=== PATIENT | female | born 1935 | race Caucasian/White ===

== ENCOUNTER 2017-08-09 09:37 | Outpatient (POV) | payer MEDICARE, OTHER, SELFPAY | END 2017-08-09 11:23 | disposition home or self-care (01) | PROVIDERS: Visit Provider Podiatrist | DX: M25.572 Pain in left ankle and joints of left foot (principal); M25.571 Pain in right ankle and joints of right foot; E11.8 Type 2 diabetes mellitus with unspecified complications | CPT/HCPCS: 99212; G0127 ==

== ENCOUNTER → 2017-09-27 07:24 | Outpatient (CLI) | payer MEDICARE, OTHER, SELFPAY ==
[2017-09-27 07:54] LABS: Basophils % 0.6 % (0.1-2.0); Eosinophils # 0.3 K/mm3 (0.0-0.4); Eosinophils % 4.4 % (0.1-12.0); Hematocrit 38.6 % (37.0-47.0); Hemoglobin 12.3 g/dL (12.2-16.2); Lymphocytes # 1.5 K/mm3 (0.7-4.5); Lymphocytes % 22.5 K/mm3 (10-50); Mean Corpuscular HGB Conc 31.9 g/dL (31.8-35.4); Mean Corpuscular Hemoglobin 31.6 pg (27.0-31.2); Mean Corpuscular Volume 99.3 fl (81-99); Monocytes # 0.5 K/mm3 (0.1-1.0); Monocytes % 7.3 % (1.7-9.3); Neutrophils # 4.3 K/mm3 (1.8-7.8); Neutrophils % 65.1 % (37.0-80.0); Platelet Count 177 K/mm3 (142-424); Red Blood Count 3.89 M/mm3 (4.20-5.40); Red Cell Distribution Width 13.8 % (11.5-17.5); White Blood Count 6.5 K/mm3 (4.8-10.8)
[2017-09-27 09:14] LABS: Alanine Aminotransferase 82 U/L (12-78); Albumin Level 3.3 gm/dL (3.4-5.0); Albumin/Globulin Ratio 1.3 (1.1-1.8); Alkaline Phosphatase 67 U/L (46-116); Anion Gap 12.6 mEq/L (5-15); Aspartate Amino Transferase 66 U/L (15-37); Bilirubin,Total 0.4 mg/dL (0.2-1.0); Blood Urea Nitrogen 21 mg/dL (7-18); Calcium 9.2 mg/dL (8.5-10.1); Carbon Dioxide 28 mmol/L (21.0-32.0); Chloride 109 mmol/L (98-107); Creatinine,Serum 0.77 mg/dL (0.55-1.02); Estimated Glomerular Filt Rate 72 ml/min (>60); GFR (African American) 87 ML/MIN (>60); Globulin 2.5 gm/dl (1.3-3.2); Glucose 101 mg/dL (74-106); Potassium 4.6 mmoL/L (3.5-5.1); Sodium 145 mmol/L (136-145); Total Protein,Serum 5.8 gm/dL (6.4-8.2)
== END ==
PROVIDERS: PCP Nurse Practitioner Family; Visit Provider Nurse Practitioner Acute Care
DX: R94.5 Abnormal results of liver function studies (principal)
CPT/HCPCS: 36415; 80053; 85025

== ENCOUNTER 2017-10-19 10:57 | Observation (INO) | payer MEDICARE, OTHER, SELFPAY ==
[2017-10-19 11:01] VITALS: BP 152/72; PULSE 84; RESP 18; TEMP 36.9; O2SAT 90; BMI 24.4
--- NOTE | 2017-10-19 11:20 | CT_ITS ---
CT head/brain wo con Ordering Physician: Walt Giordano MD Patient Age: 82 years: Female HISTORY. Mental status changes.: ITS.REASON: CONFUSION TECHNIQUE routine axial CT head without contrast. Bone & brain windows performed & submitted to PACS. COMPARISON :Previous CT orbits 2010 partially includes right. FINDINGS . No hemorrhage... No subdural collection. No definitive acute findings. Minimal chronic small vessel deep white matter ischemic changes. Low-density about the anterior horn of the lateral ventricles is similar to 2010 CT orbits There are also also subtle low density changes involving more peripheral white matter frontal lobe and which extends into a gyrus at the left frontal lobe.- Nonspecific feature. More likely chronic subcortical small vessel ischemic feature, but difficult to exclude a a recent or acute area of ischemic change if acute event.(. Axial image 33, 34.) Of gradually progressive symptoms continue to consider postcontrast CT to exclude any underlying pathology otherwise. Also question subtle decreased density subcortical deep white matter on right right frontal lobe on axial image 32. Again likely reflecting small vessel ischemic feature. Posterior fossa appears normal. Abnormal findings at orbits as previously noted in 2010 Enlargement of the inferior rectus muscle on right more so than left likely similar to 2010.. Generous thickness of the optic nerve bilaterally, right more appears slightly more evident more evident than 2010.. These Requires correlation. is there a history of thyroid ophthalmoplegia? Minimal Subtle stranding at retrobulbar fat again noted similar, previous studies Focal calcification most likely tiny metallic elements at the sclera anterior left orbit previous surgery here possibly at left globe? Versus foreign body. This feature was not present in 2009?. Has been interval surgery to the left globe such as cataract surgery? The paranasal sinuses are clear. Mastoid air cells, middle ear unremarkable. ------IMPRESSION No hemorrhage. No definitive acute findings. Vague low density subcortical deep white matter bilateral, which extends into overlying gyrus at the left frontal lobe and to lesser degree right frontal region. Most likely chronic small vessel ischemic change. However if there are headaches or progressive neurologic symptoms follow-up postcontrast MR or CT warranted (to further exclude underlying lesions.) Note small focal calcification versus possible tiny metallic feature, at sclera of the anterior left globe just to the left of the lens. This was not present 2009. Has a been interval surgery/cataract surgery since 2009?. Requires correlation. (Particularly if MR pursued) At orbits again note enlarge thickened inferior rectus muscles, right greater than left. Mild diffuse thickening of the optic nerve right greater than left also suggested on today's CT head study. Requires correlation. Is there history of thyroid ophthalmoplegia?
--- NOTE | 2017-10-19 11:28 | HMH.EDGENADL ---
ED Disposition Clinical Impression: Altered mental status Qualifiers: Altered mental status type: disorientation Qualified Code(s): R41.0 - Disorientation, unspecified Disposition: Still a Patient Condition on Discharge: Good Referrals: Magi Flanagan APRN [Primary Care Provider] - - Critical Care Critical Care Time: No Attestation: On , the high probability of a clinically significant, sudden or life threatening deterioration of the following system(s) required my full and direct attention, intervention and personal management. The time I documented below is in addition to time spent performing reported procedures but includes the following listed in this critical care notation. Medical Decision Making Vital Signs: 10/19/17 11:01 Temperature 98.5 F Temperature Source Oral Pulse Rate [Right Brachial] 84 Respiratory Rate 18 Blood Pressure [Right Arm] 152/72 Blood Pressure Mean [Right Arm] 98 Blood Pressure Source [Right Arm] Automatic Cuff Blood Pressure Position [Right Arm] Supine 02 Sat by Pulse Oximetry 90 L Oxygen Delivery Method Room Air - Lab Data Lab Results 10/19/17 11:20: WBC 11.0 H, RBC 4.08 L, Hgb 13.2, Hct 39.5, MCV 96.9, MCH 32.4 H, MCHC 33.4, RDW 13.1, Plt Count 201, MPV 8.2, Neut % (Auto) 72.7, Lymph % (Auto) 16.5, [place] % (Auto) 8.7, Eos % (Auto) 1.7, Baso % (Auto) 0.4, Neut # (Auto) 8.0 H, Lymph # (Auto) 1.8, [place] # (Auto) 1.0, Eos # (Auto) 0.2, Baso # (Auto) 0.0 10/19/17 11:20: Sodium 137, Potassium 4.0, Chloride 102, Carbon Dioxide 27, Anion Gap 12.0, BUN 20 H, Creatinine 0.83, Estimated Creat Clear 44, Estimated GFR 66, Est GFR ( Amer) 80, Glucose 102, Calcium 9.5, Total Bilirubin 0.7, AST 41 H, ALT 41, Alkaline Phosphatase 60, Total Creatine Kinase 151, CK-MB (CK-2) 0.8, CK-MB (CK-2) Rel Index 0.5, Troponin I < 0.02, Total Protein 7.1, Albumin 3.5, Globulin 3.6 H, Albumin/Globulin Ratio 1.0 L 10/19/17 11:20: TSH 0.52, Free T4 1.46 10/19/17 11:23: Influenza Type A Ag Negative, Influenza Type B Ag Negative 10/19/17 12:09: Urine Color Yellow, Urine Appearance Clear, Urine pH 8.0, Ur Specific [place] 1.015, Urine Protein Negative, Urine Glucose (UA) Negative, Urine Ketones 1+, Urine Blood Negative, Urine Nitrate Negative, Urine Bilirubin Negative, Urine Urobilinogen 0.2, Ur Leukocyte Esterase Negative, Urine RBC Occasional, Urine WBC Occasional, Ur Squamous Epith Cells Occasional, Urine Bacteria 1+ Result diagrams: 10/19/17 11:20 10/19/17 11:20 Orders (Tests/Meds): ED MEDICATIONS Discontinued Medications Generic Name Dose Route Start Last Admin Trade Name Freq PRN Reason Stop Dose Admin Hydrocodone Bitart/Acetaminophen 1 tab 10/19/17 14:42 10/19/17 14:43 Vance 5/325mg Tablet PO 10/19/17 14:43 1 tab ONCE ONE Administration ORDERS Category Date Time Status EKG Request [ECG Request by /Fausto] Stat Y 10/19/17 11:29 Ordered - Radiology Data #1 Image(s): Chest, L-Spine Image Reviewed: Yes I reviewed the patient's radiology results Chest x-ray interpreted by Walt Giordano M.D. No infiltrate, pneumothorax, pleural effusion, or wide mediastinum. Lumbar x-ray interpreted by Walt Giordano MD. Negative for fracture, dislocation, or subluxation. Severe scoliosis and degenerative changes with large osteophytes. - CT Data CT Scan: Head Time Received: 12:[address] Reviewed: Yes: I have viewed the radiologist's interpretation Findings Narrative: No hemorrhage, no definite acute findings. Small focal calcification versus metallic feature left anterior ocular globe. Low density in subcortical white matter bilaterally. Enlarged inferior rectus muscles. - ECG Data Tracing #1 EKG interpreted by Walt Giordano MD: Rhythm: sinus Rate: 80 [place]: normal Ectopy: none Conduction: Incomplete right bundle branch block Prior electrocardiagrams reviewed. ST Segment Changes: none T Wave Changes: none Q Waves: none No evidence of acute
[2017-10-19 11:30] LABS: Basophils % 0.4 % (0.1-2.0); Eosinophils # 0.2 K/mm3 (0.0-0.4); Eosinophils % 1.7 % (0.1-12.0); Hematocrit 39.5 % (37.0-47.0); Hemoglobin 13.2 g/dL (12.2-16.2); Lymphocytes # 1.8 K/mm3 (0.7-4.5); Lymphocytes % 16.5 K/mm3 (10-50); Mean Corpuscular HGB Conc 33.4 g/dL (31.8-35.4); Mean Corpuscular Hemoglobin 32.4 pg (27.0-31.2); Mean Corpuscular Volume 96.9 fl (81-99); Mean Platelet Volume 8.2 fl (7.4-10.4); Monocytes % 8.7 % (1.7-9.3); Neutrophils % 72.7 % (37.0-80.0); Platelet Count 201 K/mm3 (142-424); Red Blood Count 4.08 M/mm3 (4.20-5.40); Red Cell Distribution Width 13.1 % (11.5-17.5)
--- NOTE | 2017-10-19 11:39 | PC.NURSE ---
TO RADIOLOGY PER W/C FOR CT OF HEAD
[2017-10-19 11:56] LABS: Alanine Aminotransferase 41 U/L (12-78); Albumin Level 3.5 gm/dL (3.4-5.0); Alkaline Phosphatase 60 U/L (46-116); Aspartate Amino Transferase 41 U/L (15-37); Bilirubin,Total 0.7 mg/dL (0.2-1.0); Blood Urea Nitrogen 20 mg/dL (7-18); CKMB Relative Index 0.5 U/L (0-4.0); Calcium 9.5 mg/dL (8.5-10.1); Carbon Dioxide 27 mmol/L (21.0-32.0); Chloride 102 mmol/L (98-107); Creatine Kinase 151 U/L (26-192); Creatine Kinase MB 0.8 mg/ml (0.0-3.6); Creatinine Clearance Estimated 44 mL/min (0-300); Creatinine,Serum 0.83 mg/dL (0.55-1.02); Estimated Glomerular Filt Rate 66 ml/min (>60); GFR (African American) 80 ML/MIN (>60); Globulin 3.6 gm/dl (1.3-3.2); Glucose 102 mg/dL (74-106); Sodium 137 mmol/L (136-145); Total Protein,Serum 7.1 gm/dL (6.4-8.2); Troponin I < 0.02 ng/ml (0.00-0.06)
[2017-10-19 11:58] LABS: Free T4 (Free Thyroxine) 1.46 ng/dl (0.76-1.46); Thyroid Stimulating Hormone 0.52 uIU/ml (0.358-3.740)
[2017-10-19 12:10] LABS: Microscopic, Urine URINE MICROSCOPIC (MICROSCOPIC)
[2017-10-19 12:12] LABS: Appearance,Urine CLEAR (Clear); Bilirubin,Urine Negative (Negative); Blood, Urine Negative (Negative); Color,Urine YELLOW (Yellow); Glucose,Urine (UA) Negative (Negative); Ketones,Urine 1+ (Negative); Leukocyte Esterase,Urine Negative (Negative); Nitrate,Urine Negative (Negative); Protein,Urine Negative (Negative); Specific Gravity, Urine 1.015 (1.005-1.030); Urobilinogen,Urine 0.2 EU/dl (0.2)
[2017-10-19 12:34] LABS: Bacteria,Urine 1+ /lpf; RBC,Urine Occasional #/hpf (0-3); Squamous Epithelial Cell,Urine Occasional #/hpf (0-5); WBC,Urine Occasional #/hpf (0-3)
--- NOTE | 2017-10-19 12:50 | XR_ITS ---
XR chest 2V HISTORY: ITS.REASON: cough, congestion ORDERING PHYSICIAN: Walt Giordano MD PATIENT AGE: 82 years COMPARISON: None available FINDINGS: Unremarkable cardiovascular structures. There are chronic changes in the lung bases. No lobar consolidation or collapse. There is mild lower thoracic curvature convex left and lumbar curvature convex right. There is an old right humeral neck fracture. IMPRESSION: Chronic changes, no acute finding
--- NOTE | 2017-10-19 12:51 | XR_ITS ---
EXAM: XR lumbar spine min 4V HISTORY: ITS.REASON: back pain ORDERING PHYSICIAN: Walt Giordano MD PATIENT AGE: 82 years COMPARISON: None FINDINGS: There is moderate lumbar scoliosis convex right measuring 33 degrees Hand technique. Multilevel degenerative disc disease is present. Juxtaposing osteophytes are present along the left lateral aspect of the scoliosis at L1-L2 and L2-L3. Multilevel degenerative disc disease is present at L1-L2, L2-L3, L3-L4. No fracture or dislocation. No lytic or blastic change. The lateral view is rotated therefore, it is difficult to evaluate for alignment. IMPRESSION: Dextroscoliosis with degenerative disc disease, osteophytosis, and facet arthritic change as described above
--- NOTE | 2017-10-19 15:30 | CI_ITS ---
Cerebrovascular Exam Indications: 435.9 Unspecified transient cerebral ischemia. IMPRESSIONS 1. The bilateral vertebral arteries are patent with normal antegrade flow. 2. Study suggests less than 20% stenosis involving the right internal carotid artery and the left internal carotid artery. Carotid duplex study. Complete study and Doppler flow study including spectral analysis, color and coats scale imaging. Location: Bedside. Patient status: Inpatient. Tables: Arterial flow: + +--------+--------+ Location V sys V ed + +--------+--------+ Right CCA - proximal 53.4cm/s 14.1cm/s + +--------+--------+ Right CCA - distal 45.6cm/s 13.4cm/s + +--------+--------+ Right ECA 47.1cm/s -------- + +--------+--------+ Right ICA - proximal 39.3cm/s 13.3cm/s + +--------+--------+ Right ICA - mid 45.7cm/s 18.7cm/s + +--------+--------+ Right ICA - distal 60.9cm/s 16.7cm/s + +--------+--------+ Right vertebral 35.8cm/s -------- + +--------+--------+ Left CCA - proximal 47.6cm/s 12.8cm/s + +--------+--------+ Left CCA - distal 51.1cm/s 11.8cm/s + +--------+--------+ Left ECA 48.6cm/s -------- + +--------+--------+ Left ICA - proximal 39.3cm/s 15.2cm/s + +--------+--------+ Left ICA - mid 53.5cm/s 21.1cm/s + +--------+--------+ Left ICA - distal 52.5cm/s 17.7cm/s + +--------+--------+ Left vertebral 47.6cm/s -------- + +--------+--------+ Velocity ratios: + + + + + + Right, V sys Right, V ed Left, V sys Left, V ed + + + + + + Max ICA/dist CCA 1.34 1.4 1.05 1.79 + + + + + + (Report amended ) Electronically signed by: Mario Shelton [id number]
--- NOTE | 2017-10-19 15:34 | CA_ITS ---
PROCEDURE: 2-D M-mode and color Doppler study INDICATIONS FOR THE TEST: Chest pain COPD Heart Murmur Tobacco Smoking Palpitations Fatigue Syncope Edema Hypertension Diabetes Mellitus Rheumatic Fever SOB BRIZUELA Obesity Hyperlipidemia Family History HD Additional History TIA PATIENT INFORMATION HEIGHT: 63 WEIGHT:138 GENDER: Female B/P:110/70 2-D/M-MODE INTERPRETATION: 2-D MEASUREMENTS OBSERVED VALUES IN CMS Right Ventricular Dimension (RVDd) 3.2 Interventricular Septum (Thickness)(IVsd) 1.0 Left Ventricular Internal Dimensions(LVIDd) 3.9 Left Ventricular Posterior Wall (Thickness)(LVPWd) .9 Aortic Root 3.6 Aortic Cusp Separation 2.0 Left Atrial Dimensions (LAD) 3.8 2D 1. Left atrium is qualitatively moderately enlarged, left ventricle is normal size, there is mild qualitative concentric left ventricular hypertrophy, visually estimated ejection fraction of 55% with no obvious regional wall motion abnormality. 2. The right atrium and right ventricle are mildly enlarged with normal contractility. 3. The aortic valve is minimally thickened and fibrosed. 4. The mitral valve has mitral annular calcification, leaflets are minimally thickened and calcified, calcification extends and both anterior and posterior mitral leaflet. 5. The tricuspid valve is grossly normal. 6. The pulmonic valve is minimally thickened and fibrosed. 7. No significant pericardial effusion noted. DOPPLER INTERROGATION: Doppler interrogation of the aortic, mitral and tricuspid valve reveals presence of mild mitral and tricuspid regurgitation, calculated right ventricular systolic pressure is 46 mmHg consistent with moderate pulmonary hypertension, grade 1 diastolic dysfunction seen with tissue Doppler evidence of raised left atrial pressure. CONCLUSION: 1. Moderately enlarged left atrium, normal left ventricular size, mild concentric left ventricular hypertrophy, visually estimated ejection fraction 55% with no obvious regional wall motion abnormality, grade 1 diastolic dysfunction seen with tissue Doppler evidence of raised left atrial pressure. 2. Mild mitral and tricuspid regurgitation, calculated right ventricular systolic pressure is 46 mmHg consistent with moderate pulmonary hypertension. 3. No significant pericardial effusion noted.
[2017-10-19 15:55] VITALS: BP 148/68; PULSE 72; RESP 16; TEMP 37.1; O2SAT 92
[2017-10-19 16:44] VITALS: BP 120/64; PULSE 78; RESP 20; TEMP 36.9; O2SAT 96; BMI 25.3
[2017-10-19 20:00] VITALS: BP 113/73; PULSE 68; PULSE 72; RESP 18; TEMP 36.9; O2SAT 96
--- NOTE | 2017-10-19 20:24 | HMH.HP ---
*Admission Date: 10/19/17 *Chief complaint: confusion *History of present illness: 82 year old female presented to the ED for evaluation after she had an episode of confusion and altered gait at [facility] earlier today. Patient was in [facility] to activate a cell phone when she became confused and called her daughter in law stating she did not know how to get out of the store. [facility] staff report patient seemed off-balance and appeared to have difficulty ambulating. Family picked her up from [facility] and brought her to the ED. Family reports she wasn't herself. She continued to be disoriented and did not remember events that occurred on the way to the hospital. She recognized me and was able to tell me about why she went to [facility]. She remembers feeling shaky, cold and having a headache. Currently, she is unable to recall some of the events on the way to the hospital. She reports sinus pressure, clear rhinorrhea, and frontal headache x 3 days. No fevers. States she stopped taking several of her medications including her allergy pill due to elevated liver enzymes. She has some chronic low back/hip pain that has been worse over the last few days since she carried a case of water from the store a few days ago. In the ED, CT head showed multiple chronic issues with no acute pathology. Her labs were unremarkable and liver enzymes were negative. Patient was admitted for observation and further evaluation. [facility] History I have reviewed the patient's past medical history: Yes Medical History: Denies:: Cancer, Diabetes Mellitus Type 1, Diabetes Mellitus Type 2, MRSA Other Medical History: Reports: Arthritis, Hypothyroidism, Sinus Problems Other Surgeries: Yes: Hernia Repair, Tubal Ligation Amputation: No Fractures: No - *Social History Educational Level: Attended High School Smoking Status: Former smoker Tobacco Type: cigarettes #Yrs smoked (if former smoker): 20 Smoking End Date: 22 YEARS Alcohol Intake: never Occupational Status: retired Housing: house - Psychiatric History Expresses thoughts of harming self/others: None Suicide Plan Description: No Plan *Family Hx:: Heart Attack, Hyperlipidemia, Hypertension Review of Systems - Review of Systems Review of systems:: pertinent systems reviewed and negative unless documented below - ENT Reports nasal congestion, Reports nasal discharge, Reports sinus pressure - *Neurologic Reports confusion, Reports headache(s) Meds Home Medications Medication Instructions Recorded Confirmed Type Levothyroxine Sodium 100 mcg PO DAILY 10/19/17 10/19/17 History [Levothyroxine 100mcg (0.1MG) Tab] Levothyroxine Sodium 100 mcg PO DAILY 10/19/17 10/19/17 History [Levothyroxine 100mcg (0.1MG) Tab] Meloxicam [Meloxicam] 7.5 mg PO DAILY 10/19/17 10/19/17 History Methylcellulose (with Sugar) 850 gm PO DAILY 10/19/17 10/19/17 History [Citrucel Powder] Montelukast Sodium [Singulair 10mg 10 mg PO PM 10/19/17 10/19/17 History tablet] Omeprazole [Omeprazole 20mg 20 mg PO DAILY 10/19/17 10/19/17 History Capsule] Polyethylene Glycol 3350 [Miralax 17 gm PO DAILY 10/19/17 10/19/17 History 17gm Packet] Allergies Allergy/AdvReac Type Severity Reaction Status Date / Time fish oil [FISH OIL] Allergy Unknown SWELLING Verified 10/19/17 11:16 quinine [QUININE] Allergy Unknown NA-DIARRHEA Verified 10/19/17 11:16 Exam Vital signs and Labs for Last 24 Hours: Temp Pulse Resp BP Pulse Ox 98.4 F 78 20 120/64 96 10/19/17 16:44 10/19/17 16:44 10/19/17 16:44 10/19/17 16:44 10/19/17 16:44 I & O for Last 24 hours: Intake & Output 10/17/17 10/18/17 10/19/17 10/20/17 11:59 11:59 11:59 11:59 Intake Total 240 / 240 Balance 240 / 240 Weight 138 lb 7.205 oz Narrative: Alert and oriented x3. Able to recall 2/3 words at 5 minute recall. Bilateral grasps equal, no arm drift, tongue midline, no facial droop. Rate and rhythm regular. Lung
--- NOTE | 2017-10-19 20:33 | P.HP_ITS ---
*Admission Date: 10/19/17 *Chief complaint: confusion *History of present illness: 82 year old female presented to the ED for evaluation after she had an episode of confusion and altered gait at [facility] earlier today. Patient was in [facility] to activate a cell phone when she became confused and called her daughter in law stating she did not know how to get out of the store. [facility] staff report patient seemed off-balance and appeared to have difficulty ambulating. Family picked her up from [facility] and brought her to the ED. Family reports she wasn't herself. She continued to be disoriented and did not remember events that occurred on the way to the hospital. She recognized me and was able to tell me about why she went to [facility]. She remembers feeling shaky, cold and having a headache. Currently, she is unable to recall some of the events on the way to the hospital. She reports sinus pressure, clear rhinorrhea , and frontal headache x 3 days. No fevers. States she stopped taking several of her medications including her allergy pill due to elevated liver enzymes. She has some chronic low back/hip pain that has been worse over the last few days since she carried a case of water from the store a few days ago. In the ED , CT head showed multiple chronic issues with no acute pathology. Her labs were unremarkable and liver enzymes were negative. Patient was admitted for observation and further evaluation. [facility] History I have reviewed the patient's past medical history: Yes Medical History: Denies:: Cancer, Diabetes Mellitus Type 1, Diabetes Mellitus Type 2, MRSA Other Medical History: Reports: Arthritis, Hypothyroidism, Sinus Problems Other Surgeries: Yes: Hernia Repair, Tubal Ligation Amputation: No Fractures: No - *Social History Educational Level: Attended High School Smoking Status: Former smoker Tobacco Type: cigarettes #Yrs smoked (if former smoker): 20 Smoking End Date: 22 YEARS Alcohol Intake: never Occupational Status: retired Housing: house - Psychiatric History Expresses thoughts of harming self/others: None Suicide Plan Description: No Plan *Family Hx:: Heart Attack, Hyperlipidemia, Hypertension Review of Systems - Review of Systems Review of systems:: pertinent systems reviewed and negative unless documented below - ENT Reports nasal congestion, Reports nasal discharge, Reports sinus pressure - *Neurologic Reports confusion, Reports headache(s) Meds Home Medications Medication Instructions Recorded Confirmed Type Levothyroxine Sodium 100 mcg PO DAILY 10/19/17 10/19/17 History [Levothyroxine 100mcg (0.1MG) Tab] Levothyroxine Sodium 100 mcg PO DAILY 10/19/17 10/19/17 History [Levothyroxine 100mcg (0.1MG) Tab] Meloxicam [Meloxicam] 7.5 mg PO DAILY 10/19/17 10/19/17 History Methylcellulose (with Sugar) 850 gm PO DAILY 10/19/17 10/19/17 History [Citrucel Powder] Montelukast Sodium [Singulair 10mg 10 mg PO PM 10/19/17 10/19/17 History tablet] Omeprazole [Omeprazole 20mg 20 mg PO DAILY 10/19/17 10/19/17 History Capsule] Polyethylene Glycol 3350 [Miralax 17 gm PO DAILY 10/19/17 10/19/17 History 17gm Packet] Allergies Allergy/AdvReac Type Severity Reaction Status Date / Time fish oil [FISH OIL] Allergy Unknown SWELLING Verified 10/19/17 11:16 quinine [QUININE] Allergy Unknown NA-DIARRHEA Verified 10/19/17 11:16 Exam Vital signs and Labs for Last 24 Hours: Temp Pulse Resp BP Pulse
[2017-10-20] VITALS: BP 102/60; PULSE 71; PULSE 80; RESP 16; TEMP 36.7; O2SAT 97
[2017-10-20 04:00] VITALS: BP 109/56; PULSE 70; PULSE 75; RESP 16; TEMP 36.4; O2SAT 93
--- NOTE | 2017-10-20 04:34 | PC.NURSE ---
PT HAS SLEPT. SON HAS REMAINED AT [facility]. NSR ON TELEMETRY. PT HAD COMPLAINT OF HEADACHE AROUND 2300 BUT REFUSED PAIN MED.
[2017-10-20 07:45] VITALS: BP 112/61; PULSE 78; RESP 16; TEMP 37.1; O2SAT 96
--- NOTE | 2017-10-20 07:49 | P.CONPHA_ITS ---
[facility] Pharmacy VTE Monitoring - Patient Demographics Admission date: 10/19/17 Report Date: 10/20/17 Time: 07:49 Allergies/Adverse Reactions: Patient Allergies fish oil [FISH OIL] Allergy (Unknown, Verified 10/19/17 11:16) SWELLING quinine [QUININE] Allergy (Unknown, Verified 10/19/17 11:16) NA-DIARRHEA Height: 1.57 m Weight: 62.8 kg Patient Problems: Current Active Problems Altered mental status (Acute) TIA (transient ischemic attack) (Acute) Seasonal allergic rhinitis (Acute) Low back pain (Chronic) - VTE Risk Labs: VTE Related Lab Results Hgb 13.2 g/dL (12.2-16.2) 10/19/17 11:20 Hct 39.5 % (37.0-47.0) 10/19/17 11:20 Plt Count 201 K/mm3 (142-424) 10/19/17 11:20 BUN 20 mg/dL (7-18) H 10/19/17 11:20 Creatinine 0.83 mg/dL (0.55-1.02) 10/19/17 11:20 Estimated Creat Clear 44 mL/min (0-300) 10/19/17 11:20 Was VTE Risk Assessment Performed: Yes VTE Risk Level: Very Low Risk Clinical Trial Participant: No - Prophylaxis VTE Prophylaxis Ordered?: Yes Types of VTE Prophylaxis: TEDS Knee High Location of Applied Device: Bilateral Lower Extremeties
--- NOTE | 2017-10-20 08:02 | HMH.DCSUM ---
General - General Admission date: 10/19/17 Discharge date: 10/20/17 HPI HPI: 82 year old female presented to the ED for evaluation after she had an episode of confusion and altered gait at [facility] earlier today. Patient was in [facility] to activate a cell phone when she became confused and called her daughter in law stating she did not know how to get out of the store. [facility] staff report patient seemed off-balance and appeared to have difficulty ambulating. Family picked her up from [facility] and brought her to the ED. Family reports she wasn't herself. She continued to be disoriented and did not remember events that occurred on the way to the hospital. She recognized me and was able to tell me about why she went to [facility]. She remembers feeling shaky, cold and having a headache. Currently, she is unable to recall some of the events on the way to the hospital. She reports sinus pressure, clear rhinorrhea, and frontal headache x 3 days. No fevers. States she stopped taking several of her medications including her allergy pill due to elevated liver enzymes. She has some chronic low back/hip pain that has been worse over the last few days since she carried a case of water from the store a few days ago. In the ED, CT head showed multiple chronic issues with no acute pathology. Her labs were unremarkable and liver enzymes were negative. Patient was admitted for observation and further evaluation. Objective Vital signs: Temp Pulse Resp BP Pulse Ox 98.7 F 78 16 112/61 96 10/20/17 07:45 10/20/17 07:45 10/20/17 07:45 10/20/17 07:45 10/20/17 07:45 Narrative: Morning patient is awake, alert, oriented ?3. Able to give a very detailed sequence of events leading up to her hospitalization yesterday. Cranial nerves are intact and symmetric bilaterally, heart rate regular. Lungs are clear. Peripheral neurologic exam is normal with normal strength, coordination and normal sensation. Hospital Course Hospital Course: Patient was admitted overnight, echocardiogram revealed age-related changes but no significant wall motion abnormalities. Likewise, her CT scan showed changes consistent with her age but no evidence of causation for this event. Laboratory studies were also unremarkable. Patient was gently hydrated overnight and this morning feels much better. Her only complaint today is that it is difficult to swallow. By this she means that food sticks in the lower part of the esophagus and that she feels like she has a lot of gas and bloating. Plan will be to have speech therapy see her before discharge to ensure this is not a swallowing mechanism issue, PT screen to make sure she does not need ongoing physical therapy. I will follow her up in 48 hours to review medications. Discharge Plan - Patient Discharge Instructions ACTIVITY: Continue current activity - Follow up Plan Follow up with: Adelso Demarco MD [Staff Physician] - 2 days Disposition: Home, Self-Senior Living Medications: Home Medications Medication Instructions Recorded Confirmed Type Levothyroxine Sodium 100 mcg PO DAILY 10/19/17 10/19/17 History [Levothyroxine 100mcg (0.1MG) Tab] Meloxicam [Meloxicam] 7.5 mg PO DAILY 10/19/17 10/19/17 History Methylcellulose (with Sugar) 850 gm PO DAILY 10/19/17 10/19/17 History [Citrucel Powder] Montelukast Sodium [Singulair 10mg 10 mg PO PM 10/19/17 10/19/17 History tablet] Omeprazole [Omeprazole 20mg 20 mg PO DAILY 10/19/17 10/19/17 History Capsule] Polyethylene Glycol 3350 [Miralax 17 gm PO DAILY 10/19/17 10/19/17 History 17gm Packet] Prescriptions/Medication Reconciliation: New Aspirin [Aspir 81] 81 mg PO DAILY 2 Days #30 tablet.dr Durham Montelukast Sodium [Singulair 10mg tablet] 10 mg PO PM Meloxicam [Meloxicam] 7.5 mg PO DAILY Polyethylene Glycol 3350 [Miralax 17gm Packet] 17 gm PO DAILY Methylcellulose (with Sugar) [Citrucel Powder]
--- NOTE | 2017-10-20 08:05 | P.DS_ITS ---
General - General Admission date: 10/19/17 Discharge date: 10/20/17 HPI HPI: 82 year old female presented to the ED for evaluation after she had an episode of confusion and altered gait at [facility] earlier today. Patient was in [facility] to activate a cell phone when she became confused and called her daughter in law stating she did not know how to get out of the store. [facility] staff report patient seemed off-balance and appeared to have difficulty ambulating. Family picked her up from [facility] and brought her to the ED. Family reports she wasn't herself. She continued to be disoriented and did not remember events that occurred on the way to the hospital. She recognized me and was able to tell me about why she went to [facility]. She remembers feeling shaky, cold and having a headache. Currently, she is unable to recall some of the events on the way to the hospital. She reports sinus pressure, clear rhinorrhea , and frontal headache x 3 days. No fevers. States she stopped taking several of her medications including her allergy pill due to elevated liver enzymes. She has some chronic low back/hip pain that has been worse over the last few days since she carried a case of water from the store a few days ago. In the ED , CT head showed multiple chronic issues with no acute pathology. Her labs were unremarkable and liver enzymes were negative. Patient was admitted for observation and further evaluation. Objective Vital signs: Temp Pulse Resp BP Pulse Ox 98.7 F 78 16 112/61 96 10/20/17 07:45 10/20/17 07:45 10/20/17 07:45 10/20/17 07:45 10/20/17 07:45 Narrative: Morning patient is awake, alert, oriented ?3. Able to give a very detailed sequence of events leading up to her hospitalization yesterday. Cranial nerves are intact and symmetric bilaterally, heart rate regular. Lungs are clear. Peripheral neurologic exam is normal with normal strength, coordination and normal sensation. Hospital Course Hospital Course: Patient was admitted overnight, echocardiogram revealed age-related changes but no significant wall motion abnormalities. Likewise, her CT scan showed changes consistent with her age but no evidence of causation for this event. Laboratory studies were also unremarkable. Patient was gently hydrated overnight and this morning feels much better. Her only complaint today is that it is difficult to swallow. By this she means that food sticks in the lower part of the esophagus and that she feels like she has a lot of gas and bloating. Plan will be to have speech therapy see her before discharge to ensure this is not a swallowing mechanism issue, PT screen to make sure she does not need ongoing physical therapy. I will follow her up in 48 hours to review medications. Discharge Plan - Patient Discharge Instructions ACTIVITY: Continue current activity - Follow up Plan Follow up with: Adelso Demarco MD [Staff Physician] - 2 days Disposition: Home, Self-Custodial Medications: Home Medications Medication Instructions Recorded Confirmed Type Levothyroxine Sodium 100 mcg PO DAILY 10/19/17 10/19/17 History [Levothyroxine 100mcg (0.1MG) Tab] Meloxicam [Meloxicam] 7.5 mg PO DAILY 10/19/17 10/19/17 History Methylcellulose (with Sugar) 850 gm PO DAILY 10/19/17 10/19/17 History [Citrucel Powder] Montelukast Sodium [Singulair 10mg 10 mg PO PM 10/19/17 10/19/17 History tablet] Omeprazole [Omeprazole 20mg 20 mg PO DAILY 10/19/17 10/19/17 History C
--- NOTE | 2017-10-20 10:17 | HMH.SLDYSPHA ---
Speech & Language Evaluation Speech/Language Dysphagia Evaluation Start: 10/20/17 10:04 Freq: ONCE Status: Active Protocol: Document 10/20/17 10:05 GREGORIO (Rec: 10/20/17 10:17 GREGORIO [id number]) Dysphagia Assess/Goals/Plan Assessment Date of Evaluation: 10/20/17 Evaluation Type Initial Certification Assessment/Problems Pt complains of heartburn when eating and feeling of food stuck between mouth and stomach. Pt. Does not complain of coughing or choking when eating or drinking. Complains of gas and burping . Does Patient Qualify for Service No Qualify/Failure Comment Pt. did not demonstrate any signs or symptoms of dysphagia at bedside today. Vocal quality remained clear, no coughing or throat clearing was observed. Plan Pt/Guardian verbally ack understanding Yes of dx/prognosis/goals Pt/Guardian verbally ack understanding Yes of/consent to tx prog G -code Required Yes G-CODES ST Current Status [id number] ST Current Status Modifier CI-At least 1% but less than 20% impaired, limited or restricted ST Goal Status [id number] ST Goal Status Modifier CI-At least 1% but less than 20% impaired, limited or restricted Education Instructions provided RN and patient informed of findings of this assessment. Diet is to remain regular with thin liquids. Pt. to follow up with regular doctor if further concerns with swallowing arise. Pt/Caregiver able to recall information Able to recall/restate Reinforcement needed No Speech & Language HPI History Present Illness Description of Patient Problem Pt. referred for clinical evaluation of swallowing at bedside to rule out dysphagia. Pt. reports gas, burping and never feeling empty . She denies any occurances of coughing or choking during eating and drinking. Pt. was alert and oriented and appropriatly describe
--- NOTE | 2017-10-20 10:37 | HMH.PTEV ---
Physical Therapy Evaluation Rehab PT IP Evaluation Start: 10/20/17 08:01 Freq: ONCE Status: Active Protocol: Document 10/20/17 10:35 RURICHMOND (Rec: 10/20/17 10:37 SHAUNNA [id number]) Subjective/History History History This is the initial PT evaluation for Hawa Vickers. Pt was admittd to [facility] for AMS Subjective Subjective Pt reports she is going home Rehab PT IP Eval Objective Appearance Patient Behavior Appropriate Cooperative Patient Orientation Person Place Time Difficulty following instructions none Speech Pattern Clear Ambulation Patient Able to Ambulate Yes Ambulation Observation IP General Gait Pattern Observation No Deviations/Normal Ambulation Distance (feet) 200 Ambulation Assistive Device None Balance Ability to Arise Able, uses arms to help Sitting Balance Steady, safe Standing Balance Narrow stance w/o support Dynamic Sitting Balance Ability Good Dynamic Standing Balance Ability Good Transfers Bed Transfer Ability Independent Chair Transfer Ability Independent Sit to Stand Bed Transfer Ability Independent Sit to Stand Chair Transfer Ability Independent ROM All Extremities PT ROM Status WFL MMT All Extremities PT MMT WFL Rehab PT IP prob,goals,plan Problems Date of Evaluation: 10/20/17 Rehab Potential Rehab Potential Innapropriate for Skilled Therapy Equipment Needs Assistive Devices None / NA Discharge Plan PT Discharge Plan Pt to return home G -code Required Yes Eval Complexity Eval Charge Codes 59570 - Moderate Complexity G Codes PT Current Status Mobility PT Current Status Modifier CI-At least 1% but less than 20% impaired, limited or restricted PT Goal Status Mobility PT Goal Status Modifer CI-At least 1% but less than 20% impaired, limited or restricted PHYSICIAN CERTIFICATION: I certify the specified therapy services for Hawa Vickers are required, authorized, and reviewed every 30 days.
[2017-10-20 13:31] VITALS: PULSE 60
== END 2017-10-20 10:45 | disposition home or self-care (01) ==
LOC: ER 13:35 → 2ND 15:42
PROVIDERS: Admitting Provider Internal Medicine Adolescent Medicine; Emergency Provider Emergency Medicine; PCP Nurse Practitioner Family; Visit Provider Internal Medicine Adolescent Medicine
DX: R41.82 Altered mental status, unspecified (principal); J30.2 Other seasonal allergic rhinitis; M54.5 Low back pain; G45.8 Other transient cerebral ischemic attacks and related syndromes
CPT/HCPCS: 70450; 71046; 72110; 80053; 81001; 82550; 82553; 84439; 84443; 84484; 85025; 87275; 87276; 92610; 93005; 93041; 93306; 93880; 97162; 99284; G0378

== ENCOUNTER → 2017-10-29 07:07 | Outpatient (CLI) | payer MEDICARE, SELFPAY ==
[2017-10-29 07:22] LABS: Basophils % 0.5 % (0.1-2.0); Eosinophils # 0.4 K/mm3 (0.0-0.4); Eosinophils % 5.1 % (0.1-12.0); Hemoglobin 13.3 g/dL (12.2-16.2); Lymphocytes # 1.7 K/mm3 (0.7-4.5); Lymphocytes % 21.4 K/mm3 (10-50); Mean Corpuscular HGB Conc 31.8 g/dL (31.8-35.4); Mean Corpuscular Hemoglobin 32.2 pg (27.0-31.2); Mean Corpuscular Volume 101.4 fl (81-99); Mean Platelet Volume 7.7 fl (7.4-10.4); Monocytes # 0.7 K/mm3 (0.1-1.0); Monocytes % 7.9 % (1.7-9.3); Neutrophils # 5.3 K/mm3 (1.8-7.8); Neutrophils % 65.1 % (37.0-80.0); Platelet Count 263 K/mm3 (142-424); Red Blood Count 4.14 M/mm3 (4.20-5.40); Red Cell Distribution Width 13.4 % (11.5-17.5); White Blood Count 8.1 K/mm3 (4.8-10.8)
[2017-10-29 07:34] LABS: Alanine Aminotransferase 31 U/L (12-78); Albumin Level 3.3 gm/dL (3.4-5.0); Alkaline Phosphatase 58 U/L (46-116); Anion Gap 11.7 mEq/L (5-15); Bilirubin,Total 0.3 mg/dL (0.2-1.0); Blood Urea Nitrogen 18 mg/dL (7-18); Calcium 8.7 mg/dL (8.5-10.1); Carbon Dioxide 27 mmol/L (21.0-32.0); Chloride 106 mmol/L (98-107); Creatinine,Serum 0.88 mg/dL (0.55-1.02); Estimated Glomerular Filt Rate 62 ml/min (>60); GFR (African American) 75 ML/MIN (>60); Globulin 3.4 gm/dl (1.3-3.2); Glucose 94 mg/dL (74-106); Sodium 140 mmol/L (136-145); Total Protein,Serum 6.7 gm/dL (6.4-8.2)
[2017-10-29 07:39] LABS: Potassium 4.7 mmoL/L (3.5-5.1)
[2017-10-29 07:40] LABS: Aspartate Amino Transferase 27 U/L (15-37)
--- NOTE | 2017-10-29 08:16 | XR_ITS ---
XR DEXA axial skeleton HISTORY: ITS.REASON: OSTEOPAROSIS ORDERING PHYSICIAN: Magi Flanagan PATIENT AGE: 82 years COMPARISON: 10-29-14 FINDINGS: The BMD measured at the left femoral neck is 0.695 g/cm squared with a T score of -2.5. This is considered osteoporotic according to the World Health Organization criteria. Fracture risk is high. Treatment is advised. The L1 L4 density has a T score of -0.2. Incidental note is made of lumbar scoliosis convex right. The lumbar spine density has increased by nearly 50% and the hip density has increased by 1.6% compared to the previous study IMPRESSION: Osteoporosis. Recommend follow-up exam October 2018
== END ==
PROVIDERS: PCP Nurse Practitioner Family; Visit Provider Nurse Practitioner Family
DX: D63.8 Anemia in other chronic diseases classified elsewhere (principal); R74.8 Abnormal levels of other serum enzymes; M81.0 Age-related osteoporosis without current pathological fracture
CPT/HCPCS: 36415; 77080; 80053; 85025

== ENCOUNTER → 2017-11-01 09:06 | Outpatient (CLI) | payer MEDICARE, OTHER, SELFPAY ==
--- NOTE | 2017-11-01 09:13 | XR_ITS ---
XR foot wt bearing RT 3V CLINICAL INDICATION: Right foot pain ORDERING PHYSICIAN: Zulema Abad DPM PATIENT AGE: 82 years COMPARISON: None FINDINGS: No bony or joint abnormality. Normal alignment. No fracture or dislocation. IMPRESSION: Negative right foot
== END ==
PROVIDERS: PCP Internal Medicine Adolescent Medicine; Visit Provider Podiatrist
DX: M79.671 Pain in right foot (principal)
CPT/HCPCS: 73630

== ENCOUNTER 2017-11-04 08:59 | Outpatient (CLI) | payer MEDICARE, OTHER, SELFPAY ==
[2017-11-04 09:01] VITALS: BMI 24.7
[2017-11-04 09:39] VITALS: BP 113/60; PULSE 80; RESP 18; TEMP 36.8; O2SAT 97
[2017-11-04 10:15] VITALS: BP 120/58; PULSE 72; RESP 20; TEMP 36.6; O2SAT 97
== END 2017-11-04 10:15 | disposition home or self-care (01) ==
LOC: INF 08:59
PROVIDERS: PCP Internal Medicine Adolescent Medicine; Visit Provider Internal Medicine Adolescent Medicine
DX: M81.0 Age-related osteoporosis without current pathological fracture (principal)
CPT/HCPCS: 96365; J3489

== ENCOUNTER → 2017-12-09 13:24 | Outpatient (CLI) | payer MEDICARE, SELFPAY ==
[2017-12-09 14:26] LABS: Basophils # 0.1 K/mm3 (0-0.2); Basophils % 0.6 % (0.1-2.0); Eosinophils # 0.4 K/mm3 (0.0-0.4); Eosinophils % 5.1 % (0.1-12.0); Hematocrit 41.8 % (37.0-47.0); Hemoglobin 13.2 g/dL (12.2-16.2); Lymphocytes # 2.2 K/mm3 (0.7-4.5); Lymphocytes % 28.1 K/mm3 (10-50); Mean Corpuscular HGB Conc 31.5 g/dL (31.8-35.4); Mean Corpuscular Hemoglobin 32.3 pg (27.0-31.2); Mean Corpuscular Volume 102.4 fl (81-99); Mean Platelet Volume 8.4 fl (7.4-10.4); Monocytes # 0.6 K/mm3 (0.1-1.0); Monocytes % 8.1 % (1.7-9.3); Neutrophils # 4.5 K/mm3 (1.8-7.8); Neutrophils % 58.2 % (37.0-80.0); Platelet Count 218 K/mm3 (142-424); Red Blood Count 4.09 M/mm3 (4.20-5.40); Red Cell Distribution Width 12.9 % (11.5-17.5); White Blood Count 7.7 K/mm3 (4.8-10.8)
[2017-12-09 15:20] LABS: Alanine Aminotransferase 23 U/L (12-78); Albumin Level 3.6 gm/dL (3.4-5.0); Albumin/Globulin Ratio 1.2 (1.1-1.8); Alkaline Phosphatase 65 U/L (46-116); Anion Gap 14.1 mEq/L (5-15); Aspartate Amino Transferase 29 U/L (15-37); Bilirubin,Total 0.4 mg/dL (0.2-1.0); Blood Urea Nitrogen 18 mg/dL (7-18); Calcium 9.5 mg/dL (8.5-10.1); Carbon Dioxide 25 mmol/L (21.0-32.0); Chloride 109 mmol/L (98-107); Estimated Glomerular Filt Rate 69 ml/min (>60); GFR (African American) 84 ML/MIN (>60); Globulin 2.9 gm/dl (1.3-3.2); Glucose 83 mg/dL (74-106); Potassium 4.1 mmoL/L (3.5-5.1); Sodium 144 mmol/L (136-145); Thyroid Stimulating Hormone 0.31 uIU/ml (0.358-3.740); Total Protein,Serum 6.5 gm/dL (6.4-8.2)
[2017-12-09 15:48] LABS: Erythrocyte Sedimentation Rate 24 mm/hr (0-30)
== END ==
PROVIDERS: Visit Provider Nurse Practitioner Family
DX: K76.89 Other specified diseases of liver (principal); E03.9 Hypothyroidism, unspecified; M19.90 Unspecified osteoarthritis, unspecified site
CPT/HCPCS: 36415; 80053; 84443; 85025; 85651

== ENCOUNTER → 2018-04-07 08:45 | Outpatient (CLI) | payer MEDICARE, OTHER, SELFPAY ==
[2018-04-07 10:00] LABS: Basophils # 0.1 K/mm3 (0-0.2); Basophils % 0.7 % (0.1-2.0); Eosinophils # 0.3 K/mm3 (0.0-0.4); Eosinophils % 4.8 % (0.1-12.0); Hematocrit 39.8 % (37.0-47.0); Hemoglobin 12.8 g/dL (12.2-16.2); Lymphocytes # 2.1 K/mm3 (0.7-4.5); Lymphocytes % 30.8 K/mm3 (10-50); Mean Corpuscular HGB Conc 32.3 g/dL (31.8-35.4); Mean Corpuscular Hemoglobin 32.4 pg (27.0-31.2); Mean Corpuscular Volume 100.5 fl (81-99); Mean Platelet Volume 7.7 fl (7.4-10.4); Monocytes # 0.6 K/mm3 (0.1-1.0); Monocytes % 8.1 % (1.7-9.3); Neutrophils # 3.8 K/mm3 (1.8-7.8); Neutrophils % 55.6 % (37.0-80.0); Platelet Count 231 K/mm3 (142-424); Red Blood Count 3.96 M/mm3 (4.20-5.40); Red Cell Distribution Width 13.8 % (11.5-17.5); White Blood Count 6.8 K/mm3 (4.8-10.8)
[2018-04-07 10:22] LABS: Alanine Aminotransferase 19 U/L (12-78); Albumin Level 3.4 gm/dL (3.4-5.0); Albumin/Globulin Ratio 1.2 (1.1-1.8); Alkaline Phosphatase 59 U/L (46-116); Anion Gap 9.3 mEq/L (5-15); Aspartate Amino Transferase 17 U/L (15-37); Bilirubin,Total 0.4 mg/dL (0.2-1.0); Blood Urea Nitrogen 21 mg/dL (7-18); Calcium 9.3 mg/dL (8.5-10.1); Carbon Dioxide 32 mmol/L (21.0-32.0); Chloride 107 mmol/L (98-107); Creatinine,Serum 0.79 mg/dL (0.55-1.02); Estimated Glomerular Filt Rate 70 ml/min (>60); GFR (African American) 85 ML/MIN (>60); Globulin 2.8 gm/dl (1.3-3.2); Glucose 83 mg/dL (74-106); Potassium 4.3 mmoL/L (3.5-5.1); Sodium 144 mmol/L (136-145); Thyroid Stimulating Hormone 0.69 uIU/ml (0.358-3.740); Total Protein,Serum 6.2 gm/dL (6.4-8.2)
[2018-04-08 15:23] LABS: Vitamin B12 856 pg/mL (232-1245); Vitamin D 25 Hydroxy 53.6 ng/mL (30.0-100.0)
== END ==
PROVIDERS: Visit Provider Nurse Practitioner Family
DX: E53.8 Deficiency of other specified B group vitamins (principal); E03.9 Hypothyroidism, unspecified; K76.89 Other specified diseases of liver; D63.8 Anemia in other chronic diseases classified elsewhere; M81.0 Age-related osteoporosis without current pathological fracture
CPT/HCPCS: 36415; 80053; 82607; 82652; 84443; 85025

== ENCOUNTER → 2018-05-13 09:29 | Outpatient (CLI) | payer MEDICARE, OTHER, SELFPAY ==
--- NOTE | 2018-05-13 09:34 | XR_ITS ---
XR foot LT min 3V HISTORY: ITS.REASON: LT FOOT PAIN ORDERING PHYSICIAN: Adelso Demarco MD PATIENT AGE: 82 years COMPARISON: None FINDINGS: No fracture or dislocation. No lytic or blastic change. There is normal mineralization.. The joint spaces are well-preserved. No significant degenerative/arthritic changes. No erosive changes evident. Mild adjacent change first metatarsophalangeal joint There is mild flattening of the head of second metatarsal however, no osteosclerosis is evident possibly due to a normal variant. Normal alignment. No calcaneal spurs. IMPRESSION: Minimal nonspecific flattening of the head of second metatarsal of questioned clinical significance. This may be seen with avascular necrosis however, no sclerosis is evident. There are mild degenerative changes of the first metatarsophalangeal joint
== END ==
PROVIDERS: PCP Internal Medicine Adolescent Medicine; Visit Provider Internal Medicine Adolescent Medicine
DX: M79.672 Pain in left foot (principal)
CPT/HCPCS: 73630

== ENCOUNTER → 2018-06-20 07:14 | Outpatient (CLI) | payer MEDICARE, SELFPAY ==
[2018-06-20 08:16] LABS: Basophils # 0.1 K/mm3 (0-0.2); Basophils % 0.8 % (0.1-2.0); Eosinophils # 0.3 K/mm3 (0.0-0.4); Eosinophils % 4.5 % (0.1-12.0); Hematocrit 37.2 % (37.0-47.0); Hemoglobin 12.5 g/dL (12.2-16.2); Lymphocytes # 2.1 K/mm3 (0.7-4.5); Lymphocytes % 28.3 K/mm3 (10-50); Mean Corpuscular HGB Conc 33.8 g/dL (31.8-35.4); Mean Corpuscular Hemoglobin 33.3 pg (27.0-31.2); Mean Corpuscular Volume 98.5 fl (81-99); Mean Platelet Volume 7.2 fl (7.4-10.4); Monocytes # 0.6 K/mm3 (0.1-1.0); Monocytes % 7.7 % (1.7-9.3); Neutrophils # 4.4 K/mm3 (1.8-7.8); Neutrophils % 58.7 % (37.0-80.0); Platelet Count 274 K/mm3 (142-424); Red Blood Count 3.77 M/mm3 (4.20-5.40); Red Cell Distribution Width 13.1 % (11.5-17.5); White Blood Count 7.4 K/mm3 (4.8-10.8)
[2018-06-20 08:53] LABS: Alanine Aminotransferase 20 U/L (12-78); Albumin Level 3.3 gm/dL (3.4-5.0); Albumin/Globulin Ratio 1.1 (1.1-1.8); Alkaline Phosphatase 54 U/L (46-116); Anion Gap 12.4 mEq/L (5-15); Aspartate Amino Transferase 20 U/L (15-37); Bilirubin,Total 0.5 mg/dL (0.2-1.0); Blood Urea Nitrogen 18 mg/dL (7-18); Calcium 8.9 mg/dL (8.5-10.1); Carbon Dioxide 27 mmol/L (21.0-32.0); Chloride 105 mmol/L (98-107); Creatinine,Serum 0.93 mg/dL (0.55-1.02); Estimated Glomerular Filt Rate 58 ml/min (>60); GFR (African American) 70 ML/MIN (>60); Glucose 80 mg/dL (74-106); Potassium 4.4 mmoL/L (3.5-5.1); Sodium 140 mmol/L (136-145); Thyroid Stimulating Hormone 0.72 uIU/ml (0.358-3.740); Total Protein,Serum 6.3 gm/dL (6.4-8.2)
[2018-06-20 09:16] LABS: Erythrocyte Sedimentation Rate 34 mm/hr (0-30)
== END ==
PROVIDERS: PCP Internal Medicine Adolescent Medicine; Visit Provider Nurse Practitioner Family
DX: D63.8 Anemia in other chronic diseases classified elsewhere (principal); E03.9 Hypothyroidism, unspecified; K76.89 Other specified diseases of liver; M19.90 Unspecified osteoarthritis, unspecified site
CPT/HCPCS: 36415; 80053; 84443; 85025; 85651

== ENCOUNTER 2018-09-29 11:19 | Outpatient (CLI) | payer MEDICARE, OTHER, SELFPAY ==
[2018-09-29] VITALS (13 sets, daily range): BP systolic 94–123; BP diastolic 54–72; PULSE 69–81; RESP 16–20; TEMP 36.6–36.9; O2SAT 96–98
== END 2018-09-29 15:25 | disposition home or self-care (01) ==
LOC: INF 11:19
PROVIDERS: Visit Provider Internal Medicine
DX: M05.79 Rheumatoid arthritis with rheumatoid factor of multiple sites without organ or systems involvement (principal)
CPT/HCPCS: 96413; 96415; J1745

== ENCOUNTER 2018-10-14 08:55 | Outpatient (CLI) | payer MEDICARE, OTHER, SELFPAY ==
[2018-10-14 10:00] VITALS: BP 107/64; PULSE 68; RESP 20; TEMP 37.2; O2SAT 95
[2018-10-14 10:30] VITALS: BP 106/54; PULSE 68; RESP 20; TEMP 36.9; O2SAT 95
[2018-10-14 11:00] VITALS: BP 106/74; PULSE 68; RESP 20; TEMP 36.9; O2SAT 95
[2018-10-14 11:30] VITALS: BP 108/64; PULSE 68; RESP 20; TEMP 36.9; O2SAT 95
[2018-10-14 12:00] VITALS: BP 108/74; PULSE 68; RESP 20; TEMP 36.9; O2SAT 95
[2018-10-14 12:55] VITALS: BP 112/65; PULSE 68; RESP 20; TEMP 36.9; O2SAT 95
== END 2018-10-14 12:55 | disposition home or self-care (01) ==
LOC: INF 08:55
PROVIDERS: Visit Provider Internal Medicine
DX: M05.79 Rheumatoid arthritis with rheumatoid factor of multiple sites without organ or systems involvement (principal)
CPT/HCPCS: 96413; 96415; J1745

== ENCOUNTER → 2018-10-21 07:10 | Outpatient (CLI) | payer MEDICARE, OTHER, SELFPAY ==
[2018-10-21 08:52] LABS: Chol/HDL Ratio 2.5 (1-3.5); Cholesterol 145 mg/dL (140-200); HDL Cholesterol 59 mg/dL (29-89); LDL Cholesterol 72 mg/dL (0-130); Triglycerides 69 mg/dL (30-200); VLDL Cholesterol 14 mg/dL (0-40)
[2018-10-22 11:02] LABS: Vitamin D 25 Hydroxy 52.2 ng/mL (30.0-100.0)
== END ==
PROVIDERS: Visit Provider Nurse Practitioner Family
DX: E03.9 Hypothyroidism, unspecified (principal); I10 Essential (primary) hypertension; M81.0 Age-related osteoporosis without current pathological fracture
CPT/HCPCS: 36415; 80061; 82652; 84443

== ENCOUNTER 2018-11-04 09:09 | Outpatient (CLI) | payer MEDICARE, OTHER, SELFPAY ==
[2018-11-04 09:09] VITALS: BMI 25.2
[2018-11-04 09:56] LABS: Albumin Level 3.4 gm/dL (3.4-5.0); Creatinine Clearance Estimated 45 mL/min (50-200); Creatinine,Serum 1.03 mg/dL (0.55-1.02); Estimated Glomerular Filt Rate 51 ml/min (>60); GFR (African American) 62 ML/MIN (>60)
[2018-11-04 10:25] VITALS: BP 107/62; PULSE 67; RESP 18; TEMP 36.4; O2SAT 93
[2018-11-04 10:40] VITALS: BP 115/63; PULSE 70; RESP 18
== END 2018-11-04 10:50 | disposition home or self-care (01) ==
LOC: INF 09:09
PROVIDERS: Visit Provider Nurse Practitioner Family
DX: M81.0 Age-related osteoporosis without current pathological fracture (principal)
CPT/HCPCS: 82040; 82310; 82565; 96374; J3489

== ENCOUNTER 2018-11-11 09:56 | Outpatient (CLI) | payer MEDICARE, OTHER, SELFPAY ==
[2018-11-11] VITALS (10 sets, daily range): BP systolic 88–136; BP diastolic 32–109; PULSE 58–80; RESP 18
== END 2018-11-11 13:20 | disposition home or self-care (01) ==
LOC: INF 09:56
PROVIDERS: Visit Provider Internal Medicine
DX: M05.79 Rheumatoid arthritis with rheumatoid factor of multiple sites without organ or systems involvement (principal)
CPT/HCPCS: 96413; 96415; J1745

== ENCOUNTER 2019-01-06 10:00 | Outpatient (CLI) | payer MEDICARE, OTHER, SELFPAY ==
[2019-01-06] VITALS (8 sets, daily range): BP systolic 98–110; BP diastolic 61–69; PULSE 71–78; RESP 18; TEMP 36.6; O2SAT 98–100
== END 2019-01-06 12:55 | disposition home or self-care (01) ==
LOC: INF 10:00
PROVIDERS: Visit Provider Internal Medicine
DX: M05.79 Rheumatoid arthritis with rheumatoid factor of multiple sites without organ or systems involvement (principal)
CPT/HCPCS: 96413; 96415; J1745

== ENCOUNTER 2019-02-17 11:17 | Outpatient (CLI) | payer MEDICARE, OTHER, SELFPAY ==
[2019-02-17] VITALS (10 sets, daily range): BP systolic 91–134; BP diastolic 51–77; PULSE 53–73; RESP 18; O2SAT 96–98
== END 2019-02-17 14:10 | disposition home or self-care (01) ==
LOC: INF 11:17
PROVIDERS: Visit Provider Internal Medicine
DX: M05.79 Rheumatoid arthritis with rheumatoid factor of multiple sites without organ or systems involvement (principal)
CPT/HCPCS: 96413; 96415; J1745

== ENCOUNTER 2019-03-31 09:50 | Outpatient (CLI) | payer MEDICARE, OTHER, SELFPAY ==
[2019-03-31] VITALS (8 sets, daily range): BP systolic 92–124; BP diastolic 33–64; PULSE 62–76; RESP 16–18; TEMP 36.1–36.4; O2SAT 96–99; BMI 25.4
[2019-03-31 10:21] LABS: Basophils % 0.7 % (0.1-2.0); Eosinophils # 0.3 K/mm3 (0.0-0.4); Eosinophils % 5.6 % (0.1-12.0); Hematocrit 36.4 % (37.0-47.0); Hemoglobin 11.4 g/dL (12.2-16.2); Lymphocytes # 1.7 K/mm3 (0.7-4.5); Lymphocytes % 28.1 % (10-50); Mean Corpuscular HGB Conc 31.3 g/dL (31.8-35.4); Mean Corpuscular Hemoglobin 31.4 pg (27.0-31.2); Mean Corpuscular Volume 100.2 fl (81-99); Mean Platelet Volume 7.5 fl (7.4-10.4); Monocytes # 0.6 K/mm3 (0.1-1.0); Monocytes % 9.1 % (1.7-9.3); Neutrophils # 3.4 K/mm3 (1.8-7.8); Neutrophils % 56.5 % (37.0-80.0); Platelet Count 275 K/mm3 (142-424); Red Blood Count 3.63 M/mm3 (4.20-5.40); Red Cell Distribution Width 13.6 % (11.5-17.5); White Blood Count 6.1 K/mm3 (4.8-10.8)
[2019-03-31 10:55] LABS: Alanine Aminotransferase 21 U/L (12-78); Albumin Level 3.2 gm/dL (3.4-5.0); Albumin/Globulin Ratio 0.9 (1.1-1.8); Alkaline Phosphatase 59 U/L (46-116); Anion Gap 13.2 mEq/L (5-15); Aspartate Amino Transferase 23 U/L (15-37); Bilirubin,Total 0.4 mg/dL (0.2-1.0); Blood Urea Nitrogen 19 mg/dL (7-18); Calcium 9.6 mg/dL (8.5-10.1); Carbon Dioxide 28 mmol/L (21.0-32.0); Chloride 101 mmol/L (98-107); Creatinine Clearance Estimated 44 mL/min (50-200); Creatinine,Serum 0.93 mg/dL (0.55-1.02); Estimated Glomerular Filt Rate 58 ml/min (>60); GFR (African American) 70 ML/MIN (>60); Globulin 3.4 gm/dl (1.3-3.2); Glucose 84 mg/dL (74-106); Potassium 4.2 mmoL/L (3.5-5.1); Sodium 138 mmol/L (136-145); Thyroid Stimulating Hormone 0.61 uIU/ml (0.358-3.740); Total Protein,Serum 6.6 gm/dL (6.4-8.2)
--- NOTE | 2019-03-31 10:57 | PC.NURSE ---
1050 infusion increased from 10 ml hr to 20 ml/hr
--- NOTE | 2019-03-31 11:29 | PC.NURSE ---
late entry: 1105 infusion increased from 20 ml/hr to 40 ml/hr 1125 infusion increased from 40 ml/hr to 80 ml/hr pt tolerating well at this time
--- NOTE | 2019-03-31 11:37 | PC.NURSE ---
infusion increased from 80 ml/hr to 150 ml/hr at 1135. pt resting quietly at this time
[2019-04-01 18:48] LABS: Vitamin B12 675 pg/mL (232-1245)
== END 2019-03-31 13:00 | disposition home or self-care (01) ==
LOC: INF 09:57
PROVIDERS: Nurse Practitioner Family; Visit Provider Internal Medicine
DX: E53.8 Deficiency of other specified B group vitamins (principal); E03.9 Hypothyroidism, unspecified; M05.79 Rheumatoid arthritis with rheumatoid factor of multiple sites without organ or systems involvement
CPT/HCPCS: 80053; 82607; 84443; 85025; 96365; 96413; 96415; J1745

== ENCOUNTER → 2019-05-02 09:14 | Outpatient (CLI) | payer MEDICARE, OTHER, SELFPAY ==
--- NOTE | 2019-05-02 09:22 | MM_ITS ---
PROCEDURE: MM DIG SCREENING MAMM BI W/CAD Patient Age:83Y CLINICAL INDICATION: SCREENING 83-year-old with no hormones. No new complaints. Noncontributory family history. COMPARISON: DMSB DIG MAMM-SCREEN OLAMIDE from 07/30/2014 DMSB DIG MAMM-SCREEN OLAMIDE from 08/01/2015 DMSB DIG MAMM-SCREEN OLAMIED from 08/03/2016 DMSB DIG MAMM-SCREEN OLAMIDE W/CAD from 08/06/2017 TECHNIQUE: Standard CC and MLO images were obtained. R2 CAD reviewed. FINDINGS: Generalized fatty replacement. Low-density breast with very minimal residual fibroglandular elements No new areas of concern. No dominant mass no suspicious calcifications. Nodes no significant change. Vascular calcifications bilaterally IMPRESSION: A stable bilateral mammogram no new areas of concern. Bilateral follow-up 1 year recommended BI-RAD Category: 1 Negative FOLLOW-UP: 1YR 1 Year Follow-up (A letter has been sent to the patient regarding results of the study.) Dictated by: Bravo Anton MD 05/03/2019 09:48 Signed by: <Electronically signed by Bravo Anton MD in [place]> 05/03/2019 09:48
== END ==
PROVIDERS: PCP Internal Medicine Adolescent Medicine; Visit Provider Internal Medicine Adolescent Medicine
DX: Z12.31 Encounter for screening mammogram for malignant neoplasm of breast (principal)
CPT/HCPCS: 77067

== ENCOUNTER 2019-06-09 10:02 | Outpatient (CLI) | payer MEDICARE, OTHER, SELFPAY ==
[2019-06-09] VITALS (9 sets, daily range): BP systolic 92–102; BP diastolic 47–56; PULSE 61–78; RESP 20; TEMP 36.4; O2SAT 97–98
== END 2019-06-09 13:28 | disposition home or self-care (01) ==
LOC: INF 10:02
PROVIDERS: Visit Provider Internal Medicine
DX: M05.79 Rheumatoid arthritis with rheumatoid factor of multiple sites without organ or systems involvement (principal)
CPT/HCPCS: 96413; 96415; J1745

== ENCOUNTER → 2019-07-18 08:04 | Outpatient (POV) | payer MEDICARE, OTHER, SELFPAY | PROVIDERS: Visit Provider Dermatology | DX: Z00.00 Encounter for general adult medical examination without abnormal findings (principal) ==

== ENCOUNTER 2019-07-21 09:57 | Outpatient (CLI) | payer MEDICARE, OTHER, SELFPAY ==
[2019-07-21] VITALS (9 sets, daily range): BP systolic 111–129; BP diastolic 63–76; PULSE 62–88; RESP 18
== END 2019-07-21 13:15 | disposition home or self-care (01) ==
LOC: INF 09:58
PROVIDERS: Visit Provider Internal Medicine
DX: M05.79 Rheumatoid arthritis with rheumatoid factor of multiple sites without organ or systems involvement (principal)
CPT/HCPCS: 96413; 96415; J1745

== ENCOUNTER 2019-09-01 10:02 | Outpatient (CLI) | payer MEDICARE, OTHER, SELFPAY ==
[2019-09-01] VITALS (10 sets, daily range): BP systolic 100–126; BP diastolic 43–74; PULSE 60–81; RESP 18–20; TEMP 36.2; O2SAT 95
== END 2019-09-01 13:05 | disposition home or self-care (01) ==
LOC: INF 10:02
PROVIDERS: Visit Provider Internal Medicine
DX: M05.79 Rheumatoid arthritis with rheumatoid factor of multiple sites without organ or systems involvement (principal)
CPT/HCPCS: 96413; 96415; J1745

== ENCOUNTER → 2019-10-10 06:33 | Outpatient (CLI) | payer MEDICARE, OTHER, SELFPAY ==
--- NOTE | 2019-10-10 06:33 | CA_ITS ---
APPROVED REPORT EXAM: Comprehensive 2D, Doppler, and color-flow Echocardiogram Organ Tuner: Kiki Cortez RDCS Ht: 5 ft 2 in Wt: 138lbs BSA: 1.63 BP: 122/78 mmHg Indications: Abnormal ECG, Chest Pain, Shortness of Breath, Palpitations M-Mode Dimensions RVDd 2.58 cm (0.9-2.6) LVDd 4.20 cm (3.5-5.7) LVDs 2.91 cm (3.5-5.7) IVSd 0.79 cm (0.6-1.1) PWd 0.97 cm (0.6-1.1) EF (Teich) 58.70% FS 30.70% EDV (Teich) 78.60 mL ESV (Teich) 32.50 mL LV Diastology E/A Ratio 0.70 Mitral Valve MV A Velocity 87.00 (40-130 cm/s) Left Ventricle Left atrium is mildly enlarged, left ventricle is normal size, mild concentric left ventricular hypertrophy, visually estimated ejection fraction 55% with no regional wall motion abnormality, septum is sigmoid configuration. Grade 1 diastolic dysfunction seen without tissue Doppler evidence of raise left atrial pressure. Right Ventricle Right atrium is mildly enlarged, right ventricle is normal size and contractility. Aortic Valve Aortic valve is thickened and calcified, there is no aortic stenosis or aortic insufficiency. Mitral Valve Mitral valve has mitral annular calcification, leaflets are minimally thickened and calcified, there is no mitral stenosis, there is mild mitral regurgitation. Tricuspid Valve Tricuspid valve is grossly normal, there is mild tricuspid regurgitation, calculated right ventricular systolic pressure is 48 mmHg. Pulmonic Valve Pulmonic valve is poorly visualized. Great Vessels Aortic root is normal size. Pericardium No significant pericardial effusion noted. Conclusion 1. Biatrial enlargement, normal left ventricular size, mild concentric left ventricular hypertrophy, visually estimated ejection fraction 55% with no regional wall motion abnormality, grade 1 diastolic dysfunction seen without tissue Doppler evidence of raise left atrial pressure. 2. Mild mitral and tricuspid regurgitation, calculated right ventricular systolic pressure is 48mmHg. 3. No significant pericardial effusion noted. Electronically signed by : Moises Macdonald, 10/11/2019 06:10:59
--- NOTE | 2019-10-10 06:33 | CA_ITS ---
APPROVED REPORT Exam: Pharmacologic Technologist: Maylin Jules Ht: 5 ft 2 in Wt: 140 lbs BSA: 1.64 m2 HR: 66 bpm BP: 136/64 mmHg Indications: Chest pain, Palpitations, Shortness of Air Medical History Medications: Omeprazole,,,,, Aspirin,,,,, Vitamin E,,,,, Calcium,,,,, FluTICASONE,,,,, Hydroxychloroquine,,,,, PolyethYLENE,,,,, BenzEPRIL,,,,, Levythyroxine,,,,, Stress Test Details Test: LEXISCAN HR Resting HR: 69 bpm Max Heart Rate (APMHR): 138 bpm Max HR Achieved: 125 bpm Target HR (85% APMHR): 117 bpm % of APMHR: 90 Recovery HR: 77 bpm BP Resting BP: 136.0/64.0 mmHg Max BP: 141.0/62.0 mmHg Recovery BP: 126.0/63.0 mmHg ECG Clinical Exercise duration: 04:02 min Highest Stage Achieved: Exercise capacity: 1.0 METs Stress ECG Conclusion Resting ECG: Normal sinus rhythm, PVCs Symptoms: Mild malaise, stomach discomfort and headache. No chest pain. Arrhythmias/Ectopy: Occasional isolated PVC ST-T Changes: No significant changes Conclusion: Unremarkable Lexiscan stress. Myoview images reported separately. Electronically signed by : Moises Macdonald, 10/10/2019 21:13:26
--- NOTE | 2019-10-10 06:33 | NM_ITS ---
APPROVED REPORT Exam: Nuclear Stress Test Indication: soa c.p., palpitations, htn, fatique, fm.hx. Patient Location: Outpatient Stress Tech: Maylin Jules OR Tech:Roz McgillTRAE RT (R)(N)(M) Ht: 5 ft 2 in Wt: 140 lbs Bra Size: b HR: 66 bpm BP: 136/64 mmHg BSA: 1.64 m2 BMI: 25.6 History: soa c.p., palpitations, htn, fatique, fm.hx. Procedure: Patient received a 0.4 mg of intravenous Lexiscan, resting heart rate 66 bpm, resting blood pressure 136/64 mmHg, with Lexiscan maximum heart rate achived was 93 bpm which is Less than 85 % of the maximum predicted heart rate and blood pressure was 131/75 mmHg. Electrocardiogram Resting electrocardiogram shows sinus rhythm, with Lexiscan there is less than 1.[address] segment depression noted in the baseline EKG. The EKG portion of the Lexiscan Myoview is nondiagnostic. Cardiac Stress and Resting SPECT Images: Cardiac Stress and Resting SPECT images were obtained using technetium 99m Myoview 31.4 mCi stress and 10.57 mCi at rest. Gated SPECT with analysis of segmental wall motion and calculation of the ejection fraction diastolic. Cardiac stress and resting SPECT images show a fixed defect involving the apex with normal contracted gated SPECT is likely secondary to soft tissue attenuation, no reversible ischemia seen, computer derived ejection fraction is 61% with no regional wall motion abnormality, right ventricle is mildly enlarged with normal contractility. Conclusion: 1. The EKG portion of the Lexiscan sestamibi is nondiagnostic. 2. No scintigraphic evidence of reversible ischemia seen, computer derived ejection fraction is 61% with no regional wall motion abnormality, right ventricle is mildly enlarged with normal contractility. 3. Likely normal Lexiscan Myoview study. Electronically signed by : Moises Macdonald, 10/12/2019 15:31:19
--- NOTE | 2019-10-10 08:42 | HMH.ITSHM ---
Current Home Medications as stated by this patient Hawa Vickers or personal service representative. []ASPIRIN CICLOPIROX BENAZEPRIL CALCIUM KONSYL LEVOTHYROXINE MIRALAX OMEPRAzole plaquenil vit E
== END ==
PROVIDERS: PCP Internal Medicine Adolescent Medicine; Visit Provider Urology
DX: I10 Essential (primary) hypertension (principal); R06.00 Dyspnea, unspecified; R07.9 Chest pain, unspecified; R94.31 Abnormal electrocardiogram [ECG] [EKG]
CPT/HCPCS: 78452; 93017; 93306; A9502; J2785

== ENCOUNTER 2019-10-13 10:20 | Outpatient (CLI) | payer MEDICARE, OTHER, SELFPAY ==
[2019-10-13] VITALS (10 sets, daily range): BP systolic 98–134; BP diastolic 58–71; PULSE 64–74; RESP 18–20; TEMP 36.7
== END 2019-10-13 13:35 | disposition home or self-care (01) ==
LOC: INF 10:28
PROVIDERS: Visit Provider Internal Medicine
DX: M05.79 Rheumatoid arthritis with rheumatoid factor of multiple sites without organ or systems involvement (principal)
CPT/HCPCS: 96413; 96415; J1745

== ENCOUNTER → 2019-10-24 11:49 | Outpatient (CLI) | payer MEDICARE, OTHER, SELFPAY ==
[2019-10-24 13:56] LABS: Anion Gap 10.6 mEq/L (5-15); Blood Urea Nitrogen 18 mg/dl (7-17); Calcium 9.5 mg/dl (8.4-10.2); Carbon Dioxide 28 mmol/L (22.0-30.0); Chloride 101 mmol/L (98-107); Estimated Glomerular Filt Rate 69 ml/min (>60); GFR (African American) 83 ML/MIN (>60); Glucose 71 mg/dl (74-100); Potassium 3.6 mmoL/L (3.5-5.1); Sodium 136 mmol/L (136-145)
== END ==
PROVIDERS: Visit Provider Physician Assistant
DX: I50.30 Unspecified diastolic (congestive) heart failure (principal)
CPT/HCPCS: 36415; 80048

== ENCOUNTER 2019-11-08 10:57 | Outpatient (CLI) | payer MEDICARE, OTHER, SELFPAY ==
[2019-11-08 10:59] VITALS: BMI 23.8
[2019-11-08 11:06] VITALS: BP 136/63; PULSE 67; RESP 18; TEMP 36.2; O2SAT 100
== END 2019-11-08 11:29 | disposition home or self-care (01) ==
LOC: INF 10:57
PROVIDERS: Visit Provider Nurse Practitioner Family
DX: M05.79 Rheumatoid arthritis with rheumatoid factor of multiple sites without organ or systems involvement (principal); M81.0 Age-related osteoporosis without current pathological fracture
CPT/HCPCS: 96374; J3489

== ENCOUNTER 2019-11-13 15:00 | Outpatient (RCR) | payer MEDICARE, OTHER, SELFPAY | END 2019-11-13 16:10 | disposition home or self-care (01) | LOC: PT 15:00 | PROVIDERS: PCP Internal Medicine Adolescent Medicine; Visit Provider Nurse Practitioner Women's Health | DX: M54.5 Low back pain (principal) | CPT/HCPCS: 97010; 97014; 97110; 97163; G0283 ==

== ENCOUNTER 2019-11-24 10:35 | Outpatient (CLI) | payer MEDICARE, OTHER, SELFPAY ==
[2019-11-24 11:15] VITALS: BP 124/75; PULSE 63; RESP 18; TEMP 36.3
[2019-11-24 11:30] VITALS: BP 128/71; PULSE 64; RESP 20
[2019-11-24 12:00] VITALS: BP 112/75; PULSE 70; RESP 18
[2019-11-24 12:15] VITALS: BP 115/61; PULSE 73; RESP 18
[2019-11-24 13:35] VITALS: BP 108/68; PULSE 78; RESP 20
== END 2019-11-24 13:35 | disposition home or self-care (01) ==
LOC: INF 10:35
PROVIDERS: Visit Provider Internal Medicine
DX: M05.79 Rheumatoid arthritis with rheumatoid factor of multiple sites without organ or systems involvement (principal)
CPT/HCPCS: 96413; 96415; J1745

== ENCOUNTER → 2019-11-29 08:11 | Outpatient (CLI) | payer MEDICARE, OTHER, SELFPAY ==
[2019-11-29 10:30] LABS: Chloride 99 mmol/L (98-107); Potassium 4.2 mmoL/L (3.5-5.1); Sodium 133 mmol/L (136-145)
[2019-11-29 10:33] LABS: Blood Urea Nitrogen 12 mg/dl (7-17); Estimated Glomerular Filt Rate 69 ml/min (>60); GFR (African American) 83 ML/MIN (>60)
[2019-11-29 10:34] LABS: Anion Gap 10.2 mEq/L (5-15); Calcium 9.5 mg/dl (8.4-10.2); Carbon Dioxide 28 mmol/L (22.0-30.0); Glucose 90 mg/dl (74-100)
== END ==
PROVIDERS: Visit Provider Nurse Practitioner Family
DX: I10 Essential (primary) hypertension (principal)
CPT/HCPCS: 36415; 80048

== ENCOUNTER 2020-01-05 10:25 | Outpatient (CLI) | payer MEDICARE, OTHER, SELFPAY ==
[2020-01-05] VITALS (8 sets, daily range): BP systolic 120–148; BP diastolic 71–91; PULSE 66–73; RESP 18–19
== END 2020-01-05 13:20 | disposition home or self-care (01) ==
LOC: INF 10:31
PROVIDERS: Visit Provider Internal Medicine
DX: M05.79 Rheumatoid arthritis with rheumatoid factor of multiple sites without organ or systems involvement (principal)
CPT/HCPCS: 96413; 96415; J1745

== ENCOUNTER 2020-02-16 10:00 | Outpatient (CLI) | payer MEDICARE, OTHER, SELFPAY ==
[2020-02-16] VITALS (10 sets, daily range): BP systolic 119–146; BP diastolic 64–91; PULSE 58–72; RESP 18; TEMP 36.4
== END 2020-02-16 13:10 | disposition home or self-care (01) ==
LOC: INF 10:04
PROVIDERS: Visit Provider Internal Medicine
DX: M05.79 Rheumatoid arthritis with rheumatoid factor of multiple sites without organ or systems involvement (principal)
CPT/HCPCS: 96413; 96415; J1745

== ENCOUNTER → 2020-03-15 09:06 | Outpatient (CLI) | payer MEDICARE, OTHER, SELFPAY ==
[2020-03-15 09:26] LABS: Basophils % 0.8 % (0.1-2.0); Eosinophils # 0.3 K/mm3 (0.0-0.4); Eosinophils % 6.1 % (0.1-12.0); Hematocrit 38.4 % (37.0-47.0); Hemoglobin 12.8 g/dL (12.2-16.2); Lymphocytes % 38.5 % (10-50); Mean Corpuscular HGB Conc 33.4 g/dL (31.8-35.4); Mean Corpuscular Hemoglobin 31.8 pg (27.0-31.2); Mean Corpuscular Volume 95.4 fl (81-99); Mean Platelet Volume 7.7 fl (7.4-10.4); Monocytes # 0.5 K/mm3 (0.1-1.0); Monocytes % 8.9 % (1.7-9.3); Neutrophils # 2.4 K/mm3 (1.8-7.8); Neutrophils % 45.6 % (37.0-80.0); Platelet Count 191 K/mm3 (142-424); Red Blood Count 4.03 M/mm3 (4.20-5.40); Red Cell Distribution Width 13.7 % (11.5-17.5); White Blood Count 5.2 K/mm3 (4.8-10.8)
[2020-03-15 10:17] LABS: Alanine Aminotransferase 12 U/L (12-78); Albumin Level 3.9 g/dl (3.5-5.0); Albumin/Globulin Ratio 1.4 (1.1-1.8); Alkaline Phosphatase 70 U/L (38-126); Aspartate Amino Transferase 34 U/L (14-36); Bilirubin,Total 0.5 mg/dl (0.2-1.3); Blood Urea Nitrogen 17 mg/dl (7-17); Calcium 9.2 mg/dl (8.4-10.2); Carbon Dioxide 33 mmol/L (22.0-30.0); Chloride 100 mmol/L (98-107); Chol/HDL Ratio 2.2 (1-3.5); Cholesterol 157 mg/dl (140-200); Estimated Glomerular Filt Rate 69 ml/min (>60); GFR (African American) 83 ML/MIN (>60); Globulin 2.7 g/dL (1.3-3.2); Glucose 88 mg/dl (74-100); HDL Cholesterol 73 mg/dl (40-60); Sodium 138 mmol/L (136-145); Total Protein,Serum 6.6 g/dl (6.3-8.2); Triglycerides 86 mg/dl (30-150); VLDL Cholesterol 17 mg/dL (0-40)
[2020-03-15 10:28] LABS: Direct LDL Cholesterol 66.66 mg/dL (100-129)
[2020-03-16 13:42] LABS: Vitamin B12 372 pg/mL (232-1245)
== END ==
PROVIDERS: Visit Provider Nurse Practitioner Family
DX: Z00.00 Encounter for general adult medical examination without abnormal findings (principal); I10 Essential (primary) hypertension; E03.9 Hypothyroidism, unspecified; E53.8 Deficiency of other specified B group vitamins
CPT/HCPCS: 36415; 80053; 80061; 82607; 84443; 85025

== ENCOUNTER 2020-03-28 10:32 | Outpatient (CLI) | payer MEDICARE, OTHER, SELFPAY ==
[2020-03-28] VITALS (11 sets, daily range): BP systolic 101–128; BP diastolic 56–84; PULSE 71–86; RESP 18–20; TEMP 36.2; O2SAT 97
== END 2020-03-28 14:05 | disposition home or self-care (01) ==
LOC: INF 10:32
PROVIDERS: Visit Provider Internal Medicine
DX: M05.79 Rheumatoid arthritis with rheumatoid factor of multiple sites without organ or systems involvement (principal)
CPT/HCPCS: 96413; 96415; J1745

== ENCOUNTER → 2020-05-07 07:15 | Outpatient (CLI) | payer MEDICARE, OTHER, SELFPAY ==
--- NOTE | 2020-05-07 08:14 | MM_ITS ---
PROCEDURE: MM DIG SCREENING MAMM BI W/CAD Referring Doctor: Magi Flanagan Patient Age:84Y CLINICAL INDICATION: SCREENING no hormones, no new complaints. Noncontributory family history. COMPARISON: MG DMDB DIGITAL MAMM-DX BILATERAL from 07/25/2010 MG DMSB DIGITAL MAMM-SCREEN BILATERAL from 07/17/2011 MG DMSB DIGITAL MAMM-SCREEN BILATERAL from 07/14/2012 MG DMSB DIG MAMM-SCREEN OLAMIDE from 07/17/2013 MG DMSB DIG MAMM-SCREEN OLAMIDE from 07/30/2014 MG DMSB DIG MAMM-SCREEN OLAMIDE from 08/01/2015 MG DMSB DIG MAMM-SCREEN OLAMIDE from 08/03/2016 MG DMSB DIG MAMM-SCREEN OLAMIDE W/CAD from 08/06/2017 MG MM DIG SCREENING MAMM BI W/CAD from 05/02/2019 TECHNIQUE: Standard CC and MLO images were obtained. R2 CAD reviewed. Bilateral digital breast tomosynthesis included. FINDINGS: [id number] residual fibroglandular elements but no suspicious calcifications. CAD highlights no areas of concern Right breast: Small focal area of asymmetric density, medial left breast seen on CC view is likely due to overlapping shadows. Particularly given that today's MLO view appearing more stable and unchanged in character, and with MLO tomosynthesis unremarkable. However this focal area on CC images does warrant further evaluation-. Suggest spot cc and MLO views and 90 degree view along with ultrasound right breast Left breast: No new areas of concern. The the the follow-up left mammogram 1 year recommended IMPRESSION: Right breast : Small focal area of density medial breast on CC view of is by far most likely summation shadow-but is focal appearance on CC views is enough to warrant additional diagnostic spot views of right breast, along with right breast ultrasound to better exclude early density. Again would favor favor this most likely overlapping fibroglandular elements/summation shadows. Or Left breast: Stable. Follow-up 1 year on left BI-RAD Category: 0 Need Additional Imaging Evaluation FOLLOW-UP: IMM Immediate Follow-up Recommended (A letter has been sent to the patient regarding results of the study.) Dictated by: Bravo Anton MD 05/12/2020 16:56 Bravo Anton MD in [place] 05/12/2020 16:56
== END ==
PROVIDERS: PCP Nurse Practitioner Family; Visit Provider Nurse Practitioner Family
DX: Z12.31 Encounter for screening mammogram for malignant neoplasm of breast (principal)
CPT/HCPCS: 77063; 77067

== ENCOUNTER 2020-05-10 10:22 | Outpatient (CLI) | payer MEDICARE, OTHER, SELFPAY ==
[2020-05-10] VITALS (10 sets, daily range): BP systolic 103–117; BP diastolic 52–71; PULSE 62–78; RESP 18; TEMP 36.6; O2SAT 98
== END 2020-05-10 13:30 | disposition home or self-care (01) ==
LOC: INF 10:35
PROVIDERS: Visit Provider Internal Medicine
DX: M05.79 Rheumatoid arthritis with rheumatoid factor of multiple sites without organ or systems involvement (principal)
CPT/HCPCS: 96413; 96415; J1745

== ENCOUNTER → 2020-05-17 14:44 | Outpatient (CLI) | payer MEDICARE, OTHER, SELFPAY ==
--- NOTE | 2020-05-17 14:48 | MM_ITS ---
PROCEDURE: MM DIG MAMM DX UNILAT RT CAD Referring Doctor: Magi Flanagan Patient Age:84Y CLINICAL INDICATION: ABN MAMM OF RT BREAST abnormal screening mammogram 05/07/2020 COMPARISON: MG MM DIG SCREENING MAMM BI W/CAD from 05/07/2020 US US BREAST RT COMPLETE from 05/17/2020 TECHNIQUE: Standard CC and MLO images were obtained. R2 CAD reviewed. Bilateral digital breast tomosynthesis included. FINDINGS: The patient has returned for cc MLO spot views along with a full 90 degree view of the right breast. Small area density medial breast, questioned on 05/07/2020 cc view compresses out with no significant residual findings. Ultrasound right breast today was basically unremarkable as well. Patient may resume annual schedule IMPRESSION: Today's diagnostic images right breast images show No Areas Of Concern. The previously question density compresses out with no significant findings here Patient may resume annual bilateral mammogram BI-RAD Category: 1 Negative FOLLOW-UP: 1YR 1 Year Follow-up (A letter has been sent to the patient regarding results of the study.) Dictated by: Bravo Anton MD 05/21/2020 08:54 Bravo Anton MD in [place] 05/21/2020 08:54
--- NOTE | 2020-05-17 14:48 | US_ITS ---
PROCEDURE: US BREAST RT COMPLETE CLINICAL INDICATION: ABN MAMM OF RT BREAST COMPARISON: MG MM DIG MAMM DX UNILAT RT CAD from 05/17/2020 FINDINGS: Scanning of the right breast in the area of clinical interest shows normal appearing somewhat heterogenic diffuse echogenicity. There is no suspicious cystic or solid mass identified. There are couple normal appearing nodes in the axilla. IMPRESSION: Unremarkable ultrasound right breast and suggest patient continue with yearly screening mammography Dictated by: Dr. José Shay MD 06/02/2020 11:17 Dr. José Shay MD in [place] 06/02/2020 11:17
== END ==
PROVIDERS: PCP Nurse Practitioner Family; Visit Provider Nurse Practitioner Family
DX: R92.8 Other abnormal and inconclusive findings on diagnostic imaging of breast (principal)
CPT/HCPCS: 76641; 77061; 77065; G0279

== ENCOUNTER → 2020-05-20 10:00 | Outpatient (POV) | payer MEDICARE, OTHER, SELFPAY ==
[2020-05-20 11:37] LABS: Basophils % 0.6 % (0.1-2.0); Eosinophils # 0.3 K/mm3 (0.0-0.4); Eosinophils % 5.2 % (0.1-12.0); Hematocrit 37.8 % (37.0-47.0); Hemoglobin 12.8 g/dL (12.2-16.2); Lymphocytes # 1.7 K/mm3 (0.7-4.5); Lymphocytes % 26.9 % (10-50); Mean Corpuscular HGB Conc 33.9 g/dL (31.8-35.4); Mean Corpuscular Hemoglobin 32.7 pg (27.0-31.2); Mean Corpuscular Volume 96.4 fl (81-99); Mean Platelet Volume 7.6 fl (7.4-10.4); Monocytes # 0.7 K/mm3 (0.1-1.0); Monocytes % 10.7 % (1.7-9.3); Neutrophils # 3.6 K/mm3 (1.8-7.8); Neutrophils % 56.6 % (37.0-80.0); Platelet Count 182 K/mm3 (142-424); Red Blood Count 3.92 M/mm3 (4.20-5.40); White Blood Count 6.3 K/mm3 (4.8-10.8)
[2020-05-20 12:33] LABS: Chloride 100 mmol/L (98-107); Potassium 4.2 mmoL/L (3.5-5.1); Sodium 137 mmol/L (136-145)
[2020-05-20 12:35] LABS: Blood Urea Nitrogen 21 mg/dl (7-17); Estimated Glomerular Filt Rate 69 ml/min (>60); GFR (African American) 83 ML/MIN (>60)
[2020-05-20 12:36] LABS: Alanine Aminotransferase 14 U/L (12-78); Albumin Level 3.9 g/dl (3.5-5.0); Albumin/Globulin Ratio 1.5 (1.1-1.8); Alkaline Phosphatase 56 U/L (38-126); Anion Gap 11.2 mEq/L (5-15); Aspartate Amino Transferase 36 U/L (14-36); Bilirubin,Total 0.5 mg/dl (0.2-1.3); Carbon Dioxide 30 mmol/L (22.0-30.0); Globulin 2.6 g/dL (1.3-3.2); Glucose 92 mg/dl (74-100); Total Protein,Serum 6.5 g/dl (6.3-8.2)
== END ==
PROVIDERS: Visit Provider Nurse Practitioner Family
DX: K75.4 Autoimmune hepatitis (principal); K30 Functional dyspepsia; R14.0 Abdominal distension (gaseous)
CPT/HCPCS: 36415; 80053; 85025

== ENCOUNTER 2020-06-20 10:55 | Outpatient (CLI) | payer MEDICARE, OTHER, SELFPAY ==
[2020-06-20] VITALS (8 sets, daily range): BP systolic 99–142; BP diastolic 62–98; PULSE 62–71; RESP 18; O2SAT 95–96
== END 2020-06-20 14:02 | disposition home or self-care (01) ==
LOC: INF 11:02
PROVIDERS: Visit Provider Internal Medicine
DX: E86.0 Dehydration (principal); N17.9 Acute kidney failure, unspecified
CPT/HCPCS: 96413; 96415; J1745

== ENCOUNTER → 2020-07-31 10:15 | Outpatient (CLI) | payer MEDICARE, OTHER, SELFPAY ==
--- NOTE | 2020-07-31 | MR_ITS ---
PROCEDURE: MR LUMBAR SPINE WO CON CLINICAL INDICATION: LBP PT C/O LBP WITH HX OF RHEUMATOID ARTHRITIS. COMPARISON: CR [id number] XR lumbar spine min 4V from 10/19/2017 TECHNIQUE: Standard multiplanar multiecho sequences are performed without contrast. 3-D MIP and myelographic images are also rendered and reviewed FINDINGS: There is dextroscoliosis of the lumbar spine measuring 34 degrees. There is multilevel lumbar spondylosis. Spinal cord ends at the T12-L1 level. T12-L1: Degenerative disc disease with bulging disc which is eccentric toward the right with a small left paracentral disc protrusion with facet and ligamentum hypertrophy with resultant bilateral lateral recess and foraminal narrowing. There is moderate left lateral recess and foraminal narrowing from the protruding disc and facet hypertrophy. L1-L2: Degenerative disc disease with concentric bulging disc with facet and ligamentum hypertrophy resulting and severe left lateral recess and foraminal narrowing. Left lateral osteophytes with bulging disc noted. L2-L3: Degenerative disc disease with bulging disc with facet and ligamentum hypertrophy with severe left lateral recess and foraminal narrowing. There is left lateral diffuse bulging disc osteophyte complex along with facet hypertrophy L3-L4: Degenerative disc disease with bulging disc with right and left lateral disc bulges with associated osteophyte. There is 8 mm right lateral translation of L3 on L4. There is severe right lateral recess and severe right foraminal narrowing and moderate to severe left lateral recess and and severe left-sided foraminal foraminal narrowing with canal stenosis at this level. Type 1 endplate changes are present at this level L4-5: Concentric bulging disc with facet and ligamentum hypertrophy with endplate osteophytes laterally on the right with severe right-sided foraminal narrowing and moderate to severe left-sided foraminal narrowing. L5-S1: Degenerative disc disease with bulging disc. No extruded herniated disc is evident. Incidental note is made of cholelithiasis IMPRESSION: Abnormal MRI of the lumbar spine with lumbar scoliosis convex right with multilevel degenerative disc disease with bulging disc along with facet and ligamentum hypertrophy with lateral recess and foraminal narrowing of varying degrees from moderate to severe. There is canal stenosis at L3-L4. Please see above for detailed description at each level. Dictated by: Mario Shelton MD 08/02/2020 06:32 Mario Shelton MD in [place] 08/02/2020 06:32
== END ==
PROVIDERS: PCP Nurse Practitioner Family; Visit Provider Nurse Practitioner Women's Health
DX: M54.5 Low back pain (principal)
CPT/HCPCS: 72148; 76376

== ENCOUNTER 2020-08-02 11:07 | Outpatient (CLI) | payer MEDICARE, OTHER, SELFPAY ==
[2020-08-02] VITALS (8 sets, daily range): BP systolic 127–140; BP diastolic 63–90; PULSE 64–75; RESP 18; TEMP 36.3
== END 2020-08-02 14:19 | disposition home or self-care (01) ==
LOC: INF 11:07
PROVIDERS: Visit Provider Internal Medicine
DX: M05.79 Rheumatoid arthritis with rheumatoid factor of multiple sites without organ or systems involvement (principal)
CPT/HCPCS: 96413; 96415; J1745

== ENCOUNTER → 2020-08-09 09:06 | Outpatient (CLI) | payer MEDICARE, OTHER, SELFPAY ==
--- NOTE | 2020-08-09 09:20 | XR_ITS ---
PROCEDURE: XR DEXA AXIAL SKELETON CLINICAL HISTORY: POST-MENOPAUSAL COMPARISON: REECE ERAZO DEXAAX XR DEXA axial skeleton from 10/29/2017 FINDINGS: The right hip BMD is 0.710 with a T-score of -1.9. The left hip BMD is 0.654 with a T-score of -2.4. The lumbar spine BMD is 0.918 with a T-score of -1.2. Previously the lowest bone density was in the left femoral neck with a T-score -2.5 IMPRESSION: This patient is considered osteopenic according to the World Health Organization criteria. Bone density is between 10 and 25 percent below young normal. Fracture risk is moderate. Treatment is advised. Based on these results a follow-up exam is recommended in 2 year. Dictated by: Mario Shelton MD 08/09/2020 17:06 Mario Shelton MD in [place] 08/09/2020 17:06
== END ==
PROVIDERS: PCP Nurse Practitioner Family; Visit Provider Nurse Practitioner Family
DX: Z13.820 Encounter for screening for osteoporosis (principal); Z78.0 Asymptomatic menopausal state
CPT/HCPCS: 77080

== ENCOUNTER 2020-09-13 10:38 | Outpatient (CLI) | payer MEDICARE, OTHER, SELFPAY ==
[2020-09-13] VITALS (10 sets, daily range): BP systolic 117–159; BP diastolic 64–96; PULSE 76–85; RESP 18; TEMP 36.3; O2SAT 97
== END 2020-09-13 13:50 | disposition home or self-care (01) ==
LOC: INF 10:38
PROVIDERS: Visit Provider Internal Medicine
DX: M05.79 Rheumatoid arthritis with rheumatoid factor of multiple sites without organ or systems involvement (principal)
CPT/HCPCS: 96413; 96415; J1745

== ENCOUNTER 2020-10-24 10:30 | Outpatient (CLI) | payer MEDICARE, OTHER, SELFPAY ==
[2020-10-24] VITALS (10 sets, daily range): BP systolic 90–128; BP diastolic 45–75; PULSE 66–79; RESP 18–20; TEMP 36.2; O2SAT 99
== END 2020-10-24 13:50 | disposition home or self-care (01) ==
LOC: INF 10:30
PROVIDERS: Visit Provider Internal Medicine
DX: M05.79 Rheumatoid arthritis with rheumatoid factor of multiple sites without organ or systems involvement (principal)
CPT/HCPCS: 96413; 96415; J1745

== ENCOUNTER 2020-11-08 11:00 | Outpatient (CLI) | payer MEDICARE, OTHER, SELFPAY ==
[2020-11-08 11:06] VITALS: BMI 26.5
[2020-11-08 11:31] LABS: Albumin Level 4.4 g/dl (3.5-5.0)
[2020-11-08 11:34] LABS: Calcium 9.3 mg/dl (8.4-10.2); Creatinine Clearance Estimated 44 mL/min (50-200); Estimated Glomerular Filt Rate 60 ml/min (>60); GFR (African American) 72 ML/MIN (>60)
[2020-11-08 12:13] VITALS: BP 120/59; PULSE 77; RESP 18; TEMP 36.4; O2SAT 97
[2020-11-08 12:28] VITALS: BP 114/61; PULSE 82; RESP 18
== END 2020-11-08 12:35 | disposition home or self-care (01) ==
LOC: INF 11:00
PROVIDERS: Visit Provider Nurse Practitioner Family
DX: M85.89 Other specified disorders of bone density and structure, multiple sites (principal)
CPT/HCPCS: 82040; 82310; 82565; 96374; J3489

== ENCOUNTER 2020-12-06 10:35 | Outpatient (CLI) | payer MEDICARE, OTHER, SELFPAY ==
[2020-12-06] VITALS (10 sets, daily range): BP systolic 100–120; BP diastolic 47–68; PULSE 65–76; RESP 18–20; TEMP 36.2; O2SAT 97
== END 2020-12-06 14:10 | disposition home or self-care (01) ==
LOC: INF 10:45
PROVIDERS: Visit Provider Internal Medicine
DX: M05.79 Rheumatoid arthritis with rheumatoid factor of multiple sites without organ or systems involvement (principal)
CPT/HCPCS: 96413; 96415; J1745

== ENCOUNTER → 2020-12-12 09:00 | Outpatient (CLI) | payer MEDICARE, OTHER, SELFPAY ==
[2020-12-12 09:41] LABS: Basophils % 0.6 % (0.1-2.0); Eosinophils # 0.4 K/mm3 (0.0-0.4); Eosinophils % 6.3 % (0.1-12.0); Hematocrit 38.8 % (37.0-47.0); Hemoglobin 12.6 g/dL (12.2-16.2); Lymphocytes % 36.1 % (10-50); Mean Corpuscular HGB Conc 32.3 g/dL (31.8-35.4); Mean Corpuscular Hemoglobin 31.1 pg (27.0-31.2); Mean Corpuscular Volume 96.2 fl (81-99); Mean Platelet Volume 7.8 fl (7.4-10.4); Monocytes # 0.5 K/mm3 (0.1-1.0); Neutrophils # 2.7 K/mm3 (1.8-7.8); Platelet Count 209 K/mm3 (142-424); Red Blood Count 4.04 M/mm3 (4.20-5.40); White Blood Count 5.6 K/mm3 (4.8-10.8)
[2020-12-12 10:52] LABS: Alanine Aminotransferase 13 U/L (12-78); Albumin Level 4.1 g/dl (3.5-5.0); Albumin/Globulin Ratio 1.6 (1.1-1.8); Alkaline Phosphatase 75 U/L (38-126); Anion Gap 9.8 mEq/L (5-15); Aspartate Amino Transferase 35 U/L (14-36); Bilirubin,Total 0.4 mg/dl (0.2-1.3); Blood Urea Nitrogen 12 mg/dl (7-17); Calcium 9.3 mg/dl (8.4-10.2); Carbon Dioxide 26 mmol/L (22.0-30.0); Chloride 104 mmol/L (98-107); Estimated Glomerular Filt Rate 60 ml/min (>60); GFR (African American) 72 ML/MIN (>60); Globulin 2.6 g/dL (1.3-3.2); Glucose 82 mg/dl (74-100); Potassium 3.8 mmoL/L (3.5-5.1); Sodium 136 mmol/L (136-145); Total Protein,Serum 6.7 g/dl (6.3-8.2)
[2020-12-12 11:09] LABS: 25-OH Vitamin D, Total 51.6 ng/mL (30-100)
[2020-12-12 11:23] LABS: Thyroid Stimulating Hormone 0.53 uIU/mL (0.465-4.68)
[2020-12-12 11:41] LABS: Vitamin B12 351 pg/mL (239-931)
== END ==
PROVIDERS: Visit Provider Nurse Practitioner Family
DX: I10 Essential (primary) hypertension (principal); E03.9 Hypothyroidism, unspecified; E53.8 Deficiency of other specified B group vitamins; M05.79 Rheumatoid arthritis with rheumatoid factor of multiple sites without organ or systems involvement; M81.0 Age-related osteoporosis without current pathological fracture
CPT/HCPCS: 36415; 80053; 82306; 82607; 84443; 85025

== ENCOUNTER → 2020-12-26 15:08 | Outpatient (POV) | payer MEDICARE, OTHER, SELFPAY ==
[2020-12-26 15:27] VITALS: BP 113/90; PULSE 77; RESP 20; O2SAT 99; BMI 26.5
--- NOTE | 2020-12-26 15:48 | HMH.PMCON ---
Assessment and Plan (1) Sacroiliitis Status: Acute Category: Medical Code(s): M46.1 - Sacroiliitis, not elsewhere classified - Assessment and plan all Dx Assessment and Plan for all problems:: We will plan on bilateral SI joint injections for the patient given her symptomology I do believe that this would benefit her. She has been instructed to call the office if she has any issues prior to her next appointment. Dr. Olmstead has reviewed this note and agrees with this plan of care. This note was dictated using voice recognition software and may contain errors or omissions HPI - Data of Consult Consult date: 12/26/20 Requesting Physician: Wendy Franco APRN Primary Care Provider: Magi Flanagan APRN - Consult Narrative Reason for consult: Back pain History of present illness: Ms. Vickers is a 85 year old female who presents today for consultation regards to her low back pain. Patient has had pain for the last couple weeks. It does worsen when she has exercise. She rates an 8 out of 10 right now. She has pain right over her bilateral SI joints. She has a positive Bairon test SI joint compression test Alvaro's test and distraction test bilaterally. Patient has tried anti-inflammatories with no success. We discussed SI joint injection she is agreeable. CC: Wendy Franco APRN [facility] History I have reviewed the patient's past medical history: Yes Medical History: Reports:: Gastroesophageal Reflux Disease(GERD), Hypertension, Palpitations, Transient Ischemic Attacks (TIA) Denies:: Cancer, Diabetes Mellitus Type 1, Diabetes Mellitus Type 2, Internal Pacemaker, MRSA, Seizures *Have you ever received a pneumonia vaccine?: Yes *Have you received a flu vaccine this season?: Yes Other Medical History: Reports: Anemia, Arthritis (RA), Cataracts, Hypothyroidism, Liver Disease, Radiation Therapy (THYROID), Sinus Problems, Thyroid Disease Other Surgeries: Yes: Colonoscopy, EGD, Hernia Repair, Tubal Ligation. No: Pacemaker Amputation: No Fractures: Yes - *Social History Smoking Status: Never smoker Tobacco Type: cigarettes #Yrs smoked (if former smoker): 20 Alcohol Intake: never Alcohol Intake Frequency:: holidays/special occasions only Substance Use Type: denies use *Occupational Status:: retired Housing: house Household Members: other *Travel in the last 8 weeks: None Family Hx:: Coronary Artery Disease, Diabetes, Heart Attack, Hyperlipidemia, Hypertension Review of Systems - Review of Systems ROS General: no recent weight change, no fever, no sleep disturbances Respiratory: no cough, no shortness of air, no recurring pulmonary infections Cardiovascular/Peripheral Vascular: No chest pain, No palpitations, no edema, no shortness of breath. Gastrointestinal: no new onset incontinence, normal bowel movements reported Genitourinary: no new onset incontinence Musculoskeletal: Bilateral SI joint pain Psychiatric: normal mood/ affect, Neurological: [denies new onset weakness in extremities], [denies new onset balance issues] Meds Home Medications Medication Instructions Recorded Confirmed Type polyethylene glycoL 3350 [Miralax 17 gm PO DAILY 10/19/17 12/26/20 History 17gm Packet] Aspirin [Aspir 81] 81 mg PO DAILY 11/04/17 12/26/20 History Vitamin E Acetate [Vitamin E] 400 unit PO DAILY 11/04/17 12/06/20 History levothyroxine 88 mcg tablet 1 tab PO DAILY 30 Days #30 12/30/17 12/26/20 History Hydroxychloroquine Sulfate 200 mg PO DAILY 11/04/18 12/26/20 History [Plaquenil] omeprazole 40 mg capsule,delayed 40 mg PO DAILY cap 09/20/19 12/26/20 History release hydroCHLOROthiazide [HCTZ 25mg 25 mg PO DAILY 11/08/19 12/26/20 History tab] gabapentin 100 mg capsule 200 mg PO HS cap 08/07/20 12/26/20 History calcium carbonate 500 mg (1,250 1 tab PO BID tab 10/30/20 12/06/20 History mg)-vitamin D3 125 unit tablet Montelukast Sodium 10 mg PO HS 12/26/20 12/26/20 History Psylli
== END ==
PROVIDERS: PCP Nurse Practitioner Family; Visit Provider Clinical Nurse Specialist Family Health
DX: M46.1 Sacroiliitis, not elsewhere classified (principal)
CPT/HCPCS: 99202; G0463

== ENCOUNTER 2021-01-03 13:46 | Day surgery (SDC) | payer MEDICARE, OTHER, SELFPAY ==
[2021-01-03 14:32] VITALS: BP 143/78; PULSE 77; RESP 18; TEMP 36.6; O2SAT 98; BMI 26.5
[2021-01-03 14:56] VITALS: BP 128/89; PULSE 74
[2021-01-03 14:58] VITALS: BP 132/85; PULSE 84; RESP 18; O2SAT 98
--- NOTE | 2021-01-03 14:59 | HMH.PMPROC ---
- Procedure Date: 01/03/21 Time: 14:59 Anesthesiologist:: Oracio Olmstead MD Complications:: None Pre-procedure Diagnosis:: Sacroiliitis Post-procedure Diagnosis:: Same Indications for Procedure:: This patient is a pleasant 85-year-old white female who we are treating for bilateral hip pain. She is tender over both SI joints. She does have a positive Alvaro's test bilaterally. She has positive SI joint compression test bilaterally. She has a positive distraction test bilaterally. We will do bilateral SI joint injections under fluoroscopy today to help with pain symptoms. Procedure Details:: B/L SI joint injection under fluoroscopy Informed consent was obtained and the risks and benefits of the procedure was explained to the patient. The patient was taken to the procedure room and placed prone on the procedure table. The patient was prepped using ChloraPrep. The skin and subcutaneous tissues overlying the SI joints were anesthetized using lidocaine. I placed a 22-gauge needle first in the left SI joint and second in the right SI joint. Needle placement was confirmed with dye. After this we injected 5 mL bupivacaine 0.25% and Depo-Medrol 40 mg into each SI joint. Patient tolerated the procedure well with no complication. Plan and Disposition:: We will follow-up with her in 2 weeks. Will reevaluate symptoms at that time.
[2021-01-03 15:10] VITALS: BP 127/53; PULSE 68; RESP 18; O2SAT 98
== END 2021-01-03 15:10 | disposition home or self-care (01) ==
LOC: SC.PAINP 13:48
PROVIDERS: PCP Nurse Practitioner Family; Visit Provider Anesthesiology
DX: M46.1 Sacroiliitis, not elsewhere classified (principal); E03.9 Hypothyroidism, unspecified; I10 Essential (primary) hypertension; I25.10 Atherosclerotic heart disease of native coronary artery without angina pectoris; E11.9 Type 2 diabetes mellitus without complications; Z88.8 Allergy status to other drugs, medicaments and biological substances
CPT/HCPCS: 27096; G0260; J1030; Q9966

== ENCOUNTER 2021-01-17 11:00 | Outpatient (CLI) | payer MEDICARE, OTHER, SELFPAY ==
[2021-01-17] VITALS (9 sets, daily range): BP systolic 103–140; BP diastolic 63–80; PULSE 63–76; RESP 18; TEMP 36.4; O2SAT 98–99
== END 2021-01-17 14:25 | disposition home or self-care (01) ==
LOC: INF 11:11
PROVIDERS: Visit Provider Internal Medicine
DX: M05.79 Rheumatoid arthritis with rheumatoid factor of multiple sites without organ or systems involvement (principal)
CPT/HCPCS: 96413; 96415; J1745

== ENCOUNTER → 2021-01-30 13:40 | Outpatient (POV) | payer MEDICARE, OTHER, SELFPAY ==
[2021-01-30 13:55] VITALS: BP 108/74; PULSE 79; RESP 18; O2SAT 98; BMI 25.6
--- NOTE | 2021-01-30 16:40 | HMH.PAINSOAP ---
[facility] Pain Management SOAP Note Subjective:: Patient is a 85-year-old white female who presents today for follow-up. The patient is being treated for sacroiliitis. Patient says that she did not get any significant relief after her bilateral SI joint injections. She says that her pain is primarily in her low back area and radiating into her bilateral buttock and ankles. She says it is worse in the right buttock. Patient says raising her leg causes her to have significant pain. Patient says that she was undergoing physical therapy on a treadmill and underwent a massage for which she says that her leg was lifted. Upon lifting her leg, she developed severe pain in her low back area. She also reports to be having li splints at bedtime. She says she is also having bilateral hip pain. Her ankle pain is significantly worse in the evening times. She does have a history of bulging disks per her MRI report. Patient and I did discuss undergoing an epidural steroid injection to see if this gives her any relief. She is in agreement. She is not on anticoagulation therapy. She rates her pain a 4 out of 10 at this time. Patient says anti-inflammatories and physical therapy did not give her relief. She continues with a modified home stretching program. Review of Systems General: No recent weight changes, no fever, no sleep disturbances Respiratory: No cough, no shortness of air, no recurring pulmonary infections Cardiovascular/peripheral vascular: No chest pain, no palpitations, no edema, no shortness of breath Gastrointestinal: No new onset incontinence, normal bowel movements reported Genitourinary: No new onset incontinence Musculoskeletal: Low back pain with radiation into bilateral lower extremities, bilateral buttock, bilateral ankles, and bilateral hips Psychiatric: Normal mood/affect Neurological: [Denies weakness in extremities], [denies balance issues] Objective:: Physical exam General: Alert and oriented x3, no acute distress, pleasant and cooperative, [on room air] Lungs: Respirations even and unlabored, symmetrical chest expansion Eyes: PERRL Musculoskeletal: Flexion and extension of bar spine somewhat guarded secondary to pain, deep tendon reflexes normal, strength in upper and lower extremities [4/5], [abnormal gait noted] Neurological: Speech clear, 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 She did not get any relief from her bilateral SI joint injections. She is not on anticoagulation therapy. We will schedule her for the lumbar epidural steroid injection see her back in the clinic after her injection to reevaluate her symptoms. She will continue with home stretching program. Risks and benefits of the procedure have been explained to the patient. Patient would like to proceed with the procedure. Patient has been instructed to contact the clinic with any concerns before the next appointment. Dr. Olmstead has reviewed this note and agrees with this plan of care. This note was dictated using voice recognition software and make contain errors or omissions. [facility] History I have reviewed the patient's past medical history: Yes Medical History: Reports:: Gastroesophageal Reflux Disease(GERD), Hypertension, Palpitations, Transient Ischemic Attacks (TIA) Denies:: Cancer, Diabetes Mellitus Type 1, Diabetes Mellitus Type 2, Internal Pacemaker, MRSA, Seizures *Have you ever received a pneumonia vaccine?: Yes *Have you received a flu vaccine this season?: Yes Other Medical History: Reports: Anemia, Arthritis (RA), Cataracts, Hypothyroidism, Liver Disease, Radiation Therapy (THYROID), Sinus Problems, Thyroid Disease. Denies: Blood Transfusion Reaction Other Surgeries: Yes: Colonoscopy, EGD, Hernia Repair, Tubal Ligation. No: Pacemaker Amputation: No Fractur
== END ==
PROVIDERS: PCP Nurse Practitioner Family; Visit Provider Clinical Nurse Specialist Family Health
DX: M51.16 Intervertebral disc disorders with radiculopathy, lumbar region (principal)
CPT/HCPCS: 99212; G0463

== ENCOUNTER 2021-02-07 11:11 | Day surgery (SDC) | payer MEDICARE, OTHER, SELFPAY ==
[2021-02-07 11:17] VITALS: BP 118/57; PULSE 74; RESP 18; TEMP 36.7; O2SAT 98; BMI 25.6
[2021-02-07 11:39] VITALS: BP 135/68; PULSE 86; RESP 18; O2SAT 95
[2021-02-07 11:44] VITALS: BP 149/66; PULSE 76; RESP 18; O2SAT 97
--- NOTE | 2021-02-07 12:25 | P.PCN_ITS ---
- Procedure Date: 02/07/21 Time: 12:26 Anesthesiologist:: Carolina Jordan MD Complications:: None Pre-procedure Diagnosis:: degenerative disc disease of the lumbar spine, lumbar radiculopathy Post-procedure Diagnosis:: Same Indications for Procedure:: This is a very pleasant 85-year-old white female presents today with low back pain radiating into her bilateral buttocks and ankles. She has undergone bilateral SI injections in the past with minimal pain relief. She has trialed and failed conservative treatment including oral pain medications and home stretching program. Plan for today is for her to undergo lumbar epidural steroid injection at L5-S1 #1. Procedure Details:: Informed consent was obtained and the risk and benefits of the procedure was ex plained to the patient. The patient was taken to the procedure room. The patient was placed prone on the procedure table. The patient was prepped and draped in sterile fashion. C-arm fluoroscopy was used to view the lumbar spine. Skin and subcutaneous tissues were anesthetized using lidocaine. I placed an 18-gauge epidural needle and advanced into the L5-S1 interspace using fluoroscopic guidance and [id number] to air and saline. After confirmation of needle placement in the epidural space with dye I injected 2 mL of lidocaine 1.5% with Depo-Medrol 80 mg. Patient tolerated the procedure well with no complications. Plan and Disposition:: With the patient in 2 weeks. Will reevaluate symptoms at that time.
--- NOTE | 2021-02-07 12:26 | PC.NURSE ---
pt and daughter left the bay prior to post procedure vital signs.
== END 2021-02-07 12:10 | disposition home or self-care (01) ==
LOC: SC.PAINP 11:16
PROVIDERS: PCP Nurse Practitioner Family; Visit Provider Anesthesiology Pain Medicine
DX: M51.16 Intervertebral disc disorders with radiculopathy, lumbar region (principal)
CPT/HCPCS: 62323; J1040; Q9966

== ENCOUNTER → 2021-02-27 11:34 | Outpatient (POV) | payer MEDICARE, OTHER, SELFPAY ==
[2021-02-27 11:45] VITALS: BP 142/64; PULSE 73; RESP 18; O2SAT 100; BMI 25.6
--- NOTE | 2021-02-27 13:09 | P.CONS_ITS ---
[facility] Pain Management SOAP Note Subjective:: Patient is a pleasant 85-year-old white female who presents today for follow-up. The patient has recently undergone bilateral SI injections as well as a lumbar epidural steroid injection. She has been treated for degenerative disc disease lumbar spine with lumbar radiculopathy symptoms and sacroiliitis. Patient says that she did get some relief with her injection, about 40%. Her pain is a 5 out of 10 today. She is complaining today, however, and right buttock pain only. She says on occasion, the pain will radiate into her right groin and right leg, however, it is specifically to her right buttock area. She says ice and heat therapies do give her relief to this area. She is tender to palpation to her right piriformis area. Review of Systems General: No recent weight changes, no fever, no sleep disturbances Respiratory: No cough, no shortness of air, no recurring pulmonary infections Cardiovascular/peripheral vascular: No chest pain, no palpitations, no edema, no shortness of breath Gastrointestinal: No new onset incontinence, normal bowel movements reported Genitourinary: No new onset incontinence Musculoskeletal: Right buttock pain Psychiatric: Normal mood/affect Neurological: [Denies weakness in extremities], [denies balance issues] Objective:: Physical exam General: Alert and oriented x3, no acute distress, pleasant and cooperative, [on room air] Lungs: Respirations even and unlabored, symmetrical chest expansion Eyes: PERRL Musculoskeletal: Palpation to right buttock guarded secondary to pain, deep tendon reflexes normal, strength in upper and lower extremities [5/5], slightly antalgic gait noted Neurological: Speech clear, handbell choir director equal, no gross sensory deficit Assessment:: Piriformis syndrome, degenerative disc disease lumbar spine, Plan:: We will schedule the patient for a right piriformis injection. She has tenderness to palpation to her right buttock. We will follow up with her after the injection for reevaluation of symptoms. Patient has been instructed to contact the clinic with any concerns before the next appointment. Dr. Olmstead has reviewed this note and agrees with this plan of care. This note was dictated using voice recognition software and make contain errors or omissions. [facility] History I have reviewed the patient's past medical history: Yes Medical History: Reports:: Gastroesophageal Reflux Disease(GERD), Hypertension, Palpitations, Transient Ischemic Attacks (TIA) Denies:: Cancer, Diabetes Mellitus Type 1, Diabetes Mellitus Type 2, Internal Pacemaker, MRSA, Seizures *Have you ever received a pneumonia vaccine?: Yes *Have you received a flu vaccine this season?: Yes Other Medical History: Reports: Anemia, Arthritis (RA), Cataracts, Hypothyroidism, Liver Disease, Radiation Therapy (THYROID), Sinus Problems, Thyroid Disease. Denies: Blood Transfusion Reaction Other Surgeries: Yes: Colonoscopy, EGD, Hernia Repair, Tubal Ligation. No: Pacemaker Amputation: No Fractures: Yes - *Social History Smoking Status: Never smoker Tobacco Type: cigarettes #Yrs smoked (if former smoker): 20 Alcohol Intake: never Alcohol Intake Frequency:: holidays/special occasions only Substance Use Type: denies use *Occupational Status:: unemployed Housing: house Household Members: other *Travel in the last 8 weeks: None Family Hx:: Coronary Artery Disease, Diabetes, Heart Attack, Hyperlipidemia, Hypertension
== END ==
PROVIDERS: PCP Internal Medicine Adolescent Medicine; Visit Provider Clinical Nurse Specialist Family Health
DX: G57.00 Lesion of sciatic nerve, unspecified lower limb (principal); M51.36 Other intervertebral disc degeneration, lumbar region
CPT/HCPCS: 99212; G0463

== ENCOUNTER 2021-02-28 10:50 | Outpatient (CLI) | payer MEDICARE, OTHER, SELFPAY ==
[2021-02-28] VITALS (10 sets, daily range): BP systolic 92–140; BP diastolic 56–81; PULSE 66–73; RESP 16–18; TEMP 36.3; O2SAT 92; BMI 26.5
[2021-02-28 11:35] LABS: Basophils % 0.6 % (0.1-2.0); Eosinophils # 0.3 K/mm3 (0.0-0.4); Eosinophils % 4.5 % (0.1-12.0); Hematocrit 37.9 % (37.0-47.0); Lymphocytes # 1.9 K/mm3 (0.7-4.5); Lymphocytes % 30.7 % (10-50); Mean Corpuscular HGB Conc 31.6 g/dL (31.8-35.4); Mean Corpuscular Hemoglobin 31.2 pg (27.0-31.2); Mean Corpuscular Volume 98.9 fl (81-99); Mean Platelet Volume 7.3 fl (7.4-10.4); Monocytes # 0.6 K/mm3 (0.1-1.0); Monocytes % 9.2 % (1.7-9.3); Neutrophils # 3.3 K/mm3 (1.8-7.8); Neutrophils % 54.9 % (37.0-80.0); Platelet Count 175 K/mm3 (142-424); Red Blood Count 3.84 M/mm3 (4.20-5.40); Red Cell Distribution Width 14.3 % (11.5-17.5)
[2021-02-28 11:49] LABS: Chloride 97 mmol/L (98-107); Sodium 132 mmol/L (136-145)
[2021-02-28 11:50] LABS: Potassium 4.1 mmoL/L (3.5-5.1)
[2021-02-28 11:52] LABS: Alanine Aminotransferase 14 U/L (12-78); Alkaline Phosphatase 65 U/L (38-126); Aspartate Amino Transferase 36 U/L (14-36); Blood Urea Nitrogen 13 mg/dl (7-17); Creatinine Clearance Estimated 44 mL/min (50-200); Estimated Glomerular Filt Rate 80 ml/min (>60); GFR (African American) 97 ML/MIN (>60)
[2021-02-28 11:53] LABS: Albumin/Globulin Ratio 1.5 (1.1-1.8); Anion Gap 12.1 mEq/L (5-15); Carbon Dioxide 27 mmol/L (22.0-30.0); Globulin 2.7 g/dL (1.3-3.2); Glucose 84 mg/dl (74-100); Total Protein,Serum 6.7 g/dl (6.3-8.2)
[2021-02-28 11:57] LABS: Erythrocyte Sedimentation Rate 20 mm/hr (0-30)
[2021-02-28 11:58] LABS: C-Reactive Protein 0.7 mg/L (0-4)
== END 2021-02-28 14:05 | disposition home or self-care (01) ==
LOC: INF 10:55
PROVIDERS: Visit Provider Internal Medicine
DX: D89.9 Disorder involving the immune mechanism, unspecified (principal); M05.79 Rheumatoid arthritis with rheumatoid factor of multiple sites without organ or systems involvement; Z79.899 Other long term (current) drug therapy
CPT/HCPCS: 80053; 85025; 85651; 86140; 96413; 96415; J1745

== ENCOUNTER 2021-03-07 11:44 | Day surgery (SDC) | payer MEDICARE, OTHER, SELFPAY ==
[2021-03-07 11:47] VITALS: BP 130/71; PULSE 74; RESP 18; TEMP 36.6; O2SAT 97; BMI 25.6
[2021-03-07 12:22] VITALS: BP 138/77; PULSE 79; RESP 18; O2SAT 98
[2021-03-07 12:23] VITALS: BP 155/75; PULSE 79; RESP 18; O2SAT 98
[2021-03-07 12:45] VITALS: BP 130/71; PULSE 74; RESP 18; O2SAT 97
--- NOTE | 2021-03-07 12:49 | P.PCN_ITS ---
- Procedure Date: 03/07/21 Time: 12:49 Anesthesiologist:: Carolina Jordan MD Complications:: None Pre-procedure Diagnosis:: Right sided piriformis syndrome, chronic right-sided hip pain Post-procedure Diagnosis:: Same Indications for Procedure:: This patient is a very pleasant 85-year-old white female who presents today with chronic right-sided hip pain related to the above diagnosis. She has tried and failed conservative treatment including oral pain medication and home stretching program. She is also recently trialed SI joint injections and a lumbar epidural steroid injection notes approximately 40% pain relief. The plan for today is for the patient to undergo right-sided piriformis muscle injection under fluoroscopy #1. Procedure Details:: Right SI joint injection under fluoroscopy Informed consent was obtained and the risks and benefits of the procedure was going to the patient. Patient was taken to the procedure room. Patient was placed prone on the procedure table. The right hip was prepped using ChloraPrep. The skin and subcutaneous tissues were anesthetized using lidocaine. I placed a 22-gauge spinal needle into the inferior and lateral aspect of the right SI joint. Next, I redirected the needle 1 cm inferiorly and 1 cm laterally into the right piriformis muscle. Needle placement was confirmed with 1 mL of Isovue contrast dye. After this we injected 5 mL bupivacaine 0.25% and Depo-Medrol 40 mg into the right performance muscle. The patient tolerated the procedure well with no complications. Plan and Disposition:: We will follow-up with this patient in 2 weeks. Will reevaluate her pain symptoms at that time. I discussed with her that she would benefit from left- sided piriformis muscle injections under fluoroscopy as well because she states that her left hip has been really painful. Exam reveals tenderness to palpation over the left piriformis muscle. Very mild tenderness to palpation over the left SI joint. Very mild tenderness to palpation over the left-sided greater trochanteric bursa. Deep tendon reflexes were normal in the lower extremities and motor exam was grossly intact in the lower extremities. Antalgic gait is noted. She has limited lumbar flexion and extension secondary to pain. The plan is we will follow her in 2 weeks and reassess her pain symptoms at that time and we will also schedule her for a left-sided performance muscle injection under fluoroscopy at the next visit.
== END 2021-03-07 12:45 | disposition home or self-care (01) ==
LOC: SC.PAINP 11:46
PROVIDERS: PCP Internal Medicine Adolescent Medicine; Visit Provider Anesthesiology Pain Medicine
DX: G57.01 Lesion of sciatic nerve, right lower limb (principal); E03.9 Hypothyroidism, unspecified; I10 Essential (primary) hypertension; K21.9 Gastro-esophageal reflux disease without esophagitis; M19.90 Unspecified osteoarthritis, unspecified site; D64.9 Anemia, unspecified; K76.9 Liver disease, unspecified; Z86.73 Personal history of transient ischemic attack (TIA), and cerebral infarction without residual deficits; J44.9 Chronic obstructive pulmonary disease, unspecified; E05.00 Thyrotoxicosis with diffuse goiter without thyrotoxic crisis or storm; I73.00 Raynaud's syndrome without gangrene; F41.9 Anxiety disorder, unspecified
CPT/HCPCS: 27096; G0260; J1040; Q9966

== ENCOUNTER → 2021-04-03 10:10 | Outpatient (POV) | payer MEDICARE, OTHER, SELFPAY ==
[2021-04-03 10:22] VITALS: BP 128/78; PULSE 68; RESP 18; TEMP 36.6; O2SAT 96; BMI 25.6
--- NOTE | 2021-04-03 10:34 | P.CONS_ITS ---
[facility] Pain Management SOAP Note Subjective:: Patient is a pleasant 85-year-old white female that presents today for follow- up. She had right-sided piriformis injection on 03/07/2021. The patient states that she is continuing to have increased pain over her right hip area especially over the trochanteric bursa. The patient is rating her pain today a 4 out of 10. She is also complaining of increasing pain and numbness in bilateral lower extremities. She states that she shooting sensations from her back to both feet. She also notices numbness bilaterally. The patient has received multiple injective therapies in the past to help with her discomfort. She is interested in a repeat epidural injection, we also discussed trochanteric bursal injection today. The patient has tried and failed conservative therapies in the past including oral medications and exercise and stretching program. The patient continues to walk on a treadmill daily, we did discuss that this may be increasing her discomfort, we did discuss using stationary bike instead. Patient is prescribed gabapentin by her primary care provider. Her [facility] number is [id number] Objective:: Physical exam General: Alert and oriented x3 no acute distress, pleasant and cooperative, [on room air] Lungs: Respirations even and unlabored, symmetrical chest expansion Eyes: PERRL Musculoskeletal: Flexion and extension of the lumbar spine nonguarded, deep tendon reflexes normal, strength in upper and lower extremities 5 out of 5 normal gait noted, tenderness over the right trochanteric bursa Neurological: Speech clear, paper tube grader equal, no gross sensory deficit Assessment:: Degenerative disc disease lumbar spine, lumbar radiculopathy, right trochanteric bursitis Plan:: We will schedule the patient for repeat lumbar epidural steroid injection at L5- S1 and right trochanteric bursa injection. The procedure, risk and benefits were all discussed with patient. She is referred to contact clinic prior to her next injection Dr. Olmstead has reviewed this note and agrees with this plan of care. This note was dictated using voice recognition software and make contain errors or omissions. [facility] History Medical History: Reports:: Gastroesophageal Reflux Disease(GERD), Hypertension, Palpitations, Transient Ischemic Attacks (TIA) Denies:: Cancer, Diabetes Mellitus Type 1, Diabetes Mellitus Type 2, Internal Pacemaker, MRSA, Seizures *Have you ever received a pneumonia vaccine?: Yes *Have you received a flu vaccine this season?: Yes Other Medical History: Reports: Anemia, Arthritis (RA), Cataracts, Hypothyroidism, Liver Disease, Radiation Therapy (THYROID), Sinus Problems, Thyroid Disease. Denies: Blood Transfusion Reaction Other Surgeries: Yes: Colonoscopy, EGD, Hernia Repair, Tubal Ligation. No: Pacemaker Amputation: No Fractures: Yes - *Social History Smoking Status: Never smoker Tobacco Type: cigarettes #Yrs smoked (if former smoker): 20 Alcohol Intake: never Alcohol Intake Frequency:: holidays/special occasions only Substance Use Type: denies use *Occupational Status:: retired Housing: house Household Members: none *Travel in the last 8 weeks: None Family Hx:: Coronary Artery Disease, Diabetes, Heart Attack, Hyperlipidemia, Hypertension
== END ==
PROVIDERS: PCP Internal Medicine Adolescent Medicine; Visit Provider Family Medicine
DX: M51.16 Intervertebral disc disorders with radiculopathy, lumbar region (principal); M70.61 Trochanteric bursitis, right hip
CPT/HCPCS: 99212; G0463

== ENCOUNTER 2021-04-10 10:56 | Outpatient (CLI) | payer MEDICARE, OTHER, SELFPAY ==
[2021-04-10] VITALS (9 sets, daily range): BP systolic 112–144; BP diastolic 55–76; PULSE 71–78; RESP 17; TEMP 36.4; O2SAT 96
== END 2021-04-10 13:53 | disposition home or self-care (01) ==
LOC: INF 10:58
PROVIDERS: PCP Internal Medicine Adolescent Medicine; Visit Provider Internal Medicine
DX: M05.79 Rheumatoid arthritis with rheumatoid factor of multiple sites without organ or systems involvement (principal)
CPT/HCPCS: 96365; 96366; 96413; 96415; J1745

== ENCOUNTER 2021-04-18 11:34 | Day surgery (SDC) | payer MEDICARE, OTHER, SELFPAY ==
[2021-04-18 11:54] VITALS: BP 117/65; PULSE 72; RESP 18; TEMP 36.7; O2SAT 97
[2021-04-18 12:02] VITALS: BP 142/74; PULSE 71; RESP 18; O2SAT 98
[2021-04-18 12:03] VITALS: BP 145/75; PULSE 71; RESP 18; O2SAT 99
[2021-04-18 12:10] VITALS: BP 125/74; PULSE 63; RESP 18; O2SAT 97
--- NOTE | 2021-04-18 12:10 | HMH.PMPROC ---
- Procedure Date: 04/18/21 Time: 12:10 Anesthesiologist:: Oracio Olmstead MD Complications:: None Pre-procedure Diagnosis:: Trochanteric bursitis right side Post-procedure Diagnosis:: Same Indications for Procedure:: This patient is a pleasant 85-year-old white female who we are treating for right-sided hip pain. She is tender over the right trochanteric bursa. We will do a right trochanteric bursa injection under fluoroscopy today. Procedure Details:: Informed consent was obtained and the risk and benefits of the procedure was explained to the patient. The patient was taken to the procedure room. The right hip was prepped using ChloraPrep. The skin and subcutaneous tissues were anesthetized using lidocaine. I placed a 22-gauge spinal needle and advanced under fluoroscopic guidance until it contacted the right greater trochanter. Needle placement was confirmed with dye. After this I injected bupivacaine 0.25% 5 mL and Depo-Medrol 40 mg into the right trochanteric bursa. Patient tolerated the procedure well with no complications. Plan and Disposition:: We will follow-up with her in 2 weeks. Will reevaluate her symptoms at that time.
== END 2021-04-18 12:15 | disposition home or self-care (01) ==
LOC: SC.PAINP 11:35
PROVIDERS: PCP Internal Medicine Adolescent Medicine; Visit Provider Anesthesiology
DX: M70.61 Trochanteric bursitis, right hip (principal); I10 Essential (primary) hypertension; J44.9 Chronic obstructive pulmonary disease, unspecified; M81.0 Age-related osteoporosis without current pathological fracture; E05.00 Thyrotoxicosis with diffuse goiter without thyrotoxic crisis or storm; G62.9 Polyneuropathy, unspecified; M13.80 Other specified arthritis, unspecified site; I73.00 Raynaud's syndrome without gangrene; K21.9 Gastro-esophageal reflux disease without esophagitis; R56.9 Unspecified convulsions
CPT/HCPCS: 20610; 77002; J1040; Q9966

== ENCOUNTER 2021-05-02 09:22 | Day surgery (SDC) | payer MEDICARE, OTHER, SELFPAY ==
[2021-05-02 09:41] VITALS: BP 145/64; PULSE 69; RESP 18; BMI 24.7
[2021-05-02 10:35] VITALS: BP 150/78; PULSE 72; RESP 18; O2SAT 98
[2021-05-02 10:38] VITALS: BP 153/86; PULSE 74; RESP 18; O2SAT 100
--- NOTE | 2021-05-02 10:42 | P.PCN_ITS ---
- Procedure Date: 05/02/21 Time: 10:42 Anesthesiologist:: Oracio Olmstead MD Complications:: None Pre-procedure Diagnosis:: Degenerative disc disease of lumbar spine with lumbar radiculopathy symptoms Post-procedure Diagnosis:: Same Indications for Procedure:: Patient is a pleasant 85-year-old white female who we are treating for low back pain with lumbar radiculopathy symptoms. She did very well with her right trochanteric bursa injection. Now she has pain in her back and down into both ankles. We will do a lumbar pleural steroid injection today to see if this will help with her pain symptoms. Procedure Details:: Informed consent was obtained and the risk and benefits of the procedure was explained to the patient. The patient was taken to the procedure room. The patient was placed prone on the procedure table. The patient was prepped and draped in sterile fashion. C-arm fluoroscopy was used to view the lumbar spine. Skin and subcutaneous tissues were anesthetized using lidocaine. I placed an 18-gauge epidural needle and advanced into the L5-S1 interspace using fluoroscopic guidance and [id number] to air. After confirmation of ne edle placement in the epidural space with dye I injected 2 mL of lidocaine 1.5% with Depo-Medrol 80 mg. Patient tolerated the procedure well with no complications. Plan and Disposition:: We will follow-up with her in 2 weeks. Will reevaluate her symptoms at that time.
[2021-05-02 10:51] VITALS: BP 152/69; PULSE 70; RESP 20; O2SAT 95
== END 2021-05-02 10:52 | disposition home or self-care (01) ==
LOC: SC.PAINP 09:23
PROVIDERS: PCP Internal Medicine Adolescent Medicine; Visit Provider Anesthesiology
DX: M51.16 Intervertebral disc disorders with radiculopathy, lumbar region (principal); D64.9 Anemia, unspecified; R00.2 Palpitations; I10 Essential (primary) hypertension; K21.9 Gastro-esophageal reflux disease without esophagitis; E03.9 Hypothyroidism, unspecified; Z86.73 Personal history of transient ischemic attack (TIA), and cerebral infarction without residual deficits; Z88.8 Allergy status to other drugs, medicaments and biological substances; Z79.82 Long term (current) use of aspirin; Z79.899 Other long term (current) drug therapy
CPT/HCPCS: 62323; J1040; Q9966

== ENCOUNTER 2021-05-29 10:46 | Outpatient (CLI) | payer MEDICARE, OTHER, SELFPAY ==
[2021-05-29] VITALS (11 sets, daily range): BP systolic 114–142; BP diastolic 63–75; PULSE 70–83; RESP 18; TEMP 36.2; O2SAT 98
== END 2021-05-29 14:12 | disposition home or self-care (01) ==
LOC: INF 10:48
PROVIDERS: PCP Internal Medicine Adolescent Medicine; Visit Provider Internal Medicine
DX: M05.79 Rheumatoid arthritis with rheumatoid factor of multiple sites without organ or systems involvement (principal)
CPT/HCPCS: 96413; 96415; J1745

== ENCOUNTER → 2021-06-04 07:53 | Outpatient (CLI) | payer MEDICARE, OTHER, SELFPAY ==
--- NOTE | 2021-06-04 07:56 | MM_ITS ---
PROCEDURE: MM DIG SCREENING MAMM BI W/CAD Digital Breast Tomosynthesis Included CLINICAL INDICATION: SCREENING There is no personal or family history of breast cancer. COMPARISON: MG MM DIG SCREENING MAMM BI W/CAD from 05/02/2019 MG MM DIG SCREENING MAMM BI W/CAD from 05/07/2020 MG MM DIG MAMM DX UNILAT RT CAD from 05/17/2020 TECHNIQUE: Standard CC and MLO images and 3D Tomosynthesis was obtained. R2 CAD reviewed. FINDINGS: Mild scattered diffuse fibroglandular densities are seen in both breast and the findings of bilateral and symmetrical. There is prominent arterial calcification in each breast. CAD markings were reviewed they appear to be secondary to arterial calcifications. There is no new or suspicious lesion in either breast and no suspicious microcalcifications. IMPRESSION: Fibrofatty parenchyma with no suspicious lesions seen BI-RAD Category: 2 Benign Finding(s) FOLLOW-UP: 1YR 1 Year Follow-up (A letter has been sent to the patient regarding results of the study.) Dictated by: Dr. José Shay MD 06/06/2021 15:35 Dr. José Shay MD in [place] 06/06/2021 15:35
== END ==
PROVIDERS: PCP Internal Medicine Adolescent Medicine; Visit Provider Nurse Practitioner Family
DX: Z12.31 Encounter for screening mammogram for malignant neoplasm of breast (principal)
CPT/HCPCS: 77063; 77067

== ENCOUNTER → 2021-06-05 11:38 | Outpatient (POV) | payer MEDICARE, OTHER, SELFPAY ==
[2021-06-05 12:14] VITALS: BP 148/70; PULSE 71; RESP 18; O2SAT 97; BMI 25.6
--- NOTE | 2021-06-05 12:31 | HMH.PAINSOAP ---
[facility] Pain Management SOAP Note Subjective:: Patient is an 85-year-old white female who presents today for follow-up after #2 lumbar epidural steroid injection at L5-S1. Patient reports that she got 2 weeks of relief with the injection. She was able to walk and stand without pain. She did go on vacation and got significant relief. Patient says her pain has returned. She has chronic pain in the low back and right leg. She says she is now developing pain into the low back and left leg that is progressing to the knee and left foot. She is also having occasional charley horses at bedtime. She does rate her pain a 5 out of 10 today. Patient is also seeing Dr. Jules for rheumatoid arthritis and does get Plaquenil and Remicade. Review of Systems General: No recent weight changes, no fever, no sleep disturbances Respiratory: No cough, no shortness of air, no recurring pulmonary infections Cardiovascular/peripheral vascular: No chest pain, no palpitations, no edema, no shortness of breath Gastrointestinal: No new onset incontinence, normal bowel movements reported Genitourinary: No new onset incontinence Musculoskeletal: Low back pain with radiation into bilateral lower extremities and feet Psychiatric: [Normal mood/affect] Neurological: Weakness bilateral lower extremities Objective:: Physical exam General: Alert and oriented x3, no acute distress, pleasant and cooperative, [on room air] Lungs: Respirations even and unlabored, symmetrical chest expansion Eyes: PERRL Musculoskeletal: Flexion and extension of lumbar [spine] somewhat guarded secondary to pain, [antalgic gait noted] Neurological: Speech clear, no gross sensory deficit Assessment:: Degenerative disc disease lumbar spine with lumbar radiculopathy symptoms Plan:: Patient is a pleasant 85-year-old white female who is following up after #2 lumbar epidural steroid injection at L5-S1. She got great relief with the injection, up to 2 weeks and was much more functional. She would like to proceed with a third lumbar epidural steroid injection at the L5-S1 area. We will plan to see the patient back after the injection for reevaluation of symptoms. She is not on any anticoagulation therapy. Possible side effects of corticosteroids have been discussed with the patient. Risks and benefits of the procedure have been explained to the patient. Patient would like to proceed with the procedure. Patient has been instructed to contact the clinic with any concerns before the next appointment. Dr. Bux has reviewed this note and agrees with this plan of care. This note was dictated using voice recognition software and make contain errors or omissions. [facility] History I have reviewed the patient's past medical history: Yes Medical History: Reports:: Gastroesophageal Reflux Disease(GERD), Hypertension, Palpitations, Transient Ischemic Attacks (TIA) Denies:: Cancer, Diabetes Mellitus Type 1, Diabetes Mellitus Type 2, Internal Pacemaker, MRSA, Seizures *Have you ever received a pneumonia vaccine?: Yes *Have you received a flu vaccine this season?: Yes Other Medical History: Reports: Anemia, Arthritis, Cataracts, Hypothyroidism, Liver Disease, Radiation Therapy, Sinus Problems, Thyroid Disease. Denies: Blood Transfusion Reaction Other Surgeries: Yes: Colonoscopy, EGD, Hernia Repair, Tubal Ligation. No: Pacemaker Amputation: No Fractures: Yes - *Social History Smoking Status: Never smoker Tobacco Type: cigarettes #Yrs smoked (if former smoker): 20 Alcohol Intake: never Alcohol Intake Frequency:: holidays/special occasions only Substance Use Type: denies use *Occupational Status:: unemployed Housing: house Household Members: none *Travel in the last 8 weeks: None Family Hx:: Coronary Artery Disease, Diabetes, Heart Attack, Hyperlipidemia, Hypertension
== END ==
PROVIDERS: PCP Nurse Practitioner Family; Visit Provider Clinical Nurse Specialist Family Health
DX: M51.16 Intervertebral disc disorders with radiculopathy, lumbar region (principal)
CPT/HCPCS: 99212; G0463

== ENCOUNTER 2021-06-20 12:02 | Day surgery (SDC) | payer MEDICARE, OTHER, SELFPAY ==
[2021-06-20 12:06] VITALS: BP 147/80; PULSE 81; RESP 18; TEMP 36.7; O2SAT 96; BMI 25.6
[2021-06-20 12:18] VITALS: BP 139/74; PULSE 83; RESP 20; O2SAT 96
[2021-06-20 12:27] VITALS: BP 144/78; PULSE 83; RESP 20; O2SAT 96
--- NOTE | 2021-06-20 12:30 | P.PCN_ITS ---
- Procedure Date: 06/20/21 Time: 12:30 Anesthesiologist:: Oracio Olmstead MD Complications:: None Pre-procedure Diagnosis:: Degenerative disc disease of lumbar spine with lumbar radiculopathy symptoms Post-procedure Diagnosis:: Same Indications for Procedure:: Patient is a pleasant 85-year-old white female who we are treating for low back pain with lumbar radiculopathy symptoms. She has increasing pain in her back radiating down her left and right leg. We will plan on a repeat lumbar epidural steroid injection under fluoroscopy today. She is done very well with previous injections with 89% relief in her pain symptoms. Pain is just now starting to return. Procedure Details:: Informed consent was obtained and the risk and benefits of the procedure was e xplained to the patient. The patient was taken to the procedure room. The patient was placed prone on the procedure table. The patient was prepped and draped in sterile fashion. C-arm fluoroscopy was used to view the lumbar spine. Skin and subcutaneous tissues were anesthetized using lidocaine. I placed an 18-gauge epidural needle and advanced into the L4-L5 interspace using fluoroscopic guidance and [id number] to air. After confirmation of needle placement in the epidural space with dye I injected 2 mL of lidocaine 1.5% with Depo-Medrol 80 mg. Patient tolerated the procedure well with no complications. Plan and Disposition:: We will follow-up with her in 2 weeks. Will reevaluate symptoms at that time.
[2021-06-20 12:40] VITALS: BP 149/98; PULSE 65; RESP 20; O2SAT 97
== END 2021-06-20 12:40 | disposition home or self-care (01) ==
LOC: SC.PAINP 12:04
PROVIDERS: PCP Nurse Practitioner Family; Visit Provider Anesthesiology
DX: M51.16 Intervertebral disc disorders with radiculopathy, lumbar region (principal); I10 Essential (primary) hypertension; I73.00 Raynaud's syndrome without gangrene; Z88.8 Allergy status to other drugs, medicaments and biological substances
CPT/HCPCS: 62323; J1040; Q9966

== ENCOUNTER → 2021-07-10 09:57 | Outpatient (POV) | payer MEDICARE, OTHER, SELFPAY ==
[2021-07-10 10:13] VITALS: BP 132/78; PULSE 70; RESP 18; O2SAT 98; BMI 25.6
--- NOTE | 2021-07-10 10:22 | HMH.PAINSOAP ---
[facility] Pain Management SOAP Note Subjective:: Patient is an 85-year-old white female who presents today for follow-up. The patient recently underwent a lumbar epidural steroid injection at L4-L5 area. The patient reports that she got 95% relief. She says that she is doing much better and is much more active since the injection. She does undergo routine injective therapy to her lumbar spine. Patient does have low back pain with radiation into bilateral lower extremities. She does report of having a fall approximately 1 month ago outside of her home. She says that she had to crawl and to her home to get to her telephone. Patient has previously worked at [employer] for 34 years. She says that she has had difficulty with balance and falls her entire life. She is very active and reports that she does come to the clinic often for exercising but does not perform any type of physical therapy. Patient does take gabapentin prescribed by Reynaldo Jules. This does help with pain into her lower extremities. She does use ice and heat therapies. Patient does live alone. Review of Systems General: No recent weight changes, no fever, no sleep disturbances Respiratory: No cough, no shortness of air, no recurring pulmonary infections Cardiovascular/peripheral vascular: No chest pain, no palpitations, no edema, no shortness of breath Gastrointestinal: No new onset incontinence, normal bowel movements reported Genitourinary: No new onset incontinence Musculoskeletal: Low back pain with radiation into bilateral lower extremities with frequent falls Psychiatric: [Normal mood/affect] Neurological: [Denies weakness in extremities], frequent falls Objective:: Physical exam General: Alert and oriented x3, no acute distress, pleasant and cooperative Lungs: Respirations even and unlabored, symmetrical chest expansion Eyes: PERRL Musculoskeletal: Flexion and extension of lumbar [spine] somewhat guarded secondary to pain, [antalgic gait noted] Neurological: Speech clear, no gross sensory deficit Assessment:: Degenerative disc disease lumbar spine with lumbar radiculopathy symptoms Plan:: Patient is an 85-year-old white female who is here today to follow-up after a lumbar epidural steroid injection. She got 95% relief with the injection is still doing well. She is having frequent falls, however. We did discuss starting physical therapy to see if this helps with balance and decrease in falls. She does report to have had a fall 1 month ago outside of her home with inability to contact neighbors or family. I have advised the patient to keep a a cell phone or a point of contact nearby at all times. She is in agreement. We will plan to follow-up with patient in 3 months. She will start physical therapy as soon as possible. Patient has been instructed to contact the clinic with any concerns before the next appointment. Dr. Olmstead has reviewed this note and agrees with this plan of care. This note was dictated using voice recognition software and make contain errors or omissions. [facility] History I have reviewed the patient's past medical history: Yes Medical History: Reports:: Coronary Artery Disease, Gastroesophageal Reflux Disease(GERD), Hyperlipidemia, Hypertension, Palpitations, Transient Ischemic Attacks (TIA) Denies:: Cancer, Diabetes Mellitus Type 1, Diabetes Mellitus Type 2, Internal Pacemaker, MRSA, Seizures *Have you ever received a pneumonia vaccine?: Yes *Have you received a flu vaccine this season?: Yes Other Medical History: Reports: Anemia, Arthritis, Cataracts, Hypothyroidism, Liver Disease, Radiation Therapy, Sinus Problems, Thyroid Disease. Denies: Blood Transfusion Reaction Other Surgeries: Yes: Colonoscopy, EGD, Hernia Repair, Tubal Ligation. No: Pacemaker Amputation: No Fractures: Yes - *Social History Smoking Status: Never smoker Tobacco Type: cigarettes #Yrs smoked (if former smoker): 20 Alcohol Intake: n
== END ==
PROVIDERS: Visit Provider Clinical Nurse Specialist Family Health
DX: M51.16 Intervertebral disc disorders with radiculopathy, lumbar region (principal)
CPT/HCPCS: 99212; G0463

== ENCOUNTER 2021-07-17 10:52 | Outpatient (CLI) | payer MEDICARE, OTHER, SELFPAY ==
[2021-07-17] VITALS (7 sets, daily range): BP systolic 106–146; BP diastolic 52–82; PULSE 65–73; RESP 17; TEMP 36.7; O2SAT 96–97; BMI 25.6
[2021-07-17 11:31] LABS: Basophils # 0.1 K/mm3 (0-0.2); Basophils % 0.8 % (0.1-2.0); Eosinophils # 0.4 K/mm3 (0.0-0.4); Hematocrit 36.5 % (37.0-47.0); Hemoglobin 12.3 g/dL (12.2-16.2); Lymphocytes # 1.9 K/mm3 (0.7-4.5); Lymphocytes % 24.5 % (10-50); Mean Corpuscular HGB Conc 33.7 g/dL (31.8-35.4); Mean Corpuscular Volume 97.9 fl (81-99); Monocytes # 0.7 K/mm3 (0.1-1.0); Monocytes % 8.2 % (1.7-9.3); Neutrophils # 4.8 K/mm3 (1.8-7.8); Neutrophils % 61.4 % (37.0-80.0); Platelet Count 200 K/mm3 (142-424); Red Blood Count 3.73 M/mm3 (4.20-5.40); Red Cell Distribution Width 13.9 % (11.5-17.5); White Blood Count 7.8 K/mm3 (4.8-10.8)
[2021-07-17 11:37] LABS: Chloride 98 mmol/L (98-107); Potassium 3.6 mmoL/L (3.5-5.1); Sodium 134 mmol/L (136-145)
[2021-07-17 11:40] LABS: Alanine Aminotransferase 47 U/L (12-78); Albumin/Globulin Ratio 1.5 (1.1-1.8); Alkaline Phosphatase 62 U/L (38-126); Anion Gap 7.6 mEq/L (5-15); Aspartate Amino Transferase 73 U/L (14-36); Bilirubin,Total 0.5 mg/dl (0.2-1.3); Blood Urea Nitrogen 18 mg/dl (7-17); Calcium 9.1 mg/dl (8.4-10.2); Carbon Dioxide 32 mmol/L (22.0-30.0); Creatinine Clearance Estimated 42 mL/min (50-200); Estimated Glomerular Filt Rate 68 ml/min (>60); GFR (African American) 83 ML/MIN (>60); Globulin 2.7 g/dL (1.3-3.2); Glucose 95 mg/dl (74-100); Total Protein,Serum 6.7 g/dl (6.3-8.2)
[2021-07-17 13:04] LABS: Vitamin B12 > 1000 pg/mL (239-931)
== END 2021-07-17 15:11 | disposition home or self-care (01) ==
LOC: INF 10:53
PROVIDERS: PCP Nurse Practitioner Family; Visit Provider Internal Medicine
DX: M05.79 Rheumatoid arthritis with rheumatoid factor of multiple sites without organ or systems involvement (principal); I10 Essential (primary) hypertension; E03.9 Hypothyroidism, unspecified; E55.9 Vitamin D deficiency, unspecified; E53.8 Deficiency of other specified B group vitamins
CPT/HCPCS: 80053; 82306; 82607; 84443; 85025; 96365; 96366; 96413; 96415; J1745

== ENCOUNTER → 2021-08-15 08:23 | Outpatient (CLI) | payer MEDICARE, OTHER, SELFPAY ==
[2021-08-15 09:15] LABS: Basophils # 0.1 K/mm3 (0-0.2); Eosinophils # 0.4 K/mm3 (0.0-0.4); Eosinophils % 6.6 % (0.1-12.0); Hematocrit 36.8 % (37.0-47.0); Hemoglobin 12.1 g/dL (12.2-16.2); Lymphocytes # 2.2 K/mm3 (0.7-4.5); Mean Corpuscular Hemoglobin 31.7 pg (27.0-31.2); Mean Platelet Volume 7.8 fl (7.4-10.4); Monocytes # 0.5 K/mm3 (0.1-1.0); Monocytes % 7.9 % (1.7-9.3); Neutrophils # 2.8 K/mm3 (1.8-7.8); Neutrophils % 47.5 % (37.0-80.0); Platelet Count 197 K/mm3 (142-424); Red Blood Count 3.83 M/mm3 (4.20-5.40); Red Cell Distribution Width 13.9 % (11.5-17.5); White Blood Count 5.9 K/mm3 (4.8-10.8)
[2021-08-15 09:48] LABS: Alanine Aminotransferase 23 U/L (12-78); Albumin Level 3.8 g/dl (3.5-5.0); Albumin/Globulin Ratio 1.5 (1.1-1.8); Alkaline Phosphatase 58 U/L (38-126); Anion Gap 10.2 mEq/L (5-15); Aspartate Amino Transferase 45 U/L (14-36); Bilirubin,Total 0.6 mg/dl (0.2-1.3); Blood Urea Nitrogen 14 mg/dl (7-17); Calcium 9.5 mg/dl (8.4-10.2); Carbon Dioxide 31 mmol/L (22.0-30.0); Chloride 98 mmol/L (98-107); Estimated Glomerular Filt Rate 68 ml/min (>60); GFR (African American) 83 ML/MIN (>60); Globulin 2.6 g/dL (1.3-3.2); Glucose 84 mg/dl (74-100); Potassium 4.2 mmoL/L (3.5-5.1); Sodium 135 mmol/L (136-145); Total Protein,Serum 6.4 g/dl (6.3-8.2)
[2021-08-15 10:19] LABS: Thyroid Stimulating Hormone 0.23 uIU/mL (0.465-4.68)
[2021-08-15 10:33] LABS: 25-OH Vitamin D, Total 46.7 ng/mL (30-100)
[2021-08-15 10:38] LABS: Vitamin B12 > 1000 pg/mL (239-931)
== END ==
PROVIDERS: Visit Provider Nurse Practitioner Family
DX: I10 Essential (primary) hypertension (principal); M05.79 Rheumatoid arthritis with rheumatoid factor of multiple sites without organ or systems involvement; E03.9 Hypothyroidism, unspecified; E53.8 Deficiency of other specified B group vitamins; E66.3 Overweight; Z68.26 Body mass index [BMI] 26.0-26.9, adult; R74.8 Abnormal levels of other serum enzymes; M85.89 Other specified disorders of bone density and structure, multiple sites
CPT/HCPCS: 36415; 80053; 82306; 82607; 84443; 85025

== ENCOUNTER 2021-08-18 08:00 | Outpatient (RCR) | payer MEDICARE, OTHER, SELFPAY ==
--- NOTE | 2021-07-15 10:02 | HMH.PTOPEV ---
PT Outpatient Evaluation Rehab PT Outpatient Evaluation Start: 07/15/21 07:53 Freq: Status: Active Protocol: Document 07/15/21 07:54 R[place]D (Rec: 07/15/21 10:01 SHAUNNA [id number]) Electronically Signed By Eleazar hCristianson PT 07/15/21 07:54 Outpatient Therapy Subjective History Subjective History This is the initial evaluation for Milad Vickers. Pt is an 85 y/o female referred for LBP and leg pain. Pt states she has had back pain for awhile now. Pt states she started getting shots in her pain from the pain clinic to help mitigate the back pain that has been helping. 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 Pt reports a hx of falls due to loss of balance and weakness. Pt states her back pain begins in her low back and extends down both her hips and thighs that worsens when she sits for long. - note done by Archana Hollis, SPT Chief Complaint Pain,Stiff,Weakness Symptom Type Ache,Throb,Dull Symptoms Relieved By Rest/Positioning,Heat Symptoms Aggravated By Supine,Sitting,Physical Activity Prior Functional Limitations None Current Functional Limitations Dressing,Squatting,Recreation Activity,Walking,Balance, Bending/Stooping Symptom Description Intermittent Level of pain today (0-10) 0 Pain scale - at its best (0-10) 0 Pain scale - at its worst (0-10) 7 Lumbopelvic Eval Posture Thoracic Spine Posture Standing Position Fixed Scoliosis on (R) Lumbar Spine Posture Standing Position Rotation Right Assistive device Assistive Devices None / NA Palapation tenderness bilateral thoracic spinal tenderness Yes: lower T-sp SP lumbar spinal tenderness Yes: L-sp SP paraspinal tenderness Yes: lower T-sp and all L-sp buttock tenderness Yes: piriformis Accessory Movement T-spine Vertebrae Accessory Movements [place] that Elicit Symptoms T11 bilateral T12 bilateral L-spine Vertebrae Accessory Movements [place] that Elicit Symptoms L2 bilateral L3 bilateral L4
== END 2021-08-18 08:05 | disposition home or self-care (01) ==
LOC: PT 08:00
PROVIDERS: PCP Nurse Practitioner Family; Visit Provider Clinical Nurse Specialist Family Health
DX: M54.50 Low back pain, unspecified (principal); M79.605 Pain in left leg; M79.604 Pain in right leg
CPT/HCPCS: 97110; 97163; 97164

== ENCOUNTER 2021-08-28 11:00 | Outpatient (CLI) | payer MEDICARE, OTHER, SELFPAY ==
[2021-08-28] VITALS (10 sets, daily range): BP systolic 87–110; BP diastolic 47–61; PULSE 71–85; RESP 16–18; O2SAT 99
== END 2021-08-28 14:20 | disposition home or self-care (01) ==
LOC: INF 11:01
PROVIDERS: PCP Nurse Practitioner Family; Visit Provider Internal Medicine
DX: M05.79 Rheumatoid arthritis with rheumatoid factor of multiple sites without organ or systems involvement (principal)
CPT/HCPCS: 96413; 96415; J1745

== ENCOUNTER 2021-09-06 09:02 | Emergency (ER) | payer MEDICARE, OTHER, SELFPAY ==
[2021-09-06 09:02] VITALS: BP 119/64; PULSE 83; RESP 19; TEMP 36.4; O2SAT 99; BMI 25.6
--- NOTE | 2021-09-06 09:19 | HMH.EDGENADL ---
ED Disposition Clinical Impression: Hand laceration Qualifiers: Encounter type: initial encounter Foreign body presence: without foreign body Laterality: left Qualified Code(s): S61.412A - Laceration without foreign body of left hand, initial encounter Disposition: Home, Self-Care Condition on Discharge: Good Instructions: DI for Laceration Repair -- Simple Additional Instructions: You have been evaluated for a laceration to the dorsal aspect of the left hand. Laceration has been repaired with sutures. Please keep the wound clean, dry for 24 hours. You may wash your hands and shower normally after that. Avoid contamination of the wound. Follow-up with your primary care doctor in 7-10 days for suture removal. Return to the emergency department at once for any new or worsening symptoms, redness, pain, swelling, other concerns. Referrals: Adelso Demarco MD [Primary Care Provider] - Time of Disposition: :24 - Critical Care Critical Care Time: No Attestation: On 09/06/21, the high probability of a clinically significant, sudden or life threatening deterioration of the following system(s) required my full and direct attention, intervention and personal management. The time I documented below is in addition to time spent performing reported procedures but includes the following listed in this critical care notation. Medical Decision Making - Medical Records Medical records reviewed: Yes: I reviewed the patient's medical records. - Josué Inquiry Pt receiving controlled substance: No Orders (Tests/Meds): ED MEDICATIONS Discontinued Medications Generic Name Dose Route Start Last Admin Trade Name Javierq PRN Reason Stop Dose Admin Lidocaine/Epinephrine 2 ml 09/06/21 09:09 Lidocaine 1% W/Epi 1:100,000 20ml Vial SQ 09/06/21 09:10 ONCE ONE Tetanus/Reduced Diphtheria/Acell Pertussis 0.5 ml 09/06/21 09:09 Tet/Diphth/Pert-Adult 0.5ml Syringe IM 09/06/21 09:10 .ONCE ONE Medical Decision Narrative: In summary this is a previously healthy right-handed 86-year-old female presenting to the emergency department the laceration to the dorsal aspect of left hand. Patient clinically stable on arrival. Vital signs within normal limits. She has brisk bleeding from the laceration site. Bleeding controlled with lidocaine with epinephrine and pressure. Motion intact in the thumb and index finger. Sensation intact on the radial and ulnar aspect of the digits. Laceration irrigated copiously. Repaired with 4-0 sutures. Well-tolerated. Patient's tetanus updated. Counseled on wound care. PCP follow-up. Given return precautions. Stable for discharge. General Adult HPI - General Stated complaint: laceration Time Seen by Provider: 09/06/21 09:09 Mode of Arrival: EMS Source of Information: Patient Limitations: No Limitations - History of Present Illness HPI narrative: 86-year-old female presenting to the emergency department after laceration. She was using a box puller to open cat food when she slipped and cut the back of her left hand. She sustained a laceration between the thumb and index finger. Pain was described as sharp and intense. Now throbbing. There was significant amount of bleeding. When EMS arrived, they placed a compressive bandage. Patient takes daily aspirin. No other blood thinners. She denies any numbness, weakness, tingling in her thumb or index finger. She is right-hand dominant. Does not know her most recent tetanus vaccine. - Related Data Home Medications Medication Instructions Recorded Confirmed polyethylene glycoL 3350 [Miralax 17 gm PO DAILY 10/19/17 08/28/21 17gm Packet] Aspirin [Aspir 81] 81 mg PO DAILY 11/04/17 08/28/21 Vitamin E Acetate [Vitamin E] 400 unit PO DAILY 11/04/17 08/28/21 levothyroxine 88 mcg tablet 1 tab PO DAILY 30 Days #30 12/30/17 08/28/21 Hydroxychloroquine Sulfate 200 mg PO DAILY 11/04/18 08/28/21 [Plaquenil] omeprazole 40 mg
[2021-09-06 10:08] VITALS: BP 123/69; PULSE 73; RESP 20; TEMP 36.4; O2SAT 98
== END 2021-09-06 10:11 | disposition home or self-care (01) ==
PROVIDERS: Emergency Provider Emergency Medicine; PCP Internal Medicine Adolescent Medicine
DX: S61.412A Laceration without foreign body of left hand, initial encounter (principal); Z23 Encounter for immunization; W26.0XXA Contact with knife, initial encounter; Y92.010 Kitchen of single-family (private) house as the place of occurrence of the external cause; E78.5 Hyperlipidemia, unspecified; I10 Essential (primary) hypertension; I25.10 Atherosclerotic heart disease of native coronary artery without angina pectoris; K21.9 Gastro-esophageal reflux disease without esophagitis; E03.9 Hypothyroidism, unspecified
CPT/HCPCS: 12002; 90471; 90715; 99282

== ENCOUNTER 2021-09-15 10:05 | Emergency (ER) | payer MEDICARE, OTHER, SELFPAY ==
[2021-09-15 10:05] VITALS: BP 138/76; PULSE 79; RESP 18; TEMP 37; O2SAT 99; BMI 24.0
[2021-09-15 10:10] VITALS: BP 138/76; PULSE 79; RESP 18; TEMP 37; O2SAT 99
== END 2021-09-15 10:13 | disposition home or self-care (01) ==
PROVIDERS: Emergency Provider Nurse Practitioner; PCP Nurse Practitioner Family
DX: S61.412D Laceration without foreign body of left hand, subsequent encounter (principal)

== ENCOUNTER → 2021-10-09 11:15 | Outpatient (POV) | payer MEDICARE, OTHER, SELFPAY ==
[2021-10-09 11:29] VITALS: BP 136/70; PULSE 78; RESP 18; O2SAT 99; BMI 26.6
--- NOTE | 2021-10-09 11:35 | P.CONS_ITS ---
[facility] Pain Management SOAP Note Subjective:: Patient is an 86-year-old white female who presents today for follow-up. She is seen in the clinic on 07/10/2021 following a lumbar epidural steroid injection. Since then she has gotten worse pain in her low back area. The pain is going into bilateral buttock and bilateral hips. She rates her pain a 6 out of 10 today. Pain was present upon awakening this morning. She says pain is worse with standing and walking. She is tender to palpation to the area. Review of Systems General: No recent weight changes, no fever, no sleep disturbances Respiratory: No cough, no shortness of air, no recurring pulmonary infections Cardiovascular/peripheral vascular: No chest pain, no palpitations, no edema, no shortness of breath Gastrointestinal: No new onset incontinence, normal bowel movements reported Genitourinary: No new onset incontinence Musculoskeletal: Low back pain with radiation into bilateral hips and buttock Psychiatric: [Normal mood/affect] Neurological: [Denies weakness in extremities], [denies balance issues] Objective:: Physical exam General: Alert and oriented x3, no acute distress, pleasant and cooperative Lungs: Respirations even and unlabored, symmetrical chest expansion Eyes: PERRL Musculoskeletal: Flexion and extension of lumbar [spine] somewhat guarded secondary to pain, [antalgic gait noted], positive Yan's test, positive Alvaro's test, positive distraction test, positive compression test Neurological: Speech clear, no gross sensory deficit Assessment:: Degenerative disc disease lumbar spine with lumbar radiculopathy symptoms, sacroiliitis bilateral Plan:: We will schedule the patient for bilateral SI joint injections and see her back in the clinic afterwards for reevaluation of symptoms. Possible side effects of corticosteroids have been discussed with the patient. Risks and benefits of the procedure have been explained to the patient. Patient would like to proceed with the procedure. Patient has been instructed to contact the clinic with any concerns before the next appointment. Dr. Olmstead has reviewed this note and agrees with this plan of care. This note was dictated using voice recognition software and make contain errors or omissions. [facility] History I have reviewed the patient's past medical history: Yes Medical History: Reports:: Coronary Artery Disease, Gastroesophageal Reflux Disease(GERD), Hyperlipidemia, Hypertension, Palpitations, Transient Ischemic Attacks (TIA) Denies:: Cancer, Diabetes Mellitus Type 1, Diabetes Mellitus Type 2, Internal Pacemaker, MRSA, Seizures *Have you ever received a pneumonia vaccine?: Yes *Have you received a flu vaccine this season?: Yes Other Medical History: Reports: Anemia, Arthritis (RA), Cataracts, Hypothyroidism, Liver Disease, Radiation Therapy (TO THYROID), Sinus Problems, Thyroid Disease. Denies: Blood Transfusion Reaction Other Surgeries: Yes: Colonoscopy, EGD, Hernia Repair, Tubal Ligation. No: Pacemaker Amputation: No Fractures: Yes - *Social History Smoking Status: Never smoker Tobacco Type: cigarettes #Yrs smoked (if former smoker): 20 Alcohol Intake: never Alcohol Intake Frequency:: holidays/special occasions only Substance Use Type: denies use *Occupational Status:: unemployed, retired Housing: house Household Members: none *Travel in the last 8 weeks: None Family Hx:: Coronary Artery Disease, Diabetes, Heart Attack, Hyperlipidemia, Hypertension
== END ==
PROVIDERS: Visit Provider Clinical Nurse Specialist Family Health
DX: M51.16 Intervertebral disc disorders with radiculopathy, lumbar region (principal); M46.1 Sacroiliitis, not elsewhere classified
CPT/HCPCS: 99212; G0463

== ENCOUNTER 2021-10-10 10:58 | Outpatient (CLI) | payer MEDICARE, OTHER, SELFPAY ==
[2021-10-10] VITALS (8 sets, daily range): BP systolic 130–144; BP diastolic 65–88; PULSE 59–72; RESP 18; TEMP 36.2; O2SAT 99
== END 2021-10-10 14:45 | disposition home or self-care (01) ==
LOC: INF 10:59
PROVIDERS: PCP Internal Medicine Adolescent Medicine; Visit Provider Internal Medicine
DX: M05.79 Rheumatoid arthritis with rheumatoid factor of multiple sites without organ or systems involvement (principal)
CPT/HCPCS: 96413; 96415; J1745

== ENCOUNTER 2021-10-31 09:38 | Day surgery (SDC) | payer MEDICARE, OTHER, SELFPAY ==
[2021-10-31 09:47] VITALS: BP 115/68; BP 139/70; PULSE 62; PULSE 66; RESP 17; RESP 18; TEMP 36.2; O2SAT 96; O2SAT 97; BMI 26.5
[2021-10-31 10:06] VITALS: BP 151/74; PULSE 67; RESP 20; O2SAT 99
--- NOTE | 2021-10-31 10:15 | P.PCN_ITS ---
- Procedure Date: 10/31/21 Time: 10:15 Anesthesiologist:: Oracio Olmstead MD Complications:: None Pre-procedure Diagnosis:: Sacroiliitis Post-procedure Diagnosis:: Same Indications for Procedure:: The patient is a pleasant 86-year-old white female who we have been treating for bilateral hip pain. She is tender over both SI joints. She does have a positive Alvaro's test bilaterally. She is positive Bairon test bilaterally. She has positive SI joint compression test bilaterally. We will plan on bilateral SI joint injections under fluoroscopy today to help with her pain symptoms. Procedure Details:: B/L SI joint injection under fluoroscopy Informed consent was obtained and the risks and benefits of the procedure was explained to the patient. The patient was taken to the procedure room and placed prone on the procedure table. The patient was prepped using ChloraPrep. The skin and subcutaneous tissues overlying the SI joints were anesthetized usin g lidocaine. I placed a 22-gauge needle first in the left SI joint and second in the right SI joint. Needle placement was confirmed with dye. After this we injected 5 mL bupivacaine 0.25% and Depo-Medrol 40 mg into each SI joint. Patient tolerated the procedure well with no complication. Plan and Disposition:: Follow-up with her in 2 weeks. Will reevaluate symptoms at that time.
[2021-10-31 10:19] VITALS: BP 147/82; PULSE 62; RESP 20; O2SAT 99
== END 2021-10-31 10:21 | disposition home or self-care (01) ==
LOC: SC.PAINP 09:39
PROVIDERS: PCP Internal Medicine Adolescent Medicine; Visit Provider Anesthesiology
DX: M46.1 Sacroiliitis, not elsewhere classified (principal); I10 Essential (primary) hypertension; Z86.73 Personal history of transient ischemic attack (TIA), and cerebral infarction without residual deficits
CPT/HCPCS: 27096; G0260; J1040; Q9966

== ENCOUNTER 2021-11-21 11:03 | Outpatient (CLI) | payer MEDICARE, OTHER, SELFPAY ==
[2021-11-21] VITALS (9 sets, daily range): BP systolic 102–132; BP diastolic 50–72; PULSE 63–68; RESP 16–18
== END 2021-11-21 14:35 | disposition home or self-care (01) ==
LOC: INF 11:04
PROVIDERS: PCP Internal Medicine Adolescent Medicine; Visit Provider Internal Medicine
DX: M05.79 Rheumatoid arthritis with rheumatoid factor of multiple sites without organ or systems involvement (principal)
CPT/HCPCS: 96413; 96415; J1745

== ENCOUNTER → 2021-11-27 10:08 | Outpatient (POV) | payer MEDICARE, OTHER, SELFPAY ==
[2021-11-27 10:18] VITALS: BP 118/60; PULSE 82; RESP 18; TEMP 36.7; O2SAT 97; BMI 25.6
--- NOTE | 2021-11-27 12:11 | HMH.PAINSOAP ---
[facility] Pain Management SOAP Note Subjective:: Patient is a pleasant 86-year-old female who is here for a follow up after Bilateral SI Inj on October 31, 2021. Patient is currently being treated for bilateral sacroiliitis. After the procedure, patients reports 90-100% relief and rates pain today at 0 out of 10. Patient denies any issues after the procedure. Patient says that she has been able to increase her activity since the injection. Josué number [id number] with an active morphine equivalent 0. Drug screens have been reviewed and appropriate. Review of Systems: General: No recent weight changes, no fever, no sleep disturbances Respiratory: No cough, no shortness of air, no recurring pulmonary infections Cardiovascular/peripheral vascular: No chest pain, no palpitations, no edema, no shortness of breath Gastrointestinal: No new onset incontinence, normal bowel movements reported Genitourinary: No new onset incontinence Musculoskeletal: Improving hip pain Psychiatric: [Normal mood/affect] Neurological: [Denies weakness in extremities], [denies balance issues] Objective:: Physical Exam: General: Alert and oriented x3, no acute distress, pleasant and cooperative, [on room air] Lungs: Respirations even and unlabored, symmetrical chest expansion Eyes: PERRL Musculoskeletal: Increased range of motion of bilateral hips Neurological: Speech clear, no gross sensory deficit Assessment:: Bilateral sacroiliitis Plan:: Patient continues to have significant relief after her bilateral SI injection. We will follow up with this patient in 3 months to see if she needs repeat injections. Patient has been instructed to contact the clinic with any concerns before the next appointment. Dr. Olmstead has reviewed this note and agrees with this plan of care. This note was dictated using voice recognition software and make contain errors or omissions. [facility] History Medical History: Reports:: Coronary Artery Disease, Gastroesophageal Reflux Disease(GERD), Hyperlipidemia, Hypertension, Palpitations, Transient Ischemic Attacks (TIA) Denies:: Cancer, Diabetes Mellitus Type 1, Diabetes Mellitus Type 2, Internal Pacemaker, MRSA, Seizures *Have you ever received a pneumonia vaccine?: Yes *Have you received a flu vaccine this season?: Yes Other Medical History: Reports: Anemia, Arthritis, Cataracts, Hypothyroidism, Liver Disease, Radiation Therapy (TO THYROID), Sinus Problems, Thyroid Disease. Denies: Blood Transfusion Reaction Other Surgeries: Yes: Colonoscopy, EGD, Hernia Repair, Tubal Ligation. No: Pacemaker Amputation: No Fractures: Yes - *Social History Smoking Status: Never smoker Tobacco Type: cigarettes #Yrs smoked (if former smoker): 20 Alcohol Intake: never Alcohol Intake Frequency:: holidays/special occasions only Substance Use Type: denies use *Occupational Status:: retired Housing: house Household Members: none *Travel in the last 8 weeks: None Family Hx:: No significant family history
== END ==
PROVIDERS: Visit Provider Student in an Organized Health Care Education/Training Program
DX: M46.1 Sacroiliitis, not elsewhere classified (principal)
CPT/HCPCS: 99212; G0463

== ENCOUNTER → 2021-12-17 08:00 | Outpatient (CLI) | payer MEDICARE, OTHER, SELFPAY ==
--- NOTE | 2021-12-17 | CA_ITS ---
FINAL REPORT TECHNIQUE: Color Doppler, duplex Doppler and coats scale sonography of the bilateral neck arterial vasculature was performed. Velocities were measured in the carotid arteries. Stenosis evaluation based on the validated velocity criteria. CLINICAL HISTORY: HTN, Dizziness FINDINGS: The peak systolic velocity of the right common carotid artery is 51 cm/s. The peak systolic velocity of the right internal carotid artery is 88 cm/s and end diastolic velocity 37 cm/s. The ICA/CCA ratio is 1.7. A small amount of plaque is present. The right external carotid artery is patent. The right vertebral artery is patent with antegrade flow. The peak systolic velocity of the left common carotid artery is 52 cm/s. The peak systolic velocity of the left internal carotid artery is 55 cm/s and end diastolic velocity 24 cm/s. The ICA/CCA ratio is 1.1. A small amount of plaque is present. The left external carotid artery is patent.The left vertebral artery is patent with antegrade flow. IMPRESSION: Less than 50% bilateral carotid stenosis. Bilateral patent vertebral arteries with antegrade flow. Reviewed, Interpreted and Dictated by Tyree Newberry III, MD Transcribed by Sirisha Elaine Authenticated by Tyree Newberry III, MD on 12/17/2021 09:38:10 AM [facility]
--- NOTE | 2021-12-17 08:33 | MR_ITS ---
FINAL REPORT CLINICAL HISTORY: DOUBLE VISION FINDINGS: Multiplanar MR imaging of the brain was performed without and with contrast. There is mild age-appropriate atrophy. Scattered foci of increased T2 signal are seen in the cerebral white matter that have a nonspecific appearance but likely represent moderate chronic ischemic/gliotic changes. There is no evidence of intracranial hemorrhage or mass. No abnormal ventricular dilatation is identified. There is no evidence of shift of the midline structures. No abnormal extra-axial fluid collection is seen. No area of abnormal restricted diffusion is identified. The posterior fossa and brainstem have an unremarkable appearance. No abnormal contrast enhancement is seen. Normal major vessel vascular flow voids are seen. IMPRESSION: Atrophy with moderate chronic ischemic/gliotic changes. No acute intracranial abnormality. Reviewed, Interpreted and Dictated by Tyree Newberry III, MD Transcribed by Saleem Tee Authenticated by Tyree Newberry III, MD on 12/17/2021 10:51:26 AM [facility]
== END ==
PROVIDERS: PCP Internal Medicine Adolescent Medicine; Visit Provider Nurse Practitioner Family
DX: R42 Dizziness and giddiness (principal); H53.2 Diplopia
CPT/HCPCS: 70553; 93880; A9576

== ENCOUNTER 2022-01-02 11:12 | Outpatient (CLI) | payer MEDICARE, OTHER, SELFPAY ==
[2022-01-02 11:24] VITALS: BP 124/60; PULSE 67; RESP 20; TEMP 36.7; O2SAT 94
[2022-01-02 12:40] VITALS: BP 126/64; PULSE 68; RESP 20; TEMP 37.2; O2SAT 95
[2022-01-02 13:10] VITALS: BP 125/74; PULSE 68; RESP 20; TEMP 36.8; O2SAT 95
[2022-01-02 13:40] VITALS: BP 125/74; PULSE 70; RESP 20; TEMP 37.2; O2SAT 95
[2022-01-02 14:10] VITALS: BP 128/74; PULSE 68; RESP 20; O2SAT 95
[2022-01-02 14:29] VITALS: BP 125/74; PULSE 68; RESP 20; TEMP 36.9; O2SAT 95
== END 2022-01-02 14:40 | disposition home or self-care (01) ==
PROVIDERS: PCP Nurse Practitioner Family; Visit Provider Internal Medicine
DX: M05.79 Rheumatoid arthritis with rheumatoid factor of multiple sites without organ or systems involvement (principal)
CPT/HCPCS: 96365; 96366; 96413; 96415; J1745

== ENCOUNTER 2022-02-13 11:07 | Outpatient (CLI) | payer MEDICARE, OTHER, SELFPAY ==
[2022-02-13] VITALS (10 sets, daily range): BP systolic 111–128; BP diastolic 58–88; PULSE 59–71; RESP 16–18; O2SAT 98
== END 2022-02-13 14:25 | disposition home or self-care (01) ==
LOC: INF 11:08
PROVIDERS: PCP Nurse Practitioner Family; Visit Provider Internal Medicine
DX: M05.79 Rheumatoid arthritis with rheumatoid factor of multiple sites without organ or systems involvement (principal)
CPT/HCPCS: 96413; 96415; J1642; J1745

== ENCOUNTER → 2022-02-23 08:25 | Outpatient (POV) | payer MEDICARE, OTHER, SELFPAY ==
[2022-02-23 08:47] VITALS: BP 130/71; PULSE 78; RESP 18; TEMP 36.5; O2SAT 97; BMI 25.6
--- NOTE | 2022-02-23 09:07 | HMH.PAINSOAP ---
[facility] Pain Management SOAP Note Subjective:: Patient is a pleasant 86-year-old white female who is here for 3-month follow-up after bilateral SI injection. She is currently being treated for bilateral sacroiliitis. Patient reports that she has had 90 to 100% relief from her SI injection. Patient is interested in future ablation of the SI joint. Patient has had LESI and multiple SI injections in the past with good relief. Today she states her pain is a 6 out of 10. Patient states pain is in her neck and shoulder area bilaterally, she describes the pain as an achy sensation. She states this pain has been going on for the last month. Patient denies any recent fall or trauma. Patient has a history of right shoulder fracture in her 60s. Patient's Josué number is [id number]. It has been reviewed and is appropriate. Review of Systems: General: No recent weight changes, no fever, no sleep disturbances Respiratory: No cough, no shortness of air, no recurring pulmonary infections Cardiovascular/peripheral vascular: No chest pain, no palpitations, no edema, no shortness of breath Gastrointestinal: No new onset incontinence, normal bowel movements reported Genitourinary: No new onset incontinence Musculoskeletal: Neck and shoulder pain Psychiatric: [Normal mood/affect] Neurological: [Denies weakness in extremities], [denies balance issues] Objective:: Physical Exam: General: Alert and oriented x3, no acute distress, pleasant and cooperative Lungs: Respirations even and unlabored, symmetrical chest expansion Eyes: PERRL Musculoskeletal: Flexion and extension of neck and bilateral shoulder somewhat guarded secondary to pain, [antalgic gait noted] Neurological: Speech clear, no gross sensory deficit Assessment:: Bilateral sacroiliitis and myofascial pain Plan:: Patient continues to have significant relief from her bilateral SI injection. She would like to have SI ablation in the future, however at this time her pain is located in her neck and bilateral shoulders. Patient was negative for any radicular symptoms. Risk and benefits of trigger point injections were discussed with the patient and she would like to proceed forward with these injections. She will be scheduled for trigger point injections of her neck and bilateral shoulders today. Patient has been instructed to contact the clinic with any concerns before the next appointment. Dr. Olmstead has reviewed this note and agrees with this plan of care. This note was dictated using voice recognition software and make contain errors or omissions. [facility] History I have reviewed the patient's past medical history: Yes Medical History: Reports:: Coronary Artery Disease, Gastroesophageal Reflux Disease(GERD), Hyperlipidemia, Hypertension, Palpitations, Transient Ischemic Attacks (TIA) Denies:: Cancer, Diabetes Mellitus Type 1, Diabetes Mellitus Type 2, Internal Pacemaker, MRSA, Seizures *Have you ever received a pneumonia vaccine?: Yes *Have you received a flu vaccine this season?: Yes Other Medical History: Reports: Anemia, Arthritis, Cataracts, Hypothyroidism, Liver Disease, Radiation Therapy, Sinus Problems, Thyroid Disease. Denies: Blood Transfusion Reaction Other Surgeries: Yes: Colonoscopy, EGD, Hernia Repair, Tubal Ligation. No: Pacemaker Amputation: No Fractures: Yes - *Social History Smoking Status: Never smoker Tobacco Type: cigarettes #Yrs smoked (if former smoker): 20 Alcohol Intake: never Alcohol Intake Frequency:: holidays/special occasions only Substance Use Type: denies use *Occupational Status:: other Housing: house Household Members: none *Travel in the last 8 weeks: None Family Hx:: No significant family history
== END ==
PROVIDERS: Visit Provider Student in an Organized Health Care Education/Training Program
DX: M46.1 Sacroiliitis, not elsewhere classified (principal); M79.10 Myalgia, unspecified site
CPT/HCPCS: 99212; G0463

== ENCOUNTER 2022-03-06 12:53 | Day surgery (SDC) | payer MEDICARE, OTHER, SELFPAY ==
[2022-03-06 13:01] VITALS: BP 150/69; PULSE 79; RESP 18; TEMP 36.4; O2SAT 100; BMI 25.6
--- NOTE | 2022-03-06 13:08 | HMH.PMPROC ---
- Procedure Date: 03/06/22 Time: 13:09 Anesthesiologist:: Von Cline CRNA Complications:: None Pre-procedure Diagnosis:: Cervical myofascial pain. Bilateral trapezius muscle pain. Post-procedure Diagnosis:: Same Indications for Procedure:: This patient is a pleasant 86-year-old female that has been treated in our clinic before for myofascial pain posterior cervical spine as well as bilateral trapezius muscles. Patient also complaining of some bilateral posterior hip pain as well as lumbar back pain. She describes the low back pain as constant, dull, aching. Pain increases with any outdoor chores such as gardening mowing the lawn etc. She is requesting today for a repeat of the bilateral SI joint injections in the near future. We will set this up for her today. Procedure Details:: Details of the procedure were explained to the patient. The patient was taken to the procedure room placed in the sitting position. The area over the posterior cervical spine was cleansed using chlorhexidine as a cleansing solution. Also the bilateral trapezius muscles. Using a 25-gauge needle and a solution containing 0.25% Marcaine +1% lidocaine and 40 mg of Depo-Medrol. 2 cc was injected at 3 different areas in the posterior spinous muscle as well as trapezius muscle bilaterally. Patient tolerated procedure without difficulty. There are no complications. Plan and Disposition:: Patient was discharged without incident. We will see her back in a couple weeks for bilateral SI joint injections.
[2022-03-06 13:14] VITALS: BP 141/72; BP 152/75; PULSE 72; PULSE 73; RESP 18; RESP 20; O2SAT 99
== END 2022-03-06 13:15 | disposition home or self-care (01) ==
LOC: SC.PAINP 12:54
PROVIDERS: PCP Nurse Practitioner Family; Visit Provider Nurse Anesthetist, Certified Registered
DX: M79.12 Myalgia of auxiliary muscles, head and neck (principal)
CPT/HCPCS: 20552; J1040

== ENCOUNTER 2022-03-20 10:32 | Day surgery (SDC) | payer MEDICARE, OTHER, SELFPAY ==
[2022-03-20 10:40] VITALS: BP 111/84; PULSE 74; RESP 18; TEMP 36.4; O2SAT 98; BMI 25.6
[2022-03-20 10:49] VITALS: BP 147/80; PULSE 71; RESP 20
[2022-03-20 11:04] VITALS: BP 134/78; PULSE 80; RESP 20; O2SAT 97
--- NOTE | 2022-03-20 11:06 | P.PCN_ITS ---
- Procedure Date: 03/20/22 Time: 11:06 Anesthesiologist:: Von Cline CRNA Complications:: None Pre-procedure Diagnosis:: Bilateral sacroiliitis Post-procedure Diagnosis:: Same Indications for Procedure:: Very pleasant 86-year-old female who has had this injection in the past with significant improvement terms of her low back pain as well as bilateral posterior hip pain. She returns today for bilateral SI joint injection. She rates her pain 7/10. Procedure Details:: Procedure: Bilateral sacroiliac joint injections under fluoroscopy Informed consent was obtained and the risks and benefits of the procedure were explained to the patient.~ The patient was taken to the procedure room and noninvasive monitors were placed including a noninvasive blood pressure cuff and pulse oximeter.~ The patient was placed prone on the procedure table. Both hips were cleansed using Betadine as a cleansing solution. C-arm fluoroscopy was used to view the right sacroiliac joint.~ The skin and subcutaneous tissues were anesthetized using lidocaine 1.5% and a 25-gauge needle.~ After this, a 22-gauge spinal needle was inserted under fluoroscopic guidance into the inferior aspect of the right sacroiliac joint.~ Omnipaque dye was injected and good spread was seen throughout the joint.~ After this, approximately 5 mL of bupivacaine, 0.25% and Depo-Medrol, 40 mg was incrementally injected into the right sacroiliac joint. We then moved to the left sacroiliac joint.~ The skin and subcutaneous tissues were anesthetized using lidocaine 1.5% and a 25-gauge needle.~ After this, a 22- gauge spinal needle was inserted under fluoroscopic guidance into the inferior aspect of the left sacroiliac joint.~ Omnipaque dye was injected and good spread was seen throughout the joint. After this, approximately 5 mL of bupivacaine, 0.25% and Depo-Medrol, 40 mg was incrementally injected into the left sacroiliac joint.~ The patient tolerated the procedure well with no complications. The patient was observed in the Pain Clinic and then was discharged home neurologically intact. Plan and Disposition:: Patient was discharged without incident.
== END 2022-03-20 11:05 | disposition home or self-care (01) ==
LOC: SC.PAINP 10:33
PROVIDERS: PCP Nurse Practitioner Family; Visit Provider Nurse Anesthetist, Certified Registered
DX: M46.1 Sacroiliitis, not elsewhere classified (principal); M53.3 Sacrococcygeal disorders, not elsewhere classified; M79.18 Myalgia, other site; M19.90 Unspecified osteoarthritis, unspecified site
CPT/HCPCS: 27096; G0260; J1040

== ENCOUNTER → 2022-04-06 12:02 | Outpatient (POV) | payer MEDICARE, OTHER, SELFPAY ==
[2022-04-06 12:07] VITALS: BP 114/69; PULSE 89; RESP 20; BMI 24.7
--- NOTE | 2022-04-06 12:55 | HMH.PAINSOAP ---
[facility] Pain Management SOAP Note Subjective:: Patient is a pleasant 86-year-old female who presents today for follow-up after a bilateral SI injection on March 20, 2022. Patient is current being treated for chronic low back pain, bilateral sacroiliitis. After the injection, patient has significant relief of 80 to 90% and rates her pain today as 5 out of 10. She has been able to increase her activity since injection. Today, patient states that her shoulders and neck are hurting because she overworked it a few days ago. She was lifting a 24 pack water into the house. Denies any falls or traumas. She says she is doing okay so far. She does take OTC meds for pain. Josué [id number] with an active morbid equivalent of 0. Patient is prescribed gabapentin 100 mg 3 times a day by her PCP. Review of Systems: General: No recent weight changes, no fever, no sleep disturbances Respiratory: No cough, no shortness of air, no recurring pulmonary infections Cardiovascular/peripheral vascular: No chest pain, no palpitations, no edema, no shortness of breath Gastrointestinal: No new onset incontinence, normal bowel movements reported Genitourinary: No new onset incontinence Musculoskeletal: Low back pain, improving hip pain Psychiatric: [Normal mood/affect] Neurological: [Denies weakness in extremities], [denies balance issues] Objective:: Physical Exam: General: Alert and oriented x3, no acute distress, pleasant and cooperative Lungs: Respirations even and unlabored, symmetrical chest expansion Eyes: PERRL Musculoskeletal: Flexion and extension of lumbar [spine] somewhat guarded secondary to pain, [antalgic gait noted] Neurological: Speech clear, no gross sensory deficit Assessment:: Chronic low back pain, bilateral sacroiliitis Plan:: Patient continues to have significant relief after the bilateral SI injection. I will start the patient on tizanidine 4 mg at bedtime to help with her muscle aches. We will follow-up with this patient in 3 months. Patient has been instructed to contact the clinic with any concerns before the next appointment. Dr. Olmstead has reviewed this note and agrees with this plan of care. This note was dictated using voice recognition software and make contain errors or omissions. [facility] History Medical History: Reports:: Coronary Artery Disease, Gastroesophageal Reflux Disease(GERD), Hyperlipidemia, Hypertension, Palpitations, Transient Ischemic Attacks (TIA) Denies:: Cancer, Diabetes Mellitus Type 1, Diabetes Mellitus Type 2, Internal Pacemaker, MRSA, Seizures *Have you ever received a pneumonia vaccine?: Yes *Have you received a flu vaccine this season?: Yes Other Medical History: Reports: Anemia, Arthritis, Cataracts, Hypothyroidism, Liver Disease, Radiation Therapy, Sinus Problems, Thyroid Disease. Denies: Blood Transfusion Reaction Other Surgeries: Yes: Colonoscopy, EGD, Hernia Repair, Tubal Ligation. No: Pacemaker Amputation: No Fractures: Yes - *Social History Smoking Status: Never smoker Tobacco Type: cigarettes #Yrs smoked (if former smoker): 20 Alcohol Intake: never Alcohol Intake Frequency:: holidays/special occasions only Substance Use Type: denies use *Occupational Status:: retired Housing: house Household Members: none *Travel in the last 8 weeks: None Family Hx:: No significant family history
== END ==
PROVIDERS: PCP Internal Medicine Adolescent Medicine; Visit Provider Nurse Practitioner Family
DX: M46.1 Sacroiliitis, not elsewhere classified (principal); M54.50 Low back pain, unspecified; G89.29 Other chronic pain
CPT/HCPCS: 99212; G0463

== ENCOUNTER 2022-04-21 10:26 | Outpatient (CLI) | payer MEDICARE, OTHER, SELFPAY ==
[2022-04-21] VITALS (7 sets, daily range): BP systolic 108–130; BP diastolic 57–72; PULSE 66–74; RESP 17–18; O2SAT 96
== END 2022-04-21 13:38 | disposition home or self-care (01) ==
LOC: INF 10:27
PROVIDERS: PCP Nurse Practitioner Family; Visit Provider Internal Medicine
DX: M05.79 Rheumatoid arthritis with rheumatoid factor of multiple sites without organ or systems involvement (principal)
CPT/HCPCS: 96413; 96415; J1745

== ENCOUNTER 2022-06-05 11:08 | Outpatient (CLI) | payer MEDICARE, OTHER, SELFPAY ==
[2022-06-05] VITALS (10 sets, daily range): BP systolic 106–149; BP diastolic 64–86; PULSE 62–71; RESP 18; O2SAT 95
== END 2022-06-05 14:13 | disposition home or self-care (01) ==
LOC: INF 11:09
PROVIDERS: PCP Nurse Practitioner Family; Visit Provider Internal Medicine
DX: M05.79 Rheumatoid arthritis with rheumatoid factor of multiple sites without organ or systems involvement (principal)
CPT/HCPCS: 96413; 96415; J1745

== ENCOUNTER → 2022-06-22 09:51 | Outpatient (POV) | payer MEDICARE, OTHER, SELFPAY ==
--- NOTE | 2022-06-22 10:20 | EXP.PAIN.SOA ---
[facility] Pain Management SOAP Note Subjective:: Patient is a pleasant 86-year-old female who presents today for follow-up. We are currently treating the patient for chronic low back pain, bilateral sacroiliitis. Today she rates her pain a 4 out of 10. She states the pain is primarily in her low back and radiates into her bilateral hips as well as her feet. Patient is currently managed with [id number] Tylenol arthritis that does provide some improvement of her symptoms. Patient describes her pain as a aching, throbbing that is worse with increased activity and burning/tingling in her bilateral feet. Patient denies any new trauma or injury. She denies any change to location or type of pain she experiences. Patient has had injective therapy in the past that provided significant improvement of her symptoms. Her last bilateral SI injection gave 80 to 90% relief lasting for 3 months. She is interested in repeat injections at today's visit. She is currently managed with gabapentin 100 mg 3 times a day by Dr. Reynaldo Jules however she states she only takes this medication twice a day. Patient had previously been on pregabalin but could not tolerate it due to double vision and other side effects. Patient does state that she stumbles frequently however this has been going on for years and is unrelated to her back and feet pain. Patient has gone to physical therapy in the past and still continues to go to exercise daily. Her Josué is [id number]. It is been reviewed and appropriate. Review of Systems: General: No recent weight changes, no fever, no sleep disturbances Respiratory: No cough, no shortness of air, no recurring pulmonary infections Cardiovascular/peripheral vascular: No chest pain, no palpitations, no edema, no shortness of breath Gastrointestinal: No new onset incontinence, normal bowel movements reported Genitourinary: No new onset incontinence Musculoskeletal: Low back pain, bilateral hip pain Psychiatric: [Normal mood/affect] Neurological: [Denies weakness in extremities], [denies balance issues] Objective:: Physical Exam: General: Alert and oriented x3, no acute distress, pleasant and cooperative Lungs: Respirations even and unlabored, symmetrical chest expansion Eyes: PERRL Musculoskeletal: Flexion and extension of lumbar [spine] somewhat guarded secondary to pain, [antalgic gait noted] extreme point tenderness along bilateral SI's and bilateral greater trochanteric bursa. Positive bilateral Alvaro, Yan's, Gaenslen's, compression and distraction exam Neurological: Speech clear, no gross sensory deficit Assessment:: Chronic low back pain, sacroiliitis Plan:: Patient is experiencing worsening pain in her low back into her bilateral hips. Patient did have limited range of motion of her lumbar spine during today's visit as well as extreme point tenderness along her bilateral SI and bilateral greater trochanteric bursas. Patient also had a positive bilateral Alvaro's, Yan's, Gaenslen's, compression and distraction exam. I have counseled the patient regarding having repeat SI injections. Risk and benefits were discussed with the patient. She would like to proceed forward with this option. I have also discussed with the patient regarding having bursa injections in the future. I will order the patient a compounding cream at today's visit. We will schedule the patient for bilateral SI injections at today's visit. Patient has been instructed to contact the clinic with any concerns before the next appointment. Dr. Olmstead has reviewed this note and agrees with this plan of care. This note was dictated using voice recognition software and make contain errors or omissions. [facility] Medical History (Updated 06/05/22 @ 12:02 by Paige Muñoz RN) Cataract Chest pain COPD (chronic obstructive pulmonary disease) GERD (gastroesophageal reflux disease) Hx of thyroid irradiation Hypertension Hypothyroid Palpitations Raynaud disease Rheu
[2022-06-22 10:49] VITALS: BP 126/72; PULSE 69; RESP 18; TEMP 36.9; O2SAT 98; BMI 25.6
== END ==
PROVIDERS: PCP Nurse Practitioner Family; Visit Provider Nurse Practitioner Family
DX: M46.1 Sacroiliitis, not elsewhere classified (principal); M54.50 Low back pain, unspecified; G89.29 Other chronic pain
CPT/HCPCS: 99212; G0463

== ENCOUNTER 2022-06-30 08:18 | Day surgery (SDC) | payer MEDICARE, OTHER, SELFPAY ==
[2022-06-30 08:33] VITALS: BP 140/68; PULSE 65; RESP 18; TEMP 36.9; O2SAT 99; BMI 25.6
[2022-06-30 08:52] VITALS: BP 140/64; PULSE 75; RESP 18; O2SAT 97
[2022-06-30 08:53] VITALS: BP 140/64; PULSE 75; RESP 18; O2SAT 98
[2022-06-30 08:57] VITALS: BP 146/59; PULSE 68; RESP 18; O2SAT 100
--- NOTE | 2022-06-30 09:33 | P.PCN_ITS ---
Procedure Date: 06/30/22 Time: 09:00 Anesthesiologist:: Von Cline CRNA Complications:: None Pre-procedure Diagnosis:: Bilateral sacroiliitis Post-procedure Diagnosis:: Same Indications for Procedure:: Very pleasant 86-year-old female that comes for repeat bilateral sacroiliac joint injections. She has extreme point tenderness over the bilateral SI joints. She complains of low back pain with some radicular symptoms. She has had success with this injection in the past. Procedure Details:: Procedure: Bilateral sacroiliac joint injections under fluoroscopy Informed consent was obtained and the risks and benefits of the procedure were explained to the patient.~ The patient was taken to the procedure room and noninvasive monitors were placed including a noninvasive blood pressure cuff and pulse oximeter.~ The patient was placed prone on the procedure table. Both hips were cleansed using Betadine as a cleansing solution. C-arm fluoroscopy was used to view the right sacroiliac joint.~ The skin and subcutaneous tissues were ane sthetized using lidocaine 1.5% and a 25-gauge needle.~ After this, a 22-gauge spinal needle was inserted under fluoroscopic guidance into the inferior aspect of the right sacroiliac joint.~ Omnipaque dye was injected and good spread was seen throughout the joint.~ After this, approximately 5 mL of bupivacaine, 0.25% and Depo-Medrol, 40 mg was incrementally injected into the right sacroiliac joint. We then moved to the left sacroiliac joint.~ The skin and subcutaneous tissues were anesthetized using lidocaine 1.5% and a 25-gauge needle.~ After this, a 22- gauge spinal needle was inserted under fluoroscopic guidance into the inferior aspect of the left sacroiliac joint.~ Omnipaque dye was injected and good spread was seen throughout the joint. After this, approximately 5 mL of bupivacaine, 0. 25% and Depo-Medrol, 40 mg was incrementally injected into the left sacroiliac joint.~ The patient tolerated the procedure well with no complications. The patient was observed in the Pain Clinic and then was discharged home neurologically intact. Plan and Disposition:: Patient was discharged without incident
== END 2022-06-30 08:57 | disposition home or self-care (01) ==
LOC: SC.PAINP 08:22
PROVIDERS: PCP Nurse Practitioner Family; Visit Provider Nurse Anesthetist, Certified Registered
DX: M46.1 Sacroiliitis, not elsewhere classified (principal)
CPT/HCPCS: 27096; G0260; J1040

== ENCOUNTER → 2022-07-16 08:25 | Outpatient (POV) | payer MEDICARE, OTHER, SELFPAY ==
[2022-07-16 08:35] VITALS: PULSE 66; RESP 18; O2SAT 97; BMI 25.6
--- NOTE | 2022-07-16 08:44 | EXP.PAIN.SOA ---
[facility] Pain Management SOAP Note Subjective:: Patient is a pleasant 87-year-old female who presents today for follow-up of bilateral SI injections on 06/30/2022. We are currently treating the patient for chronic low back pain, bilateral sacroiliitis. Today the patient states she has had at least 95% improvement following this injection and feels like it is still continuing to help. Today she rates her pain a 1 out of 10. Patient denies any new trauma or injury. Patient denies any change location or type of pain she experiences. Patient does use [id number] Tylenol arthritis as needed to provide some improvement of her symptoms. 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 Patient does states she continues to use a heating pad to provide temporary relief. She is also managed with gabapentin 100 mg 3 times a day however she continues to take this medication twice a day. Patient does states she has been experiencing worsening cramping in her lower legs at night that wakes her up and she frequently has to get up and move around in order to get relief. Patient has started using her compounding cream and states it does improve some of her symptoms. Her Josué is [id number]. It is been reviewed and appropriate. Review of Systems: General: No recent weight changes, no fever, no sleep disturbances Respiratory: No cough, no shortness of air, no recurring pulmonary infections Cardiovascular/peripheral vascular: No chest pain, no palpitations, no edema, no shortness of breath Gastrointestinal: No new onset incontinence, normal bowel movements reported Genitourinary: No new onset incontinence Musculoskeletal: Low back pain, leg pain Psychiatric: [Normal mood/affect] Neurological: [Denies weakness in extremities], [denies balance issues] Objective:: Physical Exam: General: Alert and oriented x3, no acute distress, pleasant and cooperative Lungs: Respirations even and unlabored, symmetrical chest expansion Eyes: PERRL Musculoskeletal: Flexion and extension of lumbar [spine] somewhat guarded secondary to pain, [antalgic gait noted] Neurological: Speech clear, no gross sensory deficit Assessment:: Chronic low back pain, bilateral sacroiliitis Plan:: Patient has had significant improvement of her symptoms following her last bilateral SI injection. At this time she does not require any additional injective therapy. I have discussed with the patient regarding adding ropinirole 0.25 mg at night to help with her restless leg symptoms. Patient agrees with this plan of care. I will order her a 14-day supply of this medication and she will contact the office if she would like an additional refill. Patient does typically gets 2 to 3 months of relief with each injection and at this time the patient will contact our office when she needs a follow-up. Patient has been instructed to contact the clinic with any concerns before the next appointment. Dr. Olmstead has reviewed this note and agrees with this plan of care. This note was dictated using voice recognition software and make contain errors or omissions. [facility] Medical History (Updated 06/05/22 @ 12:02 by Paige Muñoz RN) Cataract Chest pain COPD (chronic obstructive pulmonary disease) GERD (gastroesophageal reflux disease) Hx of thyroid irradiation Hypertension Hypothyroid Palpitations Raynaud disease Rheumatoid arthritis TIA (transient ischemic attack) Surgical History Hx of bilateral cataract extraction Hx of colonoscopy Hx of esophagogastroduodenoscopy Hx of hernia repair Hx of tubal ligation Family History (Updated 06/30/22 @ 08:34 by Lizbeth Azar RN) Other No significant family history Social History Smoking Status: Never smoker second hand exposure: No alcohol intake: never substance use 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
== END | disposition home or self-care (01) ==
PROVIDERS: PCP Nurse Practitioner Family; Visit Provider Nurse Practitioner Family
DX: M46.1 Sacroiliitis, not elsewhere classified (principal); M54.50 Low back pain, unspecified; G89.29 Other chronic pain
CPT/HCPCS: 99212; G0463

== ENCOUNTER 2022-07-21 11:02 | Outpatient (CLI) | payer MEDICARE, OTHER, SELFPAY ==
[2022-07-21] VITALS (9 sets, daily range): BP systolic 102–148; BP diastolic 48–71; PULSE 62–80; RESP 18; TEMP 36.2; O2SAT 98–99
== END 2022-07-21 14:25 | disposition home or self-care (01) ==
LOC: INF 11:03
PROVIDERS: PCP Internal Medicine Adolescent Medicine; Visit Provider Internal Medicine
DX: M05.79 Rheumatoid arthritis with rheumatoid factor of multiple sites without organ or systems involvement (principal)
CPT/HCPCS: 96413; 96415; J1745

== ENCOUNTER → 2022-07-21 15:03 | Outpatient (POV) | payer MEDICARE, OTHER, SELFPAY | PROVIDERS: Visit Provider Dermatology | DX: Z00.00 Encounter for general adult medical examination without abnormal findings (principal) ==

== ENCOUNTER → 2022-07-24 09:03 | Outpatient (CLI) | payer MEDICARE, OTHER, SELFPAY ==
--- NOTE | 2022-07-24 09:08 | XR_ITS ---
FINAL REPORT CLINICAL HISTORY: post menopausal FINDINGS: DEXA BONE DENSITY Using L1-4, the bone mineral density of the spine is 0.956 g/cm2, corresponding to T-score of -0.8. This is likely falsely elevated secondary to hypertrophic changes. Using the right hip, the bone mineral density of the femoral neck is 0.612 g/cm2, corresponding to a T-score of -2.1. Using the left hip, the bone mineral density of the femoral neck is 0.569 g/cm2, corresponding to a T-score of -2.5. NOTE: T-score: Standard deviation compared with peak bone mass of young adult mean. *Following the recommendations of the International Society of Bone densitometry, classification of hip BMD is based on the lower of two T-scores; total hip or femoral neck. IMPRESSION: Diminished bone mineral density of the lumbar spine and hips. consistent with osteoporosis. Reviewed, Interpreted and Dictated by Tyree Newberry III, MD Transcribed by Kiley Kumari Authenticated and [facility]
== END ==
PROVIDERS: PCP Nurse Practitioner Family; Visit Provider Nurse Practitioner Family
DX: Z78.0 Asymptomatic menopausal state (principal)
CPT/HCPCS: 77080

== ENCOUNTER 2022-08-10 09:18 | Outpatient (CLI) | payer MEDICARE, OTHER, SELFPAY ==
[2022-08-10 09:26] VITALS: BMI 25.6
[2022-08-10 09:53] LABS: Albumin Level 3.6 g/dl (3.5-5.0)
[2022-08-10 09:56] LABS: Calcium 9.1 mg/dl (8.4-10.2); Creatinine Clearance Estimated 37 mL/min (50-200); Estimated Glomerular Filt Rate 47 ml/min (>60); GFR (African American) 57 ML/MIN (>60)
[2022-08-10 10:19] VITALS: BP 116/67; PULSE 66; RESP 18; TEMP 36.4; O2SAT 98
[2022-08-10 10:42] VITALS: BP 112/65; PULSE 63; RESP 18; TEMP 36.4; O2SAT 98
== END 2022-08-10 10:42 | disposition home or self-care (01) ==
LOC: INF 09:19
PROVIDERS: PCP Nurse Practitioner Family; Visit Provider Nurse Practitioner Family
DX: M81.0 Age-related osteoporosis without current pathological fracture (principal)
CPT/HCPCS: 82040; 82310; 82565; 96374; J3489

== ENCOUNTER → 2022-08-17 05:57 | Outpatient (CLI) | payer MEDICARE, OTHER, SELFPAY | PROVIDERS: Visit Provider Podiatrist | DX: B35.1 Tinea unguium (principal) | CPT/HCPCS: 87102; 87206 ==

== ENCOUNTER 2022-09-02 10:45 | Outpatient (CLI) | payer MEDICARE, OTHER, SELFPAY ==
[2022-09-02] VITALS (10 sets, daily range): BP systolic 98–117; BP diastolic 51–77; PULSE 63–97; RESP 18; TEMP 36; O2SAT 97–98
== END 2022-09-02 13:59 | disposition home or self-care (01) ==
LOC: INF 10:46
PROVIDERS: PCP Nurse Practitioner Family; Visit Provider Internal Medicine
DX: M05.79 Rheumatoid arthritis with rheumatoid factor of multiple sites without organ or systems involvement (principal)
CPT/HCPCS: 96413; 96415; J1745

== ENCOUNTER → 2022-09-15 09:31 | Outpatient (POV) | payer MEDICARE, OTHER, SELFPAY ==
--- NOTE | 2022-09-15 10:13 | EXP.PAIN.SOA ---
[facility] Pain Management SOAP Note Subjective:: Patient is a pleasant 87-year-old female who presents today for follow-up. We are currently treating the patient for degenerative disc disease of lumbar spine with lumbar radiculopathy symptoms, lumbar facet arthropathy, sacroiliitis, low back pain. Today the patient states that her pain is a 1 out of 10. Patient states that she has not gotten up and started moving around so she really does not have much pain at this point. Patient does state that her prior SI injections have done well and that she is not complaining of any pain at this location. She states she does frequently have low back pain while she is mopping or sweeping or doing activities around her home. Patient does state that she is going to water aerobics on a regular basis and does have some improvement with it. Patient does state that the increased activity has caused some pain in her bilateral shoulders. Patient states that she does occasionally use [id number] Tylenol and a heating pad for some of her pain symptoms. Patient has had multiple injections in the past including lumbar epidurals And SI injections. Patient states she does believe these all did provide overall significant improvement. patient denies any new imaging. Her Josué has been reviewed and is appropriate. Review of Systems: General: No recent weight changes, no fever, no sleep disturbances Respiratory: No cough, no shortness of air, no recurring pulmonary infections Cardiovascular/peripheral vascular: No chest pain, no palpitations, no edema, no shortness of breath Gastrointestinal: No new onset incontinence, normal bowel movements reported Genitourinary: No new onset incontinence Musculoskeletal: Low back pain Psychiatric: [Normal mood/affect] Neurological: [Denies weakness in extremities], [denies balance issues] Objective:: Physical Exam: General: Alert and oriented x3, no acute distress, pleasant and cooperative Lungs: Respirations even and unlabored, symmetrical chest expansion Eyes: PERRL Musculoskeletal: Flexion and extension of lumbar [spine] somewhat guarded secondary to pain, [antalgic gait noted]. Positive shopping cart sign Neurological: Speech clear, no gross sensory deficit [address] [place] [address] Magnetic Resonance Report Signed Patient: Hawa Vickers MR#: [id number] : 1935 Acct:[id number] Age/Sex: 85 / F ADM Date: 07/31/20 Loc: RAD Attending Dr: Crystal Rae Ordering Physician: Crystal Rae Date of Service: 07/31/20 Procedure(s): MR lumbar spine wo con Accession Number(s): [id number] cc: Mario Shelton MD; Magi Flanagan APRN~ PROCEDURE:? MR LUMBAR SPINE WO CON CLINICAL INDICATION:? LBP PT C/O LBP WITH HX OF RHEUMATOID ARTHRITIS. COMPARISON:? CR [id number] XR lumbar spine min 4V from 10/19/2017 TECHNIQUE:? Standard multiplanar multiecho sequences are performed without contrast. 3-D MIP and myelographic images are also rendered and reviewed FINDINGS: There is dextroscoliosis of the lumbar spine measuring 34 degrees. There is multilevel lumbar spondylosis. Spinal cord ends at the T12-L1 level. T12-L1: Degenerative disc disease with bulging disc which is eccentric toward the right with a small left paracentral disc protrusion with facet and ligamentum hypertrophy with resultant bilateral lateral recess and foraminal narrowing. There is moderate left lateral recess and foraminal narrowing from the protruding disc and facet hypertrophy. L1-L2: Degenerative disc disease with concentric bulging disc with facet and ligamentum hypertrophy resulting and severe left lateral recess and foraminal narrowing. Left lateral osteophytes with bulging disc noted. L2-L3: Degenerative disc disease with bulging disc with facet and ligamentum hypertrophy with severe left lateral recess and foraminal narrowing. There is left lateral diffuse bulging disc osteophyte
[2022-09-15 10:20] VITALS: BP 136/75; PULSE 66; RESP 18; TEMP 36.4; O2SAT 98; BMI 25.9
== END ==
PROVIDERS: PCP Internal Medicine Adolescent Medicine; Visit Provider Nurse Anesthetist, Certified Registered
DX: M51.16 Intervertebral disc disorders with radiculopathy, lumbar region (principal); M47.26 Other spondylosis with radiculopathy, lumbar region; M46.1 Sacroiliitis, not elsewhere classified; M48.062 Spinal stenosis, lumbar region with neurogenic claudication
CPT/HCPCS: 99212; G0463

== ENCOUNTER → 2022-09-18 10:05 | Day surgery (SDC) | payer MEDICARE, OTHER, SELFPAY ==
--- NOTE | 2022-09-18 10:01 | MR_ITS ---
FINAL REPORT TECHNIQUE: Multiplanar and multisequence imaging of the lumbar spine was obtained without contrast. CLINICAL HISTORY: LOWER BACK PAIN MANY YEARS WITH PAIN DOWN BOTH LEGS COMPARISON: 07/31/2020 FINDINGS: There is severe dextroscoliosis. Alignment in the sagittal plane is normal. There are degenerative endplate changes at multiple levels. Vertebral body height is preserved. The spinal cord ends at the level of T12-L1. There is normal signal intensity within the substance of the distal spinal cord. Bone marrow signal intensity is normal. No fracture is identified. No acute paraspinal abnormality is identified. Gallstones are seen in the gallbladder. L1-2: There is an annular disc bulge with degenerative endplate changes and facet osteoarthropathy. There is mild central canal stenosis with moderate bilateral neural foraminal narrowing. L2-3: There is an annular disc bulge with degenerative endplate changes and facet osteoarthropathy. There is mild central canal stenosis with moderate right and severe left neural foraminal narrowing. L3-4: There is an annular disc bulge with degenerative endplate changes and facet osteoarthropathy. There is moderate central canal stenosis and severe bilateral neural foraminal narrowing. L4-5: There is an annular disc bulge with degenerative endplate changes and facet osteoarthropathy. There is mild central canal stenosis and severe right and moderate left neural foraminal narrowing. L5-S1: There is an annular disc bulge with degenerative endplate changes and facet osteoarthropathy. There is no significant central canal stenosis. There is mild bilateral neural foraminal narrowing. IMPRESSION: Advanced multilevel degenerative disc disease and severe dextroscoliosis which has progressed since the prior exam. Reviewed, Interpreted and Dictated by Jade Still MD Transcribed by Kiley Kumari Authenticated and [facility]
[2022-09-18 13:56] VITALS: BP 146/67; PULSE 84; RESP 18; O2SAT 97
[2022-09-18 14:00] VITALS: BP 137/68; BP 146/67; PULSE 67; PULSE 84; RESP 18; TEMP 36.1; O2SAT 93; O2SAT 97; BMI 25.9
[2022-09-18 14:24] VITALS: BP 153/83; PULSE 73; RESP 18; TEMP 36.6; O2SAT 97
--- NOTE | 2022-09-18 14:38 | P.PCN_ITS ---
Procedure Date: 09/18/22 Time: 14:38 Anesthesiologist:: Oracio Olmstead MD Complications:: None Pre-procedure Diagnosis:: Degenerative disc disease of lumbar spine with lumbar radiculopathy symptoms with scoliosis and lumbar spinal stenosis with neurogenic claudication symptoms. Lumbar spondylolisthesis Post-procedure Diagnosis:: Same Indications for Procedure:: This patient is a pleasant 87-year-old white female who is very active. She has increasing pain in her back and down her legs especially with activity. She does get temporary relief from epidural steroid injections. She does have significant lumbar spinal stenosis. We will do lumbar epidural steroid injection with epidurogram to assess levels of stenosis and candidacy for minimally invasive lumbar decompression. Procedure Details:: Lumbar epidural steroid injection Informed consent was obtained the risk and benefits of the procedure were explained to the patient. Patient was taken the procedure room. The back was prepped using ChloraPrep. The skin and subtenons tissues were anesthetized using lidocaine. I placed a 17-gauge epidural needle and advanced into the L3- L4 interspace. We were unable to access the space because of significant degenerative changes and scoliosis. We did access the L5-S1 interspace. After confirmation of needle placement in the epidural space we injected dye. There was good spread of dye throughout the epidural space. We then injected lidocaine 1% and Depo-Medrol 80 mg. Patient tolerated the procedure well no complications. Plan and Disposition:: Based on epidurogram patient is not a candidate for minimally invasive lumbar decompression. She also has significant scoliosis and spondylolisthesis. I do believe she would be a good candidate for intrathecal therapy or spinal cord stimulation. I presented both options to the patient. We will follow-up with her to discuss further with her and her family.
== END | disposition home or self-care (01) ==
LOC: RAD 14:40 → SC.PAINP 10-12 10:13
PROVIDERS: PCP Internal Medicine Adolescent Medicine; Visit Provider Anesthesiology
DX: M51.16 Intervertebral disc disorders with radiculopathy, lumbar region (principal); M48.062 Spinal stenosis, lumbar region with neurogenic claudication; M41.9 Scoliosis, unspecified; M43.16 Spondylolisthesis, lumbar region
CPT/HCPCS: 62323; 72148; 76376; J1040; Q9966

== ENCOUNTER → 2022-09-30 11:17 | Outpatient (POV) | payer MEDICARE, OTHER, SELFPAY ==
[2022-09-30 11:47] VITALS: BP 129/91; PULSE 78; RESP 20; BMI 25.6
--- NOTE | 2022-09-30 12:16 | EXP.PAIN.SOA ---
[facility] Pain Management SOAP Note Subjective:: Patient is a pleasant 87-year-old female who presents today for follow-up of lumbar epidural with epidurogram at L5-S1 on 09/18/2022. We are currently treating the patient for degenerative disc disease of lumbar spine with lumbar radiculopathy symptoms, severe scoliosis with lumbar spinal stenosis and neurogenic claudication symptoms, neck pain, feet pain. Today the patient states that she has had significant improvement following this lumbar epidural steroid injection and states it is still providing some additional relief. She states her pain today is 5 out of 10, stating it is more her neck and feet pain. Patient does state her neck is an aching, throbbing sensation that is worse with increased activity. Patient describes her feet are more of a burning, tingling sensation. Patient also experiences additional leg cramping worse at night. Patient denies any new trauma or injury. Patient denies any change location or type of pain she experiences. Patient does continue to do water aerobics for additional activity however she states it is limited by her lack of range of motion in her upper arms and worsening pain symptoms. Patient does state she frequently cannot tolerate activities of daily living such as cooking and cleaning or sweeping due to her symptoms. Patient has had multiple injections in the past. Patient did recently just have updated MRI imaging. Patient is currently prescribed gabapentin 100 mg 3 times a day from Dr. Ambika Campos. Patient denies any side effects from this medication. Patient is also prescribed compounding cream that she states she has tried on her neck and did provide some additional improvement. Patient denies trying this on her feet. At our last visit we did discuss with her that she may be a beneficial candidate for a spinal cord stimulator trial or a pain pump trial. Her son presents today with her to review over these options. Her Josué is [id number]. It has been reviewed and appropriate. Review of Systems: General: No recent weight changes, no fever, no sleep disturbances Respiratory: No cough, no shortness of air, no recurring pulmonary infections Cardiovascular/peripheral vascular: No chest pain, no palpitations, no edema, no shortness of breath Gastrointestinal: No new onset incontinence, normal bowel movements reported Genitourinary: No new onset incontinence Musculoskeletal: [] Psychiatric: [Normal mood/affect] Neurological: [Denies weakness in extremities], [denies balance issues] Objective:: Physical Exam: General: Alert and oriented x3, no acute distress, pleasant and cooperative Lungs: Respirations even and unlabored, symmetrical chest expansion Eyes: PERRL Musculoskeletal: Flexion and extension of cervical, lumbar [spine] somewhat guarded secondary to pain, [antalgic gait noted] Neurological: Speech clear, no gross sensory deficit FINDINGS: There is severe dextroscoliosis.? Alignment in the sagittal plane is? normal.? There are degenerative endplate changes at multiple levels.? Vertebral body height is preserved. The spinal cord ends at the level of T12-L1. There is normal signal intensity within the substance of the distal spinal cord. Bone marrow signal intensity is normal.? No fracture is identified. No acute paraspinal abnormality is identified.? Gallstones are seen in the gallbladder.? L1-2:? There is an annular disc bulge with degenerative endplate changes and facet osteoarthropathy. There is mild central canal stenosis with moderate bilateral neural foraminal narrowing.? L2-3: There is an annular disc bulge with degenerative endplate changes and facet osteoarthropathy.? There is mild central canal stenosis with moderate right and severe left neural foraminal narrowing. L3-4: There is an annular disc bulge with degenerative endplate changes and facet osteoarthropathy.? There is moderate central canal stenosis and severe bilateral neural foraminal narrowi
== END | disposition home or self-care (01) ==
PROVIDERS: PCP Nurse Practitioner Family; Visit Provider Nurse Practitioner Family
DX: M51.16 Intervertebral disc disorders with radiculopathy, lumbar region (principal); M48.062 Spinal stenosis, lumbar region with neurogenic claudication; M47.20 Other spondylosis with radiculopathy, site unspecified; M79.671 Pain in right foot; M79.672 Pain in left foot
CPT/HCPCS: 99212; G0463

== ENCOUNTER 2022-10-14 10:56 | Outpatient (CLI) | payer MEDICARE, OTHER, SELFPAY ==
[2022-10-14] VITALS (8 sets, daily range): BP systolic 95–113; BP diastolic 51–72; PULSE 64–76; RESP 18; TEMP 36.4; O2SAT 96–97
== END 2022-10-14 14:36 | disposition home or self-care (01) ==
LOC: INF 10:57
PROVIDERS: PCP Nurse Practitioner Family; Visit Provider Internal Medicine
DX: M05.79 Rheumatoid arthritis with rheumatoid factor of multiple sites without organ or systems involvement (principal)
CPT/HCPCS: 96413; 96415; J1745

== ENCOUNTER → 2022-10-20 12:40 | Outpatient (CLI) | payer MEDICARE, OTHER, SELFPAY ==
--- NOTE | 2022-10-20 12:44 | MR_ITS ---
FINAL REPORT CLINICAL HISTORY: CERVICALGIA knot of the back of neck at the base of the skull FINDINGS: Multiplanar MR imaging of the cervical spine was performed without contrast. On the sagittal T2-weighted images, disc degeneration is seen throughout. There are endplate changes at multiple levels. There is no evidence of fracture. There is mild retrolisthesis of C5 on C6. Alignment is otherwise unremarkable. The cervical spinal cord has an unremarkable appearance without evidence of mass, edema or syrinx. The cervicomedullary junction is normal. C2-3: There is no significant canal stenosis or neural foraminal narrowing. C3-4: A disc osteophyte complex is present. C4-5: A disc osteophyte complex is present. There is mild bilateral neural foraminal narrowing. C5-6: A disc osteophyte complex is present. There is mild central canal stenosis with an AP diameter of the thecal sac of 7 mm. There is mild left neural foraminal narrowing. C6-7: An annular disc bulge is present with uncovertebral osteophytes. There is a small left foraminal disc protrusion and mild right neural foraminal narrowing. C7-T1: There is no significant canal stenosis or neural foraminal narrowing. T1-2: An annular disc bulge is present. IMPRESSION: Multilevel disc degeneration with mild central canal stenosis at C5-6 and areas of neural foraminal narrowing as described above. Reviewed, Interpreted and Dictated by Tyree Newberry III, MD Transcribed by Sirisha Elaine Authenticated and . [facility]
== END ==
PROVIDERS: PCP Nurse Practitioner Family; Visit Provider Nurse Practitioner Family
DX: M54.2 Cervicalgia (principal)
CPT/HCPCS: 72141; 76376

== ENCOUNTER → 2022-10-28 10:53 | Outpatient (CLI) | payer MEDICARE, OTHER, SELFPAY ==
--- NOTE | 2022-10-28 10:56 | XR_ITS ---
FINAL REPORT CLINICAL HISTORY: dyspnea COMPARISON: 10/19/2017 FINDINGS: PA and lateral views of the chest were obtained. The cardiac and mediastinal silhouettes are within normal limits. There are changes of emphysema. The lungs are otherwise clear. There is no pleural effusion or pneumothorax. No acute osseous abnormality is identified. IMPRESSION: No radiographic evidence of acute cardiac or pulmonary disease. Reviewed, Interpreted and Dictated by Jade Still MD Transcribed by Jewell Johnson Authenticated and [facility]
== END ==
PROVIDERS: PCP Nurse Practitioner Family; Visit Provider Physician Assistant
DX: R06.00 Dyspnea, unspecified (principal)
CPT/HCPCS: 71046

== ENCOUNTER → 2022-10-29 09:02 | Outpatient (POV) | payer MEDICARE, OTHER, SELFPAY ==
--- NOTE | 2022-10-29 09:20 | EXP.PAIN.SOA ---
[facility] Pain Management SOAP Note Subjective:: Patient is a pleasant 87-year-old female who presents today for follow-up. We are currently treating the patient for degenerative disc disease of lumbar spine with lumbar radiculopathy symptoms, severe scoliosis with neurogenic claudication symptoms, neck pain, feet pain.Today she rates her pain a 0 out of 10. Patient denies any new trauma or injury. Patient denies any change location or type of pain she experiences. Patient did have a lumbar epidural steroid injection at L5-S1 on 09/18/2022. This did provide significant improvement and is still providing additional relief. She does state that she still feels a little unsteady on her feet however she continues to do regular exercise on a daily basis. Patient frequently goes to water aerobics. At our last visit she was prescribed ropinirole 0.25 mg at bedtime and compounding cream. Patient does state that she feels the compounding cream helped more within the medication. She states she has discontinued use of the ropinirole. We did previously discuss possible spinal cord stimulator trial or pain pump trial. Today she states that she has talked to her primary care doctor along with her children and is wanting to proceed forward with the pain pump trial. Patient does have chronic pain in her back with radiating symptoms into her legs. She does describe this as an aching, throbbing sensation that is worse with increased activity. Patient does have burning and tingling into her feet. Patient does state when her pain is increased she has difficulty performing activities of daily living such as cooking and cleaning such as light sweeping. Patient is currently managed with pregabalin 75 mg twice a day from Dr. Campos office. Patient denies any side effects from this medication. Her Josué is [id number]. Its been reviewed and appropriate. Review of Systems: General: No recent weight changes, no fever, no sleep disturbances Respiratory: No cough, no shortness of air, no recurring pulmonary infections Cardiovascular/peripheral vascular: No chest pain, no palpitations, no edema, no shortness of breath Gastrointestinal: No new onset incontinence, normal bowel movements reported Genitourinary: No new onset incontinence Musculoskeletal: Low back pain, leg pain Psychiatric: [Normal mood/affect] Neurological: [Denies weakness in extremities], [denies balance issues] Objective:: Physical Exam: General: Alert and oriented x3, no acute distress, pleasant and cooperative Lungs: Respirations even and unlabored, symmetrical chest expansion Eyes: PERRL Musculoskeletal: Flexion and extension of lumbar [spine] somewhat guarded secondary to pain, [antalgic gait noted] Neurological: Speech clear, no gross sensory deficit Assessment:: Degenerative disc disease of lumbar spine with lumbar radiculopathy symptoms, severe scoliosis with lumbar spinal stenosis and neurogenic claudication, neck pain, feet pain. Plan:: Patient has had significant relief with the addition of the compounding cream. Patient did have limited range of motion of her lumbar spine during today's visit. I have discussed with the patient regarding proceeding forward with the pain pump trial. Risk and benefits were discussed with the patient and her son and she would like to proceed forward with this plan of care. We will send her for psychiatric evaluation and if she is deemed an appropriate candidate we will plan for the pain pump trial in the future. Patient has tried and failed conservative therapy such as oral medications, heat and ice, topicals, physical therapy, at home exercising and stretching for longer than 6 weeks. Patient will return to clinic following her evaluation for follow-up. Patient has been instructed to contact the clinic with any concerns before the next appointment. Dr. Olmstead has reviewed this note and agrees with this plan of care. This note was dictated using voice recognition software and make
[2022-10-29 09:35] VITALS: BP 137/56; PULSE 67; RESP 18; O2SAT 97; BMI 25.2
== END ==
PROVIDERS: PCP Internal Medicine Adolescent Medicine; Visit Provider Nurse Practitioner Family
DX: M51.16 Intervertebral disc disorders with radiculopathy, lumbar region (principal); M48.062 Spinal stenosis, lumbar region with neurogenic claudication; M79.671 Pain in right foot; M79.672 Pain in left foot
CPT/HCPCS: 99212; G0463

== ENCOUNTER → 2022-11-13 10:51 | Outpatient (CLI) | payer MEDICARE, OTHER, SELFPAY ==
--- NOTE | 2022-11-13 10:55 | CA_ITS ---
APPROVED REPORT EXAM: Comprehensive 2D, Doppler, and color-flow Echocardiogram Healthcare Technician: Mercedes Moody CRT Ht: 5 ft 2 in Wt: 139lbs BSA: 1.64 BP: 123/64 mmHg Indications: Chest Pain, COPD, Shortness of Breath, Palpitations, Hypertension/HDD 2D Dimensions LVOT 1.60 cm (M/F) 1.5-2.5 LA Volume 20.40 mL LA Volume Index 12.10 mL/m2 (M/F) 16-34 M-Mode Dimensions RVDd 2.94 cm (0.9-2.6) LA Diam 3.66 cm (1.9-4.0) LVDd 4.22 cm (3.5-5.7) Ao Diam 3.62 cm (2.0-3.7) LVDs 2.91 cm (3.5-5.7) IVSd 1.47 cm (0.6-1.1) PWd 0.56 cm (0.6-1.1) EF (Teich) 59.10% FS 31.00% EDV (Teich) 79.50 mL ESV (Teich) 32.50 mL LV Diastology E Decel Time 290.00 (160-240 msec) E/A Ratio 0.83 MED E' 7.30 (< 7 cm/sec) MED A' 12.90 cm/s E'/MED E' Ratio 14.86 (>14) LAT E' 7.30 (<10 cm/sec) LAT A' 9.20 cm/s E/LAT E' Ratio 14.86 (>14) Aortic Valve AI PHT 621.00 ms AO Peak GR. 6.40 mmHg Mitral Valve MV E Max Mario. 109.00 (40-130 cm/s) MV A Velocity 131.00 (40-130 cm/s) E/A Ratio 0.83 MV Decel. Time 290.00 (160-240 ms) MV PHT 85.00 ms Pulmonary Valve PV Peak Velocity 178.00 (50-150 cm/s) Tricuspid Valve TR P. Velocity 250.00 cm/s RAP Estimate 10.00 mmHg RVSP 35.00 mmHg Left Ventricle Left atrium is mildly enlarged, left ventricle is normal size mild concentric left ventricular hypertrophy, estimated ejection fraction 55% with no regional wall motion abnormality, grade 1 diastolic dysfunction seen without tissue Doppler evidence of raise left atrial pressure. Right Ventricle Right atrium and right ventricular mildly enlarged with normal contractility. Aortic Valve Aortic valve is minimally thickened and calcified without aortic stenosis or aortic insufficiency. Mitral Valve Mitral valve has mitral calcification, leaflets are minimally thickened, there is no mitral stenosis, there is mild mitral regurgitation. Tricuspid Valve Tricuspid grossly normal, there is mild tricuspid regurgitation, calculated right ventricular systolic pressure 35 mmHg. Pulmonic Valve Pulmonic valve is poorly visualized. Great Vessels Aortic root is normal size. Inferior vena cava normal size with normal inspiratory collapse. Pericardium No significant pericardial effusion noted. Conclusion 1. Mild biatrial enlargement, normal left ventricular size, mild concentric left ventricular hypertrophy, estimated ejection fraction 55% with no regional wall motion abnormality, grade 1 diastolic dysfunction seen without tissue Doppler evidence of raise left atrial pressure. 2. Mildly enlarged right ventricle with normal contractility. 3. Mild mitral and tricuspid regurgitation, calculated right ventricular systolic pressure 35 mmHg. 4. No significant pericardial effusion noted 5. Inferior vena cava is normal size with normal inspiratory collapse. Electronically signed by : Moises Macdonald MD 11/13/2022 14:39:42
--- NOTE | 2022-11-13 11:37 | NM_ITS ---
APPROVED REPORT Exam: Nuclear Stress Test Indication: chest pain..short of breath..fatigue Patient Location: Outpatient Stress Tech: Lindsey Mars [place] Tech:TRAE Anthony RT(R)(N) Ht: 5 ft 2 in Wt: 138 lbs Bra Size: c HR: 62 bpm BP: 136/64 mmHg BSA: 1.63 m2 TID: 1.29 BMI: 25.2 History: chest pain..short of breath..fatigue Procedure: Patient received 0.4 mg of intravenous Lexiscan, resting heart rate 62 bpm, resting blood pressure 136/64 mmHg, with Lexiscan maximum heart rate achieved was 84 bpm which is Less than 85 % of the maximum predicted heart rate and blood pressure was 146/63 mmHg. With Lexiscan, patient denied any complaint of chest pain. Electrocardiogram Resting electrocardiogram shows sinus rhythm, with Lexiscan there is less than 1.[address] segment depression noted from the baseline EKG. The EKG portion of the Lexiscan is nondiagnostic. Cardiac Stress and Resting SPECT Images: Cardiac Stress and Resting SPECT images were obtained using technetium 99m Myoview 32.9 mCi stress and 10.72 mCi at rest. Gated SPECT analysis of segmental wall motion and calculation of the ejection fraction also done. Prone images were also obtained. Cardiac stress and rest SPECT images showed reversible ischemia involving the apex, anteroseptal and anterolateral wall, this is associated with transient ischemic dilatation of the left ventricle. Computer derived ejection fraction is 48% with no regional wall motion abnormality, right ventricle is normal size and contractility. Conclusion: 1. The EKG portion of the Lexiscan is nondiagnostic. 2. Scintigraphic evidence of reversible ischemia involving the apex, anteroseptal and anterolateral wall associated with transient ischemic dilatation of the left ventricle. Computer derived ejection fraction of 48% with no segmental wall motion abnormality, right ventricle is normal size and contractility. 3. Abnormal Lexiscan Myoview study. Electronically signed by : Moises Macdonald MD 11/13/2022 15:10:42
--- NOTE | 2022-11-13 12:55 | CA_ITS ---
APPROVED REPORT Exam: Pharmacologic Technologist: Lindsey Jessica, Ht: 5 ft 2 in Wt: 138 lbs BSA: 1.63 m2 HR: 60 bpm BP: 136/64 mmHg Medical History Medications: Omeprazole,,,,, Levothyroxine,,,,, Aspirin,,,,, Gabapentin,,,,, Vitamin E,,,,, HCTZ,,,,, Ropinirole,,,,, Calcium,,,,, Montelukast,,,,, PolyethYLENE GLYCOL,,,,, Vitamin D3, B-12,,,,, Hydoxychloroquin,,,,, Stress Test Details Test: LEXISCAN Reason for pharmacologic stress test: physical limitation. HR Resting HR: 62 bpm Max Heart Rate (APMHR): 135.897688 bpm Max HR Achieved: 84 bpm Target HR (85% APMHR): 114.500041 bpm % of APMHR: 62.22 Recovery HR: 74 bpm BP Resting BP: 136.0/64.0 mmHg Max BP: 146.0/63.0 mmHg Recovery BP: 123.0/52.0 mmHg ECG Resting ECG: NSR Clinical Reason for Termination: Completed Protocol Exercise duration: 04:01 min Highest Stage Achieved: Exercise capacity: 1.0 METs Stress ECG Conclusion Symptoms: No CP Arrhythmias/Ectopy: None ST-T Changes: <1.5mm ST Segment changes Conclusion: Non-Diagnostic Test Summary REST . . . . . . . Resting REST 01:52 . . 62 . 136/ 64 . . Stage 1 01:00 . . 76 . . . . Stage 2 01:00 . . 82 . . . . Stage 3 01:00 . . 78 . 142/ 69 . . Stage 4 01:00 . . 73 . 134/ 66 . . Stage 4 01:01 . . 72 . 134/ 66 . Stop exercise at 04:01 RECOVERY 01:00 . . 75 . 146/ 63 . . RECOVERY 02:00 . . 70 . 146/ 63 . . RECOVERY 03:00 . . 74 . 123/ 52 . . RECOVERY 04:00 . . 76 . 123/ 52 . . RECOVERY 05:00 . . 0 . 123/ 52 . . RECOVERY 06:00 . . 0 . 123/ 52 . . RECOVERY 06:09 . . 0 . 123/ 52 . . Electronically signed by : Moises Macdonald MD 11/13/2022 15:07:43
== END ==
PROVIDERS: PCP Internal Medicine Adolescent Medicine; Visit Provider Physician Assistant
DX: I10 Essential (primary) hypertension (principal); R06.09 Other forms of dyspnea; R94.31 Abnormal electrocardiogram [ECG] [EKG]
CPT/HCPCS: 78452; 93017; 93306; A9502; J2785

== ENCOUNTER 2022-11-20 08:25 | Day surgery (SDC) | payer MEDICARE, OTHER, SELFPAY ==
[2022-11-20] VITALS (13 sets, daily range): BP systolic 111–152; BP diastolic 63–96; PULSE 67–78; RESP 16–18; TEMP 36.9; O2SAT 95–99; BMI 25.6
--- NOTE | 2022-11-20 08:12 | IR_ITS ---
APPROVED REPORT Patient Location: Outpatient Pharmacist: TRAE Perez RT (R) PROCEDURES Left heart catheterization Left ventriculogram Selective coronary angiogram INDICATION Abnormal Myoview, Angina pectoris, Informed consent was obtained prior to the procedure. COMPLICATIONS None Estimated Blood Loss: Less than 10 mls TECHNIQUE One percent lidocaine used to anesthetize the right anterior aspect of the wrist. The right radial artery was accessed via the Seldinger technique. A 6 [place] sheath was placed in the right radial artery. 150 mg magnesium sulfate, 800 mcg of nitroglycerin, 1mg Lidocaine and 5000 U Heparin were given through the arterial sheath. The papa catheter was also used to perform left heart catheterization, left ventriculogram and selective coronary angiogram. At the end of the procedure the sheath was removed good hemostasis was achieved using Traclet band, patient was transferred to the postop holding area in stable condition. ANGIOGRAPHIC RESULTS The left main artery Normal The left anterior descending artery Normal The circumflex artery Normal The right coronary artery Dominant normal The MARTÍNEZ ventriculogram reveals Normal 55 to 60% The left ventricular end-diastolic pressure 10 to 15 mmHg IMPRESSION Normal coronary arteries Normal ejection fraction Normal left ventricular end-diastolic pressure PLAN 1. Evaluation of noncardiac symptoms Electronically signed by : Rd Alfred MD 11/20/2022 14:03:38
[2022-11-20 09:08] LABS: Basophils # 0.1 K/mm3 (0-0.2); Basophils % 1.8 % (0.1-2.0); Eosinophils # 0.4 K/mm3 (0.0-0.4); Eosinophils % 6.3 % (0.1-12.0); Hematocrit 39.4 % (37.0-47.0); Hemoglobin 12.9 g/dL (12.2-16.2); Lymphocytes % 32.3 % (10-50); Mean Corpuscular HGB Conc 32.7 g/dL (31.8-35.4); Mean Corpuscular Hemoglobin 30.7 pg (27.0-31.2); Mean Corpuscular Volume 93.8 fl (81-99); Mean Platelet Volume 7.8 fl (7.4-10.4); Monocytes # 0.6 K/mm3 (0.1-1.0); Monocytes % 9.3 % (1.7-9.3); Neutrophils # 3.1 K/mm3 (1.8-7.8); Neutrophils % 50.3 % (37.0-80.0); Platelet Count 207 K/mm3 (142-424); Red Cell Distribution Width 14.3 % (11.5-17.5); White Blood Count 6.2 K/mm3 (4.8-10.8)
[2022-11-20 09:15] LABS: Anion Gap 9.7 mEq/L (5-15); Blood Urea Nitrogen 19 mg/dl (7-17); Calcium 9.3 mg/dl (8.4-10.2); Carbon Dioxide 30 mmol/L (22.0-30.0); Chloride 99 mmol/L (98-107); Creatinine Clearance Estimated 41 mL/min (50-200); Estimated Glomerular Filt Rate 60 ml/min (>60); GFR (African American) 72 ML/MIN (>60); Glucose 79 mg/dl (74-100); Potassium 3.7 mmoL/L (3.5-5.1); Sodium 135 mmol/L (136-145)
== END 2022-11-20 13:54 | disposition home or self-care (01) ==
LOC: CATHLAB 08:27
PROVIDERS: PCP Internal Medicine Adolescent Medicine; Visit Provider Internal Medicine
DX: I25.118 Atherosclerotic heart disease of native coronary artery with other forms of angina pectoris (principal); R94.39 Abnormal result of other cardiovascular function study; R06.9 Unspecified abnormalities of breathing; I10 Essential (primary) hypertension; E03.9 Hypothyroidism, unspecified; Z79.899 Other long term (current) drug therapy; J44.9 Chronic obstructive pulmonary disease, unspecified
CPT/HCPCS: 80048; 85025; 93458; 99152; C1725; C1769; J1644; Q9967

== ENCOUNTER 2022-11-25 10:47 | Outpatient (CLI) | payer MEDICARE, OTHER, SELFPAY ==
[2022-11-25] VITALS (10 sets, daily range): BP systolic 88–124; BP diastolic 45–63; PULSE 67–75; RESP 16–18
== END 2022-11-25 14:15 | disposition home or self-care (01) ==
LOC: INF 10:48
PROVIDERS: PCP Nurse Practitioner Family; Visit Provider Internal Medicine
DX: M05.79 Rheumatoid arthritis with rheumatoid factor of multiple sites without organ or systems involvement (principal); Z51.12 Encounter for antineoplastic immunotherapy
CPT/HCPCS: 96413; 96415; J1745

== ENCOUNTER 2023-01-06 10:54 | Outpatient (CLI) | payer MEDICARE, OTHER, SELFPAY ==
[2023-01-06] VITALS (9 sets, daily range): BP systolic 95–119; BP diastolic 48–68; PULSE 63–72; RESP 20; TEMP 36.9; O2SAT 96–97
== END 2023-01-06 14:20 | disposition home or self-care (01) ==
LOC: INF 10:55
PROVIDERS: PCP Nurse Practitioner Family; Visit Provider Internal Medicine
DX: M05.79 Rheumatoid arthritis with rheumatoid factor of multiple sites without organ or systems involvement (principal)
CPT/HCPCS: 96413; 96415; J1745

== ENCOUNTER → 2023-01-28 09:43 | Outpatient (CLI) | payer MEDICARE, OTHER, SELFPAY | PROVIDERS: PCP Nurse Practitioner Family; Visit Provider Internal Medicine Pulmonary Disease | DX: R06.09 Other forms of dyspnea (principal) | CPT/HCPCS: 94060; 94618; 94726; 94729 ==

== ENCOUNTER 2023-02-17 10:57 | Outpatient (CLI) | payer MEDICARE, OTHER, SELFPAY ==
[2023-02-17] VITALS (9 sets, daily range): BP systolic 111–139; BP diastolic 63–75; PULSE 63–69; RESP 18; O2SAT 97
== END 2023-02-17 14:05 | disposition home or self-care (01) ==
LOC: INF 10:58
PROVIDERS: PCP Internal Medicine Adolescent Medicine; Visit Provider Internal Medicine
DX: M05.79 Rheumatoid arthritis with rheumatoid factor of multiple sites without organ or systems involvement (principal)
CPT/HCPCS: 96413; 96415; J1745

== ENCOUNTER → 2023-03-12 11:44 | Outpatient (POV) | payer MEDICARE, OTHER, SELFPAY ==
[2023-03-12 12:05] VITALS: BP 127/74; PULSE 71; RESP 18; O2SAT 98; BMI 25.1
--- NOTE | 2023-03-12 12:10 | A.OFFVIS_ITS ---
[facility] Pain Management SOAP Note Subjective:: Patient is a very pleasant 87-year-old female that comes our clinic today for follow-up visit regarding her low back pain as well as right hip and leg radicular symptoms. Patient describes pain as constant, dull, aching. Patient rates her pain today 8/10. Patient states she has difficulty ambulating due to the pain in the low back and right hip and leg. Also, she has difficulty with flexion, extension, left and right rotation. Patient had a lumbar epidural steroid injection at the L5-S1 level on 09/18/2022. She reports 4 to 5 months of significant improvement greater than 90% following the injection. Patient requesting repeat injection. I feel this is very reasonable due to the fact she had such good relief with her previous one. Patient taking Lyrica 75 mg 1 p.o. twice daily from PCP. Patient's Josué #[id number] has been reviewed and appropriate. Objective:: Patient is awake alert [place] x3. In no acute distress. Flexion-extension lumbar spine somewhat guarded secondary to pain. Deep tendon reflexes upper lower extremities normal. Motor strength upper and lower extremities normal. There is no gross sensory deficit. Gait is normal. Assessment:: Degenerative disc lumbar spine multilevels. Lumbar radiculopathy. Plan:: We will schedule patient for repeat lumbar epidural steroid injection at L5-S1 level. I discussed in detail with the patient regarding the injection. Answered her questions. She wishes to proceed. [facility] Disclaimer: The information contained in this section may have been updated after the patient was seen, as this information can be updated by other users. Medical History Abnormal result of cardiovascular function study Cataract Chest pain COPD (chronic obstructive pulmonary disease) Dyspnea Dyspnea on exertion GERD (gastroesophageal reflux disease) History of smoking 30 or more pack years Hx of thyroid irradiation Hypertension Hypothyroid Normal coronary arteries Palpitations Raynaud disease Rheumatoid arthritis TIA (transient ischemic attack) Surgical History Hx of bilateral cataract extraction Hx of colonoscopy Hx of esophagogastroduodenoscopy Hx of hernia repair Hx of tubal ligation Family History Other No significant family history Social History Smoking Status: Former smoker pack-years: 20 smoking status stop date: 2012 second hand exposure: No alcohol intake: never substance use 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tional status: retired Travel in the last 8 weeks: None household members: none housing: ho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tional exposures/hazards: Yes caffeine: Yes
== END ==
PROVIDERS: PCP Nurse Practitioner Family; Visit Provider Nurse Anesthetist, Certified Registered
DX: M51.16 Intervertebral disc disorders with radiculopathy, lumbar region (principal)
CPT/HCPCS: 99212; G0463

== ENCOUNTER 2023-03-23 11:49 | Day surgery (SDC) | payer MEDICARE, OTHER, SELFPAY ==
[2023-03-23 12:00] VITALS: BP 128/71; PULSE 83; RESP 18; TEMP 36.3; O2SAT 96; BMI 25.6
[2023-03-23 12:10] VITALS: BP 142/61; PULSE 65; RESP 18; O2SAT 98
--- NOTE | 2023-03-23 12:13 | EXP.PAIN.PRO ---
Procedure Date: 03/23/23 Time: 12:00 Anesthesiologist:: Von Cline CRNA Complications:: None Pre-procedure Diagnosis:: Degenerative disc lumbar spine multilevels. Lumbar radiculopathy. Lumbar spondylosis. Post-procedure Diagnosis:: Same. Indications for Procedure:: Patient is a very pleasant 87-year-old female comes our clinic today for lumbar epidural steroid injection at the L4-5 level. Patient complains of low back pain as well as bilateral hip and leg radicular symptoms. She rates her pain 7/10. Procedure Details:: Procedure: Lumbar epidural steroid injection under fluoroscopy Informed consent was obtained and the risks and benefits of the procedure were explained to the patient. The patient was taken to the procedure room and noninvasive monitors placed, including noninvasive blood pressure cuff and pulse oximeter. The back was viewed using C-arm Fluoroscopy and prepped using Chloraprep as a cleansing solution and the L4-L5 interspace was palpated. Skin and subcutaneous tissues were anesthetized using lidocaine 1.5% and a 25-gauge needle. After this, an 18-gauge Touhy epidural needle was placed into the L4-L5 interspace and advanced using fluoroscopic guidance and loss of resistance to air until the epidural space was encountered. After confirmation of needle placement in the epidural space, with dye, a solution containing normal saline, 3 mL and Depo-Medrol 80 mg were incrementally injected into the lumbar epidural space. The patient tolerated the procedure well with no complications. The patient was observed in the Pain Clinic and then discharged home neurologically intact. Plan and Disposition:: Patient was discharged without incident.
== END 2023-03-23 12:10 | disposition home or self-care (01) ==
PROVIDERS: PCP Nurse Practitioner Family; Visit Provider Nurse Anesthetist, Certified Registered
DX: M51.16 Intervertebral disc disorders with radiculopathy, lumbar region (principal); M47.26 Other spondylosis with radiculopathy, lumbar region
CPT/HCPCS: 62323; J1040

== ENCOUNTER → 2023-04-07 13:44 | Outpatient (POV) | payer MEDICARE, OTHER, SELFPAY ==
[2023-04-07 13:53] VITALS: BP 106/53; PULSE 74; RESP 20; BMI 25.6
--- NOTE | 2023-04-07 14:04 | EXP.PAIN.SOA ---
[facility] Pain Management SOAP Note Subjective:: Patient is a pleasant 87-year-old female who presents today for follow-up of lumbar epidural steroid injection L4-L5. We are currently treating the patient for degenerative disc disease of lumbar spine with lumbar radiculopathy symptoms, right hip pain. Today she rates her pain a 4 out of 10. Patient denies any new trauma or injury. She denies any change to the location or type of pain she experiences. Patient does state that she had approximately 50% improvement with her injection and it is still helping some. She does state though that when she does certain activities she will feel more pain the following day however that the injection does typically make it more tolerable. Patient does state that she has been having more pain and tenderness around her neck and shoulders. Patient denies any specific injury at this site but states has been going on the last several months. At the date of her injections she states she did talk to patent about possibly doing something for this pain and he did state that we could do it at a later date that he could not do the epidural along with another injection at the same time. Patient does state that right now the pain is tolerable and that her daughter in [place] did give her a massage and was able to help improve the pain. She states she is planning on doing more massage therapy. Patient is currently on gabapentin 100 mg from an outside provider. Her Josué is [id number]. It has been reviewed and appropriate. Review of Systems: General: No recent weight changes, no fever, no sleep disturbances Respiratory: No cough, no shortness of air, no recurring pulmonary infections Cardiovascular/peripheral vascular: No chest pain, no palpitations, no edema, no shortness of breath Gastrointestinal: No new onset incontinence, normal bowel movements reported Genitourinary: No new onset incontinence Musculoskeletal: Neck and shoulder pain/tenderness Psychiatric: [Normal mood/affect] Neurological: [Denies weakness in extremities], [denies balance issues] Objective:: Physical Exam: General: Alert and oriented x3, no acute distress, pleasant and cooperative Lungs: Respirations even and unlabored, symmetrical chest expansion Eyes: PERRL Musculoskeletal: Flexion and extension of cervical [spine] somewhat guarded secondary to pain, [antalgic gait noted] point tenderness along bilateral cervical paraspinous and bilateral rhomboid muscles Neurological: Speech clear, no gross sensory deficit Assessment:: Degenerative disc disease of lumbar spine with lumbar radiculopathy symptoms, right hip pain, myofascial pain Plan:: Patient has had significant improvement following her lumbar epidural steroid injection. Patient did have point tenderness along her bilateral cervical paraspinous and rhomboid muscles during today's visit. I have discussed with the patient that she may benefit from trigger point injections at these locations. Risk and benefits were explained to the patient and at this time she would like to hold off and see if massage therapy will help. I have also counseled the patient to try her compounding cream at this location. Patient will return to clinic in 1 month however high have reviewed with her that she can call to schedule her trigger point injections if she decides to before her next appointment. Patient has been instructed to contact the clinic with any concerns before the next appointment. Dr. Olmstead has reviewed this note and agrees with this plan of care. This note was dictated using voice recognition software and make contain errors or omissions. [facility] Disclaimer: The information contained in this section may have been updated after the patient was seen, as this information can be updated by other users. Medical History Abnormal result of cardiovascular function study Cataract Chest pain COPD (chronic obstructive pulm
== END ==
PROVIDERS: Visit Provider Nurse Practitioner Family
DX: M51.16 Intervertebral disc disorders with radiculopathy, lumbar region (principal); M25.551 Pain in right hip; M79.10 Myalgia, unspecified site
CPT/HCPCS: 99212; G0463

== ENCOUNTER 2023-04-08 10:41 | Outpatient (CLI) | payer MEDICARE, OTHER, SELFPAY ==
[2023-04-08] VITALS (8 sets, daily range): BP systolic 108–122; BP diastolic 54–91; PULSE 69–85; RESP 18; TEMP 36.6; O2SAT 97–100
== END 2023-04-08 13:50 | disposition home or self-care (01) ==
LOC: INF 10:41
PROVIDERS: PCP Nurse Practitioner Family; Visit Provider Internal Medicine
DX: M05.79 Rheumatoid arthritis with rheumatoid factor of multiple sites without organ or systems involvement (principal)
CPT/HCPCS: 96413; 96415; J1745

== ENCOUNTER → 2023-05-07 13:03 | Outpatient (POV) | payer MEDICARE, OTHER, SELFPAY ==
--- NOTE | 2023-05-07 13:32 | EXP.PAIN.SOA ---
[facility] Pain Management SOAP Note Subjective:: This patient is a very pleasant 87-year-old female comes our clinic today for follow-up visit regarding chronic low back pain, bilateral posterior hip pain, bilateral leg radiculopathy. Patient is status post lumbar epidural steroid injection to L4-5 level on 03/23/2023. Patient reports minimal to moderate improvement terms of her overall low back pain as well as about hip and leg radicular symptoms with injection. Patient continues taking gabapentin 100 mg 1 p.o. 3 times daily from her PCP. Her Josué #[id number] has been reviewed and appropriate. Upon examination patient has extreme point tenderness over the bilateral sacroiliac joints. Patient has positive Vickers's test bilaterally. Positive Gaenslen's test bilaterally. Positive bilateral sacroiliac joint compression test. Patient has difficulty transitioning from sitting to standing. She describes the pain as constant, dull, sharp, stabbing in the bilateral posterior hips as well as low lumbar area off the midline. I discussed in detail with the patient regarding sacroiliac joint injections bilaterally. She wishes to proceed. Objective:: Patient is awake alert [place] x3. In no acute distress. Flexion-extension lumbar spine somewhat guarded secondary to pain. Deep tendon reflexes upper lower extremities normal. Motor strength upper and lower extremities normal. There is no gross sensory deficit. Gait is normal. Assessment:: Degenerative disc lumbar spine multilevels. Lumbar radiculopathy. Lumbar spondylosis. Multilevel lumbar facet arthropathy. Bilateral sacroiliitis Plan:: I discussed in detail with the patient regarding bilateral sacroiliac joint injections. Answered her questions. She wishes to proceed. I also talked with her about potentially needing a intermittent lumbar epidural steroid injection 2-3 times per year. [facility] Disclaimer: The information contained in this section may have been updated after the patient was seen, as this information can be updated by other users. Medical History Abnormal result of cardiovascular function study Cataract Chest pain COPD (chronic obstructive pulmonary disease) Dyspnea Dyspnea on exertion GERD (gastroesophageal reflux disease) History of smoking 30 or more pack years Hx of thyroid irradiation Hypertension Hypothyroid Normal coronary arteries Palpitations Raynaud disease Rheumatoid arthritis TIA (transient ischemic attack) Surgical History Hx of bilateral cataract extraction Hx of colonoscopy Hx of esophagogastroduodenoscopy Hx of hernia repair Hx of tubal ligation Family History Other No significant family history Social History Smoking Status: Former smoker pack-years: 20 smoking status stop date: 2012 second hand exposure: No alcohol intake: never substance use 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tional status: other Travel in the last 8 weeks: None household members: none housing: ho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tional exposures/hazards: Yes caffeine: Yes
[2023-05-07 14:20] VITALS: BP 130/57; PULSE 67; RESP 18; O2SAT 97; BMI 25.5
== END ==
PROVIDERS: Visit Provider Nurse Practitioner Family
DX: M51.16 Intervertebral disc disorders with radiculopathy, lumbar region (principal); M47.26 Other spondylosis with radiculopathy, lumbar region; M46.1 Sacroiliitis, not elsewhere classified
CPT/HCPCS: 99212; G0463

== ENCOUNTER 2023-05-18 08:42 | Day surgery (SDC) | payer MEDICARE, OTHER, SELFPAY ==
[2023-05-18 09:03] VITALS: BP 134/74; PULSE 50; RESP 18; TEMP 36.5; O2SAT 95; BMI 25.6
--- NOTE | 2023-05-18 09:10 | P.PCN_ITS ---
Procedure Date: 05/18/23 Time: 08:55 Anesthesiologist:: Von Cline CRNA Complications:: None Pre-procedure Diagnosis:: Bilateral sacroiliitis. Post-procedure Diagnosis:: Same. Indications for Procedure:: Patient is a pleasant 87-year-old female comes our clinic today for bilateral sacroiliac joint injections. Patient has responded very well to this injection in the past. She complains of low lumbar pain. Bilateral posterior hip pain. She rates her pain 7/10. Procedure Details:: Procedure: Bilateral sacroiliac joint injections under fluoroscopy Informed consent was obtained and the risks and benefits of the procedure were explained to the patient.~ The patient was taken to the procedure room and noninvasive monitors were placed including a noninvasive blood pressure cuff and pulse oximeter.~ The patient was placed prone on the procedure table. Both hips were cleansed using Betadine as a cleansing solution. C-arm fluoroscopy was used to view the right sacroiliac joint.~ The skin and subcutaneous tissues were anesthetized using lidocaine 1.5% and a 25-gauge needle.~ After this, a 22-gauge spinal needle was inserted under fluoroscopic guidance into the inferior aspect of the right sacroiliac joint.~ Omnipaque dye was injected and good spread was seen throughout the joint.~ After this, approximately 5 mL of bupivacaine, 0.25% and Depo-Medrol, 40 mg was incrementally injected into the right sacroiliac joint. We then moved to the left sacroiliac joint.~ The skin and subcutaneous tissues were anesthetized using lidocaine 1.5% and a 25-gauge needle.~ After this, a 22- gauge spinal needle was inserted under fluoroscopic guidance into the inferior aspect of the left sacroiliac joint.~ Omnipaque dye was injected and good spread was seen throughout the joint. After this, approximately 5 mL of bupivacaine, 0.25% and Depo-Medrol, 40 mg was incrementally injected into the left sacroiliac joint.~ The patient tolerated the procedure well with no complications. The patient was observed in the Pain Clinic and then was discharged home neurologically intact. Plan and Disposition:: Patient was discharged without incident.
[2023-05-18 09:12] VITALS: BP 129/77; PULSE 73; RESP 18; O2SAT 95
[2023-05-18 09:22] VITALS: BP 124/98; PULSE 83; RESP 18; O2SAT 97
[2023-05-18 09:23] VITALS: BP 124/98; PULSE 83; RESP 18; O2SAT 97
== END 2023-05-18 09:12 | disposition home or self-care (01) ==
PROVIDERS: PCP Nurse Practitioner Family; Visit Provider Nurse Anesthetist, Certified Registered
DX: M46.1 Sacroiliitis, not elsewhere classified (principal)
CPT/HCPCS: 27096; G0260; J1040

== ENCOUNTER 2023-05-19 10:58 | Outpatient (CLI) | payer MEDICARE, OTHER, SELFPAY ==
[2023-05-19] VITALS (9 sets, daily range): BP systolic 113–147; BP diastolic 59–89; PULSE 62–72; RESP 18; TEMP 36.6; O2SAT 96–97
== END 2023-05-19 14:20 | disposition home or self-care (01) ==
LOC: INF 10:59
PROVIDERS: PCP Nurse Practitioner Family; Visit Provider Internal Medicine
DX: E86.0 Dehydration (principal); N17.9 Acute kidney failure, unspecified
CPT/HCPCS: 96413; 96415; J1745

== ENCOUNTER → 2023-06-07 10:13 | Outpatient (POV) | payer MEDICARE, OTHER, SELFPAY ==
--- OUTSIDE RECORDS SUMMARY | 2023-06-07 10:17 | XMS_ITS | Continuity of Care Document ---
Author Name Unknown Organization [facility] Address [address] [address] Phone Care Team Providers Care Administrative Secretary Name Role Phone Reynaldo Jules MD Unavailable Unavailable Allergies, Adverse Reactions, Alerts Substance Reaction Status Criticality quinine Active No Information fish oil Active No Information Medications Medication Instructions Dosage Effective Dates (start - stop) Status Comments Remicade 100 mg intravenous solution Administer REMICADE 3mg/kg IV every 6 weeks - Active gabapentin 100 mg capsule take 2-3 capsu le by oral route QHS for back pain/sleep - Active Plaquenil 200 mg tablet TAKE ONE TABLET BY MOUTH EVERY DAY FOR RHEUMATOID ARTHRITIS for rheumatoid arthritis - Active duloxetine 20 mg capsule,delayed release take 1 capsule by oral route every day for back pain 20 MG - Active Remicade 100 mg intravenous solution infuse (5MG/KG) by intravenous route every 6 weeks over no less than 5 MG/KG - Active [facility] Tirosint 75 mcg capsule take 1 capsule b y oral route every day 75 MCG - Active Miralax 17 gram/dose oral powder
--- OUTSIDE RECORDS SUMMARY | 2023-06-07 10:17 | XMS_ITS | Patient Health Record ---
Author Name Unknown Organization [facility] Address [address] [facility] [address] [place] [address] Care Team Providers Care Manager [place] Name Role Phone Adelso Demarco Primary Care Provider Sharron Mckeon Unavailable [phone] Magi Flanagan Unavailable [phone] ALLERGIES Allergen (clinical drug ingredient) Drug/Non Drug Allergy documented on EMR Reaction Allergy Type Onset Date Status Quinine Unknown Drug Allergy Active Fish oil Unknown Drug Allergy Active RESULTS Component Value Reference Range Notes MRI : Cervical Spine Reviewed date:10/22/2022 05:50:03 PM Interpretation: Performing Lab: Notes/Report: DEXA Hip and Spine - Screeni ng Reviewed date:07/29/2022 10:00:43 AM Interpretation: Performing Lab: Notes/Report: M-Creatinine,Serum Reviewed date:08/10/2022 11:07:52 AM Interpretation: Performing Lab: Notes/Report: CREATT 1.10 0.52-1.04 mg/dl CRCLE 37 50-200 mL/min GFRAA 57 >60 ML/MIN EGFR 47 >60 ml/min M-Calcium Reviewed date:08/10/2022 11:07:52 AM Interpretation: Performing Lab: Notes/Report: CA 9.1 8.4-10.2 mg/dl M-Albumin Level Reviewed date:08/10/2022 11:07:52 AM Interpretation: Performing Lab: Notes/Report
--- NOTE | 2023-06-07 10:50 | EXP.PAIN.SOA ---
[facility] Pain Management SOAP Note Subjective:: This patient is a very pleasant 87-year-old female that comes our clinic today for follow-up visit after receiving bilateral sacroiliac joint injections of cortisone. Patient reporting moderate to significant improvement in her overall low lumbar as well as bilateral posterior hip pain. Patient continues with treatment from rheumatology. Gabapentin 100 mg 1 p.o. 3 times daily. No NSAIDs secondary to liver/kidney injections. Tylenol as needed. Patient overall reports she is doing much better than prior to the injections. She will continue with medications from rheumatology. She will return to see us as needed. Objective:: Patient is awake alert [place] x3. In no acute distress. Flexion-extension lumbar spine somewhat guarded secondary to pain. Deep tendon reflexes upper and lower extremities normal. Motor strength upper and lower extremities normal. There is no gross sensory deficit. Gait is normal. Assessment:: Bilateral sacroiliitis. Chronic arthritis. Plan:: I discussed in detail with the patient regarding repeating injections if necessary in the near future. She will return to see us as needed. Patient's Josué #[id number] has been reviewed and appropriate. [facility] Disclaimer: The information contained in this section may have been updated after the patient was seen, as this information can be updated by other users. Medical History Abnormal result of cardiovascular function study Cataract Chest pain COPD (chronic obstructive pulmonary disease) Dyspnea Dyspnea on exertion GERD (gastroesophageal reflux disease) History of smoking 30 or more pack years Hx of thyroid irradiation Hypertension Hypothyroid Normal coronary arteries Palpitations Raynaud disease Rheumatoid arthritis TIA (transient ischemic attack) Surgical History Hx of bilateral cataract extraction Hx of colonoscopy Hx of esophagogastroduodenoscopy Hx of hernia repair Hx of tubal ligation Family History Other No significant family history Social History (Updated 05/19/23 @ 12:19 by Miki Calderon RN) Smoking Status: Former smoker tobacco type: cigarettes smoking status stop date: 2012 second hand exposure: No alcohol intake: never substance use 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tional status: retired and other Travel in the last 8 weeks: None household members: none housing: ho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tional exposures/hazards: Yes caffeine: Yes
[2023-06-07 10:59] VITALS: BP 133/69; PULSE 66; RESP 20; BMI 25.0
== END ==
PROVIDERS: Visit Provider Nurse Anesthetist, Certified Registered
DX: M46.1 Sacroiliitis, not elsewhere classified (principal); M19.90 Unspecified osteoarthritis, unspecified site
CPT/HCPCS: 99212; G0463

== ENCOUNTER 2023-06-28 11:04 | Outpatient (CLI) | payer MEDICARE, OTHER, SELFPAY ==
[2023-06-28] VITALS (9 sets, daily range): BP systolic 117–138; BP diastolic 59–72; PULSE 69–85; RESP 18; O2SAT 97
== END 2023-06-28 14:10 | disposition home or self-care (01) ==
LOC: INF 11:05
PROVIDERS: PCP Nurse Practitioner Family; Visit Provider Internal Medicine
DX: Z51.12 Encounter for antineoplastic immunotherapy (principal); M05.79 Rheumatoid arthritis with rheumatoid factor of multiple sites without organ or systems involvement
CPT/HCPCS: 96413; 96415; J1745

== ENCOUNTER 2023-08-09 10:52 | Outpatient (CLI) | payer MEDICARE, OTHER, SELFPAY ==
[2023-08-09] VITALS (8 sets, daily range): BP systolic 106–118; BP diastolic 68–80; PULSE 74–83; RESP 18; TEMP 36.6; O2SAT 96–97; BMI 25.6
== END 2023-08-09 14:05 | disposition home or self-care (01) ==
LOC: INF 10:54
PROVIDERS: PCP Nurse Practitioner Family; Visit Provider Internal Medicine
DX: Z51.12 Encounter for antineoplastic immunotherapy (principal); M05.79 Rheumatoid arthritis with rheumatoid factor of multiple sites without organ or systems involvement
CPT/HCPCS: 96413; 96415; J1745

== ENCOUNTER 2023-08-31 08:52 | Outpatient (POV) | payer MEDICARE, OTHER, SELFPAY | END 2023-08-31 23:59 | disposition home or self-care (01) | LOC: SC 08:53 | PROVIDERS: PCP Nurse Practitioner Family; Visit Provider Dermatology | DX: Z00.00 Encounter for general adult medical examination without abnormal findings (principal) ==

== ENCOUNTER 2023-09-20 10:46 | Outpatient (CLI) | payer MEDICARE, OTHER, SELFPAY ==
[2023-09-20] VITALS (9 sets, daily range): BP systolic 116–139; BP diastolic 32–94; PULSE 67–84; RESP 18; TEMP 36.8; O2SAT 97
[2023-09-20] MEDS: LORATADINE 10MG TABLET 10 MG PO (11:00)
[2023-09-20] MEDS: ACETAMINOPHEN 325MG TAB 650 MG PO (11:00)
[2023-09-20] MEDS: SODIUM CHLORIDE 0.9% 50ML BAG 50 ML IV (11:23)
[2023-09-20] MEDS: SODIUM CHLORIDE 0.9% IV (11:30)
[2023-09-20] MEDS: INFLIXIMAB IV (11:30)
== END 2023-09-20 13:50 | disposition home or self-care (01) ==
PROVIDERS: PCP Nurse Practitioner Family; Visit Provider Internal Medicine
DX: Z51.12 Encounter for antineoplastic immunotherapy (principal); M05.79 Rheumatoid arthritis with rheumatoid factor of multiple sites without organ or systems involvement
CPT/HCPCS: 96413; 96415; J1745

== ENCOUNTER 2023-11-01 10:57 | Outpatient (CLI) | payer MEDICARE, OTHER, SELFPAY ==
[2023-11-01] MEDS: ACETAMINOPHEN 325MG TAB 650 MG (11:04)
[2023-11-01] MEDS: LORATADINE 10MG TABLET 10 MG PO (11:04)
[2023-11-01] MEDS: INFLIXIMAB IV (11:43)
[2023-11-01] MEDS: SODIUM CHLORIDE 0.9% IV (11:43)
[2023-11-01] MEDS: SODIUM CHLORIDE 0.9% 50ML BAG 50 ML IV (11:44)
[2023-11-01 11:50] VITALS: BP 135/63; PULSE 69; RESP 18; TEMP 36.7; O2SAT 98
[2023-11-01 12:05] VITALS: BP 137/72; PULSE 71
[2023-11-01 12:30] VITALS: BP 117/48; PULSE 69
[2023-11-01 13:00] VITALS: BP 122/72; PULSE 76
[2023-11-01 13:30] VITALS: BP 116/66; PULSE 71
[2023-11-01 14:00] VITALS: BP 151/77; PULSE 68
== END 2023-11-01 14:21 | disposition home or self-care (01) ==
LOC: INF 10:58
PROVIDERS: PCP Nurse Practitioner Family; Visit Provider Internal Medicine
DX: M05.79 Rheumatoid arthritis with rheumatoid factor of multiple sites without organ or systems involvement (principal)
CPT/HCPCS: 96413; 96415; J1745

== ENCOUNTER 2023-11-23 13:37 | Outpatient (POV) | payer MEDICARE, OTHER, SELFPAY | END 2023-11-23 23:59 | disposition home or self-care (01) | LOC: SC 13:38 | PROVIDERS: PCP Nurse Practitioner Family; Visit Provider Dermatology | DX: Z00.00 Encounter for general adult medical examination without abnormal findings (principal) ==

== ENCOUNTER 2023-12-13 11:01 | Outpatient (CLI) | payer MEDICARE, OTHER, SELFPAY ==
[2023-12-13] VITALS (8 sets, daily range): BP systolic 107–145; BP diastolic 52–73; PULSE 61–68; RESP 18; TEMP 36.4; O2SAT 95–96
[2023-12-13] MEDS: LORATADINE 10MG TABLET 10 MG PO (11:19)
[2023-12-13] MEDS: SODIUM CHLORIDE 0.9% 50ML BAG 50 ML IV (11:19)
[2023-12-13] MEDS: ACETAMINOPHEN 325MG TAB 650 MG PO (11:20)
[2023-12-13] MEDS: SODIUM CHLORIDE 0.9% 10ML FLUSH SYRINGE 10 ML IV (11:21)
[2023-12-13] MEDS: INFLIXIMAB IV (11:50)
[2023-12-13] MEDS: SODIUM CHLORIDE 0.9% IV (11:50)
== END 2023-12-13 14:23 | disposition home or self-care (01) ==
LOC: INF 11:01
PROVIDERS: PCP Nurse Practitioner Family; Visit Provider Internal Medicine
DX: M05.79 Rheumatoid arthritis with rheumatoid factor of multiple sites without organ or systems involvement (principal)
CPT/HCPCS: 96413; 96415; J1745

== ENCOUNTER 2023-12-24 11:46 | Emergency (ER) | payer MEDICARE, OTHER, SELFPAY ==
[2023-12-24 11:55] VITALS: BP 136/78; PULSE 88; RESP 18; TEMP 36.8; O2SAT 95; BMI 25.6
--- NOTE | 2023-12-24 12:29 | EXP.UTC ---
Discharge Plan Disposition Patient Disposition: Home, Self-Care Condition: Good Prescriptions Prescriptions: No Action omeprazole 20 mg capsule,delayed release(DR/EC) 20 mg PO DAILY doxycycline hyclate 100 mg capsule 100 mg PO DAILY Patient Comments: TAKE 1 CAPSULE BY MOUTH TWICE DAILY clobetasol 0.05 % ointment 1 applic topical HS Qty: 30 0RF Rx Instructions: Apply thin layer to affected area nightly at bedtime levothyroxine 88 mcg tablet 1 tab PO DAILY 30 Days Qty: 30 hydrochlorothiazide 25 mg tablet See Rx Instructions .ROUTE .COMPLEX Qty: 90 3RF Dose Instruction: TAKE 1 TABLET EVERY DAY FOR FLUID Rx Instructions: TAKE 1 TABLET EVERY DAY FOR FLUID hydroxychloroquine 200 MG tablet 200 mg PO DAILY Linzess 72 mcg capsule 72 mcg PO DAILY polyethylene glycol 3350 17 GM powder in packet 17 g PO DAILY aspirin 81 MG tablet,delayed release (DR/EC) 81 mg PO DAILY vitamin E 400 UNIT capsule 400 unit PO DAILY calcium carbonate-vitamin D3 500 mg(1,250mg) -125 unit tablet 1 tab PO BID cyanocobalamin-cobamamide 1 EACH tablet, sublingual 1 each sublingual BID gabapentin 100 MG capsule 100 mg PO DAILY Referrals Follow up/Referrals: Magi Flanagan APRN [Primary Care Provider] - See instructions Activity Restrictions/Add. Instructions Additional Instructions/Restrictions: Suture instructions: ?You have required stitches today. Please read the following instructions so you know how to care for them: ?1. Keep wound area dry for the first 24 hours. 2?? May clean gently with mild soap and water, after 48 hours to prevent crusting over suture knots. 3. You may shower if your provider gives permission but do not take a bath until the skin is healed.. 4. Never leave a wet dressing or Band-Aid on your stitches as this allows bacteria to reach the area and may cause infection. Band-aids can cause the wound to sweat and not recommended to wear for long periods of time Watch for signs of infection: ? Increasing redness, tenderness or warmth around the suture site ? Unusual swelling around the site ? Appearance of pus around each suture or any red streaks ? Fever If you develop any of the above signs or symptoms of infection, Follow up with Family Physician immediately 5. Suture removal in _7-10___days 6. Return to [facility] or follow up with family doctor for removal. This can be done by any medical provider dur?ing regular hours on Wednesday through Wednesday, by appointment. Clinical Impressions Clinical Impression: Laceration Instructions Patient Instructions: DI for Laceration Repair, DI for Laceration Repair -- Simple Discharge ED Provider: Magdalena Torre [facility] [place] General Stated complaint: laceration L pinky finger area Mode of Arrival: Ambulatory Source of Information: Patient Limitations: No Limitations Time Seen by Provider: 12/24/23 12:10 Description of Symptoms (Recalled from Triage Doc. by RN): Pt was opening a can of soup and has a laceration on right pinky finger. HEENT Symptoms (Recalled from RN notes): No Resp Symptoms (Recalled from RN notes): No Skin Symptoms (Recalled from RN notes): Yes MS Symptoms (Recalled from RN notes): No Functional Status (Recalled from RN notes): n/a History of Present Illness Provider Complaint: Patient states that she was opening a can of soup when her hand slipped and she cut her right little pinky finger and the lid of the can states that she looked at it and thought it was deep so she came in Related Data Home Medications Medication Instructions Recorded Confirmed polyethylene glycol 3350 17 gram 17 g PO DAILY CONSTIPATION 10/19/17 12/20/23 oral powder packet aspirin 81 mg tablet,delayed 81 mg PO DAILY Blood thinner 11/04/17 12/24/23 release vitamin E 268 mg (400 unit) capsule 400 unit PO DAILY Supplement 11/04/17 12/20/23 levothyroxine 88 mcg tablet 1 tab PO DAILY thyroid 30 days ##30 12/30/17 12/24/23 hydroxychloroquine 200 mg tablet 200 mg PO DAILY BP 11/04/18 12/24/23 calcium carbonate 500 mg-vitamin 1 tab PO BID Supplement 10/30/20 12/20/23 D3 3.125 mcg (125 unit) tablet cyanocobalamin (B12)-cobamamide 1 each sublingual BID suppliment 01/03/21 12/20/23 5,000 mcg-100 mcg sublingual tablet gabapentin 100 mg capsule 100 mg PO DAILY Pain 02/23/22 12/24/23 omeprazole 20 mg capsule,delayed 20 mg PO DAILY GERD 08/17/22 12/24/23 release doxycycline hyclate 100 mg capsule 100 mg PO DAILY skin rash 12/07/23 12/24/23 linaclotide 72 mcg capsule 72 mcg PO DAILY 12/24/23 12/24/23 (Linzess) Previous Rx's Medication Instructions Recorded hydrochlorothiazide 25 mg tablet See Rx Instructions .Route 09/08/23 .COMPLEX #90 tabs clobetasol 0.05 % topical ointment 1 applic topical HS #30 grams 12/20/23 Allergies Allergy/AdvReac Type Severity Reaction Status Date / Time fish oil [FISH OIL] Allergy Unknown SWELLING Verified 12/24/23 12:03 quinine [QUININE] Allergy Unknown NA-DIARRHEA Verified 12/24/23 12:03 Worker's Comp Is this a Worker's Comp case?: No [facility] Disclaimer: The information contained in this section may have been updated after the patient was seen, as this information can be updated by other users. Medical History (Updated 12/24/23 @ 12:30 by Magdalena Torre APRN) Localized bullous pemphigoid of vulva Bullous pemphigoid History of smoking 30 or more pack years Dyspnea on exertion Dyspnea Hx of thyroid irradiation Cataract COPD (chronic obstructive pulmonary disease) Hypothyroid GERD (gastroesophageal reflux disease) TIA (transient ischemic attack) Rheumatoid arthritis Chest pain Hypertension Palpitations Raynaud disease Surgical History Hx of colonoscopy Hx of esophagogastroduodenoscopy Hx of hernia repair Hx of tubal ligation Hx of bilateral cataract extraction Family History Other No significant family history Social History Smoking Status: Former smoker tobacco type: cigarettes smoking status stop date: 2012 second hand exposure: No alcohol intake: never substance use 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tional status: other Travel in the last 8 weeks: None household members: none housing: ho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tional exposures/hazards: Yes caffeine: Yes ROS Obtained: Yes All systems reviewed & no additional complaints except as documented and Yes Systems reviewed as appropriate & no additional complaints except as documented ENT Ears, Nose, Mouth, and Throat: Reports system reviewed and no additional complaints, except as documented and Reports as per HPI Cardiovascular Cardiovascular: Reports system reviewed and no additional complaints, except as documented and Reports as per HPI Respiratory Respiratory: Reports system reviewed and no additional complaints, except as documented and Reports as per HPI Integumentary/Breasts Skin/Breast: Reports system reviewed and no additional complaints, except as documented, Reports as per HPI and Reports other (laceration to right pinky finger) Physical Exam General General appearance: alert and in no apparent distress Respiratory Respiratory exam: Present normal lung sounds bilaterally; Absent respiratory distress or wheezes Cardiovascular Cardiovascular exam: Present regular rate, normal rhythm and normal heart sounds Expanded Upper Extremity Exam Right: Hand L/R front image: 1. laceration (no active bleeding) Neurological Exam Neurological exam: Present alert, oriented X3 and normal gait Medical Decision Making Josué Inquiry Pt receiving controlled substance: No Josué was queried for this patient: No Vital Signs: 12/24/23 11:55 Temperature 98.2 F Temperature Source Oral Pulse Rate [Right Radial] 88 Respiratory Rate 18 Blood Pressure [Right Arm] 136/78 Blood Pressure Mean [Right Arm] 97 Blood Pressure Source [Right Arm] Automatic Cuff Blood Pressure Position [Right Arm] Sitting 02 Sat by Pulse Oximetry 95 Oxygen Delivery Method Room Air Procedures Laceration Laceration 1: Site: finger Side (If applicable): right Size (cm): 1.5 Description: linear Depth: simple, single layer Local Anesthetic: lidocaine 1% Amount of anesthesia used (mL): 1 Pre-repair: wound explored and irrigated extensively Skin layer closed with: nylon Size (cm): 5-0 Number of sutures: 5 Technique: simple, interrupted and other (wound edges approximated well)
[2023-12-24 12:39] VITALS: BP 136/78; PULSE 88; RESP 18; TEMP 36.8; O2SAT 95
--- NOTE | 2023-12-24 12:41 | PC.NURSE ---
Pt has 5 stitches in right pinky finger
== END 2023-12-24 12:39 | disposition home or self-care (01) ==
PROVIDERS: Emergency Provider Nurse Practitioner; PCP Nurse Practitioner Family
DX: S61.216A Laceration without foreign body of right little finger without damage to nail, initial encounter (principal); W26.8XXA Contact with other sharp object(s), not elsewhere classified, initial encounter
CPT/HCPCS: 12001; 99213; 99214; G0463

== ENCOUNTER 2024-01-18 11:12 | Outpatient (POV) | payer MEDICARE, OTHER, SELFPAY | END 2024-01-18 23:59 | disposition home or self-care (01) | LOC: SC 11:13 | PROVIDERS: PCP Nurse Practitioner Family; Visit Provider Dermatology | DX: Z00.00 Encounter for general adult medical examination without abnormal findings (principal) ==

== ENCOUNTER 2024-01-25 18:40 | Emergency (ER) | payer MEDICARE, OTHER, SELFPAY ==
[2024-01-25 18:41] VITALS: BP 125/77; PULSE 63; RESP 19; TEMP 36.1; O2SAT 99; BMI 25.4
[2024-01-25 19:30] VITALS: BP 124/65; PULSE 67; O2SAT 96
[2024-01-25 19:55] LABS: Basophils % 0.3 % (0.1-2.0); Eosinophils # 0.1 K/mm3 (0.0-0.4); Eosinophils % 1.3 % (0.1-12.0); Hematocrit 38.5 % (37.0-47.0); Hemoglobin 12.5 g/dL (12.2-16.2); Lymphocytes # 1.8 K/mm3 (0.7-4.5); Lymphocytes % 22.8 % (10-50); Mean Corpuscular HGB Conc 32.4 g/dL (31.8-35.4); Mean Corpuscular Hemoglobin 31.2 pg (27.0-31.2); Mean Corpuscular Volume 96.4 fl (81-99); Mean Platelet Volume 7.8 fl (7.4-10.4); Monocytes # 0.7 K/mm3 (0.1-1.0); Monocytes % 9.5 % (1.7-9.3); Neutrophils # 5.1 K/mm3 (1.8-7.8); Neutrophils % 66.1 % (37.0-80.0); Platelet Count 265 K/mm3 (142-424); White Blood Count 7.7 K/mm3 (4.8-10.8)
--- NOTE | 2024-01-25 19:55 | HMH.EDGENADL ---
Discharge Plan Disposition Patient Disposition: Home, Self-Care Prescriptions Prescriptions: New doxycycline hyclate 100 mg capsule 100 mg PO BID 7 Days Qty: 14 0RF No Action omeprazole 20 mg capsule,delayed release(DR/EC) 20 mg PO DAILY doxycycline hyclate 100 mg capsule 100 mg PO DAILY Patient Comments: TAKE 1 CAPSULE BY MOUTH TWICE DAILY clobetasol 0.05 % ointment 1 applic topical HS Qty: 30 0RF Rx Instructions: Apply thin layer to affected area nightly at bedtime levothyroxine 88 mcg tablet 1 tab PO DAILY 30 Days Qty: 30 hydrochlorothiazide 25 mg tablet See Rx Instructions .ROUTE .COMPLEX Qty: 90 3RF Dose Instruction: TAKE 1 TABLET EVERY DAY FOR FLUID Rx Instructions: TAKE 1 TABLET EVERY DAY FOR FLUID hydroxychloroquine 200 MG tablet 200 mg PO DAILY Linzess 72 mcg capsule 72 mcg PO DAILY polyethylene glycol 3350 17 GM powder in packet 17 g PO DAILY aspirin 81 MG tablet,delayed release (DR/EC) 81 mg PO DAILY vitamin E 400 UNIT capsule 400 unit PO DAILY calcium carbonate-vitamin D3 500 mg(1,250mg) -125 unit tablet 1 tab PO BID cyanocobalamin-cobamamide 1 EACH tablet, sublingual 1 each sublingual BID gabapentin 100 MG capsule 100 mg PO DAILY Referrals Follow up/Referrals: Magi Flanagan APRN [Primary Care Provider] - See instructions Activity Restrictions/Add. Instructions Additional Instructions/Restrictions: Follow-up with your family doctor regarding this visit to the emergency department and your satin finisher. Talk to them about having Remicade injection in the interim between now and getting other medication approved. Doxycycline twice daily for 7 days. If you have any worsening of your condition or any other concerning signs or symptoms, return to the emergency department or your primary care doctor for further evaluation. Clinical Impressions Clinical Impression: Bullous pemphigoid Instructions Patient Instructions: DI for Altered Mental Status Discharge ED Provider: Richard Lai General Adult HPI General Chief complaint: Altered Mental Status Stated complaint: sent by phys-rash Time Seen by Provider: 01/25/24 19:02 Mode of Arrival: Wheelchair Source of Information: Patient Limitations: Altered Mental Status Description of Symptoms (Recalled from ER Triage Doc. by RN): Pt c/o severe fluid filled blister and rash t/o her body. Family reports pt has been dealing with Bullous Pemphigoid since 08/[address] Cintron for Dermatology. States that pt has been receiving treatment with a new injection therapy that covers for both her RA and BP. However she has developed these fluid filled blisters all over . The blisters are now even internally and pt is seeing a [employer] doc for treatment as well. Pt is cuurrently on oral steriods and seeing Hannah Flanagan APRN in Dr. Demarco's office, who made a home visit today, and d/t pt now having episode of AMS and not sleeping well for multiple days in a row they felt she needed admission. Pt reports to be eating well when on steriod therapy but not drinking well. History of Present Illness HPI narrative: Please note that above description of symptoms, in this electronic medical record under categorization of recalled from ER triage doctor by RN are reflective of an initial nursing assessment, however, is not reflective of my full history and physical exam that was personally taken and clarified. Consequentially, this preceding description of symptoms, which may include the patient's categorized chief complaint in the EMR, do not reflect my personal clinical impression, and the ultimate description of history of present illness and patient stated complaints should be deferred to this section of the note. Unless stated otherwise or congruent with this section of the note, additional signs, symptoms, or incongruence should be interpreted as inaccurate with my clinical impression. Related Data Home Medications Medication Instructions Recorded Confirmed polyethylene glycol 3350 17 gram 17 g PO DAILY CONSTIPATION 10/19/17 01/17/24 oral powder packet aspirin 81 mg tablet,delayed 81 mg PO DAILY Blood thinner 11/04/17 01/17/24 release vitamin E 268 mg (400 unit) capsule 400 unit PO DAILY Supplement 11/04/17 01/17/24 levothyroxine 88 mcg tablet 1 tab PO DAILY thyroid 30 days ##30 12/30/17 01/17/24 hydroxychloroquine 200 mg tablet 200 mg PO DAILY BP 11/04/18 01/17/24 calcium carbonate 500 mg-vitamin 1 tab PO BID Supplement 10/30/20 01/17/24 D3 3.125 mcg (125 unit) tablet cyanocobalamin (B12)-cobamamide 1 each sublingual BID suppliment 01/03/21 01/17/24 5,000 mcg-100 mcg sublingual tablet gabapentin 100 mg capsule 100 mg PO DAILY Pain 02/23/22 01/17/24 omeprazole 20 mg capsule,delayed 20 mg PO DAILY GERD 08/17/22 01/17/24 release doxycycline hyclate 100 mg capsule 100 mg PO DAILY skin rash 12/07/23 01/17/24 linaclotide 72 mcg capsule 72 mcg PO DAILY 12/24/23 01/17/24 (Linzess) Previous Rx's Medication Instructions Recorded hydrochlorothiazide 25 mg tablet See Rx Instructions .Route 09/08/23 .COMPLEX #90 tabs clobetasol 0.05 % topical ointment 1 applic topical HS #30 grams 12/20/23 doxycycline hyclate 100 mg capsule 100 mg PO BID 7 days #14 caps 01/25/24 Allergies Allergy/AdvReac Type Severity Reaction Status Date / Time fish oil [FISH OIL] Allergy Unknown SWELLING Verified 01/17/24 08:52 quinine [QUININE] Allergy Unknown NA-DIARRHEA Verified 01/17/24 08:52 [facility] Disclaimer: The information contained in this section may have been updated after the patient was seen, as this information can be updated by other users. Medical History Localized bullous pemphigoid of vulva Bullous pemphigoid History of smoking 30 or more pack years Dyspnea on exertion Dyspnea Hx of thyroid irradiation Cataract COPD (chronic obstructive pulmonary disease) Hypothyroid GERD (gastroesophageal reflux disease) TIA (transient ischemic attack) Rheumatoid arthritis Chest pain Hypertension Palpitations Raynaud disease Surgical History Hx of colonoscopy Hx of esophagogastroduodenoscopy Hx of hernia repair Hx of tubal ligation Hx of bilateral cataract extraction Family History Other No significant family history Social History Smoking Status: Former smoker tobacco type: cigarettes smoking status stop date: 2012 second hand exposure: No alcohol intake: never substance use 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tional status: other Travel in the last 8 weeks: None household members: none housing: ho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tional exposures/hazards: Yes caffeine: Yes ROS Obtained: Yes All systems reviewed & no additional complaints except as documented Physical Exam General General appearance: alert and in no apparent distress Head Head exam: atraumatic and normocephalic Eye Eye exam: Present normal appearance, PERRL and EOMI ENT ENT exam: Present mucous membranes moist and other (Small blisters on buccal mucosa) Neck Neck exam: Present normal inspection, full ROM and trachea midline Respiratory Respiratory exam: Absent respiratory distress, wheezes, stridor, accessory muscle use or prolonged expiratory phase Cardiovascular Cardiovascular exam: Present regular rate and normal rhythm Abdominal Exam Abdominal exam: Present soft; Absent distention, tenderness, guarding, rebound or rigidity Extremities Exam Extremities exam: Absent edema Neurological Exam Neurological exam: Present alert, oriented X3, CN II-XII intact and normal gait; Absent motor sensory deficit Skin Skin exam: Present warm, dry and rash (Patient does have ulcerations and loose blisters about bilateral upper and lower extremities primarily. Tender.); Absent intact, diaphoresis or erythema Medical Decision Making Medical Records Medical records reviewed: Yes I reviewed the patient's medical records. Josué Inquiry Pt receiving controlled substance: No Josué was queried for this patient: No Vital Signs: 01/25/24 18:41 01/25/24 19:30 Temperature 96.9 F L Temperature Source Axillary Pulse Rate 67 Pulse Rate [Right] 63 Respiratory Rate 19 Blood Pressure 124/65 Blood Pressure [Right Arm] 125/77 Blood Pressure Mean 91 Blood Pressure Mean [Right Arm] 93 Blood Pressure Source [Right Arm] Automatic Cuff 02 Sat by Pulse Oximetry 99 96 Oxygen Delivery Method Room Air Lab Data Lab Results 01/25/24 19:46: WBC 7.7, RBC 4.00 L, Hgb 12.5, Hct 38.5, MCV 96.4, MCH 31.2, MCHC 32.4, RDW 15.0, Plt Count 265, MPV 7.8, Neut % (Auto) 66.1, Lymph % (Auto) 22.8, [place] % (Auto) 9.5 H, Eos % (Auto) 1.3, Baso % (Auto) 0.3, Neut # (Auto) 5.1, Lymph # (Auto) 1.8, [place] # (Auto) 0.7, Eos # (Auto) 0.1, Baso # (Auto) 0.0, Sodium 133 L, Potassium 4.3, Chloride 98, Carbon Dioxide 29, Anion Gap 10.3, BUN 33 H, Creatinine 1.20 H, Estimated Creat Clear 33, Estimated GFR 43 L, Est GFR ( Amer) 52 L, Glucose 115 H, Calcium 9.3, Total Bilirubin 0.5, AST 31, ALT 24, Alkaline Phosphatase 62, Total Creatine Kinase 58, Total Protein 6.6, Albumin 3.8, Globulin 2.8, Albumin/Globulin Ratio 1.4 01/25/24 19:55: Urine Color Yellow, Urine Appearance Clear, Urine pH 7.0, Ur Specific [place] 1.010, Urine Protein Negative, Urine Glucose (UA) Negative, Urine Ketones Negative, Urine Blood Negative, Urine Nitrate Negative, Urine Bilirubin Negative, Urine Urobilinogen 0.2, Ur Leukocyte Esterase Negative, Urine RBC None, Urine WBC None, Ur Squamous Epith Cells None, Ur Transition Epith Cell Occ, Urine Bacteria None 01/25/24 19:46 01/25/24 19:46 Orders (Tests/Meds): ED MEDICATIONS Discontinued Medications Generic Name Dose Route Start Last Admin Trade Name Freq PRN Reason Stop Dose Admin Doxycycline Hyclate 100 mg 01/25/24 20:49 Doxycycline Hycl 100 Mg Tablet PO 01/25/24 20:50 ONCE ONE Lactated Ringer's 1,000 mls @ 999 mls/hr 01/25/24 19:02 01/25/24 20:10 Lactated Ringer's 1000 Ml Bag IV 01/25/24 20:02 999 mls/hr .Q1H1M ONE Administration ORDERS Category Date Time Status CBC w/Auto Diff [Complete Blood Count Auto Diff] Stat Lab 01/25/24 19:46 Completed CK [Creatine Kinase] Stat Lab 01/25/24 19:46 Completed CMP [Comprehensive Metabolic Panel] Stat Lab 01/25/24 19:46 Completed UA [Urinalysis and Microscopic] Stat Lab 01/25/24 19:55 Completed Blood Culture Stat Micro 01/25/24 20:15 Received Medical Decision Narrative: 88-year-old female recent diagnosis of bullous pemphigoid on prednisone burst presenting with blisters. Patient states that she began having blisters in March 2023, since that time is that with blisters on and off, she is currently having an outbreak that she was seen by dermatology a few days prior to this visit 4. Placed on prednisone, currently on prednisone burst taking 60 mg a day. Also taking hydroxyzine as prescribed for itching and sedation at night. Patient states that pain is intolerable. Denies fevers or chills, nausea or vomiting, she states that she does have. It should be noted that patient has , which is currently not at goal and complicates care. History was obtained via conversation with patient and family. On arrival, patient hemodynamically stable, alert, oriented x4, appropriate, GCS 15, moving all extremities spontaneously, pupils equal and reactive to light. Full physical exam performed and significant for very well-appearing woman in no acute distress. She does have desquamating blisters which are soft throughout bilateral upper and lower extremities, she also has small blisters and oral mucosa, reportedly has vaginal blisters. Differential includes bullous pemphigoid, pemphigus vulgaris, lichen, Crawford-Armando syndrome, among others. Patient was given fluids, doxycycline p.o. for symptomatic management and correction of underlying abnormalities. Workup independently interpreted and significant for nonactionable CBC or chemistry, other than mild JENNIFER with creatinine 1.2. On reevaluation, patient resting comfortably in bed. Baseline, no acute complaints. Given patient presentation, workup, history, this most likely represents bolus pemphigus. Further conversation states that patient was supposed to get Remicade injection today, did not due to trying to start another injection medication. She also has not currently on doxycycline, has taken that in the past with improvement in lesions. I feel this is a combination between Remicade dosing wearing off and possibly running out of doxycycline. At this time, I feel she is appropriate for outpatient management. Discussion was had with her and family about following up with her satin finisher and primary care provider regarding Remicade injection in the interim to cover her until this new injection is covered by prior authorization/insurance. Patient feels this is appropriate and agreeable to this plan. Doxycycline also sent to the pharmacy for follow-up in the meantime given its potential efficacy in this disease process and improvement in the past. Because patient at baseline without signs or symptoms of clinical decompensation, deemed appropriate for discharge. Results were relayed to patient who voiced understanding and were agreeable to outpatient management and follow up. I discussed my clinical impression with patient and answered all questions. At this time, the evidence for any other entities in the differential is insufficient to warrant any further testing or ED observation. This was explained as well. Advisory was given that persistent or worsening symptoms require further evaluation. I confirmed the understanding of this discussion. Nursing Program Chair disclaimer Much of this encounter note is an electronic last chalker spoken language to printed text. Electronic last chalker of the spoken language may permit errors. Although I have reviewed the note, some errors may still exist. Critical Care Critical Care Time Critical Care Time: No
--- NOTE | 2024-01-25 20:00 | PC.NURSE ---
urine sample collected and sent to lab
[2024-01-25 20:02] LABS: Microscopic, Urine URINE MICROSCOPIC (MICROSCOPIC)
[2024-01-25 20:05] LABS: Chloride 98 mmol/L (98-107); Sodium 133 mmol/L (136-145)
[2024-01-25 20:06] LABS: Potassium 4.3 mmoL/L (3.5-5.1)
[2024-01-25 20:08] LABS: Alanine Aminotransferase 24 U/L (12-78); Albumin Level 3.8 g/dl (3.5-5.0); Albumin/Globulin Ratio 1.4 (1.1-1.8); Alkaline Phosphatase 62 U/L (38-126); Anion Gap 10.3 mEq/L (5-15); Aspartate Amino Transferase 31 U/L (14-36); Bilirubin,Total 0.5 mg/dl (0.2-1.3); Blood Urea Nitrogen 33 mg/dl (7-17); Calcium 9.3 mg/dl (8.4-10.2); Carbon Dioxide 29 mmol/L (22.0-30.0); Creatine Kinase 58 U/L (30-135); Creatinine Clearance Estimated 33 mL/min (50-200); Estimated Glomerular Filt Rate 43 ml/min (>60); GFR (African American) 52 ML/MIN (>60); Globulin 2.8 g/dL (1.3-3.2); Glucose 115 mg/dl (74-100); Total Protein,Serum 6.6 g/dl (6.3-8.2)
[2024-01-25] MEDS: LACTATED RINGERS 1000ML 1,000 ML 999 ML IV (20:10)
[2024-01-25 20:13] LABS: Appearance,Urine CLEAR (Clear); Bilirubin,Urine Negative (Negative); Blood, Urine Negative (Negative); Color,Urine YELLOW (Yellow); Glucose,Urine (UA) Negative (Negative); Ketones,Urine Negative (Negative); Leukocyte Esterase,Urine Negative (Negative); Nitrate,Urine Negative (Negative); Protein,Urine Negative (Negative); Urobilinogen,Urine 0.2 EU/dl (0.2)
[2024-01-25 20:28] LABS: Transitional Epi Cells,Urine OCC #/lpf (0-3)
[2024-01-25 20:52] VITALS: BP 120/70; PULSE 66; O2SAT 94
[2024-01-25 21:32] VITALS: BP 120/70; PULSE 66; RESP 18; TEMP 36.9; O2SAT 94
[2024-01-25] MEDS: DOXYCYCLINE HYCL 100 MG TABLET PO (21:32)
--- NOTE | 2024-01-27 01:47 | PC.NURSE ---
blood culture results negative for prelim's. waiting on final read.
== END 2024-01-25 21:47 | disposition home or self-care (01) ==
PROVIDERS: Emergency Provider Emergency Medicine; PCP Nurse Practitioner Family
DX: L12.0 Bullous pemphigoid (principal); E87.1 Hypo-osmolality and hyponatremia; J44.9 Chronic obstructive pulmonary disease, unspecified; K21.9 Gastro-esophageal reflux disease without esophagitis; E03.9 Hypothyroidism, unspecified; M06.9 Rheumatoid arthritis, unspecified; I10 Essential (primary) hypertension; Z87.891 Personal history of nicotine dependence
CPT/HCPCS: 80053; 81001; 82550; 85025; 87040; 96360; 99284; J7120

== ENCOUNTER 2024-02-01 13:31 | Outpatient (POV) | payer MEDICARE, OTHER, SELFPAY | END 2024-02-01 23:59 | disposition home or self-care (01) | LOC: SC 13:32 | PROVIDERS: PCP Nurse Practitioner Family; Visit Provider Dermatology | DX: Z00.00 Encounter for general adult medical examination without abnormal findings (principal) ==

== ENCOUNTER 2024-02-04 07:52 | Outpatient (CLI) | payer MEDICARE, OTHER, SELFPAY ==
[2024-02-04] VITALS (18 sets, daily range): BP systolic 103–142; BP diastolic 52–73; PULSE 54–75; RESP 18; TEMP 36.6; O2SAT 96
[2024-02-04] MEDS: ACETAMINOPHEN 325MG TAB 650 MG PO (08:45)
[2024-02-04] MEDS: LORATADINE 10MG TABLET 10 MG PO (08:45)
[2024-02-04] MEDS: METHYLPREDNISOLONE SOD SUCC 125MG VIAL 125 MG IV (08:45)
[2024-02-04] MEDS: SODIUM CHLORIDE 0.9% 50ML BAG 50 ML IV (09:09)
[2024-02-04] MEDS: RITUXIMAB 1,000 MG in 0.9 % SODIUM CHLORIDE 400 ML 50 MG IV (09:12)
== END 2024-02-04 14:10 | disposition home or self-care (01) ==
LOC: INF 07:52
PROVIDERS: PCP Nurse Practitioner Family; Visit Provider Internal Medicine
DX: M05.79 Rheumatoid arthritis with rheumatoid factor of multiple sites without organ or systems involvement (principal); L12.0 Bullous pemphigoid
CPT/HCPCS: 96413; 96415; J9312

== ENCOUNTER 2024-02-21 10:31 | Outpatient (CLI) | payer MEDICARE, OTHER, SELFPAY ==
[2024-02-21] VITALS (8 sets, daily range): BP systolic 113–141; BP diastolic 58–76; PULSE 71–78; RESP 18; TEMP 36.8; O2SAT 98; BMI 25.4
[2024-02-21] MEDS: LORATADINE 10MG TABLET 10 MG PO (11:31)
[2024-02-21] MEDS: SODIUM CHLORIDE 0.9% 50ML BAG 50 ML IV (11:32)
[2024-02-21] MEDS: METHYLPREDNISOLONE SOD SUCC 125MG VIAL 125 MG IV (11:32)
[2024-02-21] MEDS: ACETAMINOPHEN 325MG TAB 650 MG PO (11:32)
[2024-02-21 11:40] LABS: Basophils % 0.2 % (0.1-2.0); Eosinophils % 0.2 % (0.1-12.0); Hematocrit 39.8 % (37.0-47.0); Hemoglobin 12.7 g/dL (12.2-16.2); Lymphocytes # 0.5 K/mm3 (0.7-4.5); Lymphocytes % 4.3 % (10-50); Mean Corpuscular HGB Conc 31.9 g/dL (31.8-35.4); Mean Corpuscular Hemoglobin 31.2 pg (27.0-31.2); Mean Corpuscular Volume 97.7 fl (81-99); Mean Platelet Volume 7.4 fl (7.4-10.4); Monocytes # 0.2 K/mm3 (0.1-1.0); Neutrophils # 9.9 K/mm3 (1.8-7.8); Neutrophils % 93.3 % (37.0-80.0); Platelet Count 290 K/mm3 (142-424); Red Blood Count 4.07 M/mm3 (4.20-5.40); Red Cell Distribution Width 15.2 % (11.5-17.5); White Blood Count 10.6 K/mm3 (4.8-10.8)
[2024-02-21 12:01] LABS: MANUAL DIFFERENTIAL MANUAL DIFFERENTIAL (MANUAL DIFF)
[2024-02-21 12:05] LABS: Alanine Aminotransferase 26 U/L (12-78); Albumin Level 3.7 g/dl (3.5-5.0); Albumin/Globulin Ratio 1.3 (1.1-1.8); Alkaline Phosphatase 132 U/L (38-126); Anion Gap 11.8 mEq/L (5-15); Aspartate Amino Transferase 37 U/L (14-36); Bilirubin,Total 0.4 mg/dl (0.2-1.3); Blood Urea Nitrogen 23 mg/dl (7-17); Calcium 9.3 mg/dl (8.4-10.2); Carbon Dioxide 28 mmol/L (22.0-30.0); Chloride 93 mmol/L (98-107); Creatinine Clearance Estimated 40 mL/min (50-200); Estimated Glomerular Filt Rate 59 ml/min (>60); GFR (African American) 72 ML/MIN (>60); Globulin 2.9 g/dL (1.3-3.2); Glucose 119 mg/dl (74-100); Potassium 3.8 mmoL/L (3.5-5.1); Sodium 129 mmol/L (136-145); Total Protein,Serum 6.6 g/dl (6.3-8.2)
[2024-02-21 12:10] LABS: C-Reactive Protein 0.9 mg/L (0-4)
[2024-02-21 12:55] LABS: Erythrocyte Sedimentation Rate 15 mm/hr (0-30)
[2024-02-21 13:35] LABS: Lymphocytes % 3 % (10-50); Neutrophils % 97 % (42-76); Platelet Estimate Normal; RBC Morphology Normal; Total Cells Counted 100
== END 2024-02-21 16:00 | disposition home or self-care (01) ==
LOC: INF 10:32
PROVIDERS: PCP Nurse Practitioner Family; Visit Provider Internal Medicine
DX: L12.0 Bullous pemphigoid (principal); M05.79 Rheumatoid arthritis with rheumatoid factor of multiple sites without organ or systems involvement
CPT/HCPCS: 80053; 85007; 85025; 85027; 85651; 86140; 96413; 96415; J2919; J9312

== ENCOUNTER 2024-02-24 10:21 | Outpatient (POV) | payer MEDICARE, OTHER, SELFPAY ==
[2024-02-24 11:02] VITALS: BP 140/68; PULSE 71; RESP 16; O2SAT 98; BMI 25.4
--- NOTE | 2024-02-24 11:20 | A.OFFVIS_ITS ---
[facility] Disclaimer: The information contained in this section may have been updated after the patient was seen, as this information can be updated by other users. Medical History Localized bullous pemphigoid of vulva Bullous pemphigoid History of smoking 30 or more pack years Dyspnea on exertion Dyspnea Hx of thyroid irradiation Cataract COPD (chronic obstructive pulmonary disease) Hypothyroid GERD (gastroesophageal reflux disease) TIA (transient ischemic attack) Rheumatoid arthritis Chest pain Hypertension Palpitations Raynaud disease Surgical History Hx of colonoscopy Hx of esophagogastroduodenoscopy Hx of hernia repair Hx of tubal ligation Hx of bilateral cataract extraction Family History Other No significant family history Social History Smoking Status: Former smoker tobacco type: cigarettes smoking status stop date: 2012 second hand exposure: No alcohol intake: never substance use 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tional status: retired Travel in the last 8 weeks: None household members: none housing: ho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tional exposures/hazards: Yes caffeine: Yes PM Subjective & Objective Subjective Subjective:: Patient is a pleasant 88-year-old female who presents today for follow-up. Today she rates her pain an 8 out of 10. Patient states she is having worsening pain in her low back that radiates to her hips and down into her legs. Patient states this is progressively worsened over the last 2 months. She describes it as an aching, throbbing sensation with numbness and tingling into her extremities. Patient denies any new trauma or injury. She does state that she has been more housebound for the last couple of months and feels like this is what really aggravated her overall symptoms. Patient has had injections in the past including lumbar epidural and SI injections that provided significant relief. Patient states she is interested in repeating these injections because they did get so much improvement and have lasted up until about the last 2 months. Patient is prescribed gabapentin from an outside provider. Patient does also state from her last visit she did get diagnosed with a skin issue that resulted in large boils and irritations. She has started a medication that she gets every 6 months. Her Josué has been reviewed and is appropriate. Review of Systems: General: No recent weight changes, no fever, no sleep disturbances Respiratory: No cough, no shortness of air, no recurring pulmonary infections Cardiovascular/peripheral vascular: No chest pain, no palpitations, no edema, no shortness of breath Gastrointestinal: No new onset incontinence, normal bowel movements reported Genitourinary: No new onset incontinence Musculoskeletal: Low back pain, hip pain, leg pain Psychiatric: [Normal mood/affect] Neurological: [Denies weakness in extremities], [denies balance issues] Pain at rest (0-10 scale): 8 Objective Objective:: Physical Exam: General: Alert and oriented x3, no acute distress, pleasant and cooperative Lungs: Respirations even and unlabored, symmetrical chest expansion Eyes: PERRL Musculoskeletal: Flexion and extension of lumbar [spine] somewhat guarded secondary to pain, [antalgic gait noted] Neurological: Speech clear, no gross sensory deficit Has patient had previous pain injection?: No Conservative treatment options previously tried: Home exercise plan Length of treatment: Longer than 6 weeks and Prescription medications Length of treatment: Longer than 6 weeks Meds Home Medications and Allergies Home Medications Medication Instructions Recorded Confirmed Type polyethylene glycol 3350 17 gram 17 g PO DAILY CONSTIPATION 10/19/17 02/24/24 History oral powder packet aspirin 81 mg tablet,delayed 81 mg PO DAILY Blood thinner 11/04/17 02/24/24 History release vitamin E 268 mg (400 unit) capsule 400 unit PO DAILY Supplement 11/04/17 02/24/24 History levothyroxine 88 mcg tablet 1 tab PO DAILY thyroid 30 days ##30 12/30/17 02/24/24 History hydroxychloroquine 200 mg tablet 200 mg PO DAILY BP 11/04/18 02/24/24 History calcium carbonate 500 mg-vitamin 1 tab PO BID Supplement 10/30/20 02/24/24 History D3 3.125 mcg (125 unit) tablet cyanocobalamin (B12)-cobamamide 1 each sublingual BID suppliment 01/03/21 02/24/24 History 5,000 mcg-100 mcg sublingual tablet gabapentin 100 mg capsule 100 mg PO DAILY Pain 02/23/22 02/24/24 History omeprazole 20 mg capsule,delayed 20 mg PO DAILY GERD 08/17/22 02/24/24 History release hydrochlorothiazide 25 mg tablet See Rx Instructions .Route 09/08/23 02/24/24 Rx .COMPLEX #90 tabs doxycycline hyclate 100 mg capsule 100 mg PO DAILY skin rash 12/07/23 02/24/24 History clobetasol 0.05 % topical ointment 1 applic topical HS #30 grams 12/20/23 02/24/24 Rx linaclotide 72 mcg capsule 72 mcg PO DAILY 12/24/23 02/24/24 History (Linzess) doxycycline hyclate 100 mg capsule 100 mg PO BID 7 days #14 caps 01/25/24 02/24/24 Rx New Prescriptions to Start Prescriptions: Allergies Allergy/AdvReac Type Severity Reaction Status Date / Time fish oil [FISH OIL] Allergy Unknown SWELLING Verified 02/01/24 10:45 quinine [QUININE] Allergy Unknown NA-DIARRHEA Verified 02/01/24 10:45 Assessment and Plan *Assessment and plan (1) Low back pain: Status: Chronic Qualifiers: Chronicity: chronic Back pain laterality: unspecified Sciatica prese nce: unspecified whether sciatica present Qualified Code(s): M54.5 - Low back pain; G89.29 - Other chronic pain Category: Medical Code(s): M54.5 - Low back pain (2) Degenerative disc disease, lumbar: Status: Acute Category: Medical Code(s): M51.36 - Other intervertebral disc degeneration, lumbar region (3) Lumbar radiculopathy: Status: Acute Category: Medical Code(s): M54.16 - Radiculopathy, lumbar region (4) Bilateral hip pain: Status: Acute Category: Medical Code(s): M25.551 - Pain in right hip; M25.552 - Pain in left hip Plan Patient is experiencing worsening pain in her low back, hips and legs with numbness and tingling. Patient did have limited range of motion of her lumbar spine during today's visit. Patient has previously had a lumbar epidural of L4- L5 back in February 2023 that provided more than 50% relief lasting longer than 6 months. Patient did have improved function following these injections and I did discuss with the patient that she may benefit from repeat lumbar epidural injection. Risk and benefits were discussed with patient and she would like to proceed forward with this plan of care. Patient has tried and failed conservative treatment including oral medication, heat and ice, Salonpas and Aspercreme with minimal relief. Patient does still do at home exercising and stretching for the last 6 weeks with minimal relief. We will schedule the patient for a lumbar epidural steroid injection L4-L5 under fluoroscopy. Patient has been instructed to contact the clinic with any concerns before the next appointment. Dr. Olmstead has reviewed this note and agrees with this plan of care. This note was dictated using voice recognition software and make contain errors or omissions.
== END 2024-02-24 23:59 | disposition home or self-care (01) ==
LOC: SC.PAIN 10:22
PROVIDERS: PCP Nurse Practitioner Family; Visit Provider Nurse Practitioner Family
DX: G89.29 Other chronic pain (principal); M51.36 Other intervertebral disc degeneration, lumbar region; M54.16 Radiculopathy, lumbar region; M25.551 Pain in right hip; M25.552 Pain in left hip
CPT/HCPCS: 99212; G0463

== ENCOUNTER → 2024-03-14 11:45 | Day surgery (SDC) | payer MEDICARE, OTHER, SELFPAY ==
[2024-03-14 12:00] VITALS: BP 134/75; PULSE 66; RESP 18; TEMP 36.5; O2SAT 95; BMI 25.4
--- NOTE | 2024-03-14 12:06 | EXP.PAIN.PRO ---
Procedure Date: 03/14/24 Time: 12:00 Anesthesiologist:: Von Cline CRNA Complications:: None Pre-procedure Diagnosis:: Degenerative disc lumbar spine multilevels. Lumbar radiculopathy. Lumbar spondylosis. Multilevel lumbar facet arthropathy. Post-procedure Diagnosis:: Same. Indications for Procedure:: Patient is a pleasant 88-year-old female comes our clinic today for lumbar epidural steroid injection at the L4-5 level. Patient describes low back pain as constant, dull, aching. Patient also reports bilateral hip and leg radicular symptoms. She rates her pain 7/10. Procedure Details:: Procedure: Lumbar epidural steroid injection under fluoroscopy Informed consent was obtained and the risks and benefits of the procedure were explained to the patient. The patient was taken to the procedure room and noninvasive monitors placed, including noninvasive blood pressure cuff and pulse oximeter. The back was viewed using C-arm Fluoroscopy and prepped using Chloraprep as a cleansing solution and the L4-L5 interspace was palpated. Skin and subcutaneous tissues were anesthetized using lidocaine 1.5% and a 25-gauge needle. After this, an 18-gauge Touhy epidural needle was placed into the L4-L5 interspace and advanced using fluoroscopic guidance and loss of resistance to air until the epidural space was encountered. After confirmation of needle placement in the epidural space, with dye, a solution containing normal saline, 3 mL and Depo-Medrol 80 mg were incrementally injected into the lumbar epidural space. The patient tolerated the procedure well with no complications. The patient was observed in the Pain Clinic and then discharged home neurologically intact. Plan and Disposition:: Patient was discharged without incident.
[2024-03-14 12:10] VITALS: BP 140/73; PULSE 80; RESP 18; O2SAT 98
[2024-03-14] MEDS: methylPREDNISolone ACETATE 80MG/ML VIAL 80 MG (12:31)
== END | disposition home or self-care (01) ==
PROVIDERS: PCP Nurse Practitioner Family; Visit Provider Nurse Anesthetist, Certified Registered
DX: M47.26 Other spondylosis with radiculopathy, lumbar region (principal)
CPT/HCPCS: 62323; J1010

== ENCOUNTER 2024-03-30 13:30 | Outpatient (POV) | payer MEDICARE, OTHER, SELFPAY ==
[2024-03-30 13:41] VITALS: BP 114/68; PULSE 78; RESP 16; O2SAT 95; BMI 25.4
--- NOTE | 2024-03-30 14:25 | A.OFFVIS_ITS ---
[facility] Disclaimer: The information contained in this section may have been updated after the patient was seen, as this information can be updated by other users. Medical History Localized bullous pemphigoid of vulva Bullous pemphigoid History of smoking 30 or more pack years Dyspnea on exertion Dyspnea Hx of thyroid irradiation Cataract COPD (chronic obstructive pulmonary disease) Hypothyroid GERD (gastroesophageal reflux disease) TIA (transient ischemic attack) Rheumatoid arthritis Chest pain Hypertension Palpitations Raynaud disease Surgical History Hx of colonoscopy Hx of esophagogastroduodenoscopy Hx of hernia repair Hx of tubal ligation Hx of bilateral cataract extraction Family History Other No significant family history Social History Smoking Status: Former smoker tobacco type: cigarettes smoking status stop date: 2012 second hand exposure: No alcohol intake: never substance use 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tional status: retired Travel in the last 8 weeks: None household members: none housing: ho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tional exposures/hazards: Yes caffeine: Yes PM Subjective & Objective Subjective Subjective:: Patient is a pleasant 88-year-old female who presents today for follow-up of lumbar epidural steroid injection L4-L5 on 03/14/2024. Today she rates her pain a 8 out of 10. Patient states that from our last visit she ended up having a fall at home. Patient states that this did occur before she had the injection back couple of days. She states she was out watering her giles and stumbled landing on her right knee. Patient does state that when she went for her injection she did not really feel like it did as much along the lines of improvement. Patient does state today that her pain is more in her low back and hips with some groin pain however denies having the same symptoms going down into her legs. She does state it is a constant aching sensation that does interfere with her ability perform activities of daily living. Her Josué has been reviewed and is appropriate. Review of Systems: General: No recent weight changes, no fever, no sleep disturbances Respiratory: No cough, no shortness of air, no recurring pulmonary infections Cardiovascular/peripheral vascular: No chest pain, no palpitations, no edema, no shortness of breath Gastrointestinal: No new onset incontinence, normal bowel movements reported Genitourinary: No new onset incontinence Musculoskeletal: Bilateral hip pain, low back pain, buttocks pain Psychiatric: [Normal mood/affect] Neurological: [Denies weakness in extremities], [denies balance issues] Pain at rest (0-10 scale): 8 Objective Objective:: Physical Exam: General: Alert and oriented x3, no acute distress, pleasant and cooperative Lungs: Respirations even and unlabored, symmetrical chest expansion Eyes: PERRL Musculoskeletal: Flexion and extension of lumbar [spine] somewhat guarded secondary to pain, [antalgic gait noted] point tenderness along bilateral SIs with positive bilateral Alvaro's, Yan's, Gaenslen's, compression and distraction exam Neurological: Speech clear, no gross sensory deficit Has patient had previous pain injection?: Yes Percent improvement in pain since last injection: Less than 25% Conservative treatment options previously tried: Home exercise plan Length of treatment: Longer than 6 weeks Meds Home Medications and Allergies Home Medications ?Medication ?Instructions ?Recorded ?Confirmed ?Type polyethylene glycol 3350 17 gram 17 g PO DAILY CONSTIPATION 10/19/17 03/30/24 History oral powder packet aspirin 81 mg tablet,delayed 81 mg PO DAILY Blood thinner 11/04/17 03/30/24 History release vitamin E 268 mg (400 unit) capsule 400 unit PO DAILY Supplement 11/04/17 03/30/24 History levothyroxine 88 mcg tablet 1 tab PO DAILY thyroid 30 days ##30 12/30/17 03/30/24 History hydroxychloroquine 200 mg tablet 200 mg PO DAILY BP 11/04/18 03/30/24 History calcium carbonate 500 mg-vitamin 1 tab PO BID Supplement 10/30/20 03/30/24 History D3 3.125 mcg (125 unit) tablet cyanocobalamin (B12)-cobamamide 1 each sublingual BID suppliment 01/03/21 03/30/24 History 5,000 mcg-100 mcg sublingual tablet gabapentin 100 mg capsule 100 mg PO DAILY Pain 02/23/22 03/30/24 History omeprazole 20 mg capsule,delayed 20 mg PO DAILY GERD 08/17/22 03/30/24 History release hydrochlorothiazide 25 mg tablet See Rx Instructions .Route 01/10/24 08/01/24 Rx .COMPLEX #90 tabs doxycycline hyclate 100 mg capsule 100 mg PO DAILY skin rash 12/07/23 03/30/24 History clobetasol 0.05 % topical ointment 1 applic topical HS #30 grams 12/20/23 03/30/24 Rx linaclotide 72 mcg capsule 72 mcg PO DAILY 12/24/23 03/30/24 History (Linzess) doxycycline hyclate 100 mg capsule 100 mg PO BID 7 days #14 caps 01/25/24 03/30/24 Rx New Prescriptions to Start Prescriptions: Allergies Allergy/AdvReac Type Severity Reaction Status Date / Time fish oil [FISH OIL] Allergy Unknown SWELLING Verified 02/01/24 10:45 quinine [QUININE] Allergy Unknown NA-DIARRHEA Verified 02/01/24 10:45 Assessment and Plan *Assessment and plan (1) Bilateral sacroiliitis: Status: Acute Category: Medical Code(s): M46.1 - Sacroiliitis, not elsewhere classified Plan Patient is experiencing significant pain across her low back and into her bilateral hips and buttocks area. She did have point tenderness along her bilateral SIs and a positive bilateral Alvaro's, Yan's, Gaenslen's, compression and distraction exam. Patient has previously had SI injections with her last ones being in April 2023. These injections did not give at least 80% improvement lasting several months(>3). Patient did have improved function from those injections. I have discussed with the patient that she may benefit from repeat SI injections. Risk and benefits were discussed with the patient and she would like to proceed forward with this plan of care. Patient has tried and failed conservative therapy including continued at home exercising and stretching for longer than 6 weeks. We will submit to insurance for bilateral SI injections under fluoroscopy. Patient has been instructed to contact the clinic with any concerns before the next appointment. Dr. Olmstead has reviewed this note and agrees with this plan of care. This note was dictated using voice recognition software and make contain errors or omissions. All injections are used with Lidocaine or Bupivacaine and Depo Medrol.
== END 2024-03-30 23:59 | disposition home or self-care (01) ==
LOC: SC.PAIN 13:31
PROVIDERS: Visit Provider Nurse Practitioner Family
DX: M46.1 Sacroiliitis, not elsewhere classified (principal); Z79.899 Other long term (current) drug therapy; Z87.891 Personal history of nicotine dependence
CPT/HCPCS: 99212; G0463

== ENCOUNTER 2024-04-07 10:00 | Outpatient (RCR) | payer MEDICARE, OTHER, SELFPAY ==
--- NOTE | 2024-03-09 16:21 | HMH.PTOPEV ---
PT Outpatient Evaluation Rehab PT Outpatient Evaluation Start: 03/09/24 14:24 Freq: Status: Active Protocol: Document 03/09/24 15:45 MARLON (Rec: 03/09/24 16:21 MARLON [id number]) E-signed By Antoine Box, PT Outpatient Therapy Subjective History Subjective History This is the initial PT eval for Hawa Vickers, 88 yowf who presents with c/o chronic low back pain for many years, worse x ~2-3 mos, and much worse x ~ 1 wk after a ground level fall at home. She reports no injuries from her fall, but feels more sore all over both sides of her low back and hips. She also reports she recently got over a case of bullous pemphigoid which resulted in her limiting her mobility artificially for 2-3 mos. She reports fairly constant pain across her low back, but worse on the L side. She is currently being treated by pain management for these very symptoms. SHe has hx of RA, OA, and scoliosis. New diagnosis of cancer in past 12 No months? Chief Complaint Pain Symptom Type Ache Prior Functional Limitations None Current Functional Limitations Housework,Standing,Walking, Bending/Stooping Symptom Description Constant but Variable Level of pain today (0-10) 8 Pain scale - at its worst (0-10) 10 Lumbopelvic Eval Posture Lumbar Spine Posture Standing Position Fixed Scoliosis on (L) Palapation tenderness bilateral lumbar spinal tenderness Yes: 2/4 Lumbar/Sacral Palpation Findings Tenderness Lumbar/Sacral Palpation Overall Comment B SI and lumbosacral paraspinals 2/4 Range of Motion Lumbar Spine Active Flexion Range of 0-50 Motion (degrees) Lumbar Spine Active Extension Range of 0-15 Motion (degrees) Left Lumbar Spine Lateral Flexion Active 0-5 Range of Motion (degrees) Right Lumbar Spine Lateral Flexion 0-10 Active Range of Motion (degrees) Manual Muscle Test Bilateral Knee Extension Strength Grade 4 Good Knee Flexion Strength Grade 5 Normal Hip Flexion Strength Grade 4- Good- Hip Abduction Strength Grade 4 Good Special Tests Sciatic Nerve Tension Test Negative Left,Negative Right Unilateral Straight Leg Raise (Lasegue) Negative Left,Negative Right Test Lumbar Long [place] Distraction Test/Manual Negative Traction Oswestry Index Section 1 Pain Intensity The pain is severe and does not vary much Section 2 Personal Care (Washing,Dresing) increase the pain and I find it necessary to change my way of doing it Section 3 Lifting lifting heavy weights off the floor, but I can manage if they are Section 4 Walking I cannot walk more than 1/4 mile without increasing pain Section 5 Sitting I can sit in my favorite chair for as long as I like Section 6 Standing I cannot stand more than 1/2 hour without increasing pain Section 7 Sleeping Because of my pain, my normal night's sleep is less than 6 hours sleep Section 8 Social Life Pain has restricted my social life to my home Section 9 Traveling I get extra pain while traveling which compels me to seek alternate fo Section 10 Changing Degreee of Pain My pain is neither getting better or worse Score and Risk Level Oswestry Sc 31 Oswestry Risk Level Severe Disability Outpatient Therapy Assessment Impairments Problems/Impairmments Palpation Tenderness,Impaired Range of Motion,Impaired Strength,Impaired Endurance, Impaired Walking,Impaired Standing,Impaired Household Care,Impaired Balance, Subjective C/O Pain,Impaired Self Care/Self Management Prognosis Rehab Potential Good Comment Skilled therapy is necessary to aid pt return to prior level of function via core strengthening and general mobility training. Clinical Impression Consistent with Diagnosis Yes Short Term Goals Number of Weeks 2 Decreased Palpation Tenderness Yes: B lumbosacral paraspinals 1/4 Increase Range of Motion Yes: lumbar AROM by 5 deg Increase Strength Yes: B LE > 4/5 throughout Improve Oswestry Score Yes: <28 Decrease Subjective C/O Pain Yes: 6/10 low back Patient to be Ind w/ HEP Yes Cover Remover Goals Number of Weeks 4 Decreased Palpation Tenderness Yes: B lumbosacral paraspinals 0/4 Increase Range of Motion Yes: Lumbar AROM by 10 deg Increase Strength Yes: B LE 4+- 5/5 throughout Improve Ability For Household Care Yes: with 5/10 pain or less Improve Oswestry Score Yes: <25 Decrease Subjective C/O Pain Yes: 3/10 pain in low back Patient to be Ind w/ Advanced HEP Yes Outpatient Therapy Plan of Care Treatment Plan May Include Therapeutic Exercise Including Home Yes Exercise Program Manual Therapy Techniques Yes Neuromuscular Re-education Yes Therapeutic Activities to Return to Yes Previous Functional/Work Level ADL/Self Care Education Yes Thermal Modalities Yes Electrical Stimulation Yes Ultrasound/Phonophoresis Yes Orthotics/Bracing/Splinting Yes Massage Yes Eval/Re-Eval Yes Frequency Times per week 2 Duration Number of Weeks 4 Addendums This patient is a candidate for social No or vocational rehab? Patient/Guardian verbally acknowledges Yes understanding of treatment program and consents to further treatment? Patient/Guardian verbally acknowledges Yes understanding of diagnosis, prognosis and goals for treatment? Eval Complexity PT Charges 53459 - High Complexity Shoulder/Elbow Eval Shoulder Objective Measurements Elbow Objective Measurements PHYSICIAN CERTIFICATION: I certify the specified therapy services for Hawa Vickers are required, authorized, and reviewed every 30 days.
== END 2024-04-07 10:05 | disposition home or self-care (01) ==
LOC: PT 10:00
PROVIDERS: Visit Provider Nurse Practitioner Family
DX: M54.50 Low back pain, unspecified (principal)
CPT/HCPCS: 97010; 97014; 97110; 97140; 97163; 97535; G0283

== ENCOUNTER 2024-04-18 08:27 | Day surgery (SDC) | payer MEDICARE, OTHER, SELFPAY ==
[2024-04-18 08:38] VITALS: BP 119/65; PULSE 69; RESP 16; TEMP 36.1; O2SAT 97; BMI 25.6
[2024-04-18] MEDS: methylPREDNISolone ACETATE 80MG/ML VIAL 80 MG (09:12)
[2024-04-18] MEDS: LIDOCAINE 1% 5ML PF VIAL 5 ML (09:12)
[2024-04-18] MEDS: BUPIVACAINE 0.25% 10ML INJ 25 MG IJ (09:12)
[2024-04-18 09:13] VITALS: BP 141/74; PULSE 76; RESP 18; O2SAT 97
[2024-04-18 09:17] VITALS: BP 141/74; PULSE 76; RESP 18; O2SAT 99
--- NOTE | 2024-04-18 09:19 | P.PCN_ITS ---
Procedure Date: 04/18/24 Time: 09:00 Anesthesiologist:: Von Cline CRNA Complications:: None Pre-procedure Diagnosis:: Bilateral sacroiliitis Post-procedure Diagnosis:: Same Indications for Procedure:: Patient is a pleasant 88-year-old female who comes to clinic today for bilateral sacroiliac joint injections of cortisone and local anesthetic. Patient describes bilateral posterior hip pain as constant, dull, aching, sharp, stabbing. She describes having difficulty transitioning from sitting to standing. Upon examination she has extreme point tenderness over the bilateral sacroiliac joints. She rates her pain 8/10. Procedure Details:: Procedure: Bilateral sacroiliac joint injections under fluoroscopy Informed consent was obtained and the risks and benefits of the procedure were explained to the patient.~ The patient was taken to the procedure room and noninvasive monitors were placed including a noninvasive blood pressure cuff and pulse oximeter.~ The patient was placed prone on the procedure table. Both hips were cleansed using Betadine as a cleansing solution. C-arm fluoroscopy was used to view the right sacroiliac joint.~ The skin and subcutaneous tissues were anesthetized using lidocaine 1.5% and a 25-gauge needle.~ After this, a 22-gauge spinal needle was inserted under fluoroscopic guidance into the inferior aspect of the right sacroiliac joint.~ Omnipaque dye was injected and good spread was seen throughout the joint.~ After this, approximately 5 mL of bupivacaine, 0.25% and Depo-Medrol, 40 mg was incrementally injected into the right sacroiliac joint. We then moved to the left sacroiliac joint.~ The skin and subcutaneous tissues were anesthetized using lidocaine 1.5% and a 25-gauge needle.~ After this, a 22- gauge spinal needle was inserted under fluoroscopic guidance into the inferior aspect of the left sacroiliac joint.~ Omnipaque dye was injected and good spread was seen throughout the joint. After this, approximately 5 mL of bupivacaine, 0.25% and Depo-Medrol, 40 mg was incrementally injected into the left sacroiliac joint.~ The patient tolerated the procedure well with no complications. The patient was observed in the Pain Clinic and then was discharged home neurologically intact. Plan and Disposition:: Patient was discharged without incident.
[2024-04-18 09:20] VITALS: BP 129/69; PULSE 69; RESP 16; O2SAT 97
== END 2024-04-18 09:20 | disposition home or self-care (01) ==
PROVIDERS: PCP Nurse Practitioner Family; Visit Provider Nurse Anesthetist, Certified Registered
DX: M46.1 Sacroiliitis, not elsewhere classified (principal)
CPT/HCPCS: 27096; G0260; J1010

== ENCOUNTER 2024-05-11 11:11 | Outpatient (CLI) | payer MEDICARE, OTHER, SELFPAY ==
--- NOTE | 2024-05-11 11:19 | XR_ITS ---
FINAL REPORT CLINICAL HISTORY: Left knee pain COMPARISON: Benign FINDINGS: Three views of the left knee reveal no evidence of fracture or dislocation. The bony alignment is normal. There are mild degenerative changes. There is no evidence of joint effusion. Mild meniscal calcifications are present. IMPRESSION: Mild degenerative changes and meniscal calcifications without acute bony abnormality. Reviewed, Interpreted and Dictated by Tyree Newberry III, MD Transcribed by Haley Rodrigues Authenticated and . [facility]
--- NOTE | 2024-05-11 11:19 | XR_ITS ---
FINAL REPORT CLINICAL HISTORY: PAIN IN KNEE/ LUMBAGO W SCIATICA COMPARISON: None FINDINGS: Three views of the right knee reveal no evidence of fracture or dislocation. The bony alignment is normal. There is mild degenerative change. There is a large presumed calcification anteriorly measuring 38 mm. There is no evidence of joint effusion. No localized soft tissue abnormality is identified. IMPRESSION: Degenerative changes without acute abnormality identified. Large presumed calcification. Reviewed, Interpreted and Dictated by Tyree Newberry III, MD Transcribed by Haley Rodrigues Authenticated and [facility]
--- NOTE | 2024-05-11 11:21 | XR_ITS ---
FINAL REPORT CLINICAL HISTORY: LUMBAGO W SCIATICA COMPARISON: None FINDINGS: 5 views of the lumbar spine were obtained. There is no evidence of fracture or dislocation. Dextroscoliosis is noted. There is severe degenerative change. There is 16 mm of right lateral subluxation of L3 on L4. Vascular calcifications are present. There is vacuum phenomenon. No paraspinous soft tissue abnormalities identified. IMPRESSION: Severe degenerative changes. Right lateral subluxation of L3 on L4. Reviewed, Interpreted and Dictated by Tyree Newberry III, MD Transcribed by Haley Rodrigues Authenticated and [facility]
--- NOTE | 2024-05-11 11:56 | XR_ITS ---
FINAL REPORT CLINICAL HISTORY: PAIN right foot COMPARISON: 11/01/2017 FINDINGS: RIGHT FOOT 3 views of the right foot were obtained. There is no acute fracture or dislocation. There are mild degenerative changes. Soft tissues are unremarkable. IMPRESSION: Mild degenerative changes without acute bony abnormality. Reviewed, Interpreted and Dictated by Tyree Newberry III, MD Transcribed by Haley Rodrigues Authenticated and [facility]
== END 2024-05-11 23:59 | disposition home or self-care (01) ==
PROVIDERS: PCP Nurse Practitioner Family; Visit Provider Nurse Practitioner Family
DX: M54.41 Lumbago with sciatica, right side (principal); M54.42 Lumbago with sciatica, left side; M25.561 Pain in right knee; M25.562 Pain in left knee; M79.671 Pain in right foot
CPT/HCPCS: 72110; 73562; 73630

== ENCOUNTER 2024-05-15 10:00 | Outpatient (POV) | payer MEDICARE, OTHER, SELFPAY ==
[2024-05-15 10:53] VITALS: BP 125/69; PULSE 70; RESP 16; O2SAT 100; BMI 25.6
--- NOTE | 2024-05-15 11:19 | A.OFFVIS_ITS ---
[facility] Disclaimer: The information contained in this section may have been updated after the patient was seen, as this information can be updated by other users. Medical History Localized bullous pemphigoid of vulva Bullous pemphigoid History of smoking 30 or more pack years Dyspnea on exertion Dyspnea Hx of thyroid irradiation Cataract COPD (chronic obstructive pulmonary disease) Hypothyroid GERD (gastroesophageal reflux disease) TIA (transient ischemic attack) Rheumatoid arthritis Chest pain Hypertension Palpitations Raynaud disease Surgical History Hx of colonoscopy Hx of esophagogastroduodenoscopy Hx of hernia repair Hx of tubal ligation Hx of bilateral cataract extraction Family History Other No significant family history Social History Smoking Status: Former smoker tobacco type: cigarettes smoking status stop date: 2012 second hand exposure: No alcohol intake: never substance use 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tional status: other Travel in the last 8 weeks: None household members: none housing: ho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tional exposures/hazards: Yes caffeine: Yes PM Subjective & Objective Subjective Subjective:: Patient is a pleasant 88-year-old female who presents today for follow-up of bilateral SI injections. She does state that these did help the day of and that could have helped a little bit more however she is still having significant pain all down her right leg. Patient does state that this is a aching, throbbing sensation with numbness and tingling that is most predominant on the right side. Patient states she has recently had x-ray imaging however she has not heard any of the results. Patient does state that this pain is interfering with her activities of daily living such as cooking and cleaning. Patient states that her right leg will occasionally just give out and that she is having to rely more on her walker due to this. Her Josué has been reviewed and is appropriate. Review of Systems: General: No recent weight changes, no fever, no sleep disturbances Respiratory: No cough, no shortness of air, no recurring pulmonary infections Cardiovascular/peripheral vascular: No chest pain, no palpitations, no edema, no shortness of breath Gastrointestinal: No new onset incontinence, normal bowel movements reported Genitourinary: No new onset incontinence Musculoskeletal: Low back pain, bilateral leg pain Psychiatric: [Normal mood/affect] Neurological: [Denies weakness in extremities], [denies balance issues] Pain at rest (0-10 scale): 8 Objective Objective:: Physical Exam: General: Alert and oriented x3, no acute distress, pleasant and cooperative Lungs: Respirations even and unlabored, symmetrical chest expansion Eyes: PERRL Musculoskeletal: Flexion and extension of lumbar [spine] somewhat guarded secondary to pain, [antalgic gait noted] Neurological: Speech clear, no gross sensory deficit FINDINGS: 5 views of the lumbar spine were obtained. There is no evidence of fracture or dislocation. Dextroscoliosis is noted. There is severe degenerative change. There is 16 mm of right lateral subluxation of L3 on L4. Vascular calcifications are present. There is vacuum phenomenon. No paraspinous soft tissue abnormalities identified. IMPRESSION: Severe degenerative changes. Right lateral subluxation of L3 on L4. Reviewed, Interpreted and Dictated by Tyree Newberry III, MD Transcribed by Haley Rodrigues Authenticated and [facility] Has patient had previous pain injection?: Yes Percent improvement in pain since last injection: Moderate for at least 1 day Conservative treatment options previously tried: Home exercise plan Length of treatment: Longer than 6 weeks Meds Home Medications and Allergies Home Medications ?Medication ?Instructions ?Recorded ?Confirmed ?Type polyethylene glycol 3350 17 gram 17 g PO DAILY CONSTIPATION 10/19/17 05/15/24 History oral powder packet aspirin 81 mg tablet,delayed 81 mg PO DAILY Blood thinner 11/04/17 05/15/24 History release vitamin E 268 mg (400 unit) capsule 400 unit PO DAILY Supplement 11/04/17 05/15/24 History levothyroxine 88 mcg tablet 1 tab PO DAILY thyroid 30 days ##30 12/30/17 05/15/24 History hydroxychloroquine 200 mg tablet 200 mg PO DAILY BP 11/04/18 05/15/24 History calcium carbonate 500 mg-vitamin 1 tab PO BID Supplement 10/30/20 05/15/24 History D3 3.125 mcg (125 unit) tablet cyanocobalamin (B12)-cobamamide 1 each sublingual BID suppliment 01/03/21 05/15/24 History 5,000 mcg-100 mcg sublingual tablet gabapentin 100 mg capsule 100 mg PO DAILY Pain 02/23/22 05/15/24 History omeprazole 20 mg capsule,delayed 20 mg PO DAILY GERD 08/17/22 05/15/24 History release hydrochlorothiazide 25 mg tablet See Rx Instructions .Route 09/08/23 05/15/24 Rx .COMPLEX #90 tabs doxycycline hyclate 100 mg capsule 100 mg PO DAILY skin rash 12/07/23 05/15/24 History clobetasol 0.05 % topical ointment 1 applic topical HS #30 grams 12/20/23 Rx linaclotide 72 mcg capsule 72 mcg PO DAILY 12/24/23 05/15/24 History (Linzess) doxycycline hyclate 100 mg capsule 100 mg PO BID 7 days #14 caps 01/25/24 05/15/24 Rx New Prescriptions to Start Prescriptions: Allergies Allergy/AdvReac Type Severity Reaction Status Date / Time fish oil [FISH OIL] Allergy Unknown SWELLING Verified 04/18/24 08:38 quinine [QUININE] Allergy Unknown NA-DIARRHEA Verified 04/18/24 08:38 Assessment and Plan *Assessment and plan (1) Lumbar radiculopathy: Status: Acute Category: Medical Code(s): M54.16 - Radiculopathy, lumbar region (2) Degenerative disc disease, lumbar: Status: Acute Category: Medical Code(s): M51.36 - Other intervertebral disc degeneration, lumbar region Plan Patient is still experiencing significant pain in her low back with radiating symptoms primarily down her right leg however does states she has the numbness and tingling down the left as well. Patient did have limited range of motion during today's visit and I did review over her x-ray imaging results. Patient was found to have a right lateral subluxation of L3-L4 on her lumbar x-ray. I did discuss with the patient that this may be what is causing her worsening pain in the right leg. I did also discuss with the patient that in future she may find it beneficial to talk to an Ortho spine or neurosurgeon for possible surgical intervention. Patient does state that she is open to the injection. Patient did previously have a lumbar epidural that did provide approximately 50% relief for more back in January however this was at the L4-L5 level. I have gone over the risk and benefits of this injection and she would like to proceed forward with this plan of care. Patient has tried and failed conservative therapy including oral medication, heat and ice, topicals, at home stretching exercise for longer than 6 weeks. We will schedule the patient for a LESI L3-L4 under fluoroscopy. Patient has been instructed to contact the clinic with any concerns before the next appointment. Dr. Olmstead has reviewed this note and agrees with this plan of care. This note was dictated using voice recognition software and make contain errors or omissions. All injections are used with Lidocaine or Bupivacaine and Depo Medrol.
== END 2024-05-15 23:59 | disposition home or self-care (01) ==
LOC: SC.PAIN 10:01
PROVIDERS: PCP Nurse Practitioner Family; Visit Provider Nurse Practitioner Family
DX: M51.16 Intervertebral disc disorders with radiculopathy, lumbar region (principal); Z87.891 Personal history of nicotine dependence; Z73.89 Other problems related to life management difficulty
CPT/HCPCS: 99212; G0463

== ENCOUNTER 2024-05-23 10:39 | Outpatient (POV) | payer MEDICARE, OTHER, SELFPAY | END 2024-05-23 23:59 | disposition home or self-care (01) | LOC: SC 10:40 | PROVIDERS: Visit Provider Dermatology | DX: Z00.00 Encounter for general adult medical examination without abnormal findings (principal) ==

== ENCOUNTER 2024-05-30 13:30 | Day surgery (SDC) | payer MEDICARE, OTHER, SELFPAY ==
[2024-05-30 13:53] VITALS: BP 123/68; PULSE 77; RESP 16; TEMP 36.7; O2SAT 97; BMI 25.6
[2024-05-30 14:04] VITALS: BP 164/75; PULSE 77; RESP 18; O2SAT 97
[2024-05-30] MEDS: methylPREDNISolone ACETATE 80MG/ML VIAL 80 MG (14:04)
[2024-05-30 14:06] VITALS: BP 164/75; PULSE 77; RESP 18; O2SAT 97
--- NOTE | 2024-05-30 14:08 | EXP.PAIN.PRO ---
Procedure Date: 05/30/24 Time: 14:00 Anesthesiologist:: Von Cline CRNA Complications:: None Pre-procedure Diagnosis:: Degenerative disc lumbar spine multilevels. Lumbar radiculopathy. Lumbar spondylosis. Multilevel lumbar facet arthropathy. Post-procedure Diagnosis:: Same. Indications for Procedure:: Patient is a very pleasant 88-year-old female who comes our clinic today for lumbar epidural steroid injection at the L4-5 level. She is responding very well to this injection in the past. The L3-4 level was not accessible. Patient describes low back pain as constant, dull, aching. Patient also reports bilateral hip and leg radicular symptoms. She rates her pain 7/10. Procedure Details:: Procedure: Lumbar epidural steroid injection under fluoroscopy Informed consent was obtained and the risks and benefits of the procedure were explained to the patient. The patient was taken to the procedure room and noninvasive monitors placed, including noninvasive blood pressure cuff and pulse oximeter. The back was viewed using C-arm Fluoroscopy and prepped using Chloraprep as a cleansing solution and the L4-L5 interspace was palpated. Skin and subcutaneous tissues were anesthetized using lidocaine 1.5% and a 25-gauge needle. After this, an 18-gauge Touhy epidural needle was placed into the L4-L5 interspace and advanced using fluoroscopic guidance and loss of resistance to air until the epidural space was encountered. After confirmation of needle placement in the epidural space, with dye, a solution containing normal saline, 3 mL and Depo-Medrol 80 mg were incrementally injected into the lumbar epidural space. The patient tolerated the procedure well with no complications. The patient was observed in the Pain Clinic and then discharged home neurologically intact. Plan and Disposition:: Patient was discharged without incident.
[2024-05-30 15:07] VITALS: BP 135/79; PULSE 64; RESP 18; O2SAT 95
== END 2024-05-30 14:15 | disposition home or self-care (01) ==
PROVIDERS: PCP Nurse Practitioner Family; Visit Provider Nurse Anesthetist, Certified Registered
DX: M51.16 Intervertebral disc disorders with radiculopathy, lumbar region (principal); M47.26 Other spondylosis with radiculopathy, lumbar region
CPT/HCPCS: 62323; J1010

== ENCOUNTER 2024-06-26 13:14 | Outpatient (POV) | payer MEDICARE, OTHER, SELFPAY ==
[2024-06-26 13:48] VITALS: BP 127/61; PULSE 74; RESP 18; O2SAT 100; BMI 25.9
--- NOTE | 2024-06-26 14:19 | A.OFFVIS_ITS ---
[facility] Disclaimer: The information contained in this section may have been updated after the patient was seen, as this information can be updated by other users. Medical History Localized bullous pemphigoid of vulva Bullous pemphigoid History of smoking 30 or more pack years Dyspnea on exertion Dyspnea Hx of thyroid irradiation Cataract COPD (chronic obstructive pulmonary disease) Hypothyroid GERD (gastroesophageal reflux disease) TIA (transient ischemic attack) Rheumatoid arthritis Chest pain Hypertension Palpitations Raynaud disease Surgical History Hx of colonoscopy Hx of esophagogastroduodenoscopy Hx of hernia repair Hx of tubal ligation Hx of bilateral cataract extraction Family History Other No significant family history Social History Smoking Status: Former smoker tobacco type: cigarettes smoking status stop date: 2012 second hand exposure: No alcohol intake: never substance use 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tional status: retired Travel in the last 8 weeks: None household members: none housing: ho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tional exposures/hazards: Yes caffeine: Yes PM Subjective & Objective Subjective Subjective:: Patient is a pleasant 88-year-old female who presents today for worsening pain and follow-up of her lumbar epidural steroid injection on 05/30/2024. She rates her pain today a 3 out of 10 overall in her back. Patient states that this injection did help her overall however the pain in her hips and groins are both ering her more. She stated that it did start initially on the left side and then is now into both hips and does go into her groin with numbness and tingling. Patient states that the pain is really bothering her and interfering with her ability perform activities of daily living such as cooking and cleaning. Patient has had this pain in the past and will occasionally have flareups. Patient states she would like to see about additional injection therapy due to the worsening pain. Her Josué has been reviewed and is appropriate. Review of Systems: General: No recent weight changes, no fever, no sleep disturbances Respiratory: No cough, no shortness of air, no recurring pulmonary infections Cardiovascular/peripheral vascular: No chest pain, no palpitations, no edema, no shortness of breath Gastrointestinal: No new onset incontinence, normal bowel movements reported Genitourinary: No new onset incontinence Musculoskeletal: Bilateral hip pain, groin pain Psychiatric: [Normal mood/affect] Neurological: [Denies weakness in extremities], [denies balance issues] Pain at rest (0-10 scale): 5 Objective Objective:: Physical Exam: General: Alert and oriented x3, no acute distress, pleasant and cooperative Lungs: Respirations even and unlabored, symmetrical chest expansion Eyes: PERRL Musculoskeletal: Flexion and extension of lumbar [spine] somewhat guarded secondary to pain, [antalgic gait noted] point tenderness along bilateral SIs with positive bilateral Alvaro's, Yan's, Gaenslen's, compression and distraction exam Neurological: Speech clear, no gross sensory deficit Has patient had previous pain injection?: Yes Percent improvement in pain since last injection: 50% Conservative treatment options previously tried: Home exercise plan Length of treatment: Longer than 12 weeks Meds Home Medications and Allergies Home Medications ?Medication ?Instructions ?Recorded ?Confirmed ?Type polyethylene glycol 3350 17 gram 17 g PO DAILY CONSTIPATION 10/19/17 06/26/24 History oral powder packet aspirin 81 mg tablet,delayed 81 mg PO DAILY Blood thinner 11/04/17 06/26/24 History release vitamin E 268 mg (400 unit) capsule 400 unit PO DAILY Supplement 11/04/17 06/26/24 History levothyroxine 88 mcg tablet 1 tab PO DAILY thyroid 30 days ##30 12/30/17 06/26/24 History hydroxychloroquine 200 mg tablet 200 mg PO DAILY BP 11/04/18 06/26/24 History calcium 500 mg (as 1 tab PO BID Supplement 10/30/20 06/26/24 History carbonate)-vitamin D3 3.125 mcg (125 unit) tablet cyanocobalamin (B12)-cobamamide 1 each sublingual BID suppliment 01/03/21 06/26/24 History 5,000 mcg-100 mcg sublingual tablet gabapentin 100 mg capsule 100 mg PO DAILY Pain 02/23/22 06/26/24 History omeprazole 20 mg capsule,delayed 20 mg PO DAILY GERD 08/17/22 06/26/24 History release hydrochlorothiazide 25 mg tablet See Rx Instructions .Route 09/08/23 06/26/24 Rx .COMPLEX #90 tabs clobetasol 0.05 % topical ointment 1 applic topical HS #30 grams 12/20/23 06/26/24 Rx linaclotide 72 mcg capsule 72 mcg PO DAILY 12/24/23 06/26/24 History (Linzess) dupilumab 200 mg/1.14 mL 200 mg SQ WEEKLY BLISTERS 05/15/24 06/26/24 History subcutaneous pen injector (Dupixent) New Prescriptions to Start Prescriptions: Allergies Allergy/AdvReac Type Severity Reaction Status Date / Time fish oil [FISH OIL] Allergy Unknown SWELLING Verified 05/30/24 13:55 quinine [QUININE] Allergy Unknown NA-DIARRHEA Verified 05/30/24 13:55 Assessment and Plan *Assessment and plan (1) Sacroiliitis: Status: Acute Category: Medical Code(s): M46.1 - Sacroiliitis, not elsewhere classified Plan Patient is experiencing worsening pain in her bilateral hips and groin with numbness and tingling. Patient did have point tenderness along her bilateral SIs and a positive bilateral Alvaro's, Yan's, Gaenslen's, compression and distraction exam. Patient did have a history of sacroiliitis and did have her last injections in March that did provide improvement of 80% however did not seem to last the full 3 months. Patient was counseled that she may benefit from repeat injections. Risk and benefits were discussed with the patient and she would like to proceed forward with this plan of care. Patient will be scheduled mid June for repeat SI injections under fluoroscopy. Patient has been instructed to contact the clinic with any concerns before the next appointment. Dr. Olmstead has reviewed this note and agrees with this plan of care. This note was dictated using voice recognition software and make contain errors or omissions. All injections are used with Lidocaine or Bupivacaine and Depo Medrol.
== END 2024-06-26 23:59 | disposition home or self-care (01) ==
LOC: SC.PAIN 13:14
PROVIDERS: PCP Nurse Practitioner Family; Visit Provider Nurse Practitioner Family
DX: M46.1 Sacroiliitis, not elsewhere classified (principal); Z86.73 Personal history of transient ischemic attack (TIA), and cerebral infarction without residual deficits; Z87.891 Personal history of nicotine dependence; Z73.89 Other problems related to life management difficulty
CPT/HCPCS: 99212; G0463

== ENCOUNTER 2024-07-25 13:47 | Day surgery (SDC) | payer MEDICARE, SELFPAY ==
[2024-07-25 13:51] VITALS: BP 129/82; PULSE 81; RESP 16; TEMP 36.6; O2SAT 97; BMI 25.6
[2024-07-25] MEDS: methylPREDNISolone ACETATE 80MG/ML VIAL 80 MG (14:13)
[2024-07-25] MEDS: LIDOCAINE 1% 5ML PF VIAL 5 ML (14:13)
[2024-07-25] MEDS: BUPIVACAINE 0.25% 10ML INJ 25 MG IJ (14:14)
[2024-07-25 14:19] VITALS: BP 149/76; PULSE 76; RESP 16; O2SAT 95
--- NOTE | 2024-07-25 14:44 | P.PCN_ITS ---
Procedure Date: 07/25/24 Time: 14:15 Anesthesiologist:: Von Cline CRNA Complications:: None Pre-procedure Diagnosis:: Bilateral sacroiliitis Post-procedure Diagnosis:: Same. Indications for Procedure:: PosteriorAmy is a very pleasant 89-year-old female who comes our clinic today for bilateral sacroiliac joint injection to cortisone and local anesthetic. She describes low lumbar back pain off the midline bilaterally. Hip pain. Difficulty transitioning from sitting to standing. Difficulty with ambulation. Difficulty with sitting. Patient has extreme point tenderness over the bilateral sacroiliac joints. She rates her pain 8/10. Procedure Details:: Procedure: Bilateral sacroiliac joint injections under fluoroscopy Informed consent was obtained and the risks and benefits of the procedure were explained to the patient.~ The patient was taken to the procedure room and noninvasive monitors were placed including a noninvasive blood pressure cuff and pulse oximeter.~ The patient was placed prone on the procedure table. Both hips were cleansed using Betadine as a cleansing solution. C-arm fluoroscopy was used to view the right sacroiliac joint.~ The skin and subcutaneous tissues were anesthetized using lidocaine 1.5% and a 25-gauge needle.~ After this, a 22-gauge spinal needle was inserted under fluoroscopic guidance into the inferior aspect of the right sacroiliac joint.~ Omnipaque dye was injected and good spread was seen throughout the joint.~ After this, approximately 5 mL of bupivacaine, 0.25% and Depo-Medrol, 40 mg was incrementally injected into the right sacroiliac joint. We then moved to the left sacroiliac joint.~ The skin and subcutaneous tissues were anesthetized using lidocaine 1.5% and a 25-gauge needle.~ After this, a 22- gauge spinal needle was inserted under fluoroscopic guidance into the inferior aspect of the left sacroiliac joint.~ Omnipaque dye was injected and good spread was seen throughout the joint. After this, approximately 5 mL of bupivacaine, 0.25% and Depo-Medrol, 40 mg was incrementally injected into the left sacroiliac joint.~ The patient tolerated the procedure well with no complications. The patient was observed in the Pain Clinic and then was discharged home neurol ogically intact. Plan and Disposition:: Patient was discharged without incident.
== END 2024-07-25 14:19 | disposition home or self-care (01) ==
LOC: SC.PAINP 13:47
PROVIDERS: PCP Nurse Practitioner Family; Visit Provider Nurse Anesthetist, Certified Registered
DX: M46.1 Sacroiliitis, not elsewhere classified (principal)
CPT/HCPCS: 27096; G0260; J1010

== ENCOUNTER 2024-08-16 10:56 | Outpatient (POV) | payer MEDICARE, SELFPAY ==
--- NOTE | 2024-08-16 12:44 | A.OFFVIS_ITS ---
[facility] Disclaimer: The information contained in this section may have been updated after the patient was seen, as this information can be updated by other users. Medical History Localized bullous pemphigoid of vulva Bullous pemphigoid History of smoking 30 or more pack years Dyspnea on exertion Dyspnea Hx of thyroid irradiation Cataract COPD (chronic obstructive pulmonary disease) Hypothyroid GERD (gastroesophageal reflux disease) TIA (transient ischemic attack) Rheumatoid arthritis Chest pain Hypertension Palpitations Raynaud disease Surgical History Hx of colonoscopy Hx of esophagogastroduodenoscopy Hx of hernia repair Hx of tubal ligation Hx of bilateral cataract extraction Family History Other No significant family history Social History Smoking Status: Former smoker tobacco type: cigarettes smoking status stop date: 2012 second hand exposure: No alcohol intake: never substance use 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tional status: retired Travel in the last 8 weeks: None household members: none housing: ho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tional exposures/hazards: Yes caffeine: Yes PM Subjective & Objective Subjective Subjective:: Patient is a pleasant 89-year-old female who presents today for follow-up of bilateral SI injections. Today she rates her pain a 2 out of 10 in and around her hips and her low back at least a 5 out of 10. She does state that initially with these injections she had significant relief however that only lasted about 3 to 4 days with 80% and now rates it about a 25% improvement. Patient does have chronic low back pain that never goes away and is made worse with certain movements. Patient does have a longstanding history of burning into her legs and numbness and tingling in her feet related to neuropathy. Patient is prescribed gabapentin 3 times a day from an outside provider and states this does help some. Patient does state that she constantly deals with pain from her waist down and that she is interested in additional injection therapy. Patient has tried and failed conservative therapy including continued at home stretching exercise for longer than 12 weeks. Her Josué has been reviewed and is appropriate. Review of Systems: General: No recent weight changes, no fever, no sleep disturbances Respiratory: No cough, no shortness of air, no recurring pulmonary infections Cardiovascular/peripheral vascular: No chest pain, no palpitations, no edema, no shortness of breath Gastrointestinal: No new onset incontinence, normal bowel movements reported Genitourinary: No new onset incontinence Musculoskeletal: Low back pain Psychiatric: [Normal mood/affect] Neurological: [Denies weakness in extremities], [denies balance issues] Pain at rest (0-10 scale): 5 Objective Objective:: Physical Exam: General: Alert and oriented x3, no acute distress, pleasant and cooperative Lungs: Respirations even and unlabored, symmetrical chest expansion Eyes: PERRL Musculoskeletal: Flexion and extension of lumbar [spine] somewhat guarded secondary to pain, [antalgic gait noted] positive Kemps test Neurological: Speech clear, no gross sensory deficit FINDINGS: There is severe dextroscoliosis. Alignment in the sagittal plane is normal. There are degenerative endplate changes at multiple levels. Vertebral body height is preserved. The spinal cord ends at the level of T12-L1. There is normal signal intensity within the substance of the distal spinal cord. Bone marrow signal intensity is normal. No fracture is identified. No acute paraspinal abnormality is identified. Gallstones are seen in the gallbladder. L1-2: There is an annular disc bulge with degenerative endplate changes and facet osteoarthropathy. There is mild central canal stenosis with moderate bilateral neural foraminal narrowing. L2-3: There is an annular disc bulge with degenerative endplate changes and facet osteoarthropathy. There is mild central canal stenosis with moderate right and severe left neural foraminal narrowing. L3-4: There is an annular disc bulge with degenerative endplate changes and facet osteoarthropathy. There is moderate central canal stenosis and severe bilateral neural foraminal narrowing. L4-5: There is an annular disc bulge with degenerative endplate changes and facet osteoarthropathy. There is mild central canal stenosis and severe right and moderate left neural foraminal narrowing. L5-S1: There is an annular disc bulge with degenerative endplate changes and facet osteoarthropathy. There is no significant central canal stenosis. There is mild bilateral neural foraminal narrowing. IMPRESSION: Advanced multilevel degenerative disc disease and severe dextroscoliosis which has progressed since the prior exam. Reviewed, Interpreted and Dictated by Jade Still MD Transcribed by Kiley Kumari Authenticated and [facility] Has patient had previous pain injection?: Yes Percent improvement in pain since last injection: 80% Conservative treatment options previously tried: Home exercise plan Length of treatment: Longer than 12 weeks Meds Home Medications and Allergies Home Medications ?Medication ?Instructions ?Recorded ?Confirmed ?Type polyethylene glycol 3350 17 gram 17 g PO DAILY CONSTIPATION 10/19/17 07/25/24 History oral powder packet aspirin 81 mg tablet,delayed 81 mg PO DAILY Blood thinner 11/04/17 07/25/24 History release vitamin E 268 mg (400 unit) capsule 400 unit PO DAILY Supplement 11/04/17 07/25/24 History levothyroxine 88 mcg tablet 1 tab PO DAILY thyroid 30 days ##30 12/30/17 07/25/24 History hydroxychloroquine 200 mg tablet 200 mg PO DAILY BP 11/04/18 07/25/24 History calcium 500 mg (as 1 tab PO BID Supplement 10/30/20 07/25/24 History carbonate)-vitamin D3 3.125 mcg (125 unit) tablet cyanocobalamin (B12)-cobamamide 1 each sublingual BID suppliment 01/03/21 07/25/24 History 5,000 mcg-100 mcg sublingual tablet gabapentin 100 mg capsule 100 mg PO DAILY Pain 02/23/22 07/25/24 History omeprazole 20 mg capsule,delayed 20 mg PO DAILY GERD 08/17/22 07/25/24 History release clobetasol 0.05 % topical ointment 1 applic topical HS #30 grams 12/20/23 07/25/24 Rx linaclotide 72 mcg capsule 72 mcg PO DAILY 12/24/23 07/25/24 History (Linzess) dupilumab 200 mg/1.14 mL 200 mg SQ WEEKLY BLISTERS 05/15/24 07/25/24 History subcutaneous pen injector (Dupixent) hydrochlorothiazide 25 mg tablet See Rx Instructions .Route 07/03/24 07/25/24 Rx .COMPLEX #90 tabs New Prescriptions to Start Prescriptions: Allergies Allergy/AdvReac Type Severity Reaction Status Date / Time fish oil (FISH OIL) Allergy Unknown SWELLING Verified 05/30/24 13:55 quinine (QUININE) Allergy Unknown NA-DIARRHEA Verified 05/30/24 13:55 Assessment and Plan *Assessment and plan (1) Lumbar facet arthropathy: Status: Acute Category: Medical Code(s): M47.816 - Spondylosis without myelopathy or radiculopathy, lumbar region Plan Patient continues to experience constant pain throughout her low back that is always present. Patient did have limited range of motion of her lumbar spine and a positive Kemps test. I did discuss with the patient that she may benefit from lumbar medial branch blocks. Risk and benefits were discussed with the patient and she would like to proceed forward with this plan of care. Patient is very active and does exercise daily at the gym here and has for more than 3 months. Patient does also do at home stretching exercise for longer than 12 weeks. Patient did have significant facet osteoarthropathy and her last MRI of her lumbar spine. We will schedule the patient tentatively for her first lumbar medial branch block bilaterally L4-L5 and L5-S1 under fluoroscopy. If she does get significant relief I did review over that we will proceed forward with a second diagnostic block with the plan to do a lumbar RFA at a later date. Patient agrees with this plan of care. Patient does state that her son and [id number] she would like to be present to review over some of the information or her daughter that lives out of state. I have counseled her that she can have any of them call our office and I will discuss with them over what we talked about during today's visit. Patient agrees with this plan of care. Patient has been instructed to contact the clinic with any concerns before the next appointment. Dr. Olmstead has reviewed this note and agrees with this plan of care. This note was dictated using voice recognition software and make contain errors or omissions. All injections are used with Lidocaine, Bupivacaine and Depo Medrol. Occasionally urine drug screen is needed to verify patient's compliance with our office pain contract. This is ordered based off specific treatments related to chronic pain with the potential to abuse certain medications.
[2024-08-16 12:51] VITALS: BP 132/70; PULSE 73; RESP 16; O2SAT 100; BMI 25.6
== END 2024-08-16 23:59 | disposition home or self-care (01) ==
LOC: SC.PAIN 10:58
PROVIDERS: PCP Nurse Practitioner Family; Visit Provider Nurse Practitioner Family
DX: M47.816 Spondylosis without myelopathy or radiculopathy, lumbar region (principal); Z87.891 Personal history of nicotine dependence
CPT/HCPCS: 99212; G0463

== ENCOUNTER 2024-08-31 09:46 | Outpatient (CLI) | payer MEDICARE, OTHER, SELFPAY ==
[2024-08-31] VITALS (12 sets, daily range): BP systolic 117–151; BP diastolic 63–82; PULSE 69–83; RESP 18; TEMP 36.6; O2SAT 98
[2024-08-31] MEDS: METHYLPREDNISOLONE SOD SUCC 125MG VIAL 125 MG IV (10:30)
[2024-08-31] MEDS: ACETAMINOPHEN 325MG TAB 650 MG PO (10:30)
[2024-08-31] MEDS: LORATADINE 10MG TABLET 10 MG PO (10:30)
[2024-08-31] MEDS: SODIUM CHLORIDE 0.9% 50ML BAG 50 ML IV (10:43)
[2024-08-31] MEDS: RITUXIMAB 1,000 MG in 0.9 % SODIUM CHLORIDE 400 ML 50 MG IV (11:00)
== END 2024-08-31 14:45 | disposition home or self-care (01) ==
PROVIDERS: PCP Nurse Practitioner Family; Visit Provider Internal Medicine
DX: L12.0 Bullous pemphigoid (principal)
CPT/HCPCS: 96413; 96415; J2919; J9312

== ENCOUNTER 2024-09-11 09:53 | Outpatient (CLI) | payer MEDICARE, OTHER, SELFPAY ==
[2024-09-11] VITALS (7 sets, daily range): BP systolic 97–141; BP diastolic 61–79; PULSE 69–81; RESP 18; O2SAT 96–97
[2024-09-11] MEDS: ACETAMINOPHEN 325MG TAB 650 MG PO (10:10)
[2024-09-11] MEDS: METHYLPREDNISOLONE SOD SUCC 125MG VIAL 125 MG IV (10:10)
[2024-09-11] MEDS: LORATADINE 10MG TABLET 10 MG PO (10:10)
[2024-09-11] MEDS: SODIUM CHLORIDE 0.9% 50ML BAG 50 ML IV (10:24)
[2024-09-11] MEDS: RITUXIMAB 1,000 MG in 0.9 % SODIUM CHLORIDE 400 ML 50 MG IV (10:42)
== END 2024-09-11 13:45 | disposition home or self-care (01) ==
LOC: INF 09:56
PROVIDERS: PCP Nurse Practitioner Family; Visit Provider Internal Medicine
DX: L12.0 Bullous pemphigoid (principal)
CPT/HCPCS: 96413; 96415; J2919; J9312

== ENCOUNTER 2024-09-26 08:14 | Day surgery (SDC) | payer MEDICARE, OTHER, SELFPAY ==
[2024-09-26 08:38] VITALS: BP 122/59; PULSE 80; RESP 18; TEMP 36.5; O2SAT 98; BMI 25.6
[2024-09-26] MEDS: BUPIVACAINE 0.25% 10ML INJ 25 MG IJ (09:05)
[2024-09-26] MEDS: LIDOCAINE 1% 5ML PF VIAL 5 ML (09:06)
[2024-09-26] MEDS: methylPREDNISolone ACETATE 80MG/ML VIAL 80 MG (09:06)
[2024-09-26 09:10] VITALS: BP 131/74; PULSE 69; RESP 18; O2SAT 98
--- NOTE | 2024-09-26 09:10 | P.PCN_ITS ---
Procedure Date: 09/26/24 Time: 08:40 Anesthesiologist:: Von Cline CRNA Complications:: None Pre-procedure Diagnosis:: Degenerative disc lumbar spine multilevels. Lumbar radiculopathy. Lumbar spondylosis. Multilevel lumbar facet arthropathy. Post-procedure Diagnosis:: Same. Indications for Procedure:: Patient is a very pleasant 89-year-old female that comes our clinic today for ROUND ONE of lumbar medial branch blocks/facet injections at the bilateral L4-5, L5-S1 level. She describes low lumbar back pain as constant, dull, aching. Patient also reports bilateral hip radicular symptoms. She rates her pain 8/10. Procedure Details:: Informed consent was obtained and the risk and benefits of the procedure was explained to the patient. Patient was taken to the procedure room where noninvasive monitors were placed, including noninvasive blood pressure cuff as well as pulse oximeter. The area over the lumbar spine was cleansed using chlorhexidine as a cleansing solution. I anesthetized the skin and subcutaneous tissues with 1% Lidocaine. I placed 22-gauge spinal needles into the facet joint/ medial branches of L4-L5, and L5-S1] bilaterally. Needle placement was confirmed with fluoroscopy. After confirmation of needle placement, each site was injected with 1 mL of 1% lidocaine and 0.25 % Marcaine and 10 mg of Depo- Medrol. A total of 80 mg of depo medrol was used for bilateral medial branch blocks of L4-L5, and L5-S1] bilaterally. Patient tolerated the procedure without difficulty. There were no complications. Plan and Disposition:: Patient was discharged without incident.
[2024-09-26 09:13] VITALS: BP 142/68; PULSE 80; RESP 18; O2SAT 95
[2024-09-26 09:24] VITALS: BP 142/68; PULSE 80; RESP 18; O2SAT 95
== END 2024-09-26 09:10 | disposition home or self-care (01) ==
PROVIDERS: PCP Nurse Practitioner Family; Visit Provider Nurse Anesthetist, Certified Registered
DX: M47.816 Spondylosis without myelopathy or radiculopathy, lumbar region (principal); M51.369 Other intervertebral disc degeneration, lumbar region without mention of lumbar back pain or lower extremity pain
CPT/HCPCS: 64493; 64494; J1010

== ENCOUNTER 2024-10-02 18:55 | Observation (INO) | payer MEDICARE, OTHER, SELFPAY ==
[2024-10-02] VITALS (10 sets, daily range): BP systolic 96–134; BP diastolic 43–71; PULSE 83–89; RESP 17–18; TEMP 36.8–38; O2SAT 90–97; BMI 25.7
--- NOTE | 2024-10-02 19:17 | ED_ITS ---
<Statement entered by Elsa Gee MD - 10/02/24 22:52> I was consulted by the ANNEMARIE, and we discussed the complexity of the problems being addressed. I approved the treatment and management plan for this patient's care in the emergency department, thus performing a substantive portion of the medical decision making. Elsa Gee MD, BERNY, FACEP Discharge Plan Disposition Chief Complaint: Upper Respiratory Infection Prescriptions Prescriptions: No Action omeprazole 20 mg capsule,delayed release(DR/EC) 20 mg PO DAILY clobetasol 0.05 % ointment 1 applic topical HS Qty: 30 0RF Rx Instructions: Apply thin layer to affected area nightly at bedtime levothyroxine 88 mcg tablet 1 tab PO DAILY 30 Days Qty: 30 hydrochlorothiazide 25 mg tablet See Rx Instructions .ROUTE .COMPLEX Qty: 90 3RF Dose Instruction: TAKE 1 TABLET EVERY DAY FOR FLUID Rx Instructions: TAKE 1 TABLET EVERY DAY FOR FLUID hydroxychloroquine 200 MG tablet 200 mg PO DAILY Linzess 72 mcg capsule 72 mcg PO DAILY Dupixent Pen 200 mg/1.14 mL Pen Injector 200 mg SQ WEEKLY Rx Instructions: FOLLOW PRESCRIBER INSTRUCTIONS ON LABEL FOR SPECIFIC DOSING AND FREQUENCY polyethylene glycol 3350 17 GM powder in packet 17 g PO DAILY aspirin 81 MG tablet,delayed release (DR/EC) 81 mg PO DAILY vitamin E 400 UNIT capsule 400 unit PO DAILY calcium carbonate-vitamin D3 500 mg(1,250mg) -125 unit tablet 1 tab PO BID cyanocobalamin-cobamamide 1 EACH tablet, sublingual 1 each sublingual BID gabapentin 100 MG capsule 100 mg PO DAILY Referrals Follow up/Referrals: Adelso Demarco MD [Primary Care Provider] - See instructions Print Language Print Language: Maltese Discharge ED Provider: Elsa Gee General Adult HPI General Chief complaint: Upper Respiratory Infection Stated complaint: body aches,poor appitite,poor gait Time Seen by Provider: 10/02/24 19:17 History of Present Illness HPI narrative: Patient presents for evaluation of fever weakness and pain. Patient reports that she has felt too weak to walk today and actually had to crawl around her house to get her phone to call for help. She also reports that she has had a fever but has no specific focal symptoms including chest pain shortness of breath cough congestion dysuria hematuria diarrhea. Patient states that everything hurts . She is not intolerant of oral intake. She does have a history of bullous pemphigoid and actually took her Dupixent shot yesterday. Related Data Home Medications ?Medication ?Instructions ?Recorded ?Confirmed polyethylene glycol 3350 17 gram 17 g PO DAILY CONSTIPATION 10/19/17 09/26/24 oral powder packet aspirin 81 mg tablet,delayed 81 mg PO DAILY Blood thinner 11/04/17 09/26/24 release vitamin E 268 mg (400 unit) capsule 400 unit PO DAILY Supplement 11/04/17 09/26/24 levothyroxine 88 mcg tablet 1 tab PO DAILY thyroid 30 days ##30 12/30/17 09/26/24 hydroxychloroquine 200 mg tablet 200 mg PO DAILY BP 11/04/18 09/26/24 calcium 500 mg (as 1 tab PO BID Supplement 10/30/20 09/26/24 carbonate)-vitamin D3 3.125 mcg (125 unit) tablet cyanocobalamin (B12)-cobamamide 1 each sublingual BID suppliment 01/03/21 09/26/24 5,000 mcg-100 mcg sublingual tablet gabapentin 100 mg capsule 100 mg PO DAILY Pain 02/23/22 09/26/24 omeprazole 20 mg capsule,delayed 20 mg PO DAILY GERD 08/17/22 09/26/24 release linaclotide 72 mcg capsule 72 mcg PO DAILY 12/24/23 09/26/24 (Linzess) dupilumab 200 mg/1.14 mL 200 mg SQ WEEKLY BLISTERS 05/15/24 09/26/24 subcutaneous pen injector (Dupixent) Previous Rx's ?Medication ?Instructions ?Recorded clobetasol 0.05 % topical ointment 1 applic topical HS #30 grams 12/20/23 hydrochlorothiazide 25 mg tablet See Rx Instructions .Route 07/03/24 .COMPLEX #90 tabs Allergies Allergy/AdvReac Type Severity Reaction Status Date / Time fish oil (FISH OIL) Allergy Unknown SWELLING Verified 09/26/24 08:40 quinine (QUININE) Allergy Unknown NA-DIARRHEA Verified 09/26/24 08:40 [facility] Disclaimer: The information contained in this section may have been updated after the patient was seen, as this information can be updated by other users. Medical History Localized bullous pemphigoid of vulva Bullous pemphigoid History of smoking 30 or more pack years Dyspnea on exertion Dyspnea Hx of thyroid irradiation Cataract COPD (chronic obstructive pulmonary disease) Hypothyroid GERD (gastroesophageal reflux disease) TIA (transient ischemic attack) Rheumatoid arthritis Chest pain Hypertension Palpitations Raynaud disease Surgical History Hx of colonoscopy Hx of esophagogastroduodenoscopy Hx of hernia repair Hx of tubal ligation Hx of bilateral cataract extraction Family History Other No significant family history Social History (Updated 09/26/24 @ 08:38 by Delphine Gallardo RN) Smoking Status: Never smoker smoking status stop date: 2012 second hand exposure: No alcohol intake: never substance use 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tional status: other Travel in the last 8 weeks: None household members: none housing: ho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tional exposures/hazards: Yes caffeine: Yes Have you lived/traveled outside [place] in past 30 days?: No Contact w/someone who lives/traveled outside US past 30 days?: No Exposure to someone with infectious disease in past 14 days?: No Do you have a fever (greater than 100.4 F or 38 C)?: No Have you tested positive for COVID-19: No Exposed to someone with COVID-19 in past 14 days?: No Do you have a sore throat?: No Do you have a cough?: No Do you have any weakness?: Yes Do you have any diarrhea?: No Are you experiencing any unusual bleeding?: No Do you have any muscle aches/pain?: Yes Do you have any abdominal pain?: No Are you experiencing loss of taste or smell?: No Other Medical History Have you received the Flu Vaccine for this season: No Have you received the Pneumonia Vaccine: No ROS Obtained: Yes Systems reviewed as appropriate & no additional complaints except as documented Physical Exam General General appearance: alert and in no apparent distress Respiratory Respiratory exam: Present normal lung sounds bilaterally Cardiovascular Cardiovascular exam: Present regular rate Neurological Exam Neurological exam: Present alert and oriented X3 Medical Decision Making Medical Records Medical records reviewed: Yes I reviewed the patient's medical records. Screening: Per USPSTF and CDC recommendations, given the prevalence of disease in our region, it is our hospital?s policy to screen for HIV and viral Hepatitis for all patients aged 18 and over and those with ongoing risk factors. Josué Inquiry Pt receiving controlled substance: No Vital Signs: 10/02/24 18:57 10/02/24 19:30 10/02/24 20:00 Temperature 100.4 F H Temperature Source Oral Pulse Rate 89 84 Pulse Rate [Left Radial] 86 Respiratory Rate 17 Blood Pressure 127/71 134/70 Blood Pressure [Right Arm] 130/69 Blood Pressure Mean [Right Arm] 89 Blood Pressure Source [Right Arm] Automatic Cuff Blood Pressure Position [Right Arm] Sitting 02 Sat by Pulse Oximetry 97 92 L 93 L Oxygen Delivery Method Room Air Room Air Room Air 10/02/24 20:30 10/02/24 21:00 Temperature Temperature Source Pulse Rate 89 85 Pulse Rate [Left Radial] Respiratory Rate Blood Pressure 117/61 124/63 Blood Pressure [Right Arm] Blood Pressure Mean [Right Arm] Blood Pressure Source [Right Arm] Blood Pressure Position [Right Arm] 02 Sat by Pulse Oximetry 91 L 94 L Oxygen Delivery Method Room Air Room Air Lab Data Lab results reviewed: Yes I reviewed the patient's lab results. Lab Results 10/02/24 19:15: WBC 9.8, RBC 3.74 L, Hgb 11.6 L, Hct 34.5 L, MCV 92.2, MCH 31.0, MCHC 33.6, RDW 13.4, Plt Count 249, MPV 9.5, Neut % (Auto) 79.1, Lymph % (Auto) 9.7 L, [place] % (Auto) 9.4 H, Eos % (Auto) 0.3, Baso % (Auto) 0.2, Neut # (Auto) 7.8, Lymph # (Auto) 1.0, [place] # (Auto) 0.9, Eos # (Auto) 0.0, Baso # (Auto) 0.0, ESR 15, Sodium 129 L, Potassium 3.5, Chloride 98, Carbon Dioxide 24, Anion Gap 10.5, BUN 16, Creatinine 0.70, Estimated Creat Clear 41, Estimated GFR 79, Est GFR ( Amer) 96, Glucose 130 H, Calcium 9.2, Magnesium 1.3 L, Total Bilirubin 0.5, AST 37 H, ALT 20, Alkaline Phosphatase 80, Total Creatine Kinase 44, C-Reactive Protein 6.1 H, Total Protein 6.1 L, Albumin 4.3, Globulin 1.8, A lbumin/Globulin Ratio 2.4 H, Procalcitonin 0.074 10/02/24 20:09: SARS-CoV-2 (PCR) Not detected, Influenza A Untype (PCR) Not detected, Influenza Type B (PCR) Not detected 10/02/24 19:15 10/02/24 19:15 Orders (Tests/Meds): ED MEDICATIONS Discontinued Medications Generic Name Dose Route Start Last Admin Trade Name Freq PRN Reason Stop Dose Admin Acetaminophen 1,000 mg 10/02/24 19:38 10/02/24 20:03 Acetaminophen 500mg Tab PO 10/02/24 19:39 1,000 mg ONCE ONE Administration Sodium Chloride 1,000 mls @ 999 mls/hr 10/02/24 19:38 10/02/24 19:49 Sod Chlor 0.9% 1000ml Bag IV 10/02/24 20:38 999 mls/hr .Q1H1M ONE Administration Magnesium Sulfate 2 gm in 50 mls @ 50 mls/hr 10/02/24 20:04 10/02/24 20:11 Magnesium Sulfate 2gm/50ml Premix IV 10/02/24 21:03 50 mls/hr ONCE ONE Administration Ketorolac Tromethamine 15 mg 10/02/24 19:38 10/02/24 19:49 Ketorolac 30mg/Ml Vial IV 10/02/24 19:39 15 mg ONCE ONE Administration ORDERS Category Date Time Status XR chest portable Stat Exams 10/02/24 19:40 Completed CBC w/Auto Diff [Complete Blood Count Auto Diff] Stat Lab 10/02/24 19:15 Completed CK [Creatine Kinase] Stat Lab 10/02/24 19:15 Completed CMP [Comprehensive Metabolic Panel] Stat Lab 10/02/24 19:15 Completed CRP [C-Reactive Protein] Stat Lab 10/02/24 19:15 Completed ESR [Erythrocyte Sedimentation Rate] Stat Lab 10/02/24 19:15 Completed Magnesium Stat Lab 10/02/24 19:15 Completed Procalcitonin Stat Lab 10/02/24 19:15 Completed Rapid PCR Covid and Flu A/B Stat Lab 10/02/24 20:09 Completed UA [Urinalysis and Microscopic] Stat Lab 10/02/24 19:39 Ordered Medical Decision Narrative: In summary patient is a 89-year-old female who presents to the emergency department for evaluation of weakness and fever as well as pain. Patient is hemodynamically stable with a blood pressure 130/69 pulse 86 with normal sinus rhythm on the bedside monitor breathing 17 times a minute satting at 97% on room air upon arrival, however she has a low-grade temp of 100.4. Physical exam is remarkable for pain out of proportion to exam diffusely including light palpation to test for dependent edema causes exquisite pain light pressure with the baumann of stethoscope causes pain palpation of the abdomen causes pain diffusely anywhere I touch however that abdomen soft she has no dependent edema and breath sounds are clear and equal bilaterally to the bases. Differential diagnosis includes viral versus bacterial infection versus electrolyte abnormality versus possible adverse drug reaction although less likely etc. Initial workup will be conducted with hematologic labs urinalysis plain film chest x-ray respiratory swabs. Initial interventions include crystalloid bolus Toradol Tylenol. Initial workup reviewed by me shows that her white count is 9.8 hemoglobin hematocrit are 11.6 and 34.5 with no left shift sodium of 129 glucose of 135 magnesium of 1.3 CRP of 6.1 procalcitonin 0.074 and COVID and flu are negative. My informal interpretation of her plain film chest x-ray shows no acute processes.. I have initiated repletion of her magnesium as well as crystalloid bolus for her low sodium. Urinalysis is pending at the time of handoff to Dr. Gee at 2200 hrs. Critical Care Critical Care Time Critical Care Time: Yes Attestation: On 10/02/24, the high probability of a clinically significant, sudden or life threatening deterioration of the following system(s) required my full and direct attention, intervention and personal management. The time I documented below is in addition to time spent performing reported procedures but includes the following listed in this critical care notation. Total Time Total Critical Care Time: 35
--- NOTE | 2024-10-02 19:40 | XR_ITS ---
PROCEDURE INFORMATION: Exam: XR Chest Exam date and time: 10/02/2024 7:57 PM Age: 89 years old Clinical indication: Fever and shortness of breath; Additional info: Fever and weakness TECHNIQUE: Imaging protocol: Radiologic exam of the chest. Views: 1 view. COMPARISON: CR XR CHEST 2V 10/28/2022 11:18 AM FINDINGS: Lungs: Unremarkable. No consolidation. Pleural spaces: Unremarkable. No pleural effusion. No pneumothorax. Heart/Mediastinum: Unremarkable. No cardiomegaly. Bones/joints: Unremarkable. Other findings: Patient is rotated to the right IMPRESSION: No acute process
[2024-10-02 19:47] LABS: Albumin Level 4.3 g/dl (3.5-5.0); Chloride 98 mmol/L (98-107); Sodium 129 mmol/L (136-145)
[2024-10-02 19:48] LABS: Potassium 3.5 mmoL/L (3.5-5.1)
[2024-10-02 19:49] LABS: Basophils % 0.2 % (0.1-2.0); Eosinophils % 0.3 % (0.1-12.0); Hematocrit 34.5 % (37.0-47.0); Hemoglobin 11.6 g/dL (12.2-16.2); Lymphocytes % 9.7 % (10-50); Mean Corpuscular HGB Conc 33.6 g/dL (31.8-35.4); Mean Corpuscular Volume 92.2 fl (81-99); Mean Platelet Volume 9.5 fl (7.4-10.4); Monocytes # 0.9 K/mm3 (0.1-1.0); Monocytes % 9.4 % (1.7-9.3); Neutrophils # 7.8 K/mm3 (1.8-7.8); Neutrophils % 79.1 % (37.0-80.0); Platelet Count 249 K/mm3 (142-424); Red Blood Count 3.74 M/mm3 (4.20-5.40); Red Cell Distribution Width 13.4 % (11.5-17.5); White Blood Count 9.8 K/mm3 (4.8-10.8)
[2024-10-02] MEDS: KETOROLAC 30MG/ML VIAL 15 MG IV (19:49)
[2024-10-02] MEDS: 0.9 % SODIUM CHLORIDE 1000ML 1,000 ML 999 ML IV (19:49)
[2024-10-02 19:50] LABS: Alanine Aminotransferase 20 U/L (12-78); Albumin/Globulin Ratio 2.4 (1.1-1.8); Alkaline Phosphatase 80 U/L (38-126); Anion Gap 10.5 mEq/L (5-15); Aspartate Amino Transferase 37 U/L (14-36); Bilirubin,Total 0.5 mg/dl (0.2-1.3); Blood Urea Nitrogen 16 mg/dl (7-17); Calcium 9.2 mg/dl (8.4-10.2); Carbon Dioxide 24 mmol/L (22.0-30.0); Creatine Kinase 44 U/L (30-135); Creatinine Clearance Estimated 41 mL/min (50-200); Estimated Glomerular Filt Rate 79 ml/min (>60); GFR (African American) 96 ML/MIN (>60); Globulin 1.8 g/dL (1.3-3.2); Glucose 130 mg/dl (74-100); Total Protein,Serum 6.1 g/dl (6.3-8.2)
[2024-10-02 19:51] LABS: Magnesium 1.3 mg/dl (1.6-2.3)
[2024-10-02 19:56] LABS: C-Reactive Protein 6.1 mg/L (0-4)
[2024-10-02] MEDS: ACETAMINOPHEN 500MG TAB 1000 MG PO (20:03)
[2024-10-02] MEDS: MAGNESIUM SULFATE IN WATER 2 GM/50 ML PIGGYBACK IV (20:11)
[2024-10-02 20:14] LABS: Coronavirus 19, PCR Not Detected (NotDetected); Influenza A, PCR Not Detected (NotDetected); Influenza B, PCR Not Detected (NotDetected)
[2024-10-02 20:40] LABS: Procalcitonin 0.074 ng/mL (0.0-2.0)
[2024-10-02 21:29] LABS: Erythrocyte Sedimentation Rate 15 mm/hr (0-30)
[2024-10-02 21:46] LABS: Microscopic, Urine URINE MICROSCOPIC (MICROSCOPIC)
[2024-10-02 22:37] LABS: Appearance,Urine CLEAR (Clear); Bilirubin,Urine Negative (Negative); Blood, Urine Negative (Negative); Color,Urine YELLOW (Yellow); Glucose,Urine (UA) Negative (Negative); Ketones,Urine Negative (Negative); Leukocyte Esterase,Urine Negative (Negative); Nitrate,Urine Negative (Negative); PH,Urine 7.5 (5.0-8.5); Protein,Urine Negative (Negative); Urobilinogen,Urine 0.2 EU/dl (0.2)
[2024-10-02 22:40] LABS: Bacteria,Urine Trace /lpf; Squamous Epithelial Cell,Urine Occasional #/hpf (0-5); WBC,Urine Occasional #/hpf (0-3)
[2024-10-02] MEDS: CEFTRIAXONE SODIUM 1 GM in 0.9 % SODIUM CHLORIDE 50 ML IV (23:34)
--- NOTE | 2024-10-02 23:44 | PC.NURSE ---
patient arrived to the floor at [id number]
[2024-10-03] MEDS: 0.9 % SODIUM CHLORIDE 1000ML 1,000 ML 50 ML IV (00:41)
--- NOTE | 2024-10-03 00:46 | PC.NURSE ---
turned on heat for pt
[2024-10-03 01:09] LABS: Adenovirus,PCR Not Detected (NotDetected); Bordetella Pertussis Not Detected (NotDetected); Chlamydophila Pneumoniae, PCR Not Detected (NotDetected); Coronavirus 19, PCR Not Detected (NotDetected); Coronavirus 229E Not Detected (NotDetected); Coronavirus NL63 Not Detected (NotDetected); Coronavirus OC43 Not Detected (NotDetected); Coronovirus HKU1,PCR Not Detected (NotDetected); Influenza A, PCR Not Detected (NotDetected); Influenza AH1, 2009 Not Detected (NotDetected); Influenza AH1, PCR Not Detected (NotDetected); Influenza AH3,PCR Not Detected (NotDetected); Influenza B, PCR Not Detected (NotDetected); Mycoplasma Pneumoniae, PCR Not Detected (NotDetected); Parainfluenza 1, PCR Not Detected (NotDetected); Parainfluenza 2, PCR Not Detected (NotDetected); Parainfluenza 3, PCR Not Detected (NotDetected); Parainfluenza 4, PCR Not Detected (NotDetected); Respiratory Syncytial Virus Not Detected (NotDetected); Rhinovirus/Enterovirus Not Detected (NotDetected)
[2024-10-03] MEDS: ACETAMINOPHEN 325MG TAB 650 MG PO ×2 (01:12→08:21)
--- NOTE | 2024-10-03 01:38 | PC.NURSE ---
SCD's at bedside. patient wore for 10 minutes and wanted them took off.
--- NOTE | 2024-10-03 02:49 | P.HP_ITS ---
History of Present Illness *Admission Date: 10/02/24 *Reason for visit:: Generalized weakness *History of present illness: The patient is an 89-year-old female with a past medical history of bullous pemphigoid who took her most recent Dupixent injection yesterday. She presents to the emergency department with severe generalized weakness, stating that she felt too weak to walk and had to crawl to reach her phone. She reports a low- grade fever at home and describes diffuse pain, stating ?everything hurts,? but denies any focal symptoms such as chest pain, shortness of breath, cough, congestion, dysuria, hematuria, or diarrhea. She also denies intolerance of oral intake. On examination, she is hemodynamically stable with a blood pressure of 130/69 mmHg, heart rate of 86 bpm in normal sinus rhythm, respiratory rate of 17 breaths per minute, and oxygen saturation of 97% on room air; however, she is febrile at 100.4?F. She complains of severe pain on even light palpation to any area of her body. The abdomen is soft with no focal tenderness on deeper palpation, and lung manley are clear bilaterally. Initial laboratory evaluation reveals a white blood cell count of 9.8, mild anemia with hemoglobin 11.6 and hematocrit 34.5, hyponatremia at 129, and hypomagnesemia at 1.3. CRP is mildly elevated at 6.1, while procalcitonin is 0.074, suggesting a lower likelihood of a significant bacterial infection. COVID-19 PCR and influenza A/B PCR are negative. Full respiratory panel is pe nding urinalysis is negative for infection, and her chest X-ray shows no acute process. She has received an initial crystalloid bolus, ketorolac (Toradol), and acetaminophen (Tylenol). Magnesium repletion has also been initiated. [facility] Disclaimer: The information contained in this section may have been updated after the patient was seen, as this information can be updated by other users. Medical History Localized bullous pemphigoid of vulva Bullous pemphigoid History of smoking 30 or more pack years Dyspnea on exertion Dyspnea Hx of thyroid irradiation Cataract COPD (chronic obstructive pulmonary disease) Hypothyroid GERD (gastroesophageal reflux disease) TIA (transient ischemic attack) Rheumatoid arthritis Chest pain Hypertension Palpitations Raynaud disease Surgical History Hx of colonoscopy Hx of esophagogastroduodenoscopy Hx of hernia repair Hx of tubal ligation Hx of bilateral cataract extraction Family History Other No significant family history Social History Smoking Status: Never smoker smoking status stop date: 2012 second hand exposure: No alcohol intake: never substance use 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tional status: other Travel in the last 8 weeks: None household members: none housing: ho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tional exposures/hazards: Yes caffeine: Yes Other Medical History Have you received the Flu Vaccine for this season: No Have you received the Pneumonia Vaccine: No Review of Systems Review of Systems Review of systems (narrative): 13 point review of systems negative outside HPI Meds Home Medications and Allergies Home Medications ?Medication ?Instructions ?Recorded ?Confirmed ?Type polyethylene glycol 3350 17 gram 17 g PO DAILY 10/19/17 10/02/24 History oral powder packet aspirin 81 mg tablet,delayed 81 mg PO DAILY 11/04/17 10/02/24 History release vitamin E 268 mg (400 unit) capsule 400 unit PO DAILY 11/04/17 10/02/24 History levothyroxine 88 mcg tablet 88 mcg PO DAILY 30 days ##30 12/30/17 10/03/24 History hydroxychloroquine 200 mg tablet 200 mg PO DAILY 11/04/18 10/02/24 History calcium 500 mg (as 1 tab PO BID Supplement 10/30/20 10/02/24 History carbonate)-vitamin D3 3.125 mcg (125 unit) tablet cyanocobalamin (B12)-cobamamide 1 each sublingual BID 01/03/21 10/02/24 History 5,000 mcg-100 mcg sublingual tablet gabapentin 100 mg capsule 100 mg PO DAILY 02/23/22 10/02/24 History omeprazole 20 mg capsule,delayed 20 mg PO DAILY 08/17/22 10/02/24 History release clobetasol 0.05 % topical ointment 1 applic topical HS #30 grams 12/20/23 10/02/24 Rx dupilumab 200 mg/1.14 mL 200 mg SQ WEEKLY BLISTERS 05/15/24 10/02/24 History subcutaneous pen injector ([facility] [facility]) cefdinir 300 mg capsule 300 mg PO BID 3 days #6 caps 10/03/24 Rx duloxetine 20 mg capsule,delayed 20 mg PO DAILY 10/03/24 10/03/24 History release hydrochlorothiazide 25 mg tablet 25 mg PO DAILY 10/03/24 10/03/24 History ipratropium 0.5 mg-albuterol 3 mg 3 ml inhalation Q6H PRN wheezing 10/03/24 Rx (2.5 mg base)/3 mL nebulization #180 mL soln prednisone 20 mg tablet 40 mg (2 x 20 mg) PO DAILY 3 days 10/03/24 Rx #6 tabs New Prescriptions to Start Prescriptions: cefdinir Flako,Andry ipratropium-albuterol Flako,Andry prednisone Flako,Andry Allergies Allergy/AdvReac Type Severity Reaction Status Date / Time fish oil (FISH OIL) Allergy Unknown SWELLING Verified 09/26/24 08:40 quinine (QUININE) Allergy Unknown NA-DIARRHEA Verified 09/26/24 08:40 Exam Data for Last 24 hours Vital signs and Labs for Last 24 Hours: Temp Pulse Resp BP Pulse Ox O2 Del Method 98.3 F 83 18 99/49 L 90 L Room Air 10/02/24 23:37 10/02/24 23:37 10/02/24 23:37 10/02/24 23:37 10/02/24 23:00 10/03/24 01:00 Laboratory Results - last 24 hr 10/02/24 19:15: WBC 9.8, RBC 3.74 L, Hgb 11.6 L, Hct 34.5 L, MCV 92.2, MCH 31.0, MCHC 33.6, RDW 13.4, Plt Count 249, MPV 9.5, Neut % (Auto) 79.1, Lymph % (Auto) 9.7 L, [place] % (Auto) 9.4 H, Eos % (Auto) 0.3, Baso % (Auto) 0.2, Neut # (Auto) 7.8, Lymph # (Auto) 1.0, [place] # (Auto) 0.9, Eos # (Auto) 0.0, Baso # (Auto) 0.0, ESR 15, Sodium 129 L, Potassium 3.5, Chloride 98, Carbon Dioxide 24, Anion Gap 10.5, BUN 16, Creatinine 0.70, Estimated Creat Clear 41, Estimated GFR 79, Est GFR ( Amer) 96, Glucose 130 H, Calcium 9.2, Magnesium 1.3 L, Total Bilirubin 0.5, AST 37 H, ALT 20, Alkaline Phosphatase 80, Total Creatine Kinase 44, C-Reactive Protein 6.1 H, Total Protein 6.1 L, Albumin 4.3, Globulin 1.8, Albumin/Globulin Ratio 2.4 H, Procalcitonin 0.074 10/02/24 20:09: SARS-CoV-2 (PCR) Not detected, Influenza A Untype (PCR) Not detected, Influenza Type B (PCR) Not detected 10/02/24 21:40: Urine Color Yellow, Urine Appearance Clear, Urine pH 7.5, Ur Specific [place] 1.020, Urine Protein Negative, Urine Glucose (UA) Negative, Urine Ketones Negative, Urine Blood Negative, Urine Nitrate Negative, Urine Bilirubin Negative, Urine Urobilinogen 0.2, Ur Leukocyte Esterase Negative, Urine WBC Occasional, Ur Squamous Epith Cells Occasional, Urine Bacteria Trace I & O for Last 24 hours: Intake & Output 09/30/24 10/01/24 10/02/24 10/03/24 23:59 23:59 23:59 23:59 Intake Total 1100 / 1100 Balance 1100 / 1100 Weight 65.771 kg Constitutional Constitutional: no acute distress *Routine HEENT Exam Head: Present normocephalic Eye: Present EOMI and PERRL ENT: Present mucous membranes moist *Routine Neck Exam Neck: Present supple; Absent lymphadenopathy *Routine Respiratory Exam Respiratory: Present CTA bilaterally *Routine Cardiovascular Exam Cardiovascular: Present RRR *Routine Abdominal Exam Abdominal: Present soft and normoactive bowel sounds; Absent tenderness *Routine Rectal Exam Rectal:: deferred *Routine Genitalia Exam Genitalia:: deferred *Routine Extremities Exam Extremities: Absent cyanosis, clubbing or edema *Routine Skin Exam Skin: Present warm; Absent rash *Routine Neurological Exam Neurological: Present alert and oriented X3 Assessment and Plan *Assessment and plan (1) Hypomagnesemia: Status: Acute Category: Medical Code(s): E83.42 - Hypomagnesemia (2) Fever: Status: Acute Category: Medical Code(s): R50.9 - Fever, unspecified (3) Bullous pemphigoid: Status: Acute Category: Medical Code(s): L12.0 - Bullous pemphigoid (4) Generalized weakness: Status: Acute Category: Medical Code(s): R53.1 - Weakness (5) Chills: Status: Acute Category: Medical Code(s): R68.83 - Chills (without fever) Plan MEDICAL DECISION MAKING: An 89-year-old female with diffuse pain, weakness, and low-grade fever requires an inpatient evaluation given her advanced age, significant weakness, and electrolyte imbalances. Her labs show hyponatremia and hypomagnesemia, both potentially contributing to her weakness. Although her CRP is elevated, the low procalcitonin and negative urinalysis and respiratory studies make a severe bacterial process less likely. Nevertheless, she remains febrile and debilitated. The negative imaging and viral panels further narrow the causes of her symptoms. Admission is warranted for close monitoring, further diagnostic workup, and ongoing supportive treatment, which will include electrolyte correction, pain control, and continued assessment for occult infection or inflammatory processes. Generalized Weakness and Diffuse Pain * Continue IV ketorolac and acetaminophen for analgesia, reassessing pain levels frequently. * Evaluate need for additional analgesics if pain remains uncontrolled. * Ensure assistance with mobility to prevent falls. Fever of Unknown Origin * Monitor temperature trend and re-check labs if fever persists or worsens. * Obtain blood cultures if higher fever or new signs of infection emerge. * Maintain a low threshold for further imaging or Infectious Disease consultation if clinical status declines. * Full viral panel is pending Hyponatremia (Na 129) * Continue IV normal saline at a controlled rate to gradually correct sodium. * Monitor serum sodium closely to avoid overly rapid correction. Hypomagnesemia (Mg 1.3) * Administer IV magnesium sulfate; repeat serum magnesium level in 4?6 hours or per protocol. * Identify and address potential causes (e.g., dietary insufficiency, GI losses, medications). Mild Anemia (Hgb 11.6, Hct 34.5) * Likely anemia of chronic disease or age-related; no transfusion indicated at this time. * Re-evaluate with serial CBC if clinical situation changes or if hemoglobin drops further. Bullous Pemphigoid on Dupixent * No evidence of an acute pemphigoid flare or injection-related reaction currently. * Coordinate with Dermatology if suspicion of flare or medication side effect arises. Disposition * Admit to inpatient unit for continued IV fluids, electrolyte repletion, and pa in management. * Closely monitor vitals, lab values, and clinical status. * GI prophylaxis with Protonix * VTE prophylaxis with Lovenox subcu Rounded on patient after nurse practitioner. Personally examined and interviewed patient. Agree with exam findings and care plan as documented. Respiratory panel positive for human metapneumovirus. Stable on room air. Repeat CBC, CMP, magnesium ordered for the morning.
[2024-10-03 03:17] VITALS: BP 102/52; PULSE 76; RESP 14; TEMP 37.2; O2SAT 92
[2024-10-03 03:51] LABS: Human Metapneumovirus Detected (NotDetected)
[2024-10-03 05:47] LABS: Basophils % 0.2 % (0.1-2.0); Eosinophils % 0.1 % (0.1-12.0); Hematocrit 30.5 % (37.0-47.0); Lymphocytes # 1.3 K/mm3 (0.7-4.5); Lymphocytes % 12.2 % (10-50); Mean Corpuscular HGB Conc 33.1 g/dL (31.8-35.4); Mean Corpuscular Hemoglobin 30.9 pg (27.0-31.2); Mean Corpuscular Volume 93.3 fl (81-99); Mean Platelet Volume 9.3 fl (7.4-10.4); Monocytes # 1.1 K/mm3 (0.1-1.0); Monocytes % 10.3 % (1.7-9.3); Neutrophils # 8.3 K/mm3 (1.8-7.8); Neutrophils % 75.9 % (37.0-80.0); Platelet Count 204 K/mm3 (142-424); Red Blood Count 3.27 M/mm3 (4.20-5.40); Red Cell Distribution Width 13.5 % (11.5-17.5); White Blood Count 10.9 K/mm3 (4.8-10.8)
[2024-10-03] MEDS: MAGNESIUM SULFATE IN WATER 2 GM/50 ML PIGGYBACK IV ×2 (05:47→07:08)
[2024-10-03 06:02] LABS: Chloride 99 mmol/L (98-107); Sodium 129 mmol/L (136-145)
[2024-10-03 06:03] LABS: Potassium 3.7 mmoL/L (3.5-5.1)
--- NOTE | 2024-10-03 06:04 | PC.NURSE ---
Pt admits to weakness and mild pain pt has been treated for pain per MAR. Pt has tolerated fluids well, and has had 300ml of urine out this shift.
[2024-10-03 06:05] LABS: Blood Urea Nitrogen 17 mg/dl (7-17); Creatinine Clearance Estimated 41 mL/min (50-200); Estimated Glomerular Filt Rate 79 ml/min (>60); GFR (African American) 96 ML/MIN (>60)
[2024-10-03 06:06] LABS: Anion Gap 7.7 mEq/L (5-15); Calcium 8.1 mg/dl (8.4-10.2); Carbon Dioxide 26 mmol/L (22.0-30.0); Glucose 96 mg/dl (74-100); Phosphorous 3.4 mg/dl (2.5-4.5)
--- NOTE | 2024-10-03 07:29 | HMH.PHAINT1 ---
Pharmacy Intervention Comments: Home medication list verified using list from outpatient pharmacy and pt interview
[2024-10-03 08:00] VITALS: BP 93/39; PULSE 67; RESP 18; TEMP 36.6; O2SAT 95
[2024-10-03] MEDS: CALCIUM CARB + VIT D 500MG TAB 500 MG PO (08:15)
[2024-10-03] MEDS: DULOXETINE 30MG CAPSULE.DR 30 MG PO (08:15)
[2024-10-03] MEDS: ASPIRIN EC 81MG TABLET 81 MG PO (08:15)
[2024-10-03] MEDS: GABAPENTIN 100MG CAPSULE 100 MG PO (08:16)
[2024-10-03] MEDS: HYDROXYCHLOROQUINE SULFATE 200MG TABLET 200 MG PO (08:16)
[2024-10-03] MEDS: POLYETHYLENE GLYCOL 3350 17 GM PACKET PO (08:16)
[2024-10-03] MEDS: VITAMIN E 400 UNIT PO (08:16)
[2024-10-03] MEDS: ENOXAPARIN 40MG/0.4ML SYRINGE 40 MG SUBCUT (08:16)
[2024-10-03] MEDS: LEVOTHYROXINE 88MCG (0.088MG) TAB 88 MCG PO (08:16)
--- NOTE | 2024-10-03 09:11 | PC.NURSE ---
TECH NOTE; NOTIFIED NURSE OF BLOOD PRESSURE FOR 0800 VITAL SIGNS Fili CORDERO, SRNA
--- NOTE | 2024-10-03 10:02 | HMH.OTEV ---
OT Inpatient Evaluation Rehab OT IP Evaluation Start: 10/03/24 09:07 Freq: ONCE Status: Active Protocol: Document 10/03/24 09:58 [facility] (Rec: 10/03/24 10:02 [facility] [id number]) Rehab OT IP Assessment Subjective History Pt oriented x 3 on arrival. Pt agreeable to engage in therapy evaluation. Pt's son present and supportive. Pt admitted on 10/02/24 due to weakness. History and physical: The patient is an 89-year-old female with a past medical history of bullous pemphigoid who took her most recent Dupixent injection yesterday. She presents to the emergency department with severe generalized weakness, stating that she felt too weak to walk and had to crawl to reach her phone. She reports a low- grade fever at home and describes diffuse pain, stating ?everything hurts,? but denies any focal symptoms such as chest pain, shortness of breath, cough, congestion, dysuria, hematuria, or diarrhea. She also denies intolerance of oral intake. On examination, she is hemodynamically stable with a blood pressure of 130/69 mmHg, heart rate of 86 bpm in normal sinus rhythm, respiratory rate of 17 breaths per minute, and oxygen saturation of 97% on room air; however, she is febrile at 100.4?F. She complains of severe pain on even light palpation to any area of her body. The abdomen is soft with no focal tenderness on deeper palpation, and lung manley are clear bilaterally. Initial laboratory evaluation reveals a white blood cell count of 9.8, mild anemia with hemoglobin 11.6 and hematocrit 34.5, hyponatremia at 129, and hypomagnesemia at 1.3. CRP is mildly elevated at 6.1, while procalcitonin is 0 .074, suggesting a lower likelihood of a significant bacterial infection. COVID-19 PCR and influenza A/B PCR are negative. Full respiratory panel is pending urinalysis is negative for infection, and her chest X-ray shows no acute process. She has received an initial crystalloid bolus, ketorolac (Toradol), and acetaminophen (Tylenol). Magnesium repletion has also been initiated Subjective Pt reports prior to being in the hospital, pt lived at home alone. Pt claims she is normally independent with all ADLs and IADLs. Pt does not require any type of AE during functional transfers. Pt also still drives. Objective Patient Orientation Person,Place,Birthday Bed Mobility bed mobility-scooting,bed mobility - supine/sit Assist Level Contact Guard/Hand Hold Transfer Training Sit/Stand Transfer Assist Level Contact Guard/Hand Hold Lower Body Dressing Ability Minimal Assistance Performing Toilet Hygiene Ability Contact Guard Overall Commode/Toilet Transfer Ability Contact Guard Commode/Toilet Transfer Technique Sit to/from Ambulatory Rehab OT IP prob,goals,plan Problems Date of Evaluation: 10/03/24 OT IP Problems Bed Mobility,Transfers,Balance ,Self care,Safety Rehab Potential Rehab Potential Good Equipment Needs Assistive Devices Rolling / Wheeled Walker Plan OT intervention Plan Bed Mobility,Transfers,Balance ,Self care,Safety,Therapeutic Exercise OT Plan Frequency Daily Duration LOS Discharge Goals Bed Mobility Ability Standby Assistance Sit to Stand Chair Transfer Ability Supervision/Stand by Chair Transfer Ability Supervision/Stand by Chair Transfer Technique Sit to/from Ambulatory Chair Transfer Assistive Devices Rolling Walker Lower Body Dressing Ability Contact Guard Upper Body Dressing Ability Standby Assistance Bathing Ability Contact Guard Performing Toilet Hygiene Ability Standby Assistance Overall Commode/Toilet Transfer Ability Standby Assistance Commode/Toilet Transfer Technique Sit to/from Ambulatory Discharge Plan OT Discharge Plan Pt will continue to be seen for OT services while at [facility]. Pt can return home once she is medically stable per physician. Therapist does recommend OT evaluation or Outpatient therapy evaluation for continued skilled therapy. Continued skilled therapy is important in order for patient to improve strength, safety, endurance, ADL independence, and functional transfers to reach PLOF. Eval Complexity Eval Charge Codes 10098 - Moderate Complexity PHYSICIAN CERTIFICATION: I certify the specified therapy services for Hawa Vickers are required, authorized, and reviewed every 30 days.
--- NOTE | 2024-10-03 10:17 | HMH.PTEV ---
Physical Therapy Evaluation Rehab PT IP Evaluation Start: 10/03/24 09:07 Freq: ONCE Status: Active Protocol: Document 10/03/24 10:13 [facility] (Rec: 10/03/24 10:17 [facility] [id number]) Subjective/History History History Per H&P: The patient is an 89 -year-old female with a past medical history of bullous pemphigoid who took her most recent Dupixent injection yesterday. She presents to the emergency department with severe generalized weakness, stating that she felt too weak to walk and had to crawl to reach her phone. She reports a low-grade fever at home and describes diffuse pain, stating ?everything hurts,? but denies any focal symptoms such as chest pain, shortness of breath, cough, congestion, dysuria, hematuria, or diarrhea. She also denies intolerance of oral intake. On examination, she is hemodynamically stable with a blood pressure of 130/69 mmHg, heart rate of 86 bpm in normal sinus rhythm, respiratory rate of 17 breaths per minute, and oxygen saturation of 97% on room air; however, she is febrile at 100.4?F. She complains of severe pain on even light palpation to any area of her body. The abdomen is soft with no focal tenderness on deeper palpation, and lung manley are clear bilaterally. Initial laboratory evaluation reveals a white blood cell count of 9.8, mild anemia with hemoglobin 11.6 and hematocrit 34.5, hyponatremia at 129, and hypomagnesemia at 1.3. CRP is mildly elevated at 6.1, while procalcitonin is 0 .074, suggesting a lower likelihood of a significant bacterial infection. COVID-19 PCR and influenza A/B PCR are negative. Full respiratory panel is pending urinalysis is negative for infection, and her chest X-ray shows no acute process. She has received an initial crystalloid bolus, ketorolac (Toradol), and acetaminophen (Tylenol). Magnesium repletion has also been initiated. Subjective Subjective Pt lives alone and is usually IND with all mobility. No AD use. Pt usually active and frequently uses the gym at [facility] . New diagnosis of cancer in past 12 No months? Rehab PT IP Eval Objective Appearance Patient Behavior Appropriate,Cooperative Patient Orientation Person,Place Difficulty following instructions none Speech Pattern Clear Ambulation Patient Able to Ambulate Yes Ambulation Observation IP General Gait Pattern Observation No Deviations/Normal Ambulation Distance (feet) 5 Ambulation Assistive Device None Ambulation Ability Contact Guard/Hand Hold Balance Ability to Arise Able, uses arms to help Sitting Balance Steady, safe Standing Balance Steady, wide stance Dynamic Sitting Balance Ability Good Dynamic Standing Balance Ability Good Transfers Bed Transfer Ability Supervision/Stand by Sit to Stand Bed Transfer Ability Supervision/Stand by Sit to Stand Chair Transfer Ability Supervision/Stand by Rehab PT IP prob,goals,plan Problems Date of Evaluation: 10/03/24 PT IP Problems Gait,Balance,Safety Rehab Potential Rehab Potential Good Plan PT Intervention Plan Gait,Balance,Safety, Therapeutic Exercise Other Intervention Plan 1-2 times PT Plan Frequency Daily Duration LOS Discharge Goals Bed Transfer Ability Independent Sit to Stand Chair Transfer Ability Independent Ambulation Assistive Device None Ambulation Distance (feet) 15 Discharge Plan PT Discharge Plan Initial physical therapy evaluation performed. Patient presents below baseline at this time in functional mobility, transfers, gait, and strength. Pt would benefit from skilled PT while at [facility] to prevent further functional decline and maximize safety with mobility. Pt most appropriate to d/c home when deemed medically necessary d/t current level of mobility, home set-up, and family support. PT recommending home health PT services to address deficits. Eval Complexity Eval Charge Codes 66947 - Moderate Complexity PHYSICIAN CERTIFICATION: I certify the specified therapy services for Hawa Vickers are required, authorized, and reviewed every 30 days.
[2024-10-03] MEDS: CEFTRIAXONE SODIUM 1 GM in 0.9 % SODIUM CHLORIDE 50 ML IV (12:13)
--- NOTE | 2024-10-03 12:16 | EXP.DC.SUM ---
General Admission date:: 10/02/24 Discharge date: 10/03/24 HPI HPI HPI: The patient is an 89-year-old female with a past medical history of bullous pemphigoid who took her most recent Dupixent injection yesterday. She presents to the emergency department with severe generalized weakness, stating that she felt too weak to walk and had to crawl to reach her phone. She reports a low-grade fever at home and describes diffuse pain, stating ?everything hurts,? but denies any focal symptoms such as chest pain, shortness of breath, cough, congestion, dysuria, hematuria, or diarrhea. She also denies intolerance of oral intake. On examination, she is hemodynamically stable with a blood pressure of 130/69 mmHg, heart rate of 86 bpm in normal sinus rhythm, respiratory rate of 17 breaths per minute, and oxygen saturation of 97% on room air; however, she is febrile at 100.4?F. She complains of severe pain on even light palpation to any area of her body. The abdomen is soft with no focal tenderness on deeper palpation, and lung manley are clear bilaterally. Initial laboratory evaluation reveals a white blood cell count of 9.8, mild anemia with hemoglobin 11.6 and hematocrit 34.5, hyponatremia at 129, and hypomagnesemia at 1.3. CRP is mildly elevated at 6.1, while procalcitonin is 0.074, suggesting a lower likelihood of a significant bacterial infection. COVID-19 PCR and influenza A/B PCR are negative. Full respiratory panel is pending urinalysis is negative for infection, and her chest X-ray shows no acute process. She has received an initial crystalloid bolus, ketorolac (Toradol), and acetaminophen (Tylenol). Magnesium repletion has also been initiated. Hospital Course Hospital Course Hospital Course: Ms. Vickers is an 89-year-old female with diffuse pain, weakness, and low-grade fever requires an inpatient evaluation given her advanced age, significant weakness, and electrolyte imbalances. Her labs show hyponatremia and hypomagnesemia, both potentially contributing to her weakness. Although her CRP is elevated, the low procalcitonin and negative urinalysis and respiratory studies make a severe bacterial process less likely. Nevertheless, she remains febrile and debilitated. The negative imaging and viral panels further narrow the causes of her symptoms. Admission is warranted for close monitoring, further diagnostic workup, and ongoing supportive treatment, which will include electrolyte correction, pain control, and continued assessment for occult infection or inflammatory processes. Did well overnight. Stable on room air. Found to be human metapneumovirus positive. Stable to discharge home with family. Recommend close follow-up with PCP. Problems addressed as follows: COPD exacerbation Human metapneumovirus bronchitis -Respiratory panel positive for human metapneumovirus. Patient anjali to room air. Remained afebrile. Will continue treatment for COPD with cefdinir 300 twice daily and prednisone 40 mg daily to complete 3 more days of therapy. Initiate nebulizer. Ordered from [facility]. DuoNeb solution sent. Continue every 6 hours as needed. No oxygen requirement at this time. Room air sats in the mid 90s. Tylenol as needed for fever. Hyponatremia (Na 129), mild Hypomagnesemia -May account for some of her weakness. Stable during admission with sodium 129, chloride 99. continue solute laden p.o. fluids. Magnesium was low at 1.3, responded to replacement. Improved to 2.0. Potassium 3.7 on day of discharge. Mild Anemia (Hgb 11.6, Hct 34.5) -Remained stable during admission. No signs of active bleeding. Did have slight delusional component after IV fluids. Would benefit from repeat labs with CBC, CMP, magnesium in 1 to 2 weeks with follow-up with PCP. Bullous Pemphigoid on Dupixent -Stable during admission. No evidence of active or acute pemphigoid flare. Patient was monitored overnight. Did well during admission. Tolerating p.o. intake. Feeling somewhat better. Remained frankly afebrile. Therapy evaluated, stable to discharge home with home health. Family agreeable to plan. Total time spent on discharge 32 minutes in counseling, documentation, chart review, and direct care with patient. Exam Data for Last 24 hours Vital signs and Labs for Last 24 Hours: Temp Pulse Resp BP Pulse Ox O2 Del Method 97.8 F 67 18 93/39 L 95 Room Air 10/03/24 08:00 10/03/24 08:00 10/03/24 08:00 10/03/24 08:00 10/03/24 08:00 10/03/24 10:59 Laboratory Results - last 24 hr 10/02/24 00:48: Chlamy pneumoniae PCR Not detected, Adenovirus (PCR) Not detected, B. pertussis DNA (PCR) Not detected, Coronavirus OC43 (PCR) Not detected, Coronavirus HKU1 (PCR) Not detected, Coronavirus 229E (PCR) Not detected, SARS-CoV-2 (PCR) Not detected, Coronavirus NL63 (PCR) Not detected, Human Metapneumovir PCR Detected A, Influenza A (H1) PCR Not detected, Influ A (H1N1/09) PCR Not detected, Influenza A (H3) PCR Not detected, Influenza Type A (PCR) Not detected, Influenza Type B (PCR) Not detected, M. pneumoniae (PCR) Not detected, Parainfluenza 1 (PCR) Not detected, Parainfluenza 2 (PCR) Not detected, Parainfluenza 3 (PCR) Not detected, Parainfluenza 4 (PCR) Not detected, RSV (PCR) Not detected, Entero/Rhino (PCR) Not detected 10/02/24 19:15: WBC 9.8, RBC 3.74 L, Hgb 11.6 L, Hct 34.5 L, MCV 92.2, MCH 31.0, MCHC 33.6, RDW 13.4, Plt Count 249, MPV 9.5, Neut % (Auto) 79.1, Lymph % (Auto) 9.7 L, [place] % (Auto) 9.4 H, Eos % (Auto) 0.3, Baso % (Auto) 0.2, Neut # (Auto) 7.8, Lymph # (Auto) 1.0, [place] # (Auto) 0.9, Eos # (Auto) 0.0, Baso # (Auto) 0.0, ESR 15, Sodium 129 L, Potassium 3.5, Chloride 98, Carbon Dioxide 24, Anion Gap 10.5, BUN 16, Creatinine 0.70, Estimated Creat Clear 41, Estimated GFR 79, Est GFR ( Amer) 96, Glucose 130 H, Calcium 9.2, Magnesium 1.3 L, Total Bilirubin 0.5, AST 37 H, ALT 20, Alkaline Phosphatase 80, Total Creatine Kinase 44, C-Reactive Protein 6.1 H, Total Protein 6.1 L, Albumin 4.3, Globulin 1.8, Albumin/Globulin Ratio 2.4 H, Procalcitonin 0.074 10/02/24 20:09: SARS-CoV-2 (PCR) Not detected, Influenza A Untype (PCR) Not detected, Influenza Type B (PCR) Not detected 10/02/24 21:40: Urine Color Yellow, Urine Appearance Clear, Urine pH 7.5, Ur Specific Brick 1.020, Urine Protein Negative, Urine Glucose (UA) Negative, Urine Ketones Negative, Urine Blood Negative, Urine Nitrate Negative, Urine Bilirubin Negative, Urine Urobilinogen 0.2, Ur Leukocyte Esterase Negative, Urine WBC Occasional, Ur Squamous Epith Cells Occasional, Urine Bacteria Trace 10/03/24 05:38: WBC 10.9 H, RBC 3.27 L, Hgb 10.0 L D, Hct 30.5 L, MCV 93.3, MCH 30.9, MCHC 33.1, RDW 13.5, Plt Count 204, MPV 9.3, Neut % (Auto) 75.9, Lymph % (Auto) 12.2, [place] % (Auto) 10.3 H, Eos % (Auto) 0.1, Baso % (Auto) 0.2, Neut # (Auto) 8.3 H, Lymph # (Auto) 1.3, [place] # (Auto) 1.1 H, Eos # (Auto) 0.0, Baso # (Auto) 0.0, Sodium 129 L, Potassium 3.7, Chloride 99, Carbon Dioxide 26, Anion Gap 7.7, BUN 17, Creatinine 0.70, Estimated Creat Clear 41, Estimated GFR 79, Est GFR ( Amer) 96, Glucose 96 D, Calcium 8.1 L, Phosphorus 3.4, Magnesium 2.0 D I & O for Last 24 hours: Intake & Output 09/30/24 10/01/24 10/02/24 10/03/24 23:59 23:59 23:59 23:59 Intake Total 1100 / 1100 240 / 240 Output Total 300 / 300 Balance 1100 / 1100 -60 / -60 Weight 65.771 kg Constitutional Constitutional: no acute distress, average body habitus, chronically ill appearing and cooperative *Routine HEENT Exam Head: Present normocephalic Eye: Present EOMI and PERRL ENT: Present mucous membranes moist *Routine Neck Exam Neck: Present supple; Absent lymphadenopathy *Routine Respiratory Exam Respiratory: Present prolonged expiratory phase, rhonchi and normal respiratory effort; Absent wheezes or crackles *Routine Cardiovascular Exam Cardiovascular: Present RRR *Routine Abdominal Exam Abdominal: Present soft and normoactive bowel sounds; Absent tenderness *Routine Rectal Exam Patient deferred: visual exam *Routine Exam Patient deferred: external exam *Routine Extremities Exam Extremities: Absent cyanosis, clubbing or edema *Routine Skin Exam Skin: Present warm; Absent rash *Routine Neurological Exam Neurological: Present alert, oriented X3 and moving all extremities; Absent altered mental status Results Data Completed and Pending Labs on day of discharge: Labs from last 24 hours 10/03/24 10/02/24 10/02/24 05:38 21:40 20:09 WBC 10.9 H RBC 3.27 L Hgb 10.0 L D Hct 30.5 L MCV 93.3 MCH 30.9 MCHC 33.1 RDW 13.5 Plt Count 204 MPV 9.3 Neut % (Auto) 75.9 Lymph % (Auto) 12.2 [place] % (Auto) 10.3 H Eos % (Auto) 0.1 Baso % (Auto) 0.2 Neut # (Auto) 8.3 H Lymph # (Auto) 1.3 [place] # (Auto) 1.1 H Eos # (Auto) 0.0 Baso # (Auto) 0.0 ESR Sodium 129 L Potassium 3.7 Chloride 99 Carbon Dioxide 26 Anion Gap 7.7 BUN 17 Creatinine 0.70 Estimated Creat Clear 41 Estimated GFR 79 Est GFR ( Amer) 96 Glucose 96 D Calcium 8.1 L Phosphorus 3.4 Magnesium 2.0 D Total Bilirubin AST ALT Alkaline Phosphatase Total Creatine Kinase C-Reactive Protein Total Protein Albumin Globulin Albumin/Globulin Ratio Procalcitonin Urine Color Yellow Urine Appearance Clear Urine pH 7.5 Ur Specific Brick 1.020 Urine Protein Negative Urine Glucose (UA) Negative Urine Ketones Negative Urine Blood Negative Urine Nitrate Negative Urine Bilirubin Negative Urine Urobilinogen 0.2 Ur Leukocyte Esterase Negative Urine WBC Occasional Ur Squamous Epith Cells Occasional Urine Bacteria Trace Chlamy pneumoniae PCR Adenovirus (PCR) B. pertussis DNA (PCR) Coronavirus OC43 (PCR) Coronavirus HKU1 (PCR) Coronavirus 229E (PCR) SARS-CoV-2 (PCR) Not detected Coronavirus NL63 (PCR) Human Metapneumovir PCR Influenza A (H1) PCR Influ A (H1N1/09) PCR Influenza A (H3) PCR Influenza Type A (PCR) Influenza A Untype (PCR) Not detected Influenza Type B (PCR) Not detected M. pneumoniae (PCR) Parainfluenza 1 (PCR) Parainfluenza 2 (PCR) Parainfluenza 3 (PCR) Parainfluenza 4 (PCR) RSV (PCR) Entero/Rhino (PCR) 10/02/24 10/02/24 19:15 00:48 WBC 9.8 RBC 3.74 L Hgb 11.6 L Hct 34.5 L MCV 92.2 MCH 31.0 MCHC 33.6 RDW 13.4 Plt Count 249 MPV 9.5 Neut % (Auto) 79.1 Lymph % (Auto) 9.7 L [place] % (Auto) 9.4 H Eos % (Auto) 0.3 Baso % (Auto) 0.2 Neut # (Auto) 7.8 Lymph # (Auto) 1.0 [place] # (Auto) 0.9 Eos # (Auto) 0.0 Baso # (Auto) 0.0 ESR 15 Sodium 129 L Potassium 3.5 Chloride 98 Carbon Dioxide 24 Anion Gap 10.5 BUN 16 Creatinine 0.70 Estimated Creat Clear 41 Estimated GFR 79 Est GFR ( Amer) 96 Glucose 130 H Calcium 9.2 Phosphorus Magnesium 1.3 L Total Bilirubin 0.5 AST 37 H ALT 20 Alkaline Phosphatase 80 Total Creatine Kinase 44 C-Reactive Protein 6.1 H Total Protein 6.1 L Albumin 4.3 Globulin 1.8 Albumin/Globulin Ratio 2.4 H Procalcitonin 0.074 Urine Color Urine Appearance Urine pH Ur Specific Brick Urine Protein Urine Glucose (UA) Urine Ketones Urine Blood Urine Nitrate Urine Bilirubin Urine Urobilinogen Ur Leukocyte Esterase Urine WBC Ur Squamous Epith Cells Urine Bacteria Chlamy pneumoniae PCR Not detected Adenovirus (PCR) Not detected B. pertussis DNA (PCR) Not detected Coronavirus OC43 (PCR) Not detected Coronavirus HKU1 (PCR) Not detected Coronavirus 229E (PCR) Not detected SARS-CoV-2 (PCR) Not detected Coronavirus NL63 (PCR) Not detected Human Metapneumovir PCR Detected A Influenza A (H1) PCR Not detected Influ A (H1N1/09) PCR Not detected Influenza A (H3) PCR Not detected Influenza Type A (PCR) Not detected Influenza A Untype (PCR) Influenza Type B (PCR) Not detected M. pneumoniae (PCR) Not detected Parainfluenza 1 (PCR) Not detected Parainfluenza 2 (PCR) Not detected Parainfluenza 3 (PCR) Not detected Parainfluenza 4 (PCR) Not detected RSV (PCR) Not detected Entero/Rhino (PCR) Not detected DS: Diagnosis Discharge Diagnosis (1) COPD exacerbation: Status: Acute Code(s): J44.1 - Chronic obstructive pulmonary disease with (acute) exacerbation (2) Human metapneumovirus (hMPV) pneumonia: Status: Acute Code(s): J12.3 - Human metapneumovirus pneumonia (3) Hypomagnesemia: Status: Acute Code(s): E83.42 - Hypomagnesemia (4) Fever: Status: Acute Code(s): R50.9 - Fever, unspecified (5) Bullous pemphigoid: Status: Acute Code(s): L12.0 - Bullous pemphigoid (6) Generalized weakness: Status: Acute Code(s): R53.1 - Weakness (7) Chills: Status: Acute Code(s): R68.83 - Chills (without fever) Meds Home Medications and Allergies Home Medications ?Medication ?Instructions ?Recorded ?Confirmed ?Type polyethylene glycol 3350 17 gram 17 g PO DAILY 10/19/17 10/02/24 History oral powder packet aspirin 81 mg tablet,delayed 81 mg PO DAILY 11/04/17 10/02/24 History release vitamin E 268 mg (400 unit) capsule 400 unit PO DAILY 11/04/17 10/02/24 History levothyroxine 88 mcg tablet 88 mcg PO DAILY 30 days ##30 12/30/17 10/03/24 History hydroxychloroquine 200 mg tablet 200 mg PO DAILY 11/04/18 10/02/24 History calcium 500 mg (as 1 tab PO BID Supplement 10/30/20 10/02/24 History carbonate)-vitamin D3 3.125 mcg (125 unit) tablet cyanocobalamin (B12)-cobamamide 1 each sublingual BID 01/03/21 10/02/24 History 5,000 mcg-100 mcg sublingual tablet gabapentin 100 mg capsule 100 mg PO DAILY 02/23/22 10/02/24 History omeprazole 20 mg capsule,delayed 20 mg PO DAILY 08/17/22 10/02/24 History release clobetasol 0.05 % topical ointment 1 applic topical HS #30 grams 12/20/23 10/02/24 Rx dupilumab 200 mg/1.14 mL 200 mg SQ WEEKLY BLISTERS 05/15/24 10/02/24 History subcutaneous pen injector (Dupixent) cefdinir 300 mg capsule 300 mg PO BID 3 days #6 caps 10/03/24 Rx duloxetine 20 mg capsule,delayed 20 mg PO DAILY 10/03/24 10/03/24 History release hydrochlorothiazide 25 mg tablet 25 mg PO DAILY 10/03/24 10/03/24 History ipratropium 0.5 mg-albuterol 3 mg 3 ml inhalation Q6H PRN wheezing 10/03/24 Rx (2.5 mg base)/3 mL nebulization #180 mL soln prednisone 20 mg tablet 40 mg (2 x 20 mg) PO DAILY 3 days 10/03/24 Rx #6 tabs New Prescriptions to Start Prescriptions: Andry Humphrey ipratropium-albuterol Andry Arriola prednisone Andry Arriola Allergies Allergy/AdvReac Type Severity Reaction Status Date / Time fish oil (FISH OIL) Allergy Unknown SWELLING Verified 09/26/24 08:40 quinine (QUININE) Allergy Unknown NA-DIARRHEA Verified 09/26/24 08:40 Discharge Plan Disposition Patient Disposition: Home Health Service Condition: Good Discharge Order Discharge Orders: Discharge Order (Routine); Ordered 10/03/24 Ordered By: Andry Arriola Follow up Plan Follow up with: Magi Flanagan APRN [Nurse Practitioner] - 10/10/24 9:30 am Tomasz Romero MD [Staff Physician] - 10/17/24 2:45 pm (concern for claudication) Prescriptions/Medication Reconciliation: New ipratropium-albuterol 0.5 mg-3 mg(2.5 mg base)/3 mL solution for nebulization 3 ml inhalation Q6H PRN (Reason: wheezing) Qty: 180 0RF cefdinir 300 mg capsule 300 mg PO BID 3 Days Qty: 6 0RF Rx Instructions: first dose morning of 10/04/24. prednisone 20 mg tablet 40 mg PO DAILY 3 Days Qty: 6 0RF Continued omeprazole 20 mg capsule,delayed release(DR/EC) 20 mg PO DAILY clobetasol 0.05 % ointment 1 applic topical HS Qty: 30 0RF Rx Instructions: Apply thin layer to affected area nightly at bedtime levothyroxine 88 mcg tablet 88 mcg PO DAILY 30 Days Qty: 30 hydroxychloroquine 200 MG tablet 200 mg PO DAILY Dupixent Pen 200 mg/1.14 mL Pen Injector 200 mg SQ WEEKLY Rx Instructions: FOLLOW PRESCRIBER INSTRUCTIONS ON LABEL FOR SPECIFIC DOSING AND FREQUENCY polyethylene glycol 3350 17 GM powder in packet 17 g PO DAILY aspirin 81 MG tablet,delayed release (DR/EC) 81 mg PO DAILY vitamin E 400 UNIT capsule 400 unit PO DAILY calcium carbonate-vitamin D3 500 mg(1,250mg) -125 unit tablet 1 tab PO BID cyanocobalamin-cobamamide 1 EACH tablet, sublingual 1 each sublingual BID gabapentin 100 MG capsule 100 mg PO DAILY duloxetine 20 mg capsule,delayed release(DR/EC) 20 mg PO DAILY hydrochlorothiazide 25 mg tablet 25 mg PO DAILY Rx Instructions: TAKE 1 TABLET EVERY DAY FOR FLUID Other Ambulatory Orders: Home Medical Equipment (Routine) Location: None Selected Ordered By: Andry Arriola Problem Reconciliation Problems Reviewed?: Yes Patient Discharge Instructions ACTIVITY: Continue current activity DIET: continue same diet Patient Instructions: Human Metapneumovirus Infection Print Language: Indonesian Providers Primary Care Provider: Adelso Demarco Admit Provider: Andry Arriola Attending Provider: Andry Arriola
--- NOTE | 2024-10-03 12:37 | SW/DCPLANNER ---
Therapy recommended patient receve home health services and patient was agreeable with no preference of agency. [facility].
--- NOTE | 2024-10-04 11:01 | SW/DCPLANNER ---
Spoke with patients daughter amaya on the phone. Patients daughter in law stated that she is in bed sleeping right now. Patients daughter in law stated that they are aware of her upcoming appointments. Patients daughter in law stated that they were able to get her new medicine from clinic pharmacy. Patients daughter in law stated that they have no questions or concerns at this time. Did give the daughter in law number to [facility]. Kennedy Bergeron
== END 2024-10-03 14:23 | disposition home health service (06) ==
LOC: ER 21:13 → 2ND 23:20
PROVIDERS: Nurse Practitioner Family; Physician Assistant; Admitting Provider Internal Medicine Adolescent Medicine; Emergency Provider Student in an Organized Health Care Education/Training Program; PCP Internal Medicine Adolescent Medicine; Visit Provider Internal Medicine Adolescent Medicine
DX: J44.1 Chronic obstructive pulmonary disease with (acute) exacerbation (principal); J20.8 Acute bronchitis due to other specified organisms; B97.81 Human metapneumovirus as the cause of diseases classified elsewhere; E83.42 Hypomagnesemia; E03.9 Hypothyroidism, unspecified; E87.1 Hypo-osmolality and hyponatremia; I10 Essential (primary) hypertension; L12.0 Bullous pemphigoid; D64.9 Anemia, unspecified; Z87.891 Personal history of nicotine dependence; Z79.890 Hormone replacement therapy; Z79.899 Other long term (current) drug therapy; Z79.82 Long term (current) use of aspirin
CPT/HCPCS: 36415; 71045; 80048; 80053; 81001; 82550; 83735; 84100; 84145; 85025; 85651; 86140; 87633; 87636; 97162; 97166; 99291; G0378; J0696; J1650; J1885; J3475; J7030

== ENCOUNTER 2024-10-12 10:59 | Outpatient (POV) | payer MEDICARE, OTHER, SELFPAY ==
[2024-10-12 11:17] VITALS: BP 127/69; PULSE 65; RESP 14; O2SAT 98; BMI 25.0
--- NOTE | 2024-10-12 12:14 | EXP.PAIN.SOA ---
[facility] Disclaimer: The information contained in this section may have been updated after the patient was seen, as this information can be updated by other users. Medical History Localized bullous pemphigoid of vulva Bullous pemphigoid History of smoking 30 or more pack years Dyspnea on exertion Dyspnea Hx of thyroid irradiation Cataract COPD (chronic obstructive pulmonary disease) Hypothyroid GERD (gastroesophageal reflux disease) TIA (transient ischemic attack) Rheumatoid arthritis Chest pain Hypertension Palpitations Raynaud disease Surgical History Hx of colonoscopy Hx of esophagogastroduodenoscopy Hx of hernia repair Hx of tubal ligation Hx of bilateral cataract extraction Family History Other No significant family history Social History Smoking Status: Never smoker smoking status stop date: 2012 second hand exposure: No alcohol intake: never substance use 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tional status: other Travel in the last 8 weeks: None household members: none housing: ho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tional exposures/hazards: Yes caffeine: Yes PM Subjective & Objective Subjective Subjective:: Patient is a pleasant 89-year-old female who presents today for follow-up of her first lumbar medial branch block bilaterally L4-L5 and L5-S1 on 09/26/2024. Patient does rate her pain today a 5 out of 10. She denies any new falls however does state that she has been having a lot more issues related to stumbling around and feeling unsteady on her feet. Patient does state that the injections were very tender and sore from the time she got them and that she ended up having other issues come up and ended up with an RSV infection and dehydration and was hospitalized for a few days. She states it has been hard to gauge how well the injections helped due to everything else going on. Patient does state that she is still trying to work on drinking more fluids and that she was told to moss picker IV liquids and Gatorade and she is doing her best. She does state that she has been even having trouble with her eyes wanting to stay closed in the morning with the feel. She states that she did have to cancel a recent eye doctor appointment. Patient does state a lot of her pains today is not as much in her back however is more at her hips. She states the left is very tender to touch and is affecting her ability to perform activities of daily living such as cooking and cleaning or even simple ambulation. Patient does state that she is interested in injection therapy if possible. Patient is continuing home health with occupational therapy and physical therapy currently. Patient does state that she will use a walker at home on occasion to help with ambulation. Her Josué has been reviewed and is appropriate. Review of Systems: General: No recent weight changes, no fever, no sleep disturbances Respiratory: No cough, no shortness of air, no recurring pulmonary infections Cardiovascular/peripheral vascular: No chest pain, no palpitations, no edema, no shortness of breath Gastrointestinal: No new onset incontinence, normal bowel movements reported Genitourinary: No new onset incontinence Musculoskeletal: Bilateral hip pain Psychiatric: [Normal mood/affect] Neurological: [Denies weakness in extremities], [denies balance issues] Pain at rest (0-10 scale): 5 Objective Objective:: Physical Exam: General: Alert and oriented x3, no acute distress, pleasant and cooperative Lungs: Respirations even and unlabored, symmetrical chest expansion Eyes: PERRL Musculoskeletal: Flexion and extension of lumbar [spine] somewhat guarded secondary to pain, [antalgic gait noted] extreme point tenderness along bilateral hips Neurological: Speech clear, no gross sensory deficit Has patient had previous pain injection?: Yes Percent improvement in pain since last injection: Unable to specify at this time Conservative treatment options previously tried: Home exercise plan Length of treatment: Longer than 12 weeks Meds Home Medications and Allergies Home Medications ?Medication ?Instructions ?Recorded ?Confirmed ?Type polyethylene glycol 3350 17 gram 17 g PO DAILY 10/19/17 10/12/24 History oral powder packet aspirin 81 mg tablet,delayed 81 mg PO DAILY 11/04/17 10/12/24 History release vitamin E 268 mg (400 unit) capsule 400 unit PO DAILY 11/04/17 10/12/24 History levothyroxine 88 mcg tablet 88 mcg PO DAILY 30 days ##30 12/30/17 10/12/24 History hydroxychloroquine 200 mg tablet 200 mg PO DAILY 11/04/18 10/12/24 History calcium 500 mg (as 1 tab PO BID Supplement 10/30/20 10/12/24 History carbonate)-vitamin D3 3.125 mcg (125 unit) tablet cyanocobalamin (B12)-cobamamide 1 each sublingual BID 01/03/21 10/12/24 History 5,000 mcg-100 mcg sublingual tablet gabapentin 100 mg capsule 100 mg PO DAILY 02/23/22 10/12/24 History omeprazole 20 mg capsule,delayed 20 mg PO DAILY 08/17/22 10/12/24 History release clobetasol 0.05 % topical ointment 1 applic topical HS #30 grams 12/20/23 10/12/24 Rx dupilumab 200 mg/1.14 mL 200 mg SQ WEEKLY BLISTERS 05/15/24 10/12/24 History subcutaneous pen injector (Dupixent) cefdinir 300 mg capsule 300 mg PO BID 3 days #6 caps 10/03/24 10/12/24 Rx duloxetine 20 mg capsule,delayed 20 mg PO DAILY 10/03/24 10/12/24 History release hydrochlorothiazide 25 mg tablet 25 mg PO DAILY 10/03/24 10/12/24 History ipratropium 0.5 mg-albuterol 3 mg 3 ml inhalation Q6H PRN wheezing 10/03/24 10/12/24 Rx (2.5 mg base)/3 mL nebulization #180 mL soln prednisone 20 mg tablet 40 mg (2 x 20 mg) PO DAILY 3 days 10/03/24 10/12/24 Rx #6 tabs New Prescriptions to Start Prescriptions: Allergies Allergy/AdvReac Type Severity Reaction Status Date / Time fish oil (FISH OIL) Allergy Unknown SWELLING Verified 09/26/24 08:40 quinine (QUININE) Allergy Unknown NA-DIARRHEA Verified 09/26/24 08:40 Assessment and Plan *Assessment and plan (1) Greater trochanteric bursitis of both hips: Status: Acute Category: Medical Code(s): M70.61 - Trochanteric bursitis, right hip; M70.62 - Trochanteric bursitis, left hip Plan Patient did have extreme point tenderness along her bilateral greater trochanteric bursa's during today's visit. I did discuss with the patient that she may benefit from bilateral bursa injections. Risk and benefits were discussed with the patient and she would like to proceed forward with this plan of care. I did also discuss at length with the patient regarding making sure to use her walker until she does feel more steady on her feet to prevent falls. Patient acknowledges understanding. Today she does present in office with her son and they are requesting whether or not paperwork could be filled out in order to give him and his access as needed to any information. I have counseled both the patient and her son that we can have them sign a hippa form in order to give permission. Patient and son agree with this plan of care. Patient will be scheduled for bilateral bursa injections under fluoroscopy. Patient has tried and failed conservative therapy including continued at home stretching and exercise for longer than 12 weeks and does have ongoing home health in place and has been doing this for weeks with minimal improvement to this hip pain. Patient does state that the hip pain has been progressively worsening over the last several months, more than 3. Patient has been instructed to contact the clinic with any concerns before the next appointment. Dr. Olmstead has reviewed this note and agrees with this plan of care. This note was dictated using voice recognition software and make contain errors or omissions. All injections are used with Lidocaine, Bupivacaine and Depo Medrol. Occasionally urine drug screen is needed to verify patient's compliance with our office pain contract. This is ordered based off specific treatments related to chronic pain with the potential to abuse certain medications.
== END 2024-10-12 23:59 | disposition home or self-care (01) ==
LOC: SC.PAIN 11:01
PROVIDERS: PCP Nurse Practitioner Family; Visit Provider Nurse Practitioner Family
DX: M70.61 Trochanteric bursitis, right hip (principal); M70.62 Trochanteric bursitis, left hip; Z73.89 Other problems related to life management difficulty; Z79.899 Other long term (current) drug therapy
CPT/HCPCS: 99212; G0463

== ENCOUNTER 2024-11-07 13:22 | Day surgery (SDC) | payer MEDICARE, OTHER, SELFPAY ==
[2024-11-07 13:36] VITALS: BP 145/70; PULSE 101; RESP 16; TEMP 36.8; O2SAT 98; BMI 25.6
--- NOTE | 2024-11-07 13:53 | P.PCN_ITS ---
Procedure Date: 11/07/24 Time: 13:50 Anesthesiologist:: Von Cline CRNA Complications:: None Pre-procedure Diagnosis:: Bilateral trochanteric bursitis Post-procedure Diagnosis:: Same Indications for Procedure:: Patient is a very pleasant 89-year-old female who comes our clinic today for bilateral trochanteric bursa injection. Patient describes lateral hip pain as constant, dull, sharp, stabbing. She reports having extreme difficulty lying on her left or right side due to the pain. Left greater than right. She rates her pain 7/10. Procedure Details:: Procedure: Bilateral trochanteric bursa joint injections under fluoroscopy Informed consent was obtained and the risks and benefits of the procedure were explained to the patient.~ The patient was taken to the procedure room and noninvasive monitors were placed including a noninvasive blood pressure cuff and pulse oximeter.~ The patient was placed prone on the procedure table. Both hips were cleansed using Betadine as a cleansing solution. C-arm fluoroscopy was used to view the right trochanteric bursa joint.~ The skin and subcutaneous tissues were anesthetized using lidocaine 1.5% and a 25-gauge needle.~ After this, a 22- gauge spinal needle was inserted under fluoroscopic guidance into the inferior aspect of the right trochanteric bursa.~ Omnipaque dye was injected and good spread was seen throughout the joint.~ After this, approximately 5 mL of bupivacaine, 0.25% and Depo-Medrol, 40 mg was incrementally injected into the right sacroiliac joint. We then moved to the left trochanteric bursa joint.~ The skin and subcutaneous tissues were anesthetized using lidocaine 1.5% and a 25-gauge needle.~ After this, a 22-gauge spinal needle was inserted under fluoroscopic guidance into the inferior aspect of the left trochanteric bursa joint.~ Omnipaque dye was injecte d and good spread was seen throughout the joint. After this, approximately 5 mL of bupivacaine, 0.25% and Depo-Medrol, 40 mg was incrementally injected into the left sacroiliac joint.~ The patient tolerated the procedure well with no complications. The patient was observed in the Pain Clinic and then was discharged home neurologically intact. Plan and Disposition:: Patient was discharged without incident.
[2024-11-07 14:00] VITALS: BP 130/73; PULSE 70; RESP 16; O2SAT 100
[2024-11-07 15:31] VITALS: BP 144/68; PULSE 93; RESP 18; O2SAT 97
[2024-11-07] MEDS: methylPREDNISolone ACETATE 80MG/ML VIAL 80 MG (15:31)
[2024-11-07] MEDS: LIDOCAINE 1% 5ML PF VIAL 5 ML (15:31)
[2024-11-07] MEDS: BUPIVACAINE 0.25% 10ML INJ 25 MG IJ (15:31)
[2024-11-07 15:33] VITALS: BP 144/68; PULSE 93; RESP 18; O2SAT 97
== END 2024-11-07 14:00 | disposition home or self-care (01) ==
PROVIDERS: PCP Nurse Practitioner Family; Visit Provider Nurse Anesthetist, Certified Registered
DX: M70.61 Trochanteric bursitis, right hip (principal); M70.62 Trochanteric bursitis, left hip
CPT/HCPCS: 20610; J1010

== ENCOUNTER 2024-11-08 14:25 | Outpatient (CLI) | payer MEDICARE, OTHER, SELFPAY ==
--- NOTE | 2024-11-08 14:29 | US_ITS ---
FINAL REPORT CLINICAL HISTORY: weak pulses, claudication BLE s, HTN, COMPARISON: None FINDINGS: ANKLE-BRACHIAL PRESSURE INDICES Pressure indices are as follows: RIGHT LOWER EXTREMITY: Ankle-brachial pressure index: 1.14 Comments: Normal LEFT LOWER EXTREMITY: Ankle-brachial pressure index: 1.05 Comments: Normal CONCLUSION: No evidence of significant obstructive peripheral vascular disease of the lower extremities Reviewed, Interpreted and Dictated by Chapincito Stallworth MD Transcribed by Maty Ayala Authenticated and [facility]
== END 2024-11-08 23:59 | disposition home or self-care (01) ==
LOC: RT 14:26
PROVIDERS: PCP Nurse Practitioner Family; Visit Provider Physician Assistant
DX: I73.9 Peripheral vascular disease, unspecified (principal); R09.89 Other specified symptoms and signs involving the circulatory and respiratory systems
CPT/HCPCS: 93923

== ENCOUNTER 2024-11-22 10:38 | Outpatient (POV) | payer MEDICARE, OTHER, SELFPAY ==
[2024-11-22 11:02] VITALS: BP 148/69; PULSE 63; RESP 18; O2SAT 97; BMI 24.7
--- NOTE | 2024-11-22 12:24 | EXP.PAIN.SOA ---
[facility] Disclaimer: The information contained in this section may have been updated after the patient was seen, as this information can be updated by other users. Medical History Decreased pulses in feet Claudication of both lower extremities TIA (transient ischemic attack) Localized bullous pemphigoid of vulva Bullous pemphigoid History of smoking 30 or more pack years Dyspnea on exertion Dyspnea Hx of thyroid irradiation Cataract COPD (chronic obstructive pulmonary disease) Hypothyroid GERD (gastroesophageal reflux disease) TIA (transient ischemic attack) Rheumatoid arthritis Chest pain Hypertension Palpitations Raynaud disease Surgical History Hx of colonoscopy Hx of esophagogastroduodenoscopy Hx of hernia repair Hx of tubal ligation Hx of bilateral cataract extraction Family History Other No significant family history Social History Smoking Status: Never smoker smoking status stop date: 2012 second hand exposure: No alcohol intake: never substance use 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tional status: retired Travel in the last 8 weeks: None household members: none housing: ho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tional exposures/hazards: Yes caffeine: Yes PM Subjective & Objective Subjective Subjective:: Patient is a pleasant 89-year-old female who presents today for follow-up of bilateral trochanteric bursa injections on 11/07/2024. She rates improvement of at least 60% and feels like it is still working wonderful in her thighs bilaterally. Patient definitely states that she has noticed improvement overall. She rates that pain about a 4 out of 10. Patient does however state that she is having still a lot more pain there at her low back. She states that it is not really going into her legs currently and that it is just staying in her back and does worsen with increased activity such as bending, twisting or lifting. Patient did have her first diagnostic diagnostic lumbar medial branch block back in August and states that it did help but she was also very very tender following this procedure. Patient states that she felt like it really made a big difference for about a week and would rate at least 80% but it was very short-lived. Patient does state that she would like to still continue with the second block as we discussed in prior to get to the lumbar ablation. Patient states the current low back pain is affecting her ability perform activities of daily living such as cooking and cleaning. Patient has continued conservative therapy. Her Josué has been is appropriate. Review of Systems: General: No recent weight changes, no fever, no sleep disturbances Respiratory: No cough, no shortness of air, no recurring pulmonary infections Cardiovascular/peripheral vascular: No chest pain, no palpitations, no edema, no shortness of breath Gastrointestinal: No new onset incontinence, normal bowel movements reported Genitourinary: No new onset incontinence Musculoskeletal: Low back pain Psychiatric: [Normal mood/affect] Neurological: [Denies weakness in extremities], [denies balance issues] Pain at rest (0-10 scale): 5 Objective Objective:: Physical Exam: General: Alert and oriented x3, no acute distress, pleasant and cooperative Lungs: Respirations even and unlabored, symmetrical chest expansion Eyes: PERRL Musculoskeletal: Flexion and extension of lumbar [spine] somewhat guarded secondary to pain, [antalgic gait noted] positive Kemps test Neurological: Speech clear, no gross sensory deficit Has patient had previous pain injection?: Yes Percent improvement in pain since last injection: 60% Conservative treatment options previously tried: Home exercise plan Length of treatment: Longer than 12 weeks Meds Home Medications and Allergies Home Medications ?Medication ?Instructions ?Recorded ?Confirmed ?Type polyethylene glycol 3350 17 gram 17 g PO DAILY 10/19/17 11/22/24 History oral powder packet vitamin E 268 mg (400 unit) capsule 400 unit PO DAILY 11/04/17 11/22/24 History levothyroxine 88 mcg tablet 88 mcg PO DAILY 30 days ##30 12/30/17 11/22/24 History hydroxychloroquine 200 mg tablet 200 mg PO DAILY 11/04/18 11/22/24 History calcium 500 mg (as 1 tab PO BID Supplement 10/30/20 11/22/24 History carbonate)-vitamin D3 3.125 mcg (125 unit) tablet cyanocobalamin (B12)-cobamamide 1 each sublingual BID 01/03/21 11/22/24 History 5,000 mcg-100 mcg sublingual tablet gabapentin 100 mg capsule 100 mg PO DAILY 02/23/22 11/22/24 History omeprazole 20 mg capsule,delayed 20 mg PO DAILY 08/17/22 11/22/24 History release clobetasol 0.05 % topical ointment 1 applic topical HS #30 grams 12/20/23 11/22/24 Rx dupilumab 200 mg/1.14 mL 200 mg SQ WEEKLY BLISTERS 05/15/24 11/22/24 History subcutaneous pen injector (Dupixent) cefdinir 300 mg capsule 300 mg PO BID 3 days #6 caps 10/03/24 11/22/24 Rx duloxetine 20 mg capsule,delayed 20 mg PO DAILY 10/03/24 11/22/24 History release hydrochlorothiazide 25 mg tablet 25 mg PO DAILY 10/03/24 11/22/24 History ipratropium 0.5 mg-albuterol 3 mg 3 ml inhalation Q6H PRN wheezing 10/03/24 11/22/24 Rx (2.5 mg base)/3 mL nebulization #180 mL soln prednisone 20 mg tablet 40 mg (2 x 20 mg) PO DAILY 3 days 10/03/24 11/22/24 Rx #6 tabs New Prescriptions to Start Prescriptions: Allergies Allergy/AdvReac Type Severity Reaction Status Date / Time fish oil (FISH OIL) Allergy Unknown SWELLING Verified 11/08/24 14:00 quinine (QUININE) Allergy Unknown NA-DIARRHEA Verified 11/08/24 14:00 Assessment and Plan *Assessment and plan (1) Lumbar facet arthropathy: Status: Acute Category: Medical Code(s): M47.816 - Spondylosis without myelopathy or radiculopathy, lumbar region (2) Degenerative disc disease, lumbar: Status: Acute Category: Medical Code(s): M51.369 - Other intervertebral disc degeneration, lumbar region without mention of lumbar back pain or lower extremity pain Plan Patient did have limited range of motion of her lumbar spine with a positive Kemps test. Patient has had her first diagnostic lumbar medial branch block on September 26 that did provide 80% relief and really only helped about a week. I did discuss with the patient that she may benefit from repeat lumbar medial branch block. Risk and benefits were discussed with patient and she would like to proceed forward with this option. Patient was counseled if she again gets significant relief with the next block we will plan on doing the lumbar RFA at a later date. Patient has tried and failed conservative therapy including oral medication, heat and ice, topicals, at home stretching exercise for longer than 12 weeks and is currently and has been going to home health for physical therapy with no additional improvements. Patient will be scheduled for her second lumbar medial branch block bilaterally L3-L4, L4-L5 and L5-S1 under fluoroscopy. Patient has been instructed to contact the clinic with any concerns before the next appointment. Dr. Olmstead has reviewed this note and agrees with this plan of care. This note was dictated using voice recognition software and make contain errors or omissions. All injections are used with Lidocaine, Bupivacaine and Depo Medrol. Occasionally urine drug screen is needed to verify patient's compliance with our office pain contract. This is ordered based off specific treatments related to chronic pain with the potential to abuse certain medications.
== END 2024-11-22 23:59 | disposition home or self-care (01) ==
LOC: SC.PAIN 10:41
PROVIDERS: PCP Nurse Practitioner Family; Visit Provider Nurse Practitioner Family
DX: M47.816 Spondylosis without myelopathy or radiculopathy, lumbar region (principal); M51.369 Other intervertebral disc degeneration, lumbar region without mention of lumbar back pain or lower extremity pain; Z73.89 Other problems related to life management difficulty
CPT/HCPCS: 99212; G0463

== ENCOUNTER 2024-12-11 10:13 | Outpatient (POV) | payer MEDICARE, OTHER, SELFPAY ==
--- NOTE | 2024-12-11 10:53 | EXP.PAIN.SOA ---
[facility] Disclaimer: The information contained in this section may have been updated after the patient was seen, as this information can be updated by other users. Medical History Decreased pulses in feet Claudication of both lower extremities TIA (transient ischemic attack) Localized bullous pemphigoid of vulva Bullous pemphigoid History of smoking 30 or more pack years Dyspnea on exertion Dyspnea Hx of thyroid irradiation Cataract COPD (chronic obstructive pulmonary disease) Hypothyroid GERD (gastroesophageal reflux disease) TIA (transient ischemic attack) Rheumatoid arthritis Chest pain Hypertension Palpitations Raynaud disease Surgical History Hx of colonoscopy Hx of esophagogastroduodenoscopy Hx of hernia repair Hx of tubal ligation Hx of bilateral cataract extraction Family History Other No significant family history Social History Smoking Status: Never smoker smoking status stop date: 2012 second hand exposure: No alcohol intake: never substance use 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tional status: retired Travel in the last 8 weeks: None household members: none housing: ho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tional exposures/hazards: Yes caffeine: Yes PM Subjective & Objective Subjective Subjective:: Patient is a pleasant 89-year-old female who presents today for insurance denial of her second diagnostic lumbar medial branch block. Patient states that she still would like to proceed forward with this option in future however she is having a lot more pain just recently that is radiating down into her bilateral lower extremities. Patient describes it as a constant burning sensation that does go all the way down to her feet and interferes with her ability to perform activities of daily living such as cooking and cleaning. Patient states that she has still been going to physical therapy and doing at home exercises that was physician guided at home even when she gets done. Patient does make mention that she is almost completed her physical therapy now and felt like initially she thought that might have been making her symptoms worse however it just continues to be on a daily basis. Patient is interested in any help we may be able to provide. Patient does state that her last hip injections had still been doing extremely well. Patient does state the other night she did have a little bit more trouble in the hip area. Patient denies any other changes. Her Josué has been reviewed and is appropriate. Review of Systems: General: No recent weight changes, no fever, no sleep disturbances Respiratory: No cough, no shortness of air, no recurring pulmonary infections Cardiovascular/peripheral vascular: No chest pain, no palpitations, no edema, no shortness of breath Gastrointestinal: No new onset incontinence, normal bowel movements reported Genitourinary: No new onset incontinence Musculoskeletal:low back pain, bilateral leg Psychiatric: [Normal mood/affect] Neurological: [Denies weakness in extremities], [denies balance issues] Pain at rest (0-10 scale): 6 Objective Objective:: Physical Exam: General: Alert and oriented x3, no acute distress, pleasant and cooperative Lungs: Respirations even and unlabored, symmetrical chest expansion Eyes: PERRL Musculoskeletal: Flexion and extension of lumbar [spine] somewhat guarded secondary to pain, [antalgic gait noted] Neurological: Speech clear, no gross sensory deficit Has patient had previous pain injection?: No Conservative treatment options previously tried: Home exercise plan Length of treatment: Longer than 12 weeks and Physical Therapy Length of treatment: Ongoing Meds Home Medications and Allergies Home Medications ?Medication ?Instructions ?Recorded ?Confirmed ?Type polyethylene glycol 3350 17 gram 17 g PO DAILY 10/19/17 11/22/24 History oral powder packet vitamin E 268 mg (400 unit) capsule 400 unit PO DAILY 11/04/17 11/22/24 History levothyroxine 88 mcg tablet 88 mcg PO DAILY 30 days ##30 12/30/17 11/22/24 History hydroxychloroquine 200 mg tablet 200 mg PO DAILY 11/04/18 11/22/24 History calcium 500 mg (as 1 tab PO BID Supplement 10/30/20 11/22/24 History carbonate)-vitamin D3 3.125 mcg (125 unit) tablet cyanocobalamin (B12)-cobamamide 1 each sublingual BID 01/03/21 11/22/24 History 5,000 mcg-100 mcg sublingual tablet gabapentin 100 mg capsule 100 mg PO DAILY 02/23/22 11/22/24 History omeprazole 20 mg capsule,delayed 20 mg PO DAILY 08/17/22 11/22/24 History release clobetasol 0.05 % topical ointment 1 applic topical HS #30 grams 12/20/23 11/22/24 Rx dupilumab 200 mg/1.14 mL 200 mg SQ WEEKLY BLISTERS 05/15/24 11/22/24 History subcutaneous pen injector (Dupixent) cefdinir 300 mg capsule 300 mg PO BID 3 days #6 caps 10/03/24 11/22/24 Rx duloxetine 20 mg capsule,delayed 20 mg PO DAILY 10/03/24 11/22/24 History release hydrochlorothiazide 25 mg tablet 25 mg PO DAILY 10/03/24 11/22/24 History ipratropium 0.5 mg-albuterol 3 mg 3 ml inhalation Q6H PRN wheezing 10/03/24 11/22/24 Rx (2.5 mg base)/3 mL nebulization #180 mL soln prednisone 20 mg tablet 40 mg (2 x 20 mg) PO DAILY 3 days 10/03/24 11/22/24 Rx #6 tabs New Prescriptions to Start Prescriptions: Allergies Allergy/AdvReac Type Severity Reaction Status Date / Time fish oil (FISH OIL) Allergy Unknown SWELLING Verified 11/08/24 14:00 quinine (QUININE) Allergy Unknown NA-DIARRHEA Verified 11/08/24 14:00 Assessment and Plan *Assessment and plan (1) Lumbar radiculopathy: Status: Acute Category: Medical Code(s): M54.16 - Radiculopathy, lumbar region (2) Degenerative disc disease, lumbar: Status: Acute Category: Medical Code(s): M51.369 - Other intervertebral disc degeneration, lumbar region without mention of lumbar back pain or lower extremity pain Plan Patient is experiencing worsening pain in her low back with burning, numbness and tingling into her lower extremities. Patient did have limited range of motion of her lumbar spine with a positive leg raise. I did discuss with patient that I do believe they would benefit from a lumbar epidural steroid injection. Risk and benefits were discussed with patient and the patient would like to proceed forward with this plan of care. Patient is not on any blood thinners. Patient has tried and failed conservative therapy including continued at home stretching exercise for longer than 12 weeks between injections that was physician guided. Patient is still actively going to physical therapy however has not noticed any improvement with the symptoms.. Patient did previously have a lumbar epidural back in May that provided 50% relief and lasted longer than 3 months. Patient does have the most significant narrowing of her lumbar spine with moderate canal stenosis and severe bilateral foraminal narrowing at the L3-L4 level. Patient's last epidural was not accessible at that level however I did discuss with patient that we will try and see if this is accessible coming up. patient agrees with this plan of care. We will schedule the patient for an LESI L3-L4 under fluoroscopy. Patient has been instructed to contact the clinic with any concerns before the next appointment. Dr. Olmstead has reviewed this note and agrees with this plan of care. This note was dictated using voice recognition sof [employer] and make contain errors or omissions. All injections are used with Lidocaine, Bupivacaine and Depo Medrol. Occasionally urine drug screen is needed to verify patient's compliance with our office pain contract. This is ordered based off specific treatments related to chronic pain with the potential to abuse certain medications.
[2024-12-11 11:13] VITALS: BP 128/71; PULSE 68; RESP 14; O2SAT 95; BMI 24.7
== END 2024-12-11 23:59 | disposition home or self-care (01) ==
LOC: SC.PAIN 10:14
PROVIDERS: PCP Nurse Practitioner Family; Visit Provider Nurse Practitioner Family
DX: M51.16 Intervertebral disc disorders with radiculopathy, lumbar region (principal); Z73.89 Other problems related to life management difficulty
CPT/HCPCS: 99212; G0463

== ENCOUNTER 2024-12-26 09:39 | Day surgery (SDC) | payer MEDICARE, OTHER, SELFPAY ==
[2024-12-26 09:48] VITALS: BP 121/58; PULSE 73; RESP 16; TEMP 36.4; O2SAT 98; BMI 24.7
[2024-12-26] MEDS: DEXAMETHASONE 10MG/ML 1ML VIAL 10 MG (09:58)
[2024-12-26 09:59] VITALS: BP 140/75; PULSE 79; PULSE 84; RESP 18; O2SAT 98; O2SAT 99
[2024-12-26 10:05] VITALS: BP 129/69; PULSE 77; RESP 16; O2SAT 99
--- NOTE | 2024-12-26 10:06 | EXP.PAIN.PRO ---
Procedure Date: 12/26/24 Time: 09:50 Anesthesiologist:: Von Cline CRNA Complications:: None Pre-procedure Diagnosis:: Degenerative disc lumbar spine multilevels. Lumbar radiculopathy. Lumbar spondylosis. Multilevel lumbar facet arthropathy. Lumbar disc bulge multilevel. Post-procedure Diagnosis:: Same. Indications for Procedure:: Patient is a very pleasant 89-year-old female comes our clinic today for a lumbar epidural steroid injection. Patient describes low lumbar back pain as constant, dull, aching. Patient also reports bilateral leg radicular symptoms to the foot. She rates her pain 7/10. Procedure Details:: Procedure: Lumbar epidural steroid injection under fluoroscopy Informed consent was obtained and the risks and benefits of the procedure were explained to the patient. The patient was taken to the procedure room and noninvasive monitors placed, including noninvasive blood pressure cuff and pulse oximeter. The back was viewed using C-arm Fluoroscopy and prepped using Chloraprep as a cleansing solution and the L4-L5 interspace was palpated. Skin and subcutaneous tissues were anesthetized using lidocaine 1.5% and a 25-gauge needle. After this, an 18-gauge Touhy epidural needle was placed into the L4-L5 interspace and advanced using fluoroscopic guidance and loss of resistance to air until the epidural space was encountered. After confirmation of needle placement in the epidural space, with dye, a solution containing normal saline, 3 mL and Depo-Medrol 80 mg were incrementally injected into the lumbar epidural space. The patient tolerated the procedure well with no complications. L3-4 was not accessible. Plan and Disposition:: Patient was discharged without incident.
== END 2024-12-26 10:05 | disposition home or self-care (01) ==
PROVIDERS: PCP Nurse Practitioner Family; Visit Provider Nurse Anesthetist, Certified Registered
DX: M51.16 Intervertebral disc disorders with radiculopathy, lumbar region (principal); M47.26 Other spondylosis with radiculopathy, lumbar region
CPT/HCPCS: 62323; J1100

== ENCOUNTER 2025-01-10 11:50 | Outpatient (POV) | payer MEDICARE, OTHER, SELFPAY ==
--- NOTE | 2025-01-10 12:38 | EXP.PAIN.SOA ---
[facility] Disclaimer: The information contained in this section may have been updated after the patient was seen, as this information can be updated by other users. Medical History (Updated 01/02/25 @ 10:44 by Lorena Cortes APRN) Acute dysfunction of left eustachian tube Tinnitus of left ear Decreased pulses in feet Claudication of both lower extremities TIA (transient ischemic attack) Localized bullous pemphigoid of vulva Bullous pemphigoid History of smoking 30 or more pack years Dyspnea on exertion Dyspnea Hx of thyroid irradiation Cataract COPD (chronic obstructive pulmonary disease) Hypothyroid GERD (gastroesophageal reflux disease) TIA (transient ischemic attack) Rheumatoid arthritis Chest pain Hypertension Palpitations Raynaud disease Surgical History Hx of colonoscopy Hx of esophagogastroduodenoscopy Hx of hernia repair Hx of tubal ligation Hx of bilateral cataract extraction Family History Other No significant family history Social History Smoking Status: Never smoker smoking status stop date: 2012 second hand exposure: No alcohol intake: never substance use 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tional status: retired Travel in the last 8 weeks?: None household members: none housing: ho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tional exposures/hazards: Yes caffeine: Yes PM Subjective & Objective Subjective Subjective:: Patient is a pleasant 89-year-old female who presents today for follow-up of her lumbar epidural steroid injection L4-L5 on 12/26/2024. Today she rates her pain a 7 out of 10. She denies any new falls or injuries. Patient does state that she did get 50% relief however felt like it was very temporary and only lasted a day or 2. Patient states since then she has been having a lot more pain in and around her hip primarily the right side. Patient does state it is fairly constant. Patient has had multiple injections that do provide significant relief however have been more temporary as of lately. She does state that she has used a heating pad on that hip and that it did really help. She denies any other changes. Her Josué has been reviewed and is appropriate. Review of Systems: General: No recent weight changes, no fever, no sleep disturbances Respiratory: No cough, no shortness of air, no recurring pulmonary infections Cardiovascular/peripheral vascular: No chest pain, no palpitations, no edema, no shortness of breath Gastrointestinal: No new onset incontinence, normal bowel movements reported Genitourinary: No new onset incontinence Musculoskeletal: Right hip pain Psychiatric: [Normal mood/affect] Neurological: [Denies weakness in extremities], [denies balance issues] Pain at rest (0-10 scale): 7 Objective Objective:: Physical Exam: General: Alert and oriented x3, no acute distress, pleasant and cooperative Lungs: Respirations even and unlabored, symmetrical chest expansion Eyes: PERRL Musculoskeletal: Flexion and extension of lumbar [spine] somewhat guarded secondary to pain, [antalgic gait noted] Neurological: Speech clear, no gross sensory deficit Has patient had previous pain injection?: Yes Percent improvement in pain since last injection: 50% lasting 2 days Conservative treatment options previously tried: Home exercise plan Length of treatment: Longer than 12 weeks Meds Home Medications and Allergies Home Medications ?Medication ?Instructions ?Recorded ?Confirmed ?Type polyethylene glycol 3350 17 gram 17 g PO DAILY 10/19/17 01/10/25 History oral powder packet vitamin E 268 mg (400 unit) capsule 400 unit PO DAILY 11/04/17 01/10/25 History levothyroxine 88 mcg tablet 88 mcg PO DAILY 30 days ##30 12/30/17 01/10/25 History hydroxychloroquine 200 mg tablet 200 mg PO DAILY 11/04/18 01/10/25 History calcium 500 mg (as 1 tab PO BID Supplement 10/30/20 01/10/25 History carbonate)-vitamin D3 3.125 mcg (125 unit) tablet cyanocobalamin (B12)-cobamamide 1 each sublingual BID 01/03/21 01/10/25 History 5,000 mcg-100 mcg sublingual tablet gabapentin 100 mg capsule 100 mg PO DAILY 02/23/22 01/10/25 History omeprazole 20 mg capsule,delayed 20 mg PO DAILY 08/17/22 01/10/25 History release dupilumab 200 mg/1.14 mL 200 mg SQ WEEKLY BLISTERS 05/15/24 01/10/25 History subcutaneous pen injector (Dupixent) duloxetine 20 mg capsule,delayed 20 mg PO DAILY 10/03/24 01/10/25 History release hydrochlorothiazide 25 mg tablet 25 mg PO DAILY 10/03/24 01/10/25 History ipratropium 0.5 mg-albuterol 3 mg 3 ml inhalation Q6H PRN wheezing 10/03/24 01/10/25 Rx (2.5 mg base)/3 mL nebulization #180 mL soln cetirizine 10 mg tablet 10 mg PO DAILY PRN ALLERGIES 01/02/25 01/10/25 History cyclosporine 0.05 % eye drops in a 1 drp Eye-Both BID 01/02/25 01/10/25 History dropperette fluticasone propionate 50 1 spray intranasal DIRECTED 01/02/25 01/10/25 History mcg/actuation nasal ALLERGIES spray,suspension tramadol 50 mg tablet 50 mg PO DAILY #14 tabs 01/10/25 Rx New Prescriptions to Start Prescriptions: tramadol Megan Madedn Allergies Allergy/AdvReac Type Severity Reaction Status Date / Time fish oil (FISH OIL) Allergy Unknown SWELLING Verified 01/02/25 10:11 quinine (QUININE) Allergy Unknown NA-DIARRHEA Verified 01/02/25 10:11 Assessment and Plan *Assessment and plan (1) Lumbar radiculopathy: Status: Acute Category: Medical Code(s): M54.16 - Radiculopathy, lumbar region (2) Degenerative disc disease, lumbar: Status: Acute Category: Medical Code(s): M51.369 - Other intervertebral disc degeneration, lumbar region without mention of lumbar back pain or lower extremity pain (3) Bilateral hip pain: Status: Acute Category: Medical Code(s): M25.551 - Pain in right hip; M25.552 - Pain in left hip Plan I did discuss with the patient due to her only getting more temporary relief then it may be more beneficial to try a medication as needed. Patient would like to proceed forward with this option. She does state that she typically will use Tylenol as needed. Patient did make mention that she has a history of liver issues. I did review over her most up-to-date labs and it does appear that her kidney function is within normal range. I will send in a 2-week dose of tramadol 50 mg daily. Patient was counseled to not take this medication and operate heavy machinery such as driving. Patient acknowledges understanding. Patient does already have a follow-up appointment with pulmonology coming up on January 30. We will make a follow-up appointment to review over how she does with this medication and whether or not if it is beneficial. Patient agrees with this plan of care. Patient has been instructed to contact the clinic with any concerns before the next appointment. Dr. Olmstead has reviewed this note and agrees with this plan of care. This note was dictated using voice recognition software and make contain errors or omissions. All injections are used with Lidocaine, Bupivacaine and dexamethasone. Occasionally urine drug screen is needed to verify patient's compliance with our office pain contract. This is ordered based off specific treatments related to chronic pain with the potential to abuse certain medications.
[2025-01-10 12:48] VITALS: BP 120/69; PULSE 68; RESP 18; O2SAT 99; BMI 24.7
== END 2025-01-10 23:59 | disposition home or self-care (01) ==
PROVIDERS: PCP Nurse Practitioner Family; Visit Provider Nurse Practitioner Family
DX: M51.16 Intervertebral disc disorders with radiculopathy, lumbar region (principal); M25.551 Pain in right hip; M25.552 Pain in left hip; Z79.899 Other long term (current) drug therapy
CPT/HCPCS: 99212; G0463

== ENCOUNTER 2025-01-23 10:12 | Observation (INO) | payer MEDICARE, OTHER, SELFPAY ==
[2025-01-23] VITALS (24 sets, daily range): BP systolic 55–147; BP diastolic 38–84; PULSE 62–80; RESP 12–22; TEMP 36.4–36.7; O2SAT 2–100; BMI 21.6; BMI 26.3
--- NOTE | 2025-01-23 10:18 | CT_ITS ---
FINAL REPORT TECHNIQUE: Axial images were obtained of the cervical spine by computed tomography. Coronal and sagittal reconstruction process performed. This study was performed with techniques to keep radiation doses as low as reasonably achievable (ALARA). Individualized dose reduction techniques using automated exposure control or adjustment of mA and/or kV according to the patient''s size were employed. CLINICAL HISTORY: Fall FINDINGS: There is moderate disc space narrowing at C3-4, C5-6, and C6-7. There is endplate sclerosis. There is minimal degenerative spondylolisthesis of C3 on 4 and C5 on 6. Neuroforaminal narrowing is most evident on the right at C5-6. No acute fracture is identified. IMPRESSION: Multilevel degenerative change without acute bony abnormality. Reviewed, Interpreted and Dictated by Chapincito Stallworth MD Transcribed by Jewell Johnson Authenticated and [facility]
--- NOTE | 2025-01-23 10:18 | CT_ITS ---
FINAL REPORT TECHNIQUE: Multiple axial CT images were performed from the foramen magnum to the vertex without enhancement. Reformatted images were obtained and reviewed. This study was performed with techniques to keep radiation doses as low as reasonably achievable, (ALARA). Individualized dose reduction techniques using automated exposure control or adjustment of mA and/or kV according to the patient's size were employed. CLINICAL HISTORY: Fall FINDINGS: There is mild atrophy. The ventricles are normal in size. There is is decreased attenuation throughout the deep white matter. There is no evidence of hemorrhage, mass effect, or edema. No extra-axial fluid is seen. The sinuses are normal. IMPRESSION: Atrophy and deep white matter changes. Reviewed, Interpreted and Dictated by Chapincito Stallworth MD Transcribed by Jewell Johnson Authenticated and . [facility]
--- NOTE | 2025-01-23 10:18 | XR_ITS ---
FINAL REPORT CLINICAL HISTORY: Fall COMPARISON: None FINDINGS: RIGHT SHOULDER Three views demonstrate a comminuted mildly displaced fracture of the distal clavicle. The claimant appears intact. There is a defect of the proximal humerus, probably chronic and related to old fracture. The soft tissues are unremarkable. IMPRESSION: Distal clavicle fracture. Probable chronic proximal humerus defect. Reviewed, Interpreted and Dictated by Chapincito Stallowrth MD Transcribed by Haley Rodrigues Authenticated and [facility]
--- NOTE | 2025-01-23 10:18 | XR_ITS ---
FINAL REPORT CLINICAL HISTORY: fall COMPARISON: None FINDINGS: RIGHT HIP Two views of the right hip with an AP view of the pelvis demonstrate no acute fracture or dislocation. There are advanced changes of degenerative disc disease in the lower lumbar spine. The hip joint spaces appear intact. The visualized bony structures are well aligned. No soft tissue abnormality is seen. IMPRESSION: No acute bony abnormality. Reviewed, Interpreted and Dictated by Chapincito Stallworth MD Transcribed by Haley Rodrigues Authenticated and [facility]
--- NOTE | 2025-01-23 10:18 | XR_ITS ---
FINAL REPORT CLINICAL HISTORY: fall COMPARISON: None FINDINGS: Two views of the right femur were obtained. There is no acute fracture or dislocation. There is an unusual calcification identified inferior to the patella seen on the lateral view measuring 2.3 x 3.3 cm in craniocaudal and transverse dimensions. This lies eccentric laterally and may be due to old trauma or calcified hematoma. The joint spaces are well preserved. There is no acute soft tissue abnormality. IMPRESSION: No acute abnormality identified. Reviewed, Interpreted and Dictated by Chapincito Stallworth MD Transcribed by Haley Rodrigues Authenticated and [facility]
--- NOTE | 2025-01-23 10:18 | CT_ITS ---
FINAL REPORT TECHNIQUE: Axial images were obtained through the chest without contrast. Reformatted images were obtained and reviewed. This study was performed with techniques to keep radiation doses as low as reasonably achievable, (ALARA). Individualized dose reduction techniques using automated exposure control or adjustment of mA and/or kV according to the patient's size were employed. CLINICAL HISTORY: fall FINDINGS: There is dense vascular calcification of the aortic arch. 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 The heart size is normal. There is no pericardial or pleural effusion. There is an ill-defined low-attenuation region in the periphery of the right lobe of the liver measuring about 3 cm in diameter well-seen on image 56 of series 6 and images 36 and 37 of series 1001. There is no acute bony abnormality. IMPRESSION: Incidentally noted low-attenuation area in the liver which is nonspecific. Dedicated infused abdomen and pelvic CT may be of value. Reviewed, Interpreted and Dictated by Chapincito Stallworth MD Transcribed by Jewell Johnson Authenticated and [facility]
--- NOTE | 2025-01-23 10:19 | ECG_ITS ---
APPROVED REPORT Exam: Resting ECG HR:76 bpm ECG Measurements Heart Rate 76 AXES RI 182 P 66 QRSd 131 QRS 9 QT 407 T 32 QTc 438 Conclusion Sinus rhythm Electronically signed by : ERENDIRA WAITE, 01/24/2025 08:23:07
--- NOTE | 2025-01-23 10:20 | PC.NURSE ---
Pt continues to be acutely confused. pt sons at bedside at this time and state that this is not her normal. This nurse notified Dr. Winchester and midlevel provider at this time who stated they did not want to Stroke Alert the patient and are putting in trauma scans at this time and didnt want angios. I called radiology and spoke to Shantel to notify her the patient needed to go back for scan as quick as possible due to acute confusion.
--- NOTE | 2025-01-23 10:25 | PC.NURSE ---
97 FSBS at this time.
--- NOTE | 2025-01-23 10:26 | [facility].EDGENADL ---
Discharge Plan Disposition Patient Disposition: Admitted Clinical Impressions Clinical Impression: Concussion, Clavicle fracture Discharge ED Provider: Richard Lai General Adult HPI <Pari Spencer, CERTIFIED DRIVER EXAMINER - Last Filed: 01/23/25 16:19> General Chief complaint: Fall Stated complaint: Fall Time Seen by Provider: 01/23/25 10:16 History of Present Illness HPI narrative: Noted family is an 89-year-old female past medical history significant for COPD, HTN, RA, who presents emergency room today after a mechanical fall. Ms. 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 Son was with her but went to get the truck, bystanders noted that she appeared to trip and fall forward. Bystanders note that she did not hit her head. Patient is altered upon arrival, perseverating asking why did I fall . Patient is complaining of right-sided shoulder pain, right hip pain, right rib pain. Patient is not complaining of any head or neck pain. No back pain noted. Does not take any blood thinners. Son states that she does seem confused currently. Was reported to be normal AAOx4 before arrival to the ED. No complaints noted at home, no chest pain, shortness of breath, dysuria, hematuria, fever. No recent illness noted, no known sick contacts. No focal neurodeficits noted. Patient able to move all extremities symmetrically. Is not on any blood thinners. No other acute complaints at this time. Please note that the above description of symptoms, and this electronic medical record under categorization of recalled from ER triage doctor by RN are reflective of an initial nursing assessment, however, is not reflective of my full history and physical exam that was personally taken and clarified. Consequentially, this proceeding description of symptoms, which may include the patient's cauterized chief complaint in the EMR, do not reflect my personal clinical impression, and the ultimate description of the history of present illness stated complaints should be deferred to this section of this note. Unless stated otherwise were congruent with the section of the note, additional signs, symptoms, or incongruence can be interpreted as in or accurate with my clinical impression. Related Data Home Medications ?Medication ?Instructions ?Recorded ?Confirmed polyethylene glycol 3350 17 gram 17 g PO DAILY 10/19/17 01/10/25 oral powder packet vitamin E 268 mg (400 unit) capsule 400 unit PO DAILY 11/04/17 01/10/25 levothyroxine 88 mcg tablet 88 mcg PO DAILY 30 days ##30 12/30/17 01/10/25 hydroxychloroquine 200 mg tablet 200 mg PO DAILY 11/04/18 01/10/25 calcium 500 mg (as 1 tab PO BID Supplement 10/30/20 01/10/25 carbonate)-vitamin D3 3.125 mcg (125 unit) tablet cyanocobalamin (B12)-cobamamide 1 each sublingual BID 01/03/21 01/10/25 5,000 mcg-100 mcg sublingual tablet gabapentin 100 mg capsule 100 mg PO DAILY 02/23/22 01/10/25 omeprazole 20 mg capsule,delayed 20 mg PO DAILY 08/17/22 01/10/25 release dupilumab 200 mg/1.14 mL 200 mg SQ WEEKLY BLISTERS 05/15/24 01/10/25 subcutaneous pen injector (Dupixent) duloxetine 20 mg capsule,delayed 20 mg PO DAILY 10/03/24 01/10/25 release hydrochlorothiazide 25 mg tablet 25 mg PO DAILY 10/03/24 01/10/25 cetirizine 10 mg tablet 10 mg PO DAILY PRN ALLERGIES 01/02/25 01/10/25 cyclosporine 0.05 % eye drops in a 1 drp Eye-Both BID 01/02/25 01/10/25 dropperette fluticasone propionate 50 1 spray intranasal DIRECTED 01/02/25 01/10/25 mcg/actuation nasal ALLERGIES spray,suspension Previous Rx's ?Medication ?Instructions ?Recorded ipratropium 0.5 mg-albuterol 3 mg 3 ml inhalation Q6H PRN wheezing 10/03/24 (2.5 mg base)/3 mL nebulization #180 mL soln tramadol 50 mg tablet 50 mg PO DAILY #14 tabs 01/10/25 Allergies Allergy/AdvReac Type Severity Reaction Status Date / Time fish oil (FISH OIL) Allergy Unknown SWELLING Verified 01/02/25 10:11 quinine (QUININE) Allergy Unknown NA-DIARRHEA Verified 01/02/25 10:11 [facility] <Pari Spencer, CERTIFIED DRIVER EXAMINER - Last Filed: 01/23/25 16:19> [facility] Disclaimer: The information contained in this section may have been updated after the patient was seen, as this information can be updated by other users. 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 History of smoking 30 or more pack years Dyspnea on exertion Dyspnea Hx of thyroid irradiation Cataract COPD (chronic obstructive pulmonary disease) Hypothyroid GERD (gastroesophageal reflux disease) TIA (transient ischemic attack) Rheumatoid arthritis Chest pain Hypertension Palpitations Raynaud disease Surgical History Hx of colonoscopy Hx of esophagogastroduodenoscopy Hx of hernia repair Hx of tubal ligation Hx of bilateral cataract extraction Family History Other No significant family history Social History Smoking Status: Former smoker tobacco type: cigarettes smoking status stop date: 2012 second hand exposure: No alcohol intake: never substance use 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tional status: retired Travel in the last 8 weeks?: None household members: none housing: ho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tional exposures/hazards: Yes caffeine: Yes Have you lived/traveled outside [place] in past 30 days?: No Contact w/someone who lives/traveled outside US past 30 days?: No Exposure to someone with infectious disease in past 14 days?: No Do you have a fever (greater than 100.4 F or 38 C)?: No Have you tested positive for COVID-19?: No Exposed to someone with COVID-19 in past 14 days?: No Do you have a sore throat?: No Do you have a cough?: No Do you have any weakness?: No Are you experiencing any nausea/vomitting?: No Do you have any diarrhea?: No Are you experiencing any unusual bleeding?: No Do you have any muscle aches/pain?: No Do you have any abdominal pain?: No Are you experiencing loss of taste or smell?: No Other Medical History Have you received the Flu Vaccine for this season: Yes Have you received the Pneumonia Vaccine: Yes <Pari Spencer APRN - Last Filed: 01/23/25 16:19> ROS Obtained: Yes Systems reviewed as appropriate & no additional complaints except as documented Physical Exam <Pari Spencer APRN - Last Filed: 01/23/25 16:19> General General appearance: alert and in no apparent distress Head Head exam: atraumatic and normocephalic Eye Eye exam: Present PERRL and EOMI Chest Chest inspection: Present symmetric chest wall rise Respiratory Respiratory exam: Present normal lung sounds bilaterally Cardiovascular Cardiovascular exam: Present regular rate and normal rhythm Abdominal Exam Abdominal exam: Present soft and normal bowel sounds; Absent tenderness Extremities Exam Extremities exam: Present full ROM and tenderness (R shoulder TTP, R hip TTP, ) Neurological Exam Neurological exam: Present alert; Absent oriented X3 (Alert to self and place, ) or motor sensory deficit Skin Skin exam: Present warm, dry and intact Medical Decision Making <Pari Spencer APRN - Last Filed: 01/23/25 16:19> Medical Records Screening: Per USPSTF and CDC recommendations, given the prevalence of disease in our region, it is our hospital?s policy to screen for HIV and viral Hepatitis for all patients aged 18 and over and those with ongoing risk factors. Josué Inquiry Pt receiving controlled substance: No Vital Signs: 01/23/25 10:25 01/23/25 10:59 01/23/25 11:04 Temperature 98.1 F Temperature Source Axillary Pulse Rate 69 71 Respiratory Rate 20 12 Blood Pressure 138/69 141/74 H Blood Pressure Mean Blood Pressure Source Automatic Cuff Blood Pressure Position Sitting 02 Sat by Pulse Oximetry 97 93 L 100 Oxygen Delivery Method Room Air Room Air Oxygen Flow Rate (LPM) 01/23/25 11:30 01/23/25 12:00 01/23/25 12:30 Temperature Temperature Source Pulse Rate 71 75 74 Respiratory Rate 13 13 15 Blood Pressure 143/82 H 135/79 147/84 H Blood Pressure Mean Blood Pressure Source Blood Pressure Position 02 Sat by Pulse Oximetry 97 96 96 Oxygen Delivery Method Oxygen Flow Rate (LPM) 01/23/25 13:00 01/23/25 13:31 01/23/25 14:30 Temperature Temperature Source Pulse Rate 80 73 Respiratory Rate 13 15 15 Blood Pressure 123/70 114/62 112/63 Blood Pressure Mean Blood Pressure Source Blood Pressure Position 02 Sat by Pulse Oximetry 96 96 Oxygen Delivery Method Oxygen Flow Rate (LPM) 01/23/25 15:00 01/23/25 15:05 01/23/25 15:05 Temperature Temperature Source Pulse Rate Respiratory Rate 13 18 Blood Pressure 126/60 89/57 L 89/57 L Blood Pressure Mean 67 Blood Pressure Source Blood Pressure Position 02 Sat by Pulse Oximetry Oxygen Delivery Method Oxygen Flow Rate (LPM) 01/23/25 15:07 01/23/25 15:11 01/23/25 15:14 Temperature Temperature Source Pulse Rate 76 Respiratory Rate 21 22 Blood Pressure 55/38 L 107/52 L 130/75 Blood Pressure Mean 43 Blood Pressure Source Blood Pressure Position 02 Sat by Pulse Oximetry 100 Oxygen Delivery Method Oxygen Flow Rate (LPM) 01/23/25 15:19 01/23/25 15:30 01/23/25 16:00 Temperature Temperature Source Pulse Rate 77 76 74 Respiratory Rate 16 14 16 Blood Pressure 136/79 132/70 135/74 Blood Pressure Mean Blood Pressure Source Blood Pressure Position 02 Sat by Pulse Oximetry 100 98 94 L Oxygen Delivery Method Oxygen Flow Rate (LPM) 01/23/25 16:26 01/23/25 16:32 01/23/25 17:01 Temperature Temperature Source Pulse Rate 70 69 62 Respiratory Rate 18 17 20 Blood Pressure 117/72 103/71 L 104/63 L Blood Pressure Mean Blood Pressure Source Blood Pressure Position 02 Sat by Pulse Oximetry 92 L 93 L 94 L Oxygen Delivery Method Nasal Cannula Oxygen Flow Rate (LPM) 2 01/23/25 17:11 01/23/25 17:30 01/23/25 17:58 Temperature 98.1 F Temperature Source Oral Pulse Rate 71 Respiratory Rate 20 16 Blood Pressure 114/74 118/74 Blood Pressure Mean Blood Pressure Source Automatic Cuff Blood Pressure Position Supine 02 Sat by Pulse Oximetry 94 L Oxygen Delivery Method Nasal Cannula Nasal Cannula Room Air Oxygen Flow Rate (LPM) 2 2 Lab Data Lab Results 01/23/25 10:25: WBC 10.3, RBC 3.76 L, Hgb 11.4 L, Hct 35.4 L, MCV 94.1, MCH 30.3, MCHC 32.2, RDW 14.2, Plt Count 262, MPV 9.2, Neut % (Auto) 61.9, Lymph % (Auto) 23.7, [place] % (Auto) 9.3, Eos % (Auto) 2.9, Baso % (Auto) 0.7, Neut # (Auto) 6.4, Lymph # (Auto) 2.4, [place] # (Auto) 1.0, Eos # (Auto) 0.3, Baso # (Auto) 0.1, Sodium 134 L, Potassium 4.0, Chloride 102, Carbon Dioxide 29, Anion Gap 7.0, BUN 14, Creatinine 0.70, Estimated Creat Clear 37, Estimated GFR 79, Est GFR ( Amer) 96, Glucose 97, Calcium 9.2, Magnesium 1.8, Total Bilirubin 0.4, AST 41 H, ALT 23, Alkaline Phosphatase 93, Total Protein 6.3, Albumin 3.9, Globulin 2.4, Albumin/Globulin Ratio 1.6, TSH 1.36, HCV Ab KALEB w/Rflx PCR Qn Negative, HIV Ag/Ab Combo Qual Negative 01/23/25 13:30: Urine Color Yellow, Urine Appearance Clear, Urine pH 8.0, Ur Specific [place] 1.020, Urine Protein Negative, Urine Glucose (UA) Negative, Urine Ketones Negative, Urine Blood Negative, Urine Nitrate Negative, Urine Bilirubin Negative, Urine Urobilinogen 1.0, Ur Leukocyte Esterase Negative, Urine RBC None, Urine WBC Occasional, Ur Squamous Epith Cells Occasional, Urine Bacteria Trace 01/24/25 06:25 01/23/25 10:25 Orders (Tests/Meds): ED MEDICATIONS Generic Name Dose Route Start Last Admin Trade Name Freq PRN Reason Stop Dose Admin Hydroxychloroquine Sulfate 200 mg 01/24/25 09:00 Hydroxychloroquine Sulfate 200mg Tablet PO 02/03/25 08:59 DAILY NERI Lactated Ringer's 1,000 mls @ 75 mls/hr 01/23/25 21:15 01/23/25 22:15 Lactated Ringer's 1000 Ml Bag IV 02/22/25 21:14 75 mls/hr .[id number] NERI Administration Ketorolac Tromethamine 15 mg 01/23/25 21:13 01/24/25 03:40 Ketorolac 30mg/Ml Vial IV 01/28/25 21:12 15 mg Q6HP PRN Administration Moderate to Severe Pain (4-10) Levothyroxine Sodium 88 mcg 01/24/25 09:00 Levothyroxine 88mcg (0.088mg) Tab PO 02/23/25 08:59 DAILY NERI Sodium Chloride 10 ml 01/23/25 21:11 Sodium Chloride 0.9% 10ml Flush Syringe IV 02/22/25 21:10 NEEDED PRN Maintain IV Site Discontinued Medications Generic Name Dose Route Start Last Admin Trade Name Opal PRN Reason Stop Dose Admin Acetaminophen 1,000 mg 01/23/25 10:18 01/23/25 10:45 Acetaminophen 500mg Tab PO 01/23/25 10:19 1,000 mg ONCE ONE Administration Lactated Ringer's 1,000 mls @ 999 mls/hr 01/23/25 14:11 01/23/25 14:20 Lactated Ringer's 1000 Ml Bag IV 01/23/25 15:11 999 mls/hr .Q1H1M ONE Administration Ketorolac Tromethamine 15 mg 01/23/25 11:11 01/23/25 11:21 Ketorolac 30mg/Ml Vial IV 01/23/25 11:12 15 mg ONCE ONE Administration Morphine Sulfate 4 mg 01/23/25 10:18 01/23/25 10:45 Morphine 2mg/Ml Syringe IV 01/23/25 10:19 4 mg ONCE ONE Administration Ondansetron HCl 4 mg 01/23/25 10:18 01/23/25 10:45 Ondansetron 4mg/2ml Vial IV 01/23/25 10:19 4 mg ONCE ONE Administration Oxycodone HCl 5 mg 01/23/25 17:02 01/23/25 19:12 Oxycodone 5mg Immediate Release Tablet PO 01/23/25 17:03 Not Given ONCE ONE ORDERS Category Date Time Status CT cervical spine wo con Stat Cat Scan 01/23/25 10:[address] chest wo con Stat Cat Scan 01/23/25 10:[address] head/brain wo con Stat Cat Scan 01/23/25 10:18 Completed XR femur RT 2V Stat Exams 01/23/25 10:18 Completed XR hip RT 2-3V w/pelvis Stat Exams 01/23/25 10:18 Completed XR shoulder RT min 2V Stat Exams 01/23/25 10:18 Completed CBC w/Auto Diff [Complete Blood Count Auto Diff] Stat Lab 01/23/25 10:25 Completed CMP [Comprehensive Metabolic Panel] Stat Lab 01/23/25 10:25 Completed Complete Blood Count Auto Diff AMLAB Lab 01/24/25 06:25 Results Comprehensive Metabolic Panel AMLAB Lab 01/24/25 06:25 Received HIV Combo Stat Lab 01/23/25 10:25 Completed Hepatitis C Ab Qual. W/ RFX Stat Lab 01/23/25 10:25 Completed MAG [Magnesium] Stat Lab 01/23/25 10:25 Completed Magnesium AMLAB Lab 01/24/25 06:25 Received TSH [Thyroid Stimulating Hormone] Stat Lab 01/23/25 10:25 Completed UA [Urinalysis and Microscopic] Stat Lab 01/23/25 13:30 Completed Medical Decision Narrative: In summary patient is an 89-year-old female who presents emergency department for evaluation of mechanical fall. Patient is hemodynamically stable upon arrival, afebrile. Patient tender to palpation with right shoulder, right sided ribs, right hip. Differential diagnosis includes rib fractures, right hip fracture, versus musculoskeletal pain, among others. Patient does have some mild confusion upon arrival, differential diagnosis include intracranial hemorrhage versus acute cystitis versus, among others. Initial workup will be conducted with [hematologic labs, UA, noncontrasted CT of the head, C-spine, chest, plain films of right shoulder, right hip and pelvis, imaging. Initial interventions include C-spine immobilization, pain medications. Initial workup reviewed by id labwork was essentially unremarkable, CT of the head and C-spine showed no acute fractures, no acute intracranial abnormality. X-ray of the right shoulder showed a distal clavicle fracture. X-ray of the right hip and femur were negative for fracture. Patient developed a bit of mild confusion after the morphine administration according to family. No focal deficits were identified, MD and midlevel provider at bedside for reassessment. CTA of the head and neck were considered for questionable strokelike symptoms reported by the family. However, patient without any focal deficits, no facial droop, no unilateral weakness, numbness, tingling. Patient alert and oriented x 3. Upon repeat evaluation patient had an acceptable response to her pain which was improved with morphine, did given additional Toradol dose for ongoing pain management. Given this, patient was deemed appropriate for discharge. She does have family who are very supportive, are willing to help with caring for her at home. Patient was initially planned to be up for discharge. Upon sitting up to side of bed to go home, patient became severely orthostatic and blood pressure dropped into the 70s. She became very lightheaded, pale, dizzy. Patient was given a 1.5 L IV fluid bolus. Attempted to recheck orthostatic vital signs and send the patient home after the fluid bolus, patient continued to be severely orthostatic and still complaining of dizziness, lightheadedness upon sitting up on the side of the bed. The case was discussed with hospital medicine regarding management and they have graciously accepted patient for admission for overnight observation for ongoing evaluation of orthostatic hypotension. <Richard Lai MD - Last Filed: 01/24/25 07:33> Vital Signs: 01/23/25 10:25 01/23/25 10:59 01/23/25 11:04 Temperature 98.1 F Temperature Source Axillary Pulse Rate 69 71 Respiratory Rate 20 12 Blood Pressure 138/69 141/74 H Blood Pressure Mean Blood Pressure Source Automatic Cuff Blood Pressure Position Sitting 02 Sat by Pulse Oximetry 97 93 L 100 Oxygen Delivery Method Room Air Room Air Oxygen Flow Rate (LPM) 01/23/25 11:30 01/23/25 12:00 01/23/25 12:30 Temperature Temperature Source Pulse Rate 71 75 74 Respiratory Rate 13 13 15 Blood Pressure 143/82 H 135/79 147/84 H Blood Pressure Mean Blood Pressure Source Blood Pressure Position 02 Sat by Pulse Oximetry 97 96 96 Oxygen Delivery Method Oxygen Flow Rate (LPM) 01/23/25 13:00 01/23/25 13:31 01/23/25 14:30 Temperature Temperature Source Pulse Rate 80 73 Respiratory Rate 13 15 15 Blood Pressure 123/70 114/62 112/63 Blood Pressure Mean Blood Pressure Source Blood Pressure Position 02 Sat by Pulse Oximetry 96 96 Oxygen Delivery Method Oxygen Flow Rate (LPM) 01/23/25 15:00 01/23/25 15:05 01/23/25 15:05 Temperature Temperature Source Pulse Rate Respiratory Rate 13 18 Blood Pressure 126/60 89/57 L 89/57 L Blood Pressure Mean 67 Blood Pressure Source Blood Pressure Position 02 Sat by Pulse Oximetry Oxygen Delivery Method Oxygen Flow Rate (LPM) 01/23/25 15:07 01/23/25 15:11 01/23/25 15:14 Temperature Temperature Source Pulse Rate 76 Respiratory Rate 21 22 Blood Pressure 55/38 L 107/52 L 130/75 Blood Pressure Mean 43 Blood Pressure Source Blood Pressure Position 02 Sat by Pulse Oximetry 100 Oxygen Delivery Method Oxygen Flow Rate (LPM) 01/23/25 15:19 01/23/25 15:30 01/23/25 16:00 Temperature Temperature Source Pulse Rate 77 76 74 Respiratory Rate 16 14 16 Blood Pressure 136/79 132/70 135/74 Blood Pressure Mean Blood Pressure Source Blood Pressure Position 02 Sat by Pulse Oximetry 100 98 94 L Oxygen Delivery Method Oxygen Flow Rate (LPM) 01/23/25 16:26 01/23/25 16:32 01/23/25 17:01 Temperature Temperature Source Pulse Rate 70 69 62 Respiratory Rate 18 17 20 Blood Pressure 117/72 103/71 L 104/63 L Blood Pressure Mean Blood Pressure Source Blood Pressure Position 02 Sat by Pulse Oximetry 92 L 93 L 94 L Oxygen Delivery Method Nasal Cannula Oxygen Flow Rate (LPM) 2 01/23/25 17:11 01/23/25 17:30 01/23/25 17:58 Temperature 98.1 F Temperature Source Oral Pulse Rate 71 Respiratory Rate 20 16 Blood Pressure 114/74 118/74 Blood Pressure Mean Blood Pressure Source Automatic Cuff Blood Pressure Position Supine 02 Sat by Pulse Oximetry 94 L Oxygen Delivery Method Nasal Cannula Nasal Cannula Room Air Oxygen Flow Rate (LPM) 2 2 Lab Data Lab Results 01/23/25 10:25: WBC 10.3, RBC 3.76 L, Hgb 11.4 L, Hct 35.4 L, MCV 94.1, MCH 30.3, MCHC 32.2, RDW 14.2, Plt Count 262, MPV 9.2, Neut % (Auto) 61.9, Lymph % (Auto) 23.7, [place] % (Auto) 9.3, Eos % (Auto) 2.9, Baso % (Auto) 0.7, Neut # (Auto) 6.4, Lymph # (Auto) 2.4, [place] # (Auto) 1.0, Eos # (Auto) 0.3, Baso # (Auto) 0.1, Sodium 134 L, Potassium 4.0, Chloride 102, Carbon Dioxide 29, Anion Gap 7.0, BUN 14, Creatinine 0.70, Estimated Creat Clear 37, Estimated GFR 79, Est GFR ( Amer) 96, Glucose 97, Calcium 9.2, Magnesium 1.8, Total Bilirubin 0.4, AST 41 H, ALT 23, Alkaline Phosphatase 93, Total Protein 6.3, Albumin 3.9, Globulin 2.4, Albumin/Globulin Ratio 1.6, TSH 1.36, HCV Ab KALEB w/Rflx PCR Qn Negative, HIV Ag/Ab Combo Qual Negative 01/23/25 13:30: Urine Color Yellow, Urine Appearance Clear, Urine pH 8.0, Ur Specific [place] 1.020, Urine Protein Negative, Urine Glucose (UA) Negative, Urine Ketones Negative, Urine Blood Negative, Urine Nitrate Negative, Urine Bilirubin Negative, Urine Urobilinogen 1.0, Ur Leukocyte Esterase Negative, Urine RBC None, Urine WBC Occasional, Ur Squamous Epith Cells Occasional, Urine Bacteria Trace Orders (Tests/Meds): ED MEDICATIONS Generic Name Dose Route Start Last Admin Trade Name Freq PRN Reason Stop Dose Admin Hydroxychloroquine Sulfate 200 mg 01/24/25 09:00 Hydroxychloroquine Sulfate 200mg Tablet PO 02/03/25 08:59 DAILY NERI Lactated Ringer's 1,000 mls @ 75 mls/hr 01/23/25 21:15 01/23/25 22:15 Lactated Ringer's 1000 Ml Bag IV 02/22/25 21:14 75 mls/hr .[id number] NERI Administration Ketorolac Tromethamine 15 mg 01/23/25 21:13 01/24/25 03:40 Ketorolac 30mg/Ml Vial IV 01/28/25 21:12 15 mg Q6HP PRN Administration Moderate to Severe Pain (4-10) Levothyroxine Sodium 88 mcg 01/24/25 09:00 Levothyroxine 88mcg (0.088mg) Tab PO 02/23/25 08:59 DAILY NERI Sodium Chloride 10 ml 01/23/25 21:11 Sodium Chloride 0.9% 10ml Flush Syringe IV 02/22/25 21:10 NEEDED PRN Maintain IV Site Discontinued Medications Generic Name Dose Route Start Last Admin Trade Name Freq PRN Reason Stop Dose Admin Acetaminophen 1,000 mg 01/23/25 10:18 01/23/25 10:45 Acetaminophen 500mg Tab PO 01/23/25 10:19 1,000 mg ONCE ONE Administration Lactated Ringer's 1,000 mls @ 999 mls/hr 01/23/25 14:11 01/23/25 14:20 Lactated Ringer's 1000 Ml Bag IV 01/23/25 15:11 999 mls/hr .Q1H1M ONE Administration Ketorolac Tromethamine 15 mg 01/23/25 11:11 01/23/25 11:21 Ketorolac 30mg/Ml Vial IV 01/23/25 11:12 15 mg ONCE ONE Administration Morphine Sulfate 4 mg 01/23/25 10:18 01/23/25 10:45 Morphine 2mg/Ml Syringe IV 01/23/25 10:19 4 mg ONCE ONE Administration Ondansetron HCl 4 mg 01/23/25 10:18 01/23/25 10:45 Ondansetron 4mg/2ml Vial IV 01/23/25 10:19 4 mg ONCE ONE Administration Oxycodone HCl 5 mg 01/23/25 17:02 01/23/25 19:12 Oxycodone 5mg Immediate Release Tablet PO 01/23/25 17:03 Not Given ONCE ONE ORDERS Category Date Time Status CT cervical spine wo con Stat Cat Scan 01/23/25 10:[address] chest wo con Stat Cat Scan 01/23/25 10:[address] head/brain wo con Stat Cat Scan 01/23/25 10:18 Completed XR femur RT 2V Stat Exams 01/23/25 10:18 Completed XR hip RT 2-3V w/pelvis Stat Exams 01/23/25 10:18 Completed XR shoulder RT min 2V Stat Exams 01/23/25 10:18 Completed CBC w/Auto Diff [Complete Blood Count Auto Diff] Stat Lab 01/23/25 10:25 Completed CMP [Comprehensive Metabolic Panel] Stat Lab 01/23/25 10:25 Completed Complete Blood Count Auto Diff AMLAB Lab 01/24/25 06:25 Results Comprehensive Metabolic Panel AMLAB Lab 01/24/25 06:25 Received HIV Combo Stat Lab 01/23/25 10:25 Completed Hepatitis C Ab Qual. W/ RFX Stat Lab 01/23/25 10:25 Completed MAG [Magnesium] Stat Lab 01/23/25 10:25 Completed Magnesium AMLAB Lab 01/24/25 06:25 Received TSH [Thyroid Stimulating Hormone] Stat Lab 01/23/25 10:25 Completed UA [Urinalysis and Microscopic] Stat Lab 01/23/25 13:30 Completed ECG Data Tracing #1: I reviewed this ECG and interpreted as documented below: (Sinus rhythm 76 bpm with FL 182, QRS 131, QTc 438. No acute ischemic changes. Normal axis) Medical Decision Narrative: In summary patient is an 89-year-old female who presents emergency department for evaluation of mechanical fall. Patient is hemodynamically stable upon arrival, afebrile. Patient tender to palpation with right shoulder, right sided ribs, right hip. Differential diagnosis includes rib fractures, right hip fracture, versus musculoskeletal pain, among others. Patient does have some mild confusion upon arrival, differential diagnosis include intracranial hemorrhage versus acute cystitis versus, among others. Initial workup will be conducted with [hematologic labs, UA, noncontrasted CT of the head, C-spine, chest, plain films of right shoulder, right hip and pelvis, imaging. Initial interventions include C-spine immobilization, pain medications. Initial workup reviewed by me labwork was essentially unremarkable, CT of the head and C-spine showed no acute fractures, no acute intracranial abnormality. X-ray of the right shoulder showed a distal clavicle fracture. X-ray of the right hip and femur were negative for fracture. Patient developed a bit of mild confusion after the morphine administration according to family. No focal deficits were identified, MD and midlevel provider at bedside for reassessment. CTA of the head and neck were considered for questionable strokelike symptoms reported by the family. However, patient without any focal deficits, no facial droop, no unilateral weakness, numbness, tingling. Patient alert and oriented x 3. Upon repeat evaluation patient had an acceptable response to her pain which was improved with morphine, did given additional Toradol dose for ongoing pain management. Given this, patient was deemed appropriate for discharge. She does have family who are very supportive, are willing to help with caring for her at home. Patient was initially planned to be up for discharge. Upon sitting up to side of bed to go home, patient became severely orthostatic and blood pressure dropped into the 70s. She became very lightheaded, pale, dizzy. Patient was given a 1.5 L IV fluid bolus. Attempted to recheck orthostatic vital signs and send the patient home after the fluid bolus, patient continued to be severely orthostatic and still complaining of dizziness, lightheadedness upon sitting up on the side of the bed. The case was discussed with hospital medicine regarding management and they have graciously accepted patient for admission for overnight observation for ongoing evaluation of orthostatic hypotension. I independently interviewed and examined patient. Patient has tenderness about the right clavicle and tenderness with moving the right shoulder. No midline spinal tenderness, but states her neck feels tight after removal of the cervical collar. Neurologically intact with symmetric strength in upper and lower extremities. I feel incredibly unlikely to be a stroke. Patient's visual acuity also reportedly normal. Initially, patient was pretty confused, did not remember what happened, but throughout her stay in the emergency department, began to remember the event. States that she was walking into the pharmacy, believes that she fell backward, hit her head, but does not remember why she fell. Patient feeling sick, lightheaded, so was given fluids and Zofran. I independently interpreted patient's workup with nonactionable hematologic labs. I also independently interpreted her imaging and she has 1 right-sided anterior rib fracture, questional posterior third rib fracture versus vascular channel, right sided clavicular fracture of the distal third, but no pneumothorax, hemothorax, pulmonary contusion, or other abnormality. Patient CT head and CT C-spine without acute abnormalities. Patient tolerating p.o. intake, checking boxes for home-going, however unable to discharge due to severe orthostasis, admitted. I was consulted by the ANNEMARIE, and we discussed the complexity of the problems being addressed. I approved the treatment and management plan for this patient's care in the Emergency Department, thus performing a substantive portion of the medical decision making. Richard Lai MD Critical Care <Pari Spencer, CERTIFIED DRIVER EXAMINER - Last Filed: 01/23/25 16:19> Critical Care Time Critical Care Time: No
[2025-01-23 10:32] LABS: Basophils # 0.1 K/mm3 (0-0.2); Basophils % 0.7 % (0.1-2.0); Eosinophils # 0.3 Kmm3 (0.0-0.4); Eosinophils % 2.9 % (0.1-12.0); Hematocrit 35.4 % (37.0-47.0); Hemoglobin 11.4 g/dL (12.2-16.2); Immature Granulocytes # 0.15 10^3uL; Immature Granulocytes % 1.5 %; Lymphocytes # 2.4 K/mm3 (0.7-4.5); Lymphocytes % 23.7 % (10-50); Mean Corpuscular HGB Conc 32.2 g/dL (31.8-35.4); Mean Corpuscular Hemoglobin 30.3 pg (27.0-31.2); Mean Corpuscular Volume 94.1 fl (81-99); Mean Platelet Volume 9.2 fl (7.4-10.4); Monocytes % 9.3 % (1.7-9.3); Neutrophils # 6.4 K/mm3 (1.8-7.8); Neutrophils % 61.9 % (37.0-80.0); Nucleated Red Blood Cells # 0 10^3/uL; Nucleated Red Blood Cells % 0 %; Platelet Count 262 K/mm3 (142-424); Red Blood Count 3.76 M/mm3 (4.20-5.40); Red Cell Distribution Width 14.2 % (11.5-17.5); Red Cell Distribution Width-SD 48.7 fL; White Blood Count 10.3 K/mm3 (4.8-10.8)
--- NOTE | 2025-01-23 10:39 | PC.NURSE ---
Pt is currently in CT, will enter full set of vitals when she returns
[2025-01-23 10:40] LABS: Albumin Level 3.9 g/dl (3.5-5.0); Chloride 102 mmol/L (98-107); Sodium 134 mmol/L (136-145)
[2025-01-23 10:42] LABS: Blood Urea Nitrogen 14 mg/dl (7-17); Creatinine Clearance Estimated 37 mL/min (50-200); Estimated Glomerular Filt Rate 79 ml/min (>60); GFR (African American) 96 ML/MIN (>60)
[2025-01-23 10:43] LABS: Alanine Aminotransferase 23 U/L (12-78); Albumin/Globulin Ratio 1.6 (1.1-1.8); Alkaline Phosphatase 93 U/L (38-126); Aspartate Amino Transferase 41 U/L (14-36); Bilirubin,Total 0.4 mg/dl (0.2-1.3); Calcium 9.2 mg/dl (8.4-10.2); Carbon Dioxide 29 mmol/L (22.0-30.0); Globulin 2.4 g/dL (1.3-3.2); Glucose 97 mg/dl (74-100); Magnesium 1.8 mg/dl (1.6-2.3); Total Protein,Serum 6.3 g/dl (6.3-8.2)
[2025-01-23] MEDS: ACETAMINOPHEN 500MG TAB 1000 MG PO (10:45)
[2025-01-23] MEDS: MORPHINE 2MG/ML SYRINGE 4 MG IV (10:45)
[2025-01-23] MEDS: ONDANSETRON 4MG/2ML VIAL 4 MG IV (10:45)
[2025-01-23] MEDS: KETOROLAC 30MG/ML VIAL 15 MG IV (11:21)
[2025-01-23 11:38] LABS: HIV Combo NEGATIVE (Negative)
[2025-01-23 11:46] LABS: Hepatitis C Ab Qual. W/ RFX NEGATIVE (Negative)
[2025-01-23 13:40] LABS: Microscopic, Urine URINE MICROSCOPIC (MICROSCOPIC)
[2025-01-23 13:47] LABS: Appearance,Urine CLEAR (Clear); Bilirubin,Urine Negative (Negative); Blood, Urine Negative (Negative); Color,Urine YELLOW (Yellow); Glucose,Urine (UA) Negative (Negative); Ketones,Urine Negative (Negative); Leukocyte Esterase,Urine Negative (Negative); Nitrate,Urine Negative (Negative); Protein,Urine Negative (Negative)
--- NOTE | 2025-01-23 13:48 | PC.NURSE ---
pt requested meal. pt is sitting on edge of bed eating at this time. pt's sons are at bedside.
[2025-01-23 14:08] LABS: Bacteria,Urine Trace /lpf; Squamous Epithelial Cell,Urine Occasional #/hpf (0-5); WBC,Urine Occasional #/hpf (0-3)
[2025-01-23] MEDS: LACTATED RINGERS 1000ML 1,000 ML 999 ML IV (14:20)
--- NOTE | 2025-01-23 15:13 | PC.NURSE ---
Me and RN Haley were going to get the patient dressed and ready to go in the process the patient stated she was dizzy. we then to orthostatics on her that were. sitting- 89/57 standing- 55/38 laying- 107/52 We then laid her back in bed and let the provider know.
--- NOTE | 2025-01-23 16:16 | EXP.HP ---
History of Present Illness *Admission Date: 01/23/25 *Reason for visit:: fall, syncope *History of present illness: Ms. Harris is an 89-year-old female history of COPD, hypertension, RA who presented the ER after falling in the hospital near clinic pharmacy. She is bring paperwork to her primary care doctor and was waiting for family to take her up. She proceeded to walk into the clinic pharmacy and then was making her way down the stairs when she became dizzy and fell. Her son had stepped to the parking lot to get the truck and she appeared to trip per report from bystanders and fall forward down the stairs. Denies hitting her head or loss of consciousness. Denies nausea or vomiting. Has brought to the ER for evaluation and further management. Complaining of right shoulder pain and right hip pain. Imaging performed along with labs showing nonactionable normal kidney function, normal electrolytes. No signs of anemia. Does not appear to have a right hip fracture. Did however sustain right clavicle fracture. Attempts are made to discharge her home, unfortunately she had persistent orthostatic hypotension noted even after IV fluids. Therefore, medicine was consulted for admission and further management as patient was not deemed safe to discharge home. On arrival to the floor, patient is hemodynamically stable. Alert and oriented x 4. Has her [id number] is at bedside. Feel patient is more or less at her baseline mentation. She has been unsteady and weak with home health for several months now. Has been significant concern for falling risk at home. Lives by herself. Complaining of right hip pain. Necessitating 2 L oxygen for sats in the mid 90s. Denies chest pain, headache. [facility] Disclaimer: The information contained in this section may have been updated after the patient was seen, as this information can be updated by other users. 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 History of smoking 30 or more pack years Dyspnea on exertion Dyspnea Hx of thyroid irradiation Cataract COPD (chronic obstructive pulmonary disease) Hypothyroid GERD (gastroesophageal reflux disease) TIA (transient ischemic attack) Rheumatoid arthritis Chest pain Hypertension Palpitations Raynaud disease Surgical History Hx of colonoscopy Hx of esophagogastroduodenoscopy Hx of hernia repair Hx of tubal ligation Hx of bilateral cataract extraction Family History Other No significant family history Social History Smoking Status: Former smoker tobacco type: cigarettes smoking status stop date: 2012 second hand exposure: No alcohol intake: never substance use 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tional status: retired Travel in the last 8 weeks?: None household members: none housing: ho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tional exposures/hazards: Yes caffeine: Yes Have you lived/traveled outside [place] in past 30 days?: No Contact w/someone who lives/traveled outside US past 30 days?: No Exposure to someone with infectious disease in past 14 days?: No Do you have a fever (greater than 100.4 F or 38 C)?: No Have you tested positive for COVID-19?: No Exposed to someone with COVID-19 in past 14 days?: No Do you have a sore throat?: No Do you have a cough?: No Do you have any weakness?: No Are you experiencing any nausea/vomitting?: No Do you have any diarrhea?: No Are you experiencing any unusual bleeding?: No Do you have any muscle aches/pain?: No Do you have any abdominal pain?: No Are you experiencing loss of taste or smell?: No Other Medical History Have you received the Flu Vaccine for this season: Yes Have you received the Pneumonia Vaccine: Yes Review of Systems Review of Systems Review of systems (narrative): 14 point review of systems performed, pertinent positives and negatives as per HPI Meds Home Medications and Allergies Home Medications ?Medication ?Instructions ?Recorded ?Confirmed ?Type polyethylene glycol 3350 17 gram 17 g PO DAILY 10/19/17 01/10/25 History oral powder packet vitamin E 268 mg (400 unit) capsule 400 unit PO DAILY 11/04/17 01/10/25 History levothyroxine 88 mcg tablet 88 mcg PO DAILY 30 days ##30 12/30/17 01/10/25 History hydroxychloroquine 200 mg tablet 200 mg PO DAILY 11/04/18 01/10/25 History calcium 500 mg (as 1 tab PO BID Supplement 10/30/20 01/10/25 History carbonate)-vitamin D3 3.125 mcg (125 unit) tablet cyanocobalamin (B12)-cobamamide 1 each sublingual BID 01/03/21 01/10/25 History 5,000 mcg-100 mcg sublingual tablet gabapentin 100 mg capsule 100 mg PO DAILY 02/23/22 01/10/25 History omeprazole 20 mg capsule,delayed 20 mg PO DAILY 08/17/22 01/10/25 History release dupilumab 200 mg/1.14 mL 200 mg SQ WEEKLY BLISTERS 05/15/24 01/10/25 History subcutaneous pen injector (Dupixent) duloxetine 20 mg capsule,delayed 20 mg PO DAILY 10/03/24 01/10/25 History release hydrochlorothiazide 25 mg tablet 25 mg PO DAILY 10/03/24 01/10/25 History ipratropium 0.5 mg-albuterol 3 mg 3 ml inhalation Q6H PRN wheezing 10/03/24 01/10/25 Rx (2.5 mg base)/3 mL nebulization #180 mL soln cetirizine 10 mg tablet 10 mg PO DAILY PRN ALLERGIES 01/02/25 01/10/25 History cyclosporine 0.05 % eye drops in a 1 drp Eye-Both BID 01/02/25 01/10/25 History dropperette fluticasone propionate 50 1 spray intranasal DIRECTED 01/02/25 01/10/25 History mcg/actuation nasal ALLERGIES spray,suspension tramadol 50 mg tablet 50 mg PO DAILY #14 tabs 01/10/25 Rx New Prescriptions to Start Prescriptions: Allergies Allergy/AdvReac Type Severity Reaction Status Date / Time fish oil (FISH OIL) Allergy Unknown SWELLING Verified 01/02/25 10:11 quinine (QUININE) Allergy Unknown NA-DIARRHEA Verified 01/02/25 10:11 Exam Data for Last 24 hours Vital signs and Labs for Last 24 Hours: Temp Pulse Resp BP Pulse Ox O2 Del Method 98.1 F 74 16 135/74 94 L Room Air 01/23/25 11:04 01/23/25 16:00 01/23/25 16:00 01/23/25 16:00 01/23/25 16:00 01/23/25 11:04 Laboratory Results - last 24 hr 01/23/25 10:25: WBC 10.3, RBC 3.76 L, Hgb 11.4 L, Hct 35.4 L, MCV 94.1, MCH 30.3, MCHC 32.2, RDW 14.2, Plt Count 262, MPV 9.2, Neut % (Auto) 61.9, Lymph % (Auto) 23.7, [place] % (Auto) 9.3, Eos % (Auto) 2.9, Baso % (Auto) 0.7, Neut # (Auto) 6.4, Lymph # (Auto) 2.4, [place] # (Auto) 1.0, Eos # (Auto) 0.3, Baso # (Auto) 0.1, Sodium 134 L, Potassium 4.0, Chloride 102, Carbon Dioxide 29, Anion Gap 7.0, BUN 14, Creatinine 0.70, Estimated Creat Clear 37, Estimated GFR 79, Est GFR ( Amer) 96, Glucose 97, Calcium 9.2, Magnesium 1.8, Total Bilirubin 0.4, AST 41 H, ALT 23, Alkaline Phosphatase 93, Total Protein 6.3, Albumin 3.9, Globulin 2.4, Albumin/Globulin Ratio 1.6, HCV Ab KALEB w/Rflx PCR Qn Negative, HIV Ag/Ab Combo Qual Negative 01/23/25 13:30: Urine Color Yellow, Urine Appearance Clear, Urine pH 8.0, Ur Specific [place] 1.020, Urine Protein Negative, Urine Glucose (UA) Negative, Urine Ketones Negative, Urine Blood Negative, Urine Nitrate Negative, Urine Bilirubin Negative, Urine Urobilinogen 1.0, Ur Leukocyte Esterase Negative, Urine RBC None, Urine WBC Occasional, Ur Squamous Epith Cells Occasional, Urine Bacteria Trace I & O for Last 24 hours: Intake & Output 01/20/25 01/21/25 01/22/25 01/23/25 23:59 23:59 23:59 23:59 Weight 58.967 kg Constitutional Constitutional: no acute distress, average body habitus, chronically ill appearing and cooperative *Routine HEENT Exam Head: Present normocephalic Eye: Present EOMI and PERRL ENT: Present mucous membranes moist *Routine Neck Exam Neck: Present supple; Absent lymphadenopathy Routine Chest/Breast/Axilla Exam Chest wall: Present tenderness (Along right clavicle) *Routine Respiratory Exam Respiratory: Present CTA bilaterally; Absent rhonchi, wheezes or crackles *Routine Cardiovascular Exam Cardiovascular: Present RRR *Routine Abdominal Exam Abdominal: Present soft and normoactive bowel sounds; Absent tenderness *Routine Rectal Exam Rectal:: deferred *Routine Genitalia Exam Genitalia:: deferred *Routine Extremities Exam Extremities: Absent cyanosis, clubbing or edema *Routine Skin Exam Skin: Present warm; Absent rash *Routine Neurological Exam Neurological: Present alert, oriented X3 and moving all extremities; Absent altered mental status Assessment and Plan *Assessment and plan (1) Clavicle fracture: Status: Acute Category: Medical Code(s): S42.009A - Fracture of unspecified part of unspecified clavicle, initial encounter for closed fracture (2) Concussion: Status: Acute Category: Medical Code(s): S06.0XAA - Concussion with loss of consciousness status unknown, initial encounter (3) Generalized weakness: Status: Acute Category: Medical Code(s): R53.1 - Weakness (4) HTN (hypertension): Status: Chronic Qualifiers: Hypertension type: essential hypertension Qualified Code(s): I10 - Essential (primary) hypertension Category: Medical Code(s): I10 - Essential (primary) hypertension (5) COPD (chronic obstructive pulmonary disease): Status: Acute Category: Medical Code(s): J44.9 - Chronic obstructive pulmonary disease, unspecified (6) Hypothyroid: Status: Acute Category: Medical Code(s): E03.9 - Hypothyroidism, unspecified (7) Syncope: Status: Acute Category: Medical Code(s): R55 - Syncope and collapse (8) Orthostatic hypotension: Status: Acute Category: Medical Code(s): I95.1 - Orthostatic hypotension Plan 39-year-old female who fell. Found to have orthostatic hypotension. Sustained right clavicle fracture. Discussed case with ER provider, request admission for monitoring overnight. Agreed to admit for further care. Will have therapy evaluate in the morning. Hemodynamically stable upon arrival to the floor. Reevaluate in the morning with repeat labs. Problems addressed as follows: Orthostatic hypotension Syncope Fall - Images of chest, abdomen, pelvis, hip. No fracture of right hip. - Persistent orthostatic hypotension after IV fluids. Will monitor overnight. Gentle hydration overnight with LR at 75 cc an hour for 1 L. - Holding home HCTZ, tramadol, gabapentin and Cymbalta. - Therapy to evaluate in the morning. Further recommendations pending therapy eval's. - Toradol 15 mg IV every 6 hours as needed for moderate to severe pain. Caution with opiates given concern for exacerbating component of orthostasis - Repeat CBC, CMP, magnesium ordered for the morning - Labs reviewed with white count of 10, hemoglobin 11.4, kidney function normal with BUN 14, creatinine 0.7. Hypothyroid: TSH 1.36, resume home levothyroxine 88 mcg/day. EKG that does not show any ischemic changes per my review Right clavicle fracture: Per my review of imaging, has sustained a fracture. Nonoperative management. Continue sling Full code Regular diet
[2025-01-23 17:03] LABS: Thyroid Stimulating Hormone 1.36 uIU/mL (0.465-4.68)
--- NOTE | 2025-01-23 18:21 | PC.NURSE ---
arrived by stretcher from ED
--- NOTE | 2025-01-23 18:27 | PC.NURSE ---
Oxy IR 5mg was scanned, did not save. Verified with Shanita RN did not save either. Shanita to email pharmacy
--- NOTE | 2025-01-23 21:19 | PC.NURSE ---
Pt's med rec couldn't be completed due top pt not knowing her meds/name or dosing.
[2025-01-23] MEDS: LACTATED RINGERS 1000ML 1,000 ML 75 ML IV (22:15)
[2025-01-24] MEDS: KETOROLAC 30MG/ML VIAL 15 MG IV ×3 (03:40→23:51)
[2025-01-24 04:00] VITALS: BP 124/74; PULSE 101; RESP 14; TEMP 36.6; O2SAT 94; BMI 27.6
--- NOTE | 2025-01-24 06:38 | PC.NURSE ---
v/s, ox4. Pt pending echo this morning. Pt c/o pain, treated per MAR. Plan of care ongoing.
[2025-01-24 06:45] LABS: Basophils # 0.1 K/mm3 (0-0.2); Basophils % 0.4 % (0.1-2.0); Eosinophils # 0.1 Kmm3 (0.0-0.4); Eosinophils % 0.6 % (0.1-12.0); Hematocrit 29.6 % (37.0-47.0); Immature Granulocytes # 0.07 10^3uL; Immature Granulocytes % 0.5 %; Lymphocytes # 0.7 K/mm3 (0.7-4.5); Lymphocytes % 5.5 % (10-50); Mean Corpuscular HGB Conc 32.8 g/dL (31.8-35.4); Mean Corpuscular Hemoglobin 30.7 pg (27.0-31.2); Mean Corpuscular Volume 93.7 fl (81-99); Mean Platelet Volume 9.7 fl (7.4-10.4); Monocytes # 0.9 K/mm3 (0.1-1.0); Monocytes % 7.1 % (1.7-9.3); Neutrophils # 11.3 K/mm3 (1.8-7.8); Neutrophils % 85.9 % (37.0-80.0); Nucleated Red Blood Cells # 0 10^3/uL; Nucleated Red Blood Cells % 0 %; Platelet Count 187 K/mm3 (142-424); Red Blood Count 3.16 M/mm3 (4.20-5.40); Red Cell Distribution Width 14.4 % (11.5-17.5); Red Cell Distribution Width-SD 49.8 fL; White Blood Count 13.2 K/mm3 (4.8-10.8)
[2025-01-24 07:35] LABS: Alanine Aminotransferase 20 U/L (12-78); Albumin Level 3.1 g/dl (3.5-5.0); Albumin/Globulin Ratio 1.4 (1.1-1.8); Alkaline Phosphatase 61 U/L (38-126); Aspartate Amino Transferase 35 U/L (14-36); Bilirubin,Total 0.6 mg/dl (0.2-1.3); Blood Urea Nitrogen 20 mg/dl (7-17); Calcium 8.5 mg/dl (8.4-10.2); Carbon Dioxide 29 mmol/L (22.0-30.0); Chloride 99 mmol/L (98-107); Creatinine Clearance Estimated 43 mL/min (50-200); Estimated Glomerular Filt Rate 59 ml/min (>60); GFR (African American) 72 ML/MIN (>60); Globulin 2.2 g/dL (1.3-3.2); Glucose 124 mg/dl (74-100); Magnesium 1.8 mg/dl (1.6-2.3); Sodium 132 mmol/L (136-145); Total Protein,Serum 5.3 g/dl (6.3-8.2)
[2025-01-24 07:42] LABS: Hemoglobin 9.6 g/dL (12.2-16.2)
[2025-01-24 08:00] VITALS: BP 119/68; PULSE 102; RESP 16; TEMP 36.6; O2SAT 93; O2SAT 95
[2025-01-24] MEDS: LEVOTHYROXINE 88MCG (0.088MG) TAB 88 MCG PO (09:04)
[2025-01-24] MEDS: HYDROXYCHLOROQUINE SULFATE 200MG TABLET 200 MG PO (09:04)
[2025-01-24 09:23] VITALS: O2SAT 87
--- NOTE | 2025-01-24 09:54 | SW/DCPLANNER ---
Addendum entered by Ave Buckley 01/25/25 11:36: Patient will discharge to [facility] today. Addendum entered by Ave Buckley 01/24/25 14:00: [facility] is able to accept patient in semi private room under private pay. Patient/family are agreeable to this plan. Octavio w/ [facility] can accept patient today. MD plans to discharge this afternoon. Per Octavio he would need all discharge paperwork by 4PM. Original Note: I spoke w/ patient and her son regarding plans once medically stable for discharge. PT/OT evaluated patient and recommended SNF level of care. Patient resides at home alone and wants to return home. Son stated that patient is unable to ambulate and will require 24/7 care which she does not have at this time. Son has requested additional time to speak w/ patient and other family members regarding placement. I will follow up w/ family during afternoon PT session. Per MD patient is medically stable for discharge today.
--- NOTE | 2025-01-24 09:58 | HMH.OTEV ---
OT Inpatient Evaluation Rehab OT IP Evaluation Start: 01/23/25 16:15 Freq: ONCE Status: Active Protocol: Document 01/24/25 09:45 PAMELA (Rec: 01/24/25 09:58 PAMELA [id number]) Rehab OT IP Assessment Subjective History Per HPI narrative: Noted family is an 89-year-old female past medical history significant for COPD, HTN, RA, who presents emergency room today after a mechanical fall. Ms. Vickers was here getting medical records as her pheresis specialist is closing as she is having to change doctors. Son was with her but went to get the truck, bystanders noted that she appeared to trip and fall forward. Bystanders note that she did not hit her head. Patient is altered upon arrival, perseverating asking why did I fall . Patient is complaining of right-sided shoulder pain, right hip pain, right rib pain. Patient is not complaining of any head or neck pain. No back pain noted. Does not take any blood thinners. Son states that she does seem confused currently. Was reported to be normal AAOx4 before arrival to the ED. No complaints noted at home, no chest pain, shortness of breath, dysuria, hematuria, fever. No recent illness noted, no known sick contacts. No focal neurodeficits noted . Patient able to move all extremities symmetrically. Is not on any blood thinners. No other acute complaints at this time. Subjective They messed it up. Pt was supine in bed. Pt's son was also present. Pt was orient x3. Pt reported they live alone in a single story home with 4 steps with hand rails. pt reported PLOF is Ind in ADLs and IADLs. Pt reported they use a rolling walker for functional mobility . pt reported they have a shower chair and grab bars in shower and by toilet. pt reported they have their son drive them to doctor appointments. pt reported they have a hx of falling. pt agreed to sit on EOB. Pt was Mod A to move from supine to EOB. Pt demo fair static sitting balance while at EOB with CGA. Pt then moved from EOB to supine in bed with Mod A. Pt left with call light and all other needs within reach. pt's son also present as therapy exited room. Objective Patient Orientation Person,Place,Birthday Shoulder ROM Limitations Muscle Weakness Elbow ROM Limitations Muscle Weakness Bed Mobility bed mobility - supine/sit Assist Level Moderate x 1 (50% assist) Decrease in Endurance Yes Rehab OT IP prob,goals,plan Problems Date of Evaluation: 01/24/25 OT IP Problems Bed Mobility,Transfers,Balance ,Self care,Safety Rehab Potential Rehab Potential Good Equipment Needs Assistive Devices Standard Walker,Rolling / Wheeled Walker Plan OT intervention Plan Bed Mobility,Transfers,Balance ,Self care,Safety,Therapeutic Exercise OT Plan Frequency Daily Duration LOS Discharge Goals Bed Mobility Ability Assistance x1 Sit to Stand Chair Transfer Ability Minimal x 1 (25% assist) Chair Transfer Ability Minimal x 1 (25% assist) Feeding Ability Assist with Tray Set Up Commode/Toilet Transfer Assistive Raised Toilet Seat,Grab Bars Devices Decrease in Endurance No Discharge Plan OT Discharge Plan At this time pt would benefit from skilled OT services and interventions while being admitted at [facility] to address functional limitations in occupational performance. Pt would also benefit from skilled OT services and interventions with Rehab to further address functional limitations in occupational performance in daily living. Eval Complexity Eval Charge Codes 43356 - Moderate Complexity PHYSICIAN CERTIFICATION: I certify the specified therapy services for Hawa Vickers are required, authorized, and reviewed every 30 days.
--- NOTE | 2025-01-24 10:24 | HMH.PHAINT1 ---
Pharmacy Intervention Comments: MEDICATION RECONCILIATION COMPLETED ON PATIENT USING EXTERNAL FILL HISTORY FROM PHARMACY. -KENNEDI HOLLINS, RIAND
--- NOTE | 2025-01-24 10:40 | PC.NURSE ---
patient complains of burning and inability to pee 1041, nurse is aware
--- NOTE | 2025-01-24 11:14 | HMH.PTEV ---
Physical Therapy Evaluation Rehab PT IP Evaluation Start: 01/23/25 19:22 Freq: ONCE Status: Active Protocol: Document 01/24/25 08:20 PHOCHRISTIAN (Rec: 01/24/25 11:14 PHOCHRISTIAN [id number]) Subjective/History History History Ms. Harris is an 89-year-old female history of COPD, hypertension, RA who presented the ER after falling in the hospital near clinic pharmacy. Complaining of right shoulder pain and right hip pain. Does not appear to have a right hip fracture. Did however sustain right clavicle fracture. Pt experienced persistent orthostatic hypotension noted even after IV fluids. She currently lives by herself and is independent with all mobility and ADLs at baseline. She uses a cane and occasionally a walker for ambulation. Her home has 4 LIDIA . Subjective Subjective Patient presents resting in bed. She is alert and oriented to name and and is willing to participate with PT this morning. Upon sitting at EOB ~5 minutes, pt stated that she felt lightheaded and returned to supine with call light in reach. [facility] How much help from another person do you currently need... Turning from your back to your side None while in a flat bed without using bedrails? Moving from lying on back to sitting on A little the side of a flat bed without using bedrails? Moving to and from a bed to a chair ( A little including a wheelchair)? Standing up from a chair using your arms A lot ? (e.g., wheelchair, bedside chair) Walking in hospital room? A lot Climbing 3-5 steps with a railing? A lot Mobility Score 16 Mobility Level [facility] Mobility Calculator Mobility 5 Stand (1 or more minutes) Rehab PT IP Eval Objective Appearance Patient Behavior Appropriate,Cooperative Patient Orientation Person Difficulty following instructions none Speech Pattern Clear,Appropriate Ambulation Patient Able to Ambulate No Balance Ability to Arise Unable Sitting Balance Steady, safe Dynamic Sitting Balance Ability Good Transfers Bed Transfer Ability Contact Guard/Hand Hold Rehab PT IP prob,goals,plan Problems Date of Evaluation: 01/24/25 PT IP Problems Bed Mobility,Transfers,Gait Rehab Potential Rehab Potential Good Equipment Needs Assistive Devices Straight Cane,Standard Walker Plan PT Intervention Plan Bed Mobility,Transfers,Gait, Balance,Therapeutic Exercise PT Plan Frequency Daily Duration LOS Discharge Goals Bed Transfer Ability Independent Sit to Stand Chair Transfer Ability Moderate x 2 (50% assist) Ambulation Distance (feet) 10 Discharge Plan PT Discharge Plan Patient is currently most appropriate for placement in a rehab facility once medically stable for d/c. Pt demonstrated good sitting tolerance but was unable to arise with use of one hand. Skilled acute therapy is currently indicated to improve LE and UE strength and balance to improve transfer ability so pt can return to PLOF with all ADLs and mobility. Eval Complexity Eval Charge Codes 77222 - High Complexity PHYSICIAN CERTIFICATION: I certify the specified therapy services for Hawa Vickers are required, authorized, and reviewed every 30 days.
--- NOTE | 2025-01-24 11:19 | HMH.PTEV ---
Physical Therapy Evaluation Rehab PT IP Evaluation Start: 01/23/25 19:22 Freq: ONCE Status: Active Protocol: Document 01/24/25 08:20 PHOCHRISTIAN (Rec: 01/24/25 11:14 PHOCHRISTIAN [id number]) Subjective/History History History Ms. Harris is an 89-year-old female history of COPD, hypertension, RA who presented the ER after falling in the hospital near clinic pharmacy. Complaining of right shoulder pain and right hip pain. Does not appear to have a right hip fracture. Did however sustain right clavicle fracture. Pt experienced persistent orthostatic hypotension noted even after IV fluids. She currently lives by herself and is independent with all mobility and ADLs at baseline. She uses a cane and occasionally a walker for ambulation. Her home has 4 [place] . Subjective Subjective Patient presents resting in bed. She is alert and oriented to name and and is willing to participate with PT this morning. Upon sitting at EOB ~5 minutes, pt stated that she felt lightheaded and returned to supine with call light in reach. [facility] How much help from another person do you currently need... Turning from your back to your side None while in a flat bed without using bedrails? Moving from lying on back to sitting on A little the side of a flat bed without using bedrails? Moving to and from a bed to a chair ( A little including a wheelchair)? Standing up from a chair using your arms A lot ? (e.g., wheelchair, bedside chair) Walking in hospital room? A lot Climbing 3-5 steps with a railing? A lot Mobility Score 16 Mobility Level [facility] Mobility Calculator Mobility 5 Stand (1 or more minutes) Rehab PT IP Eval Objective Appearance Patient Behavior Appropriate,Cooperative Patient Orientation Person Difficulty following instructions none Speech Pattern Clear,Appropriate Ambulation Patient Able to Ambulate No Balance Ability to Arise Unable Sitting Balance Steady, safe Dynamic Sitting Balance Ability Good Transfers Bed Transfer Ability Contact Guard/Hand Hold Rehab PT IP prob,goals,plan Problems Date of Evaluation: 01/24/25 PT IP Problems Bed Mobility,Transfers,Gait Rehab Potential Rehab Potential Good Equipment Needs Assistive Devices Straight Cane,Standard Walker Plan PT Intervention Plan Bed Mobility,Transfers,Gait, Balance,Therapeutic Exercise PT Plan Frequency Daily Duration LOS Discharge Goals Bed Transfer Ability Independent Sit to Stand Chair Transfer Ability Moderate x 2 (50% assist) Ambulation Distance (feet) 10 Discharge Plan PT Discharge Plan Patient is currently most appropriate for placement in a rehab facility once medically stable for d/c. Pt demonstrated good sitting tolerance but was unable to arise with use of one hand. Skilled acute therapy is currently indicated to improve LE and UE strength and balance to improve transfer ability so pt can return to PLOF with all ADLs and mobility. Eval Complexity Eval Charge Codes 22085 - High Complexity PHYSICIAN CERTIFICATION: I certify the specified therapy services for Hawa Vickers are required, authorized, and reviewed every 30 days.
[2025-01-24] MEDS: HYDROCODONE/APAP 5/325 MG TABLET 1 TAB PO ×2 (14:28→20:29)
[2025-01-24 16:00] VITALS: BP 113/68; PULSE 109; RESP 16; TEMP 36.6; O2SAT 93
--- NOTE | 2025-01-24 18:42 | EXP.ACUTE.PN ---
Subjective *Date: 01/24/25 *Time: 21:05 Interval history: Stable on 2 L oxygen. Room air saturation of 87% at rest. Complaining some right shoulder pain. Toradol helps but still having significant pain even with Toradol. Advanced to Parachute, had some improved symptom management. Medical Exam Vital signs and Labs for Last 24 Hours: Vital Signs Temp Pulse Resp BP Pulse Ox O2 Del Method O2 Flow Rate 01/24/25 17:00 Nasal Cannula 2 01/24/25 16:00 97.8 F 109 H 16 113/68 93 L Nasal Cannula 01/24/25 14:24 Nasal Cannula 2 01/24/25 13:00 Nasal Cannula 2 01/24/25 11:00 Nasal Cannula 2 01/24/25 09:23 87 L Room Air 01/24/25 09:00 Nasal Cannula 1 01/24/25 08:00 93 L Nasal Cannula 2 01/24/25 08:00 98 F 102 H 16 119/68 95 Nasal Cannula 01/24/25 06:38 Nasal Cannula 2 01/24/25 05:00 Nasal Cannula 2 01/24/25 04:00 97.8 F 101 H 14 124/74 94 L Nasal Cannula 2 01/24/25 03:00 Nasal Cannula 2 01/24/25 01:00 Nasal Cannula 2 01/23/25 23:00 Nasal Cannula 2 01/23/25 21:00 Nasal Cannula 2 01/23/25 20:00 2 L Nasal Cannula 01/23/25 20:00 97.5 F L 79 16 126/70 98 Nasal Cannula 2 01/23/25 18:47 Nasal Cannula 2 Intake and Output 01/24/25 01/24/25 01/24/25 07:59 15:59 23:59 Intake Total 100 / 1025 685 / 1025 240 / 1025 Balance 100 / 1025 685 / 1025 240 / 1025 Intake: Intake, Oral Amount 100 / 820 480 / 820 240 / 820 Intake, Total IV Amount 205 / 205 Lactated Ringers 1000ML 1,000 205 / 205 ml @ 75 mls/hr IV .[id number] [facility] Rx#:[id number] Other: Number of Unmeasured Voids 2 Weight 68.181 kg Patient Weight 01/24/25 23:59 Weight 68.181 kg Laboratory Results - last 24 hr 01/24/25 06:25: WBC 13.2 H D, RBC 3.16 L, Hgb 9.6 L D, Hct 29.6 L, MCV 93.7, MCH 30.7, MCHC 32.8, RDW 14.4, Plt Count 187 D, MPV 9.7, Neut % (Auto) 85.9 H, Lymph % (Auto) 5.5 L, Hamilton % (Auto) 7.1, Eos % (Auto) 0.6, Baso % (Auto) 0.4, Neut # (Auto) 11.3 H, Lymph # (Auto) 0.7, Hamilton # (Auto) 0.9, Eos # (Auto) 0.1, Baso # (Auto) 0.1, Sodium 132 L, Potassium 4.0, Chloride 99, Carbon Dioxide 29, Anion Gap 8.0, BUN 20 H D, Creatinine 0.90 D, Estimated Creat Clear 43, Estimated GFR 59, Est GFR ( Amer) 72 D, Glucose 124 H D, Calcium 8.5, Magnesium 1.8, Total Bilirubin 0.6, AST 35, ALT 20, Alkaline Phosphatase 61, Total Protein 5.3 L, Albumin 3.1 L D, Globulin 2.2, Albumin/Globulin Ratio 1.4 I & O for Labs for Last 24 Hours: Intake & Output 01/21/25 01/22/25 01/23/25 01/24/25 23:59 23:59 23:59 23:59 Intake Total 1025 / 1025 Balance 1025 / 1025 Weight 65.317 kg 68.181 kg Constitutional: Present no acute distress, average body habitus, chronically ill appearing and cooperative Head: Present atraumatic and normocephalic ENT: Present normal exam Respiratory: Present normal respiratory effort; Absent rhonchi, wheezes or crackles Cardiac: Present Reg Rate and Rhythm GI: Present soft and normal bowel sounds; Absent distention or tenderness Extremities: Present normal inspection and full ROM Comment:: Right arm in sling. Right shoulder tender to palpation Skin: Present intact; Absent erythema Neuro: Present Grossly Intact, alert, awake, oriented x 3 and moves all extremities Assessment and Plan *Assessment and plan (1) Clavicle fracture: Status: Acute Category: Medical Code(s): S42.009A - Fracture of unspecified part of unspecified clavicle, initial encounter for closed fracture (2) Concussion: Status: Acute Category: Medical Code(s): S06.0XAA - Concussion with loss of consciousness status unknown, initial encounter (3) Generalized weakness: Status: Acute Category: Medical Code(s): R53.1 - Weakness (4) HTN (hypertension): Status: Chronic Qualifiers: Hypertension type: essential hypertension Qualified Code(s): I10 - Essential (primary) hypertension Category: Medical Code(s): I10 - Essential (primary) hypertension (5) COPD (chronic obstructive pulmonary disease): Status: Acute Category: Medical Code(s): J44.9 - Chronic obstructive pulmonary disease, unspecified (6) Hypothyroid: Status: Acute Category: Medical Code(s): E03.9 - Hypothyroidism, unspecified (7) Syncope: Status: Acute Category: Medical Code(s): R55 - Syncope and collapse (8) Orthostatic hypotension: Status: Acute Category: Medical Code(s): I95.1 - Orthostatic hypotension Plan 89-year-old female who fell. Found to have orthostatic hypotension. Sustained right clavicle fracture. Discussed case with ER provider, request admission for monitoring overnight. Agreed to admit for further care. Will have therapy evaluate in the morning. Hemodynamically stable upon arrival to the floor. Doing better this morning. Working with therapy. Recommended placement. Awaiting acceptance for rehab. Blood pressure doing better. Problems addressed as follows: Orthostatic hypotension Syncope Fall - Images of chest, abdomen, pelvis, hip. No fracture of right hip. - Persistent orthostatic hypotension after IV fluids. Blood pressure improved today. Systolic stable at 113-124.Will monitor overnight. - Discontinue IV fluids. - Holding home HCTZ, tramadol, gabapentin and Cymbalta. -Therapy evaluated, recommended SNF placement. Excepted to [place]. Will plan to discharge in the morning. - Having breakthrough pain with Toradol. Initiate hydrocodone 5/325 every 6 hours as needed for severe pain. Monitor for toxicity.. - Toradol 15 mg IV every 6 hours as needed for moderate to severe pain. - Kidney function stable with BUN 20, creatinine 0.9. White count bumped to 13, likely reactive from fracture. No acute signs of infection. Repeat CBC, CMP, magnesium ordered for the morning. Continues to require 2 L oxygen. Chest imaging did not show any focal consolidation or airspace disease. Wean as tolerated. Room air saturation of 87%. Hypothyroid: TSH 1.36, resume home levothyroxine 88 mcg/day. EKG that does not show any ischemic changes per my review Right clavicle fracture: Per my review of imaging, has sustained a fracture. Nonoperative management. Continue sling Full code Regular diet
--- NOTE | 2025-01-24 18:53 | CA_ITS ---
APPROVED REPORT EXAM: Comprehensive 2D, Doppler, and color-flow Echocardiogram Improvement Intern: Mercedes Moody CRT Ht: 5 ft 2 in Wt: 144lbs BSA: 1.66 BP: 135/74 mmHg Indications: Congestive Heart Failure, Shortness of Breath, CVA/TIA, CAD, Hypertension/HDD, fall 2D Dimensions LA Volume 31.80 mL LA Volume Index 18.70 mL/m2 (M/F) 16-34 M-Mode Dimensions RVDd 2.43 cm (0.9-2.6) LA Diam 3.18 cm (1.9-4.0) LVDd 3.12 cm (3.5-5.7) LVDs 1.56 cm (3.5-5.7) IVSd 1.97 cm (0.6-1.1) PWd 0.90 cm (0.6-1.1) EF (Teich) 82.60% FS 50.00% EDV (Teich) 38.50 mL TAPSE 1.19 (<1.7) ESV (Teich) 6.70 mL LV Diastology E Decel Time 183 (160-240 msec) E/A Ratio 0.47 MED A' 17.70 cm/s LAT A' 20.90 cm/s Aortic Valve AO Peak GR. 6.80 mmHg Mitral Valve MV E Max Mario. 60.0 (40-130 cm/s) MV A Velocity 128.0 (40-130 cm/s) E/A Ratio 0.47 MV PHT 54.0 ms Pulmonary Valve PV Peak Velocity 139.0 (50-150 cm/s) Tricuspid Valve TR P. Velocity 326.00 cm/s RAP Estimate 10.00 mmHg RVSP 52.60 mmHg Left Ventricle The left ventricle is normal size. The left ventricular systolic function is normal. The left ventricular ejection fraction is within the normal range. There is increased overall thickness. There is normal LV segmental wall motion. Transmitral Doppler flow pattern suggests impaired LV relaxation. LVEF is 60%. Right Ventricle Right ventricle is moderately dilated. Right ventricle is moderately hypokinetic. Atria Left atrium is mildly dilated. Right atrium is mildly dilated. The interatrial septum is aneurysmal. There is no Doppler evidence of interatrial shunt. Aortic Valve The aortic valve is mildly thickened. Trace aortic regurgitation. There is no aortic valvular stenosis. Mitral Valve The mitral valve is mildly thickened. No evidence of mitral valve stenosis. Trace mitral regurgitation. Tricuspid Valve Tricuspid valve is grossly normal in structure and function. Mild tricuspid regurgitation. RVSP is 40-45 mmHg. Pulmonic Valve The pulmonary valve is normal in structure. Trace pulmonic regurgitation. Great Vessels The aortic root is normal in size. The ascending aorta is mildly dilated, measuring 3.8 cm in diameter. IVC is normal in size and collapses >50% with inspiration. Pericardium There is no pericardial effusion. Other Information Study Quality: Fair Conclusion Normal LV systolic function. 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 Mild biatrial dilation. The interatrial septum is aneurysmal. Mild TR. Elevated RVSP 40-45 mmHg. Mildly dilated ascending aorta, measuring 3.8 cm in diameter. Compared to prior TTE from 11/13/2022, the RV dysfunction is new. Further evaluation is suggested. Electronically signed by : Valentine Romero MD 01/24/2025 12:30:59
[2025-01-24 19:39] VITALS: BP 126/70; PULSE 104; RESP 16; TEMP 36.4; O2SAT 98
--- NOTE | 2025-01-24 19:48 | PC.NURSE ---
patient weaned down to 1L NC with sats 95%+. attempting to wean to RA with monitoring.
[2025-01-24 19:49] VITALS: O2SAT 95
[2025-01-25] VITALS: BP 106/58; PULSE 101; RESP 16; TEMP 36.6; O2SAT 92
[2025-01-25] MEDS: LACTATED RINGERS 1000ML 1,000 ML 75 ML IV (01:15)
[2025-01-25] MEDS: MORPHINE 4MG/ML SYRINGE 4 MG IV (01:15)
[2025-01-25 04:00] VITALS: BP 105/63; PULSE 96; RESP 16; TEMP 36.7; O2SAT 95; BMI 26.9
[2025-01-25] MEDS: LEVOTHYROXINE 88MCG (0.088MG) TAB 88 MCG PO (06:02)
[2025-01-25 06:38] LABS: Basophils % 0.2 % (0.1-2.0); Eosinophils # 0.2 Kmm3 (0.0-0.4); Eosinophils % 1.6 % (0.1-12.0); Hematocrit 27.2 % (37.0-47.0); Immature Granulocytes # 0.09 10^3uL; Immature Granulocytes % 0.7 %; Lymphocytes # 1.9 K/mm3 (0.7-4.5); Lymphocytes % 14.6 % (10-50); Mean Corpuscular HGB Conc 33.1 g/dL (31.8-35.4); Mean Corpuscular Hemoglobin 30.9 pg (27.0-31.2); Mean Corpuscular Volume 93.5 fl (81-99); Mean Platelet Volume 9.9 fl (7.4-10.4); Monocytes # 1.5 K/mm3 (0.1-1.0); Monocytes % 11.5 % (1.7-9.3); Neutrophils # 9.5 K/mm3 (1.8-7.8); Neutrophils % 71.4 % (37.0-80.0); Nucleated Red Blood Cells # 0 10^3/uL; Nucleated Red Blood Cells % 0 %; Platelet Count 143 K/mm3 (142-424); Red Blood Count 2.91 M/mm3 (4.20-5.40); Red Cell Distribution Width 14.7 % (11.5-17.5); Red Cell Distribution Width-SD 50.6 fL; White Blood Count 13.2 K/mm3 (4.8-10.8)
[2025-01-25 06:56] LABS: Alanine Aminotransferase 22 U/L (12-78); Albumin Level 3.2 g/dl (3.5-5.0); Albumin/Globulin Ratio 1.4 (1.1-1.8); Alkaline Phosphatase 55 U/L (38-126); Anion Gap 8.3 mEq/L (5-15); Aspartate Amino Transferase 42 U/L (14-36); Bilirubin,Total 0.7 mg/dl (0.2-1.3); Blood Urea Nitrogen 33 mg/dl (7-17); Calcium 8.3 mg/dl (8.4-10.2); Carbon Dioxide 28 mmol/L (22.0-30.0); Chloride 97 mmol/L (98-107); Creatinine Clearance Estimated 42 mL/min (50-200); Estimated Glomerular Filt Rate 59 ml/min (>60); GFR (African American) 72 ML/MIN (>60); Globulin 2.3 g/dL (1.3-3.2); Glucose 117 mg/dl (74-100); Potassium 4.3 mmoL/L (3.5-5.1); Sodium 129 mmol/L (136-145); Total Protein,Serum 5.5 g/dl (6.3-8.2)
--- NOTE | 2025-01-25 07:23 | P.DS_ITS ---
General Admission date:: 01/23/25 Discharge date: 01/25/25 HPI HPI HPI: Ms. Vickers is an 89-year-old female history of COPD, hypertension, RA who presented the ER after falling in the hospital near clinic pharmacy. She is bring paperwork to her primary care doctor and was waiting for family to take her up. She proceeded to walk into the clinic pharmacy and then was making her way down the stairs when she became dizzy and fell. Her son had stepped to the parking lot to get the truck and she appeared to trip per report from bystanders and fall forward down the stairs. Denies hitting her head or loss of c onsciousness. Denies nausea or vomiting. Has brought to the ER for evaluation and further management. Complaining of right shoulder pain and right hip pain. Imaging performed along with labs showing nonactionable normal kidney function, normal electrolytes. No signs of anemia. Does not appear to have a right hip fracture. Did however sustain right clavicle fracture. Attempts are made to di scharge her home, unfortunately she had persistent orthostatic hypotension noted even after IV fluids. Therefore, medicine was consulted for admission and further management as patient was not deemed safe to discharge home. On arrival to the floor, patient is hemodynamically stable. Alert and oriented x 4. Has her [id number] is at bedside. Feel patient is more or less at her baseline mentation. She has been unsteady and weak with home health for several months now. Has been significant concern for falling risk at home. Lives by herself. Complaining of right hip pain. Necessitating 2 L oxygen for sats in the mid 90s. Denies chest pain, headache. Hospital Course Hospital Course Hospital Course: 89-year-old female who fell. Found to have orthostatic hypotension. Sustained right clavicle fracture. Discussed case with ER provider, request admission for monitoring overnight. Agreed to admit for further care. Will have therapy evaluate in the morning. Showed improvement during admission with stable hemodynamics. Working with therapy. Necessitating placement for rehab. Graciously excepted by [facility]. Is still requiring 2 L oxygen, low concern for any pneumonia or infection at this time. Diurese x 1 on day of discharge. Stable to discharge to nursing facility for further management. Problems addressed as follows: Orthostatic hypotension Syncope Fall - Images of chest, abdomen, pelvis, hip. No fracture of right hip. Persistent orthostatic hypotension after IV fluids. Blood pressure improved within 24 hours of admission. Remained stable with systolics 110-120. Holding home HCTZ, tramadol, gabapentin and Cymbalta. Therapy evaluated, recommended SNF placement. Excepted to [facility]. Having breakthrough pain with Toradol. Initiated hydrocodone 5/325 every 6 hours as needed for severe pain. No significant side effects from opiates. Will discontinue Toradol at discharge. Kidney function remained stable. BUN 33, creatinine 0.9. White count stable at 13. Suspect reactive from fracture. No acute signs of infection. Would benefit from repeat labs in 1 week to monitor kidney function and hemoglobin along with white count. COPD Former smoker Pulmonary fibrosis - Continues to require 2 L oxygen. Chest imaging did not show any focal consolidation or airspace disease. Concern for mild congestion however. Administered 1 dose of Lasix 40 mg IV on day of discharge. Monitor for improvement. Wean as tolerated. Room air saturation of 87%. - Initiated Trelegy 100 inhaler. Hypothyroid: TSH 1.36, continue home levothyroxine 88 mcg/day. Right clavicle fracture: Per my review of imaging, has sustained a fracture. Nonoperative management. Continue sling; hydrocodone 5 mg as needed every 6 hours for pain control Exam Data for Last 24 hours Vital signs and Labs for Last 24 Hours: Temp Pulse Resp BP Pulse Ox O2 Del Method O2 Flow Rate 98.1 F 96 H 16 105/63 L 95 Nasal Cannula 2 01/25/25 04:00 01/25/25 04:00 01/25/25 04:00 01/25/25 04:00 01/25/25 04:00 01/25/25 06:44 01/25/25 06:44 Laboratory Results - last 24 hr 01/24/25 06:25: WBC 13.2 H D, RBC 3.16 L, Hgb 9.6 L D, Hct 29.6 L, MCV 93.7, MCH 30.7, MCHC 32.8, RDW 14.4, Plt Count 187 D, MPV 9.7, Neut % (Auto) 85.9 H, Lymph % (Auto) 5.5 L, [place] % (Auto) 7.1, Eos % (Auto) 0.6, Baso % (Auto) 0.4, Neut # (Auto) 11.3 H, Lymph # (Auto) 0.7, [place] # (Auto) 0.9, Eos # (Auto) 0.1, Baso # (Auto) 0.1, Sodium 132 L, Potassium 4.0, Chloride 99, Carbon Dioxide 29, Anion Gap 8.0, BUN 20 H D, Creatinine 0.90 D, Estimated Creat Clear 43, Estimated GFR 59, Est GFR ( Amer) 72 D, Glucose 124 H D, Calcium 8.5, Magnesium 1.8, Total Bilirubin 0.6, AST 35, ALT 20, Alkaline Phosphatase 61, Total Protein 5.3 L, Albumin 3.1 L D, Globulin 2.2, Albumin/Globulin Ratio 1.4 01/25/25 06:21: WBC 13.2 H, RBC 2.91 L, Hgb 9.0 L, Hct 27.2 L, MCV 93.5, MCH 30.9, MCHC 33.1, RDW 14.7, Plt Count 143, MPV 9.9, Neut % (Auto) 71.4, Lymph % (Auto) 14.6, [place] % (Auto) 11.5 H, Eos % (Auto) 1.6, Baso % (Auto) 0.2, Neut # (Auto) 9.5 H, Lymph # (Auto) 1.9, [place] # (Auto) 1.5 H, Eos # (Auto) 0.2, Baso # (Auto) 0.0, Sodium 129 L, Potassium 4.3, Chloride 97 L, Carbon Dioxide 28, Anion Gap 8.3, BUN 33 H D, Creatinine 0.90, Estimated Creat Clear 42, Estimated GFR 59, Est GFR ( Amer) 72, Glucose 117 H, Calcium 8.3 L, Magnesium 2.0 D, Total Bilirubin 0.7, AST 42 H, ALT 22, Alkaline Phosphatase 55, Total Protein 5.5 L, Albumin 3.2 L, Globulin 2.3, Albumin/Globulin Ratio 1.4 I & O for Last 24 hours: Intake & Output 01/22/25 01/23/25 01/24/25 01/25/25 23:59 23:59 23:59 23:59 Intake Total 1947 Balance 1947 Weight 65.317 kg 68.181 kg 66.451 kg Constitutional Constitutional: no acute distress, average body habitus, chronically ill appearing and cooperative *Routine HEENT Exam Head: Present normocephalic Eye: Present EOMI and PERRL ENT: Present mucous membranes moist *Routine Neck Exam Neck: Present supple; Absent lymphadenopathy Routine Chest/Breast/Axilla Exam Chest wall: Present tenderness (Over right collarbone) *Routine Respiratory Exam Respiratory: Present prolonged expiratory phase, crackles (fine in bases) and normal respiratory effort; Absent rhonchi or wheezes *Routine Cardiovascular Exam Cardiovascular: Present RRR *Routine Abdominal Exam Abdominal: Present soft and normoactive bowel sounds; Absent tenderness *Routine Rectal Exam Patient deferred: visual exam *Routine Exam Patient deferred: external exam *Routine Extremities Exam Extremities: Absent cyanosis, clubbing or edema *Routine Skin Exam Skin: Present intact and warm; Absent rash *Routine Neurological Exam Neurological: Present alert, oriented X3 and moving all extremities; Absent altered mental status Results Data Completed and Pending Labs on day of discharge: Labs from last 24 hours 01/25/25 01/24/25 06:21 06:25 WBC 13.2 H 13.2 H D RBC 2.91 L 3.16 L Hgb 9.0 L 9.6 L D Hct 27.2 L 29.6 L MCV 93.5 93.7 MCH 30.9 30.7 MCHC 33.1 32.8 RDW 14.7 14.4 Plt Count 143 187 D MPV 9.9 9.7 Neut % (Auto) 71.4 85.9 H Lymph % (Auto) 14.6 5.5 L [place] % (Auto) 11.5 H 7.1 Eos % (Auto) 1.6 0.6 Baso % (Auto) 0.2 0.4 Neut # (Auto) 9.5 H 11.3 H Lymph # (Auto) 1.9 0.7 [place] # (Auto) 1.5 H 0.9 Eos # (Auto) 0.2 0.1 Baso # (Auto) 0.0 0.1 Sodium 129 L 132 L Potassium 4.3 4.0 Chloride 97 L 99 Carbon Dioxide 28 29 Anion Gap 8.3 8.0 BUN 33 H D 20 H D Creatinine 0.90 0.90 D Estimated Creat Clear 42 43 Estimated GFR 59 59 Est GFR ( Amer) 72 72 D Glucose 117 H 124 H D Calcium 8.3 L 8.5 Magnesium 2.0 D 1.8 Total Bilirubin 0.7 0.6 AST 42 H 35 ALT 22 20 Alkaline Phosphatase 55 61 Total Protein 5.5 L 5.3 L Albumin 3.2 L 3.1 L D Globulin 2.3 2.2 Albumin/Globulin Ratio 1.4 1.4 DS: Diagnosis Discharge Diagnosis (1) Clavicle fracture: Status: Acute Code(s): S42.009A - Fracture of unspecified part of unspecified clavicle, initial encounter for closed fracture (2) Concussion: Status: Acute Code(s): S06.0XAA - Concussion with loss of consciousness status unknown, initial encounter (3) Generalized weakness: Status: Acute Code(s): R53.1 - Weakness (4) HTN (hypertension): Status: Chronic Code(s): I10 - Essential (primary) hypertension Qualifiers: Hypertension type: essential hypertension Qualified Code(s): I10 - Essential (primary) hypertension (5) COPD (chronic obstructive pulmonary disease): Status: Acute Code(s): J44.9 - Chronic obstructive pulmonary disease, unspecified (6) Hypothyroid: Status: Acute Code(s): E03.9 - Hypothyroidism, unspecified (7) Syncope: Status: Acute Code(s): R55 - Syncope and collapse (8) Orthostatic hypotension: Status: Acute Code(s): I95.1 - Orthostatic hypotension Meds Home Medications and Allergies Home Medications ?Medication ?Instructions ?Recorded ?Confirmed ?Type calcium 500 mg (as 1 tab PO BID 30 days #60 tab s 01/25/25 Rx carbonate)-vitamin D3 3.125 mcg (125 unit) tablet cetirizine 10 mg tablet 10 mg PO DAILY 30 days #30 t abs 01/25/25 Rx cyanocobalamin (B12)-cobamamide 1 each sublingual BID 30 days #60 01/25/25 Rx 5,000 mcg-100 mcg sublingual tablet tabs difluprednate 0.05 % eye drops 1 drp Eye-Left DIREC ASHLEY 30 days 01/25/25 Rx #5 mL dupilumab 200 mg/1.14 mL 200 mg (1.14 mL) SQ WEEKLY 0 01/25/25 Rx subcutaneous pen injector BLISTERS 30 days #5.7 mL (Dupixent) fluticasone propionate 50 1 spray intranasal DAILY 30 days 01/25/25 Rx mcg/actuation nasal #16 grams spray,suspension hydrocodone 5 mg-acetaminophen 325 1 tab PO Q6HP PRN M oderate To 01/25/25 Rx mg tablet Severe Pain (4-10) 3 days #1 2 tabs hydroxychloroquine 200 mg tablet 200 mg PO DAILY 30 da ys #30 tabs 01/25/25 Rx levothyroxine 88 mcg tablet 88 mcg PO DAILY 30 days #3 0 tabs 01/25/25 Rx omeprazole 20 mg capsule,delayed 20 mg PO DAILY 30 day s #30 caps 01/25/25 Rx release polyethylene glycol 3350 17 gram 17 g PO DAILY 30 days #30 ea 01/25/25 Rx oral powder packet vitamin E 268 mg (400 unit) capsule 400 unit PO DAILY 30 days #30 caps 01/25/25 Rx New Prescriptions to Start Prescriptions: calcium carbonate-vitamin D3 Flako,Andry cetirizine Flako,Andry cyanocobalamin-cobamamide Flako,Andry difluprednate Flako,Andry dupilumab [Dupixent Pen] Flako,Andry fluticasone propionate Flako,Andry hydrocodone-acetaminophen Flako,Andry hydroxychloroquine Flako,Andry levothyroxine Flako,Andry omeprazole Flako,Andry polyethylene glycol 3350 Flako,Andry vitamin E Flako,Andry Allergies Allergy/AdvReac Type Severity Reaction Status Date / Time fish oil (FISH OIL) Allergy Unknown SWELLING Verified 01/02/25 10:11 quinine (QUININE) Allergy Unknown NA-DIARRHEA Verified 01/02/25 10:11 Discharge Plan Disposition Patient Disposition: [facility] Condition: Fair Discharge Order Discharge Orders: Discharge Order (Routine); Ordered 01/25/25 Ordered By: Andry Arriola Follow up Plan Prescriptions/Medication Reconciliation: New hydrocodone-acetaminophen 5-325 mg Tablet 1 tab PO Q6HP PRN (Reason: Moderate To Severe Pain (4-10)) 3 Days Qty: 12 0RF Continued polyethylene glycol 3350 17 GM powder in packet 17 g PO DAILY 30 Days Qty: 30 0RF cetirizine 10 mg tablet 10 mg PO DAILY 30 Days Qty: 30 0RF levothyroxine 88 mcg tablet 88 mcg PO DAILY 30 Days Qty: 30 0RF omeprazole 20 mg capsule,delayed release(DR/EC) 20 mg PO DAILY 30 Days Qty: 30 0RF hydroxychloroquine 200 MG tablet 200 mg PO DAILY 30 Days Qty: 30 0RF fluticasone propionate 50 mcg/actuation spray,suspension 1 spray intranasal DAILY 30 Days Qty: 16 0RF vitamin E 400 UNIT capsule 400 unit PO DAILY 30 Days Qty: 30 0RF calcium carbonate-vitamin D3 500 mg(1,250mg) -125 unit tablet 1 tab PO BID 30 Days Qty: 60 0RF cyanocobalamin-cobamamide 1 EACH tablet, sublingual 1 each sublingual BID 30 Days Qty: 60 0RF difluprednate 0.05 % drops 1 drp Eye-Left DIRECTED 30 Days Qty: 5 0RF Rx Instructions: INSTILL 1 DROP INTO LEFT EYE 4 TIMES DAILY FOR 1 WEEK, THEN TAPER TO 2 TIMES DAILY FOR 1 WEEK Dupixent Pen 200 mg/1.14 mL Pen Injector 200 mg SQ WEEKLY 30 Days Qty: 5.7 0RF Rx Instructions: FOLLOW PRESCRIBER INSTRUCTIONS ON LABEL FOR SPECIFIC DOSING AND FREQUENCY Discontinued gabapentin 100 MG capsule 100 mg PO TID duloxetine 20 mg capsule,delayed release(DR/EC) 20 mg PO DAILY hydrochlorothiazide 25 mg tablet 25 mg PO DAILY Problem Reconciliation Problems Reviewed?: Yes Patient Discharge Instructions ACTIVITY: Continue current activity DIET: continue same diet Patient Instructions: Fainting, Clavicle Fracture, Orthostatic Hypotension Print Language: Setswana Providers Primary Care Provider: Magi Flanagan Admit Provider: Andry Arriola Attending Provider: Andry Arriola
--- NOTE | 2025-01-25 07:35 | XR_ITS ---
FINAL REPORT CLINICAL HISTORY: oxygen requirement COMPARISON: 10/02/2024 FINDINGS: The lungs are underinflated. The patient is rotated to the right. The heart size is normal. The mediastinum is normal. There is no focal infiltrate or edema. Chronic changes are noted at the lung bases. There are no pleural effusions. There is no pneumothorax. There is no osseous abnormality. IMPRESSION: Chronic changes without acute cardiopulmonary process Reviewed, Interpreted and Dictated by Chapincito Stallworth MD Transcribed by Haley Rodrigues Authenticated and [facility]
[2025-01-25 07:43] VITALS: BP 112/51; PULSE 91; RESP 16; TEMP 36.6; O2SAT 94
[2025-01-25 07:48] LABS: MANUAL DIFFERENTIAL MANUAL DIFFERENTIAL (MANUAL DIFF)
[2025-01-25] MEDS: HYDROXYCHLOROQUINE SULFATE 200MG TABLET 200 MG PO (08:33)
[2025-01-25 08:37] LABS: Eosinophils % 1 % (0-3); Lymphocytes % 12 % (10-50); Monocytes % 9 % (2-9); Neutrophils % 78 % (42-76); Total Cells Counted 100
[2025-01-25] MEDS: POLYETHYLENE GLYCOL 3350 17 GM PACKET PO (08:37)
[2025-01-25 08:39] LABS: Platelet Estimate Slight Decrease
[2025-01-25 08:48] LABS: Basophilic Stippling 1+
[2025-01-25 08:49] LABS: Rouleaux 1+
[2025-01-25 08:50] LABS: Anisocytosis 1+; Poikilocytosis 1+
[2025-01-25] MEDS: FLUTICASONE/UMECLIDIN/VILANTER 100/62.5/25MCG INHALER 1 PUFF IH (09:51)
[2025-01-25] MEDS: FUROSEMIDE 40MG/4ML VIAL 40 MG IV (09:51)
[2025-01-25 12:28] VITALS: O2SAT 87
== END 2025-01-25 14:40 ==
LOC: ER 16:19 → 2ND 16:54
PROVIDERS: Nurse Practitioner Acute Care; Admitting Provider Internal Medicine Adolescent Medicine; Emergency Provider Emergency Medicine; PCP Nurse Practitioner Family; Visit Provider Internal Medicine Adolescent Medicine
DX: S42.001A Fracture of unspecified part of right clavicle, initial encounter for closed fracture (principal); S06.0XAA Concussion with loss of consciousness status unknown, initial encounter; R53.1 Weakness; I10 Essential (primary) hypertension; J44.9 Chronic obstructive pulmonary disease, unspecified; E03.9 Hypothyroidism, unspecified; I95.1 Orthostatic hypotension; J84.10 Pulmonary fibrosis, unspecified; M06.9 Rheumatoid arthritis, unspecified; Z86.73 Personal history of transient ischemic attack (TIA), and cerebral infarction without residual deficits; Z87.891 Personal history of nicotine dependence; Z91.013 Allergy to seafood; W01.0XXA Fall on same level from slipping, tripping and stumbling without subsequent striking against object, initial encounter; Y92.239 Unspecified place in hospital as the place of occurrence of the external cause; Z79.899 Other long term (current) drug therapy; Z79.890 Hormone replacement therapy; Z88.3 Allergy status to other anti-infective agents
CPT/HCPCS: 96361; 96374; 96375 ×2; 96376 ×2; 36415; 70450; 71045; 71250; 72125; 73030; 73502; 73552; 80053; 81001; 83735; 84443; 85007; 85025; 85027; 86803; 87389; 93005; 93306; 97163; 97166; 97530; 99285; G0378; J1885; J1938; J2270; J2405; J7120

== ENCOUNTER 2025-01-27 16:34 | Outpatient (CLI) | payer MEDICARE, OTHER, SELFPAY ==
[2025-01-27 18:13] LABS: Basophils % 0.3 % (0.1-2.0); Eosinophils # 0.3 Kmm3 (0.0-0.4); Eosinophils % 2.7 % (0.1-12.0); Hematocrit 26.4 % (37.0-47.0); Hemoglobin 8.8 g/dL (12.2-16.2); Immature Granulocytes # 0.07 10^3uL; Immature Granulocytes % 0.6 %; Lymphocytes # 1.3 K/mm3 (0.7-4.5); Mean Corpuscular HGB Conc 33.3 g/dL (31.8-35.4); Mean Corpuscular Hemoglobin 31.1 pg (27.0-31.2); Mean Corpuscular Volume 93.3 fl (81-99); Mean Platelet Volume 10.7 fl (7.4-10.4); Monocytes # 1.6 K/mm3 (0.1-1.0); Monocytes % 13.5 % (1.7-9.3); Neutrophils # 8.5 K/mm3 (1.8-7.8); Neutrophils % 71.9 % (37.0-80.0); Nucleated Red Blood Cells # 0.03 10^3/uL; Nucleated Red Blood Cells % 0.3 %; Platelet Count 194 K/mm3 (142-424); Red Blood Count 2.83 M/mm3 (4.20-5.40); Red Cell Distribution Width 15.2 % (11.5-17.5); Red Cell Distribution Width-SD 50.2 fL; White Blood Count 11.8 K/mm3 (4.8-10.8)
[2025-01-27 18:15] LABS: MANUAL DIFFERENTIAL MANUAL DIFFERENTIAL (MANUAL DIFF)
[2025-01-27 18:34] LABS: Chloride 95 mmol/L (98-107); Potassium 3.5 mmoL/L (3.5-5.1); Sodium 128 mmol/L (136-145)
[2025-01-27 18:37] LABS: Blood Urea Nitrogen 29 mg/dl (7-17); Estimated Glomerular Filt Rate 59 ml/min (>60); GFR (African American) 72 ML/MIN (>60)
[2025-01-27 18:38] LABS: Anion Gap 8.5 mEq/L (5-15); Calcium 8.5 mg/dl (8.4-10.2); Carbon Dioxide 28 mmol/L (22.0-30.0); Glucose 92 mg/dl (74-100)
[2025-01-27 19:06] LABS: Eosinophils % 1 % (0-3); Lymphocytes % 13 % (10-50); Macrocytosis 1+; Microcytosis 1+; Monocytes % 11 % (2-9); Neutrophils % 75 % (42-76); Platelet Estimate Normal; Total Cells Counted 100
[2025-01-27 19:07] LABS: Polychromasia 1+; Target Cells 1+
[2025-01-27 19:08] LABS: Giant Platelets 1+; Poikilocytosis 1+
== END 2025-01-27 23:59 | disposition home or self-care (01) ==
LOC: LAB.DROPOF 16:36
PROVIDERS: PCP Nurse Practitioner Family; Visit Provider Nurse Practitioner Family
DX: R53.1 Weakness (principal)
CPT/HCPCS: 80048; 85007; 85025; 85027

== ENCOUNTER 2025-02-23 12:15 | Outpatient (CLI) | payer MEDICARE, OTHER, SELFPAY ==
--- OUTSIDE RECORDS SUMMARY | 2025-02-06 09:00 | XMS_ITS ---
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 Role Phone Adelso Demarco Primary Care Provider [phone] Sharron Mckeon Unavailable [phone] Magi Flanagan Unavailable [phone] Allergies Allergen (clinical drug ingredient) Drug/Non Drug Allergy documented on EMR Reaction Allergy Type Onset Date Status Fish Oil Unknown Drug Allergy Active quinine quiNINE Unknown Drug Allergy Active REASON FOR VISIT [facility] Medications Medication SIG (Take, Route, Frequency, Duration) Notes Start Date End Date Status Calcium 600 + D 600 MG-800 INTL UNITS 1 TAB(S) ORALLY 2 TIMES A DAY; Duration: 30 DAY(S) *Please review and pick correct strength-formulat ion from [employer] options. If intended option is not shown, discontinue and re-order from Quick Search* Active Dupilumab 200 MG/1.14 ML 1.14 ML SUBCUTANEOUSLY EVERY 2 WEEKS *Please review and pick correct strength-formulat ion from [employer] options. If intended option is not shown, discontinue and re-order from Quick Search* Active Fluticasone Propionate 50 MCG/ACT 1 spray(s) in each nostril once a day Active Difluprednate 0.05 % 1 drop into affecte d eye Ophthalmic 4 times a day Active Konsyl Daily Psyllium Fiber 25 % as directed Orally Active Cyanocobalamin 1000 MCG 1 tablet Orally Once a day Active Midodrine HCl 5 MG 1 tablet Orally Twice a day Active MiraLax 17 GM/SCOOP 1 scoop mixed with 8 ounces of fluid Orally Once a day Active Vitamin E 400 UNIT 1 capsule Orally Once a day Active Omeprazole 20 MG 1 cap(s) orally once a day; Duration: 90 days Active Levothyroxine Sodium 88 MCG 1 tab(s) orally once a day; Duration: 90 days Active MiraLax - 17 G ORALLY ONCE DAILY; Duration: 30 DAYS *Please review and pick correct strength-formulat ion from [employer] options. If intended option is not shown, discontinue and re-order from Quick Search* Active Plaquenil 200 MG 1 tab(s) orally once a day; Duration: 30 day(s) Active HYDROcodone-Acetamino phen 5-325 MG 1 tablet as needed Orally every 6 hrs as needed; Duration: 10 days 02/01/2025 Active Problems Problem Type SNOMED Code ICD Code Onset Dates Problem Status W/U Status Risk Notes Problem Insomnia (852389753) Other insomnia (G47.09) Active confirmed Vital Signs Temperature 97.8 degrees Fahrenheit 02/07/20 25 Heart Rate 74 /min 02/06/2025 Blood pressure systolic 115 mm Hg 02/07/20 25 Blood pressure diastolic 79 mm Hg 025 Height 62 in 02/06/2025 Weight 148 lbs 02/06/2025 BMI 27.07 kg/m2 02/06/2025 Encounters Encounter Location Date Provider Diagnosis [address] [address] 02/06/2025 Magi Masha Closed nondisplaced fracture of right clavicle, unspecified part of clavicle, sequela S42.001S ; Acute hypoxic respiratory failure J96.01 ; Orthostatic hypotension I95.1 ; Hyponatremia E87.1 ; Chronic anemia D64.9 ; COPD, 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 ; Senile debility R54 ; Hypothyroidism E03.9 ; Rheumatoid arthritis involving multiple sites with positive rheumatoid factor M05.79 ; Bullous pemphigoid L12.0 ; Other chronic pain G89.29 ; Peripheral edema R60.0 ; Other insomnia G47.09 ; Medicare annual wellness visit, subsequent Z00.00 and Depressed mood R45.89 Assessments Encounter Date Diagnosis (ICD Code) Assessment Notes Treatment Notes Treatment Clinical Notes Section Notes 02/06/2025 Closed nondisplaced fracture of right clavicle, unspecified part of clavicle, sequela (ICD-10 - S42.001S) Continue therapies, sling, orthopedic FU Hasn't required supplemental O2 for 48 hours, monoitor Monitor blood pressures. Encouraged good hydration. Continue midodrine Add lidocaine patches at HS for pain Labs are improved overall. 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 - J44.9) 02/06/2025 Senile debility (ICD-10 - R54) 02/06/2025 Hypothyroidism (ICD-10 - E03.9) 02/06/2025 Rheumatoid arthritis involving multiple sites with positive rheumatoid factor (ICD-10 - M05.79) No evidence of exacerbation 02/06/2025 Bullous pemphigoid (ICD-10 - L12.0) No evidence of exacerbation 02/06/2025 Other chronic pain (ICD-10 - G89.29) 02/06/2025 Peripheral edema (ICD-10 - R60.0) 02/06/2025 Other insomnia (ICD-10 - G47.09) Add low-dose hydroxyzine 12.5 mg at at bedtime, she has tolerated this well in the past 02/06/2025 Medicare annual wellness visit, subsequent (ICD-10 - Z00.00) see below 02/06/2025 Depressed mood (ICD-10 - R45.89) would rather not initiate treatment with medication at this time because of her dizziness, hyponatremia, monitor Plan Of Treatment Next Appt Details Follow Up: 1-2 weeks, Reason : Progress Notes * Hawa HUBBARD JDOB: [birth year] (89 yo F)Acc No.[id number]:02/06/2025 Patient: Harper MCGOVERN Hawa Elsa Provider: BRITTANI Torres :1935 A ge:89 Y S ex:Female Date:02/06/2025 Address:[facility] [address], [id number] Pcp:Adelso Demarco Subjective: * Chief Complaints: * 1 . [facility] FU. * HPI: g en: Seen today at [facility] for followup since transition to facility from [facility] about 2 weeks ago. She was admitted there to [facility] for a couple of nights after she suffered a fall inside the facility. Reports that she became dizzy and fell down several steps. She suffered a fracture of her right clavicle. She is currently using a sling at all times. No other acute fractures were noted but she has continued to have lots of pain in her back and right hip. All of this has been complicated by orthostatic hypotension, pulmonary fibrosis and has required supplemental oxygen during her stay. She was given a dose of IV Lasix prior to discharge. DC summary mentions starting Trelegy but it wasn't actually ordered and she denies respiratory symptoms presently. Also with hyponatremia noted. Gabapentin, duloxetine and hydrochlorothiazide all discontinued due to potential for side effects. She has been relatively stable since admission with the exception of persistent orthostatic hypotension. This prevented her from getting out of bed for a few days but this has started to improve with midodrine 5 mg twice daily. She has been participating with therapies. Still has quite a bit of pain in the right shoulder and right hip. This is present [id number] but also making it quite difficult for her to get comfortable and sleep at night. When she lies down her pain is in the posterior aspect of her right shoulder and hip. Also with an episode of confusion recently, urine was abnormal and she has been started on cefdinir for presumed UTI. Culture is still pending. Has also had some increased edema in her lower extremities, she is wearing ASHLEY hose. * ROS: F UNCTIONAL STATUS: ADLS I mpaired ADL/IADL - see care planning in facility.? R ESPIRATORY: no S hortness of breath. n o C ough. ? C ARDIOLOGY: Dizziness y es. n o C hest pain. n o P alpitations. L eg edema y es. n o S hortness of breath. C ONSTITUTIONAL: Loss of appetite y es. n o F ever. W eakness?yes, i mproving. F atigue y es. D ERMATOLOGY: Positive for h /o bullous pemphigoid and atopic dermatitis.?no R carline. G ASTROENTEROLOGY: no V omiting. n o A bdominal pain. n o D iarrhea. C onstipation y es, i mproved with current tx. M USCULOSKELETAL: See HPI Y es. N EUROLOGY: Tingling numbness y es, c hronic in lower extremities.? O PTHALMOLOGY: Diminished vision y es. E ye irritation y es. ? P SYCHOLOGY: Positive for p reviously on cymbalta. D epression y es. H igh stress level y es. A nxiety y es. U ROLOGY: no D ifficulty urinating. n o B lood in urine. * Medical History: A llergies, Grave's disease, osteoporosis s/p oral treatment and then Reclast started 2011, Vitamin B12 deficiency , Colonoscopy 2019 Dr Webb, GERD/Gastritis, Auto immune hepatitis, Neuropathy, Hypothyroidism, Inflammatory arthritis, Dry eyes, RA, HTN, Bullous Pemphigoid. * Surgical History: b ilateral inguinal hernia repair , tubal ligation , [facility] and back , [facility] - negative 2022. * Hospitalization/Major Diagno stic Procedure: s tomach virus 10/2016, confusion 09/2017, [facility] 09/2024, [facility] - fall with fractures 12/2024. * Family History: F ather: , [place]. M other: , nephrectomy. P aternal Grand Father: , Alzheimer. P aternal Grand Mother: . M aternal Grand Father: , alcoholic. Maternal Grand Mother: , [place]. P aternal uncle: . P aternal aunt: . M aternal uncle: . M aternal aunt: . S iblings: alive, sister - alzheimers. C hildren: alive, COPD. 1 daughter deceasedUlcerative colitis, son. 1 brother(s) , 1 sister(s) . 1 son(s) , 2 daughter(s) . . N on-Contributory. * Social History: S moking: no A re you a:: nonsmoker. R ecreational drug use: no. Exercise: yes, walking. Home smoke detector use: yes. Caffeine: yes, frequency:coffee 2 cups qd. Living Will: Yes. Alcohol: no. Sexually active: no. Travel outside [place]: no. 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 * Medications: T aking Midodrine HCl 5 MG Tablet 1 tablet Orally Twice a day , Taking Cyanocobalamin 1000 MCG Tablet 1 tablet Orally Once a day , Taking Konsyl Daily Psyllium Fiber 25 % Powder as directed Orally , Taking Vitamin E 400 UNIT Capsule 1 capsule Orally Once a day , Taking MiraLax 17 GM/SCOOP Powder 1 scoop mixed with 8 ounces of fluid Orally Once a day , Taking Difluprednate 0.05 % Emulsion 1 drop into affected eye Ophthalmic 4 times a day , Taking Fluticasone Propionate 50 MCG/ACT Suspension 1 spray(s) in each nostril once a day , Taking Dupilumab 200 MG/1.14 ML SOLUTION 1.14 ML SUBCUTANEOUSLY EVERY 2 WEEKS , Notes to Pharmacist: *Please review and pick correct strength-formulation from [employer] options. If intended option is not shown, discontinue and re-order from Quick Search*, Taking Calcium 600 + D 600 MG-800 INTL UNITS TABLET 1 TAB(S) ORALLY 2 TIMES A DAY , Notes to Pharmacist: *Please review and pick correct strength-formulation from [employer] options. If intended option is not shown, discontinue and re-order from Quick Search*, Taking Plaquenil 200 MG Tablet 1 tab(s) orally once a day , Taking MiraLax - POWDER FOR RECONSTITUTION 17 G ORALLY ONCE DAILY , Notes to Pharmacist: *Please review and pick correct strength-formulation from [employer] options. If intended option is not shown, discontinue and re-order from Quick Search*, Taking Levothyroxine Sodium 88 MCG Tablet 1 tab(s) orally once a day , Taking Omeprazole 20 MG Capsule Delayed Release 1 cap(s) orally once a day , Taking HYDROcodone-Acetaminophen 5-325 MG Tablet 1 tablet as needed Orally every 6 hrs as needed , Discontinued Cyanocobalamin- Methylcobalamin 600-600 MCG Tablet Sublingual 1 tablet under the tongue and allow to dissolve Sublingual twice a day , Medication List reviewed and reconciled with the patient * Allergies: q uiNINE, Fish Oil. Objective: * Vitals: P ain: 5, Temp: 97.8, RR: 19, HR: 74, BP: 115/79, Ht: 62, Wt: 148, BMI:27.07. * Examination: G eneral Examination: General P leasant and Cooperative, NAD on RA. Oral cavity: M oist membranes. Heart: R egular Rate and Rhythm,. Lungs: c lear to auscultation,, decreased air entry at bases,. Abdomen: s oft, NT, BS present. Neurologic Exam: A lert and oriented x 3, grossly able to move all extremities. Skin: w ithout acute rashes. Peripheral pulses: n ormal (2+) bilaterally. Extremities: n o clubbing, 1+ edema right lower ext, trace on the left, sling right upper extremity. neck s upple,, no thyromegaly,, no lymphadenopathy,. Psych p leasant to mildly depressed. Assessment: * Assessment: 1. C losed nondisplaced fracture of right clavicle, unspecified part of clavicle, sequela - S42.001S (Primary) 2 . A cute hypoxic respiratory failure - J96.01 3 . O rthostatic hypotension - I95.1 4 . H yponatremia - E87.1 5. C hronic anemia - D64.9 6 . C OPD, mild - J44.9 7 .?Senile debility - R54 8 . H ypothyroidism - E03.9 9 . R heumatoid arthritis involving multiple sites with positive rheumatoid factor - M05.79 10. B ullous pemphigoid - L12.0 1 1. O ther chronic pain - G89.29 ? 1 2. P eripheral edema - R60.0 1 3. O ther insomnia - G47.09 ? 1 4. M simon annual wellness visit, subsequent - Z00.00 1 5. D epressed mood - R45.89 Plan: * Treatment: 2. R heumatoid arthritis involving multiple sites with positive rheumatoid factor Clinical Notes: No evidence of exacerbation 3. B ullous pemphigoid Clinical Notes: No evidence of exacerbation 4. O ther insomnia Clinical Notes: Add low-dose hydroxyzine 12.5 mg at at bedtime, she has tolerated this well in the past 5. M edicare annual wellness visit, subsequent Clinical Notes: see below 6. D epressed mood Clinical Notes: would rather not initiate treatment with medication at this time because of her dizziness, hyponatremia, monitor * Procedure Codes: G 0439 ANNUAL WELLNESS VST; PPS SUBSQT VST, 1123F ADVANCED DIRECTIVE - HAS A LIVING WILL, G8420 BMI documented as normal, no follow up required., G8431 POSITIVE SCREENING FOR DEPRESSION W/DOCUMENTED F/U, G9903 Pt scrn tbco id as non user, G8783 NORMAL BP READING DOC F/U NOT RQR * Preventive Medicine: Counseling: Hannah turnering will . ANNEMARIE Screening: F alls: Future screening for fall risks H ave you had two or more falls in the past year? Y es, H ave you had any falls with injury in the past year? Y es. Immunizations: i nfluenza H ave you had a flu shot since the most recent April 30 ? Y es. P neumonia vaccine: Status for Older Adults A re you up-to-date on your pneumonia vaccine? yes or no B oth Prevnar and Pneumovax. S hingrix U TD. C OVID C ompleted series. Screening / Special Tests: C olonoscopy 2 020. B one mineral Density y es, on Reclast. * Follow Up: 1 -2 weeks * * Sign off status: Completed true * Provider: BRITTANI Torres Date: 0 02/06/2025 Generated for Leroy deleon/Apoorva/Yudyitting on: 0 02/23/2025 12:18 PM EDT History and Physical Notes * HPI (History of Present Illness) Category Sub-Category Detail Notes Category Not es gen Seen today at [facility] for followup since transition to facility from [facility] about 2 weeks ago. She was admitted there to [facility] for a couple of nights after she suffered a fall inside the facility. Reports that she became dizzy and fell down several steps. She suffered a fracture of her right clavicle. She is currently using a sling at all times. No other acute fractures were noted but she has continued to have lots of pain in her back and right hip. All of this has been complicated by orthostatic hypotension, pulmonary fibrosis and has required supplemental oxygen during her stay. She was given a dose of IV Lasix prior to discharge. DC summary mentions starting Trelegy but it wasn't actually ordered and she denies respiratory symptoms presently. Also with hyponatremia noted. Gabapentin, duloxetine and hydrochlorothiazide all discontinued due to potential for side effects. She has been relatively stable since admission with the exception of persistent orthostatic hypotension. This prevented her from getting out of bed for a few days but this has started to improve with midodrine 5 mg twice daily. She has been participating with therapies. Still has quite a bit of pain in the right shoulder and right hip. This is present [id number] but also making it quite difficult for her to get comfortable and sleep at night. When she lies down her pain is in the posterior aspect of her right shoulder and hip. Also with an episode of confusion recently, urine was abnormal and she has been started on cefdinir for presumed UTI. Culture is still pending. Has also had some increased edema in her lower extremities, she is wearing ASHLEY hose Examination Category Sub-Category Detail Notes Category Not es General Examination Heart: Regular Rate and Rhyt hm, Lungs: clear to auscultatio n,, decreased air entry at bases, Abdomen: soft, NT, BS present Extremities: no clubbing, 1+ bart a right lower ext, trace on the left, sling right upper extremity Skin: without acute rashes Neurologic Exam: Alert and oriented x 3, grossly able to move all extremities Oral cavity: Moist membranes Peripheral pulses: normal (2+) bilatera lly neck supple,, no thyromeg nicola,, no lymphadenopathy, General Pleasant and Coopera tive, NAD on RA Psych pleasant to mildly d epressed
--- OUTSIDE RECORDS SUMMARY | 2025-02-10 09:45 | XMS_ITS ---
Author Organization [facility] Address [address] [facility] [address] [place] [address] Care Team Providers Care Mammalogy Teacher Name Role Phone Nilam Adelso Primary Care Provider Sharron Mckeon Unavailable [phone] Allergies Allergen (clinical drug ingredient) Drug/Non Drug Allergy documented on EMR Reaction Allergy Type Onset Date Status Fish Oil Unknown Drug Allergy Active quinine quiNINE Unknown Drug Allergy Active REASON FOR VISIT [facility] MD visit Medications Medication SIG (Take, Route, Frequency, Duration) Notes Start Date End Date Status Plaquenil 200 MG 1 tab(s) orally once a day; Duration: 30 day(s) Active MiraLax - 17 G ORALLY ONCE DAILY; Duration: 30 DAYS *Please review and pick correct strength-formulat ion from [employer] options. If intended option is not shown, discontinue and re-order from Quick Search* Active Levothyroxine Sodium 88 MCG 1 tab(s) orally once a day; Duration: 90 days Active Omeprazole 20 MG 1 cap(s) orally once a day; Duration: 90 days Active HYDROcodone-Acetamino phen 5-325 MG 1 tablet as needed Orally every 6 hrs as needed; Duration: 10 days 02/01/2025 Active MiraLax 17 GM/SCOOP 1 scoop mixed with 8 ounces of fluid Orally Once a day Active Difluprednate 0.05 % 1 drop into affecte d eye Ophthalmic 4 times a day Active Fluticasone Propionate 50 MCG/ACT 1 spray(s) in each nostril once a day Active Dupilumab 200 MG/1.14 ML 1.14 ML SUBCUTANEOUSLY EVERY 2 WEEKS *Please review and pick correct strength-formulat ion from [employer] options. If intended option is not shown, discontinue and re-order from Quick Search* Active Calcium 600 + D 600 MG-800 INTL UNITS 1 TAB(S) ORALLY 2 TIMES A DAY; Duration: 30 DAY(S) *Please review and pick correct strength-formulat ion from [employer] options. If intended option is not shown, discontinue and re-order from Quick Search* Active Midodrine HCl 5 MG 1 tablet Orally Twice a day Active Cyanocobalamin 1000 MCG 1 tablet Orally Once a day Active Konsyl Daily Psyllium Fiber 25 % as directed Orally Active Vitamin E 400 UNIT 1 capsule Orally Once a day Active Vital Signs Temperature 98 degrees Fahrenheit 02/10/2025 Heart Rate 74 /min 02/10/2025 Blood pressure systolic 122 mm Hg 02/11/20 25 Blood pressure diastolic 80 mm Hg 025 Height 62 in 02/10/2025 Weight 148 lbs 02/10/2025 BMI 27.07 kg/m2 02/10/2025 Encounters Encounter Location Date Provider Diagnosis [address] [address] 02/10/2025 Adelso Demarco Closed nondisplaced fracture of right clavicle, unspecified [...] Peripheral edema R60.0 ; Other insomnia G47.09 and Depressed mood R45.89 Assessments Encounter Date Diagnosis (ICD Code) Assessment Notes Treatment Notes Treatment Clinical Notes Section Notes 02/10/2025 Closed nondisplaced fracture of right clavicle, unspecified part of clavicle, sequela (ICD-10 - S42.001S) Continue therapies, sling, orthopedic FU Hasn't required supplemental O2 for 48 hours, monoitor Monitor blood pressures. Encouraged good hydration. Continue midodrine Add lidocaine patches at HS for pain Labs are improved overall. 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) 02/10/2025 Hypothyroidism (ICD-10 - E03.9) 02/10/2025 Rheumatoid arthritis involving multiple sites with positive rheumatoid factor (ICD-10 - M05.79) No evidence of exacerbation 02/10/2025 Bullous pemphigoid (ICD-10 - L12.0) No evidence of exacerbation 02/10/2025 Other chronic pain (ICD-10 - G89.29) 02/10/2025 Peripheral edema (ICD-10 - R60.0) 02/10/2025 Other insomnia (ICD-10 - G47.09) Add low-dose hydroxyzine 12.5 mg at at bedtime, she has tolerated this well in the past 02/10/2025 Depressed mood (ICD-10 - R45.89) would rather not initiate treatment with medication at this time because of her dizziness, hyponatremia, monitor 02/10/2025 Other I agree with plans and problem list from Ms. Flanagan above. Overall patient seems to be making progress. Her daughter is arriving from [place] in the next week or so and there is a thought that she might be able to go home with her and rehab at home. The patient is not optimistic about this today. Of note, I discussed this with her son and [id number] w who are arriving as I was leaving and they report that she has a little bit of waxing and waning mood based on her sleep or lack thereof the previous night. Regardless, she is in a good place at this point, we will see how the next week goes with rehab and make plans based on how she improves with physical therapy Plan Of Treatment Treatment Notes Assessment Notes Other I agree with plans and problem list from Ms. Flanagan above. Overall patient seems to be making progress. Her daughter is arriving from [place] in the next week or so and there is a thought that she might be able to go home with her and rehab at home. The patient is not optimistic about this today. Of note, I discussed this with her son and [id number] who are arriving as I was leaving and they report that she has a little bit of waxing and waning mood based on her sleep or lack thereof the previous night. Regardless, she is in a good place at this point, we will see how the next week goes with rehab and make plans based on how she improves with physical therapy Next Appt Details Follow Up: prn, Reason: Progress Notes * Hawa HUBBARD JDOB: [birth year] (89 yo F)Acc No.[id number]:02/10/2025 Patient: Hawa ANTUNEZ Provider: Tee Demarco MD :1935 A ge:89 Y S ex:Female Date:02/10/2025 Address:[facility] [place], [id number] Subjective: * Chief Complaints: * 1 . PR visit. * HPI: g en: I visited with the patient on 02/10/2025 and agree with Ms. Flanagan's plan as noted in the below paragraphs. Patient is alert, pleasant. Oriented. Is finishing up cefdinir for UTI. She is little bit down in the dumps today and apparently did not get much sleep last night. Seen today at [facility] for followup since transition to facility from [facility] about 2 weeks ago. She was admitted there to [facility] for a couple of nights after [...] shoulder and right hip. This is present gqpziy-[id number]-coyay but also making it quite difficult for [...] ADL/IADL - see care planning in facility.? * Medical History: A llergies, Grave's disease, osteoporosis s/p oral treatment and then Reclast started 2011, Vitamin B12 deficiency , Colonoscopy 2019 Dr Webb, GERD/Gastritis, Auto immune hepatitis, Neuropathy, Hypothyroidism, Inflammatory arthritis, Dry eyes, RA, HTN, Bullous Pemphigoid. * Surgical History: b ilateral inguinal hernia repair , tubal ligation , [facility] neck and back , [facility] - negative 2022. * Hospitalization/Major Diagno stic Procedure: s tomach virus 10/2016, confusion 09/2017, H 09/2024, [facility] - fall with fractures 12/2024. * Family History: F ather: , [place]. M other: , nephrectomy. P aternal Grand Father: , Alzheimer. P aternal Grand Mother: . M aternal Grand Father: , alcoholic. Maternal Grand Mother: , [place]. P aternal uncle: . P aternal aunt: . M aternal uncle: . M aternal aunt: . S iblings: alive, sister - alzheimers. C hildren: alive, COPD. 1 daughter deceasedUlcerative colitis, son. 1 brother(s) , 1 sister(s) . 1 son(s) , 2 daughter(s) . . * Social History: S moking: no A re you a:: nonsmoker. R ecreational drug use: no. Exercise: yes, walking. Home smoke detector use: yes. Caffeine: yes, frequency:coffee 2 cups qd. Living Will: Yes. Alcohol: no. Sexually active: no. Travel outside [place]: no. 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 * Medications: T aking Midodrine HCl 5 [...] *Please review and pick correct strength-formulation from [employer] options. If intended option is not shown, discontinue and re-order from Quick Search*, Taking Calcium 600 + D 600 MG-800 INTL UNITS TABLET 1 TAB(S) ORALLY 2 TIMES A DAY , Notes to Pharmacist: *Please review and pick correct strength-formulation from [employer] options. If intended option is not shown, discontinue and re-order from Quick Search*, Taking Plaquenil 200 MG Tablet 1 tab(s) orally once a day , Taking MiraLax - POWDER FOR RECONSTITUTION 17 G ORALLY ONCE DAILY , Notes to Pharmacist: *Please review and pick correct strength-formulation from [employer] options. If intended option is not shown, discontinue and re-order from Quick Search*, Taking Levothyroxine Sodium 88 MCG Tablet 1 tab(s) orally once a day , Taking Omeprazole 20 MG Capsule Delayed Release 1 cap(s) orally once a day , Taking HYDROcodone-Acetaminophen 5-325 MG Tablet 1 tablet as needed Orally every 6 hrs as needed , Medication List reviewed and reconciled with the patient * Allergies: q uiNINE, Fish Oil. Objective: * Vitals: P ain: 4, Temp: 98, RR: 18, HR: 74, BP: 122/80, Ht: 62, Wt: 148, BMI:27.07. * Examination: [...] ther insomnia - G47.09 ? 1 4. D epressed mood - R45.89 Plan: * Treatment: 2. R heumatoid arthritis involving multiple sites with positive rheumatoid factor Clinical Notes: No evidence of exacerbation 3. B ullous pemphigoid Clinical Notes: No evidence of exacerbation 4. O ther insomnia Clinical Notes: Add low-dose hydroxyzine 12.5 mg at at bedtime, she has tolerated this well in the past 5. D epressed mood Clinical Notes: would rather not initiate treatment with medication at this time because of her dizziness, hyponatremia, monitor 6. O thers Notes: I agree with plans and problem list from Ms. Flanagan above. Overall patient seems to be making progress. Her daughter is arriving from [place] in the next week or so and there is a thought that she might be able to go home with her and rehab at home. The patient is not optimistic about this today. Of note, I discussed this with her son and ggfrkllf-mo-psj who are arriving as I was leaving and they report that she has a little bit of waxing and waning mood based on her sleep or lack thereof the previous night. Regardless, she is in a good place at this point, we will see how the next week goes with rehab and make plans based on how she improves with physical therapy * Follow Up: p rn * * Sign off status: Completed true * Provider: Tee Demarco MD Date: 0 02/10/2025 Generated for Leroy deleon/pAoorva/Yudyitting on: 0 02/23/2025 12:18 PM EDT History and Physical Notes * HPI (History of Present Illness) Category Sub-Category Detail Notes Category Not es gen Seen today at [facility] for followup since transition to facility from [facility] about 2 weeks ago. She was admitted there to [facility] for a couple of nights after [...] shoulder and right hip. This is present [id number] but also making it quite difficult for [...]
--- OUTSIDE RECORDS SUMMARY | 2025-02-20 12:00 | XMS_ITS ---
Author Organization [facility] Address [address] [facility] [address] [place] [address] Care Team Providers Care School Psychologist Name Role Phone NilamAdelso Primary Care Provider Sharron Mckeon Unavailable [phone] Magi Flanagan Unavailable [phone] REASON FOR VISIT [place] FU Encounters Encounter Location Date Provider Diagnosis [address] [facility] [place] [address] 02/20/2025 Magi Flanagan Closed nondisplaced fracture of right clavicle, unspecified part of clavicle, sequela S42.001S and Orthostatic hypotension I95.1 Assessments Encounter Date Diagnosis (ICD Code) Assessment Notes Treatment Notes Treatment Clinical Notes Section Notes 02/20/2025 Closed nondisplaced fracture of right clavicle, unspecified part of clavicle, sequela (ICD-10 - S42.001S) Continue therapies, sling, orthopedic FU Hasn't required supplemental O2 for 48 hours, monoitor Monitor blood pressures. Encouraged good hydration. Continue midodrine Add lidocaine patches at HS for pain Labs are improved overall. Add bumex 0.5mg daily for 5 days, continue ASHLEY hose for edema 02/20/2025 Orthostatic hypotension (ICD-10 - I95.1) Plan Of Treatment Pending Test Test Name Order Date X ray : Clavicle 02/20/2025 Progress Notes * Hawa HUBBARDDOB: [birth year] (89 yo F)Acc No.[id number]:02/20/2025 Patient: Hawa ANTUNEZ Provider: BRITTANI Torres :1935 A ge:89 Y S ex:Female Date:02/20/2025 Address:[address] [place] [address] [place], [id number] Pcp:Adelso Demarco Subjective: * Chief Complaints: * 1 . [place] FU. * Medical History: Objective: * Vitals: Assessment: * Assessment: 1. C losed nondisplaced fracture of right clavicle, unspecified part of clavicle, sequela - S42.001S (Primary) 2 . O rthostatic hypotension - I95.1 Plan: * Treatment: * Clinical Notes: Continue therapies, sling, orthopedic FU Hasn't required supplemental O2 for 48 hours, monoitor Monitor blood pressures. Encouraged good hydration. Continue midodrine Add lidocaine patches at HS for pain Labs are improved overall. Add bumex 0.5mg daily for 5 days, continue ASHLEY hose for edema?? * * Electronic signature of Sandra Flanagan APRN on 02/23/2025 at 12:18 PM EDT Sign off status: Pending * Provider: BRITTANI Torres Date: 0 02/20/2025 Generated for Leroy deleon/Apoorva/Yudyitting on: 0 02/23/2025 12:18 PM EDT
--- OUTSIDE RECORDS SUMMARY | 2025-02-23 12:18 | XMS_ITS | Patient Health Record ---
Author Organization [facility] Address [address] [facility] [address] [place] [address] Care Team Providers Care Financial Project Manager Name Role Phone Adelso Demarco Primary Care Provider Sharron Mckeon Unavailable [phone] Magi Flanagan Unavailable [phone] Migration, Provider Unavailable Unavailable Allergies Allergen (clinical drug ingredient) Drug/Non Drug Allergy documented on EMR Reaction Allergy Type Onset Date Status Fish Oil Unknown Drug Allergy Active quinine quiNINE Unknown Drug Allergy Active Results Component Value Reference Range Notes X ray : Foot, Right Reviewed date:05/14/2024 05:23:01 PM Interpretation: Performing Lab: Notes/Report: X ray : Knee, Right Reviewed date:05/16/2024 09:55:47 AM Interpretation: Performing Lab: Notes/Report: X ray : Spines, Lumbosacral Reviewed date:05/16/2024 09:55:13 AM Interpretation: Performing Lab: Notes/Report: M-Complete Blood Count Auto Diff Reviewed date:01/27/2025 07:38:52 PM Interpretation: Performing Lab: Notes/Report: WBC 11.8 4.8-10.8 K/mm3 RBC 2.83 4.20-5.40 M/mm3 HGB 8.8 12.2-16.2 g/dL HCT 26.4 37.0-47.0 % MCV 93.3 81-99 fl MCH 31.1 27.0-31.2 pg MCHC 33.3 31.8-35.4 g/dL RDW 15.2 11.5-17.5 % PLT 194 142-424 K/mm3 Delta: 143 on 01/25/25-06 MPV 10.7 7.4-10.4 fl NE% 71.9 37.0-80.0 % LY% 11.0 10-50 % MO% 13.5 1.7-9.3 % EO% 2.7 0.1-12.0 % BA% 0.3 0.1-2.0 % NE# 8.5 1.8-7.8 K/mm3 LY# 1.3 0.7-4.5 K/mm3 MO# 1.6 0.1-1.0 K/mm3 EO# 0.3 0.0-0.4 Kmm3 BA# 0.0 0-0.2 K/mm3 RDW-SD 50.2 NRBC% 0.3 IG% 0.6 NRBC# 0.03 IG# 0.07 M-Manual Differential Reviewed date:01/27/2025 07:39:06 PM Interpretation: Performing Lab: Notes/Report: MDIFF MANUAL DIFFERENTIAL MANUAL DIFF TCC 100 NEUT%M 75 42-76 % LYMPH%M 13 10-50 % MONO%M 11 2-9 % EOS%M 1 0-3 % PLTE Normal GPLAT 1+ POLC 1+ POIK 1+ MICROC 1+ MACROC 1+ TGT 1+ M-Basic Metabolic Panel Reviewed date:01/27/2025 07:39:49 PM Interpretation: Performing Lab: Notes/Report: NA 128 136-145 mmol/L K 3.5 3.5-5.1 mmoL/L CL 95 98-107 mmol/L CO2 28 22.0-30.0 mmol/L GAP 8.5 5-15 mEq/L BUN 29 7-17 mg/dl CREATT 0.90 0.52-1.04 mg/dl GFRAA 72 >60 ML/MIN EGFR 59 >60 ml/min GLU 92 74-100 mg/dl CA 8.5 8.4-10.2 mg/dl CBC (INCLUDES DIFF/PLT) (639 9) Reviewed date:10/13/2024 01:47:10 PM Interpretation: Performing Lab:CB, [facility] [address], [facility]jnw[facility] Brett Jewell Notes/Report: NON-FASTING; NON-FASTING; NON-FASTING WHITE BLOOD CELL COUNT 11.3 3.8-10.8 Thousand/ uL RED BLOOD CELL COUNT 3.88 3.80-5.10 Million/uL HEMOGLOBIN 12.1 11.7-15.5 g/dL HEMATOCRIT 36.3 35.0-45.0 % MCV 93.6 80.0-100.0 fL MCH 31.2 27.0-33.0 pg MCHC 33.3 32.0-36.0 g/dL For adults, a slight decrease in the calculated MCHC value (in the range of 30 to 32 g/dL) is most likely not clinically significant; however, it should be interpreted with caution in correlation with other red cell parameters and the patient's clinical condition. RDW 12.4 11.0-15.0 % PLATELET COUNT 325 140-400 Thousand/uL MPV 10.0 7.5-12.5 fL ABSOLUTE NEUTROPHILS 7741 0592-3021 cells/uL ABSOLUTE LYMPHOCYTES 1256 312-3775 cells/uL ABSOLUTE MONOCYTES 2045 200-950 cells/uL ABSOLUTE EOSINOPHILS 102 15-500 cells/uL ABSOLUTE BASOPHILS 34 0-200 cells/uL NEUTROPHILS 68.5 LYMPHOCYTES 12.2 MONOCYTES 18.1 EOSINOPHILS 0.9 BASOPHILS 0.3 MAGNESIUM (622) Reviewed date:10/13/2024 01:47:10 PM Interpretation: Performing Lab:[facility] [id number] [employer], [facility]gl[facility] Brett Jewell Notes/Report: NON-FASTING; NON-FASTING; NON-FASTING MAGNESIUM 1.8 1.5-2.5 mg/dL BASIC METABOLIC PANEL (71414 ) Reviewed date:10/13/2024 01:56:33 PM Interpretation: Performing Lab:[facility] [id number] [employer] Bl[address], [facility] HospitalKuwkUQ[address] Brett Jewell Notes/Report: NON-FASTING; NON-FASTING; NON-FASTING GLUCOSE 82 65-99 mg/dL Fasting reference interval UREA NITROGEN (BUN) 20 7-25 mg/dL CREATININE 0.80 0.60-0.95 mg/dL EGFR 71 > OR = 60 mL/min/1.73m2 BUN/CREATININE RATIO SEE NOTE: 6-22 (calc) Not Reported: BUN and Creatinine are within reference range. SODIUM 132 135-146 mmol/L POTASSIUM 3.3 3.5-5.3 mmol/L CHLORIDE 93 98-110 mmol/L CARBON DIOXIDE 28 20-32 mmol/L CALCIUM 9.6 8.6-10.4 mg/dL Medications Medication SIG (Take, Route, Frequency, Duration) Notes Start Date End Date Status MiraLax 17 GM/SCOOP 1 scoop mixed with 8 ounces of fluid Orally Once a day Active Difluprednate 0.05 % 1 drop into affecte d eye Ophthalmic 4 times a day Active Fluticasone Propionate 50 MCG/ACT 1 spray(s) in each nostril once a day Active Dupilumab 200 MG/1.14 ML 1.14 ML SUBCUTANEOUSLY EVERY 2 WEEKS *Please review and pick correct strength-formulat ion from datapine options. If intended option is not shown, discontinue and re-order from [employer] Search* Active Calcium 600 + D 600 MG-800 INTL UNITS 1 TAB(S) ORALLY 2 TIMES A DAY; Duration: 30 DAY(S) *Please review and pick correct strength-formulat ion from datapine options. If intended option is not shown, discontinue and re-order from Quick Search* Active Plaquenil 200 MG 1 tab(s) orally once a day; Duration: 30 day(s) Active MiraLax - 17 G ORALLY ONCE DAILY; Duration: 30 DAYS *Please review and pick correct strength-formulat ion from datapine options. If intended option is not shown, discontinue and re-order from Quick Search* Active Midodrine HCl 5 MG 1 tablet Orally Twice a day Active Levothyroxine Sodium 88 MCG 1 tab(s) orally once a day; Duration: 90 days Active Cyanocobalamin 1000 MCG 1 tablet Orally Once a day Active Omeprazole 20 MG 1 cap(s) orally once a day; Duration: 90 days Active Konsyl Daily Psyllium Fiber 25 % as directed Orally Active HYDROcodone-Acetamino phen 5-325 MG 1 tablet as needed Orally every 6 hrs as needed; Duration: 10 days 02/01/2025 Active Vitamin E 400 UNIT 1 capsule Orally Once a day Active Immunizations Vaccine Route Administration Date Status Comme nts Covid Moderna Unknown 09/06/2020 Administered Covid Moderna Unknown 10/08/2020 Administered Covid Moderna Unknown 05/14/2021 Administered Fluzone High Dose IM Intramuscular 06/01/2023 Administered Hep A Adult 2 Dose IM Intramuscular 08/02/2018 Administere d Influenza (Fluzone)--Medicare only IM Intramuscular 05/13/2018 Administered Pneumovax 23 IM Intramuscular 06/24/2015 Administered Prevnar PCV-13 (Pneumococcal conjugate 13) IM Intramuscular 09/28/2016 Administered SHINGRIX IM Intramuscular 08/02/2018 Administered Problems Problem Type SNOMED Code ICD Code Onset Dates Problem Status W/U Status Risk Notes Problem Disorder of immune function (160673636) Disorder involving the immune mechanism, unspecified (D89.9) Active confirmed Problem Hypomagnesemia (895701345) Hypomagnesemia (E83.42) Active confirmed Problem Insomnia (047053379) Other insomnia (G47.09) Active confirmed Problem Gastro-esophageal reflux disease without esophagitis (463289426) Gastro-esophageal reflux disease without esophagitis (K21.9) Active confirmed Problem Slow transit constipation (27370602) Slow transit constipation (K59.01) Active confirmed Problem Bullous pemphigoid (17131487) Bullous pemphigoid (L12.0) Active confirmed Problem Localized, primary osteoarthritis of the shoulder region (014554049) Primary osteoarthritis, right shoulder (M19.011) Active confirmed Problem Localized, primary osteoarthritis of the shoulder region (165011054) Primary osteoarthritis, left shoulder (M19.012) Active confirmed Problem Sciatica (44087295) Lumbago with sciatica, right side (M54.41) Active confirmed Problem Sciatica (49390437) Lumbago with sciatica, left side (M54.42) Active confirmed Problem Vitamin B12 deficiency (701900016) Vitamin B12 deficiency (E53.8) Active confirmed Problem Hypothyroidism (93177819) Hypothyroidism (E03.9) Active confirmed Problem Venous insufficiency of leg (disorder) (837982655) Venous insufficiency (I87.2) Active confirmed Problem Osteoporosis (79570539) Osteoporosis (M81.0) Active confirmed Problem Essential hypertension (45846565) Essential hypertension (I10) Active confirmed Problem Osteoarthritis (851318635) Arthritis of hand (M19.90) Active confirmed Problem Acute exacerbation of chronic obstructive airways disease (322742952) COPD exacerbation (J44.1) Active confirmed Problem Mammography abnormal (162013222) Abnormal mammogram of right breast (R92.8) Active confirmed Problem Allergic rhinitis (25493041) Chronic allergic rhinitis (J30.9) Active confirmed Problem Chronic pain (92835342) Other chronic pain (G89.29) Active confirmed Problem Senile debility (25111804) Senile debility (R54) Active confirmed Problem Primary osteoarthritis (003873273) Primary osteoarthritis involving multiple joints (M15.0) Active confirmed Problem Recurrent falls (998337873) Recurrent falls (R29.6) Active confirmed Problem Peripheral edema (19837951) Peripheral edema (R60.9) Active confirmed Problem Dry eyes due to decreased tear production (H16.229) Active confirmed Problem Inflammatory arthritis (3713787) Inflammatory arthritis (M19.90) Active confirmed Problem Rheumatoid arthritis (13706914) Rheumatoid arthritis involving multiple sites with positive rheumatoid factor (M05.79) Active confirmed Problem Degeneration of lumbar intervertebral disc (36895130) Lumbar degenerative disc disease (M51.36) Active confirmed Problem Autoimmune liver disease (370284720) 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) Active confirmed Problem Essential hypertension (61102514) Benign essential HTN (I10) Active confirmed Problem Chronic serous otitis media (84969231) Left chronic serous otitis media (H65.22) Active confirmed Problem Chronic anemia (572301684) Chronic anemia (D64.9) Active confirmed Problem Anemia of chronic disease (550365845) Anemia, chronic disease (D63.8) Active confirmed Problem Microcytic anemia (274316255) Microcytic anemia (D50.9) Active confirmed Problem Postmenopausal state (93174967) Post-menopausal (Z78.0) Active confirmed Problem Irritable bowel syndrome characterized by constipation (721356920) Irritable bowel syndrome with constipation (K58.1) Active confirmed Problem Acute exacerbation of chronic obstructive airways disease (602883148) Acute exacerbation of chronic obstructive pulmonary disease (COPD) (J44.1) Active confirmed Problem Raynaud's disease (642192920) Raynaud''s phenomenon without gangrene (I73.00) Active confirmed Problem Normal body mass index (10271312) BMI 23.0-23.9, adult (Z68.23) Active confirmed Problem Chronic obstructive pulmonary disease (93562368) COPD, mild (J44.9) Active confirmed Problem Spinal stenosis of lumbar region (86211863) Lumbar stenosis without neurogenic claudication (M48.061) Active confirmed Problem Postconcussion syndrome (06210546) Postconcussion syndrome (F07.81) Active confirmed Problem Grief (771556949) Grief (F43.21) Active confirm ed Problem Degenerative lumbar spinal stenosis (712808144) Degenerative lumbar spinal stenosis (M48.061) Active confirmed Problem Sciatica (80981819) Low back pain with neuralgia of left sciatic nerve (M54.42) Active confirmed Problem Body mass index 20-24 - normal (141611415) Body mass index [BMI] 24.0-24.9, adult (Z68.24) Active confirmed Vital Signs Heart Rate 74 /min 02/10/2025 Temperature 98 degrees Fahrenheit 02/10/2025 Oximetry 92 01/25/2025 Blood pressure diastolic 80 mm Hg 02/10/2025 Height 62 in 02/10/2025 Blood pressure systolic 122 mm Hg 02/10/2025 Weight 148 lbs 02/10/2025 BMI 27.07 kg/m2 02/10/2025 Encounters Encounter Location Date Provider Diagnosis [facility] [address] [place] [address] 12/02/2024 Provider Migration Left chronic serous otitis media H65.22 [place] [address] [place] [address] 02/20/2025 Magi Flanagan Closed nondisplaced fracture of right clavicle, unspecified part of clavicle, sequela S42.001S and Orthostatic hypotension I95.1 [facility] [address] [facility] [address] [place], [place] [address] 03/14/2024 Magi Flanagan Bullous pemphigoid L12.0 ; Skin tear of right lower leg without complication, initial encounter S81.811A and Grief F43.21 [facility] [address] [facility] [address] [place], [place] [address] 05/11/2024 Magi Flanagan Lumbago with sciatic a, right side M54.41 ; Lumbago with sciatica, left side M54.42 ; Other chronic pain G89.29 ; Pain in right knee M25.561 ; Pain in left knee M25.562 ; Recurrent falls R29.6 ; Right foot pain M79.671 ; Nasal congestion R09.81 and Dyspnea on exertion R06.[address] [facility] [address] [facility] [address] [address] 10/10/2024 Magi Flanagan Infection due to hum an metapneumovirus (hMPV) B34.8 ; COPD exacerbation J44.1 ; Hyponatremia E87.1 ; Hypomagnesemia E83.42 ; Anemia, chronic disease D63.8 ; Senile debility R54 ; Yeast dermatitis B37.2 ; Depressed mood R45.89 ; Other chronic pain G89.29 and Hospital discharge follow-up Z09 [facility] [address] [address] 10/17/2024 Magi Flanagan COPD exacerbation J4 4.1 ; Acute non-recurrent frontal sinusitis J01.10 ; Hyponatremia E87.1 ; Hypomagnesemia E83.42 ; Anemia, chronic disease D63.8 ; Senile debility R54 ; Yeast dermatitis B37.2 ; Depressed mood R45.89 ; Other chronic pain G89.29 and Weakness of both lower limbs R29.[address] [facility] [address] [address] 11/27/2024 Magi Flanagan Left chronic serous otitis media H65.22 ; Otalgia, left ear H92.02 and Dysfunction of left eustachian tube H69.[address] [address] 01/25/2025 Magi Flanagan Closed nondisplaced fracture of right clavicle, unspecified part of clavicle, sequela S42.001S ; Acute hypoxic respiratory failure J96.01 ; Orthostatic hypotension I95.1 ; Hyponatremia E87.1 ; Chronic anemia D64.9 ; Hospital discharge follow-up Z09 ; COPD, mild J44.9 ; Senile debility R54 ; Hypothyroidism E03.9 ; Rheumatoid arthritis involving multiple sites with positive rheumatoid factor M05.79 ; Bullous pemphigoid L12.0 and Other chronic pain G89.[address] [address] 02/06/2025 Magi Flanagan Closed nondisplaced fracture of right [...] visit, subsequent Z00.00 and Depressed mood R45.[address] [address] 02/10/2025 Adelso eDmarco Closed nondisplaced fracture of right clavicle, unspecified [...] Other insomnia G47.09 and Depressed mood R45.89 [facility] [address] [place] [address] 02/25/2024 Magi Flanagan Low back pain at multiple sites M54.50 [facility] [address] [place] [address] 03/31/2024 Adelso Besson [facility] [address] [place] [address] 05/11/2024 Adelso Besson [facility] [address] [place] [address] 10/03/2024 Adelso Besson [facility] [address] [place] [address] 10/05/2024 Magi Aceence [facility] [address] [place] [address] 10/10/2024 Magijosephine AceMasha [facility] [address] [place] [address] 01/24/2025 Adelso Besson [facility] [address] [facility] [place], [place] [address] 02/01/2025 Adelso Besson [facility] [address] [place] [address] 02/13/2025 Magi Flanagan Assessments Encounter Date Diagnosis (ICD Code) Assessment Notes Treatment Notes Treatment Clinical Notes Section Notes 02/25/2024 Low back pain at multiple sites (ICD-10 - M54.50) 03/14/2024 Bullous pemphigoid (ICD-10 - L12.0) continue management with dermatology and rheumatology, encouraged to use hydroxyzine at night as needed for itching and insomnia 03/14/2024 Skin tear of right lower leg without complication, initial encounter (ICD-10 - S81.811A) topical emolient once or twice a day with dry gauze and return precautions reviewed 05/11/2024 Lumbago with sciatica, right side (ICD-10 - M54.41) repeating xrays is reasonable given her multiple recent falls and known osteoporosis 05/11/2024 Lumbago with sciatica, left side (ICD-10 - M54.42) 10/10/2024 COPD exacerbation (ICD-10 - J44.1) reports some nervousness/trem or a/w nebs, recommend 1/2 vial as needed. complete cefdinir. add plain mucinex BID. continue good hydration. 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 She will be evaluated by therapies and treated accordingly. Encouraged her patience with therapies, nursing care. Will attempt to wean O2 as tolerated, consider addition of inhaler therapy but has not required this previously Monitor blood pressures. Encouraged good hydration. May need midodrine Monitor pain...was taking duloxetine and gabapentin both for pain, rheumatology She is worried about stopping her other biologics but I assured her that during her recovery it would best to hold these unless complications arise Repeat labs next week for comparison 01/25/2025 Acute hypoxic respiratory failure (ICD-10 - J96.01) 02/06/2025 Closed nondisplaced fracture of right clavicle, [...] Acute hypoxic respiratory failure (ICD-10 - J96.01) 02/20/2025 Closed nondisplaced fracture of right clavicle, unspecified part of clavicle, sequela (ICD-10 - S42.001S) Continue therapies, sling, orthopedic FU Hasn't required supplemental O2 for 48 hours, monoitor Monitor blood pressures. Encouraged good hydration. Continue midodrine Add lidocaine patches at HS for pain Labs are improved overall. Add bumex 0.5mg daily for 5 days, continue ASHLEY hose for edema 02/10/2025 Closed nondisplaced fracture of right clavicle, [...] Acute hypoxic respiratory failure (ICD-10 - J96.01) 10/17/2024 COPD exacerbation (ICD-10 - J44.1) improved, nebs PRN 10/17/2024 Acute non-recurrent frontal sinusitis (ICD-10 - J01.10) 10/17/2024 Hyponatremia (ICD-10 - E87.1) continue good fluid intake, electrolyte replacement. stable on labs last week 02/10/2025 Orthostatic hypotension (ICD-10 - I95.1) 02/20/2025 Orthostatic hypotension (ICD-10 - I95.1) 02/06/2025 Orthostatic hypotension (ICD-10 - I95.1) 01/25/2025 Orthostatic hypotension (ICD-10 - I95.1) 10/10/2024 Hyponatremia (ICD-10 - E87.1) continue good fluid intake, electrolyte replacement. labs today. could also be secondary to cymbalta? 11/27/2024 Dysfunction of left eustachian tube (ICD-10 - H69.92) 05/11/2024 Other chronic pain (ICD-10 - G89.29) 03/14/2024 Grief (ICD-10 - F43.21) discussed importance of rest, nutrition, support, etc 05/11/2024 Pain in right knee (ICD-10 - M25.561) 10/10/2024 Hypomagnesemia (ICD-10 - E83.42) 01/25/2025 Hyponatremia (ICD-10 - E87.1) 02/06/2025 Hyponatremia (ICD-10 - E87.1) 02/10/2025 Hyponatremia (ICD-10 - E87.1) 10/17/2024 Hypomagnesemia (ICD-10 - E83.42) stable, improved 10/17/2024 Anemia, chronic disease (ICD-10 - D63.8) 02/10/2025 Chronic anemia (ICD-10 - D64.9) 02/06/2025 Chronic anemia (ICD-10 - D64.9) 01/25/2025 Chronic anemia (ICD-10 - D64.9) 10/10/2024 Anemia, chronic disease (ICD-10 - D63.8) 05/11/2024 Pain in left knee (ICD-10 - M25.562) 05/11/2024 Recurrent falls (ICD-10 - R29.6) encouraged to continue use of assistive devices 10/10/2024 Senile debility (ICD-10 - R54) therapies at home following 02/06/2025 COPD, mild (ICD-10 - J44.9) 01/25/2025 Hospital discharge follow-up (ICD-10 - Z09) 02/10/2025 COPD, mild (ICD-10 - J44.9) 10/17/2024 Senile debility (ICD-10 - R54) therapies at home following Patient continues to be homebound due to significant pain, need for assistive device for mobility, high fall risk 10/17/2024 Yeast dermatitis (ICD-10 - B37.2) improved 02/10/2025 Senile debility (ICD-10 - R54) 02/06/2025 Senile debility (ICD-10 - R54) 10/10/2024 Yeast dermatitis (ICD-10 - B37.2) 05/11/2024 Right foot pain (ICD-10 - M79.671) 01/25/2025 COPD, mild (ICD-10 - J44.9) 01/25/2025 Senile debility (ICD-10 - R54) 05/11/2024 Nasal congestion (ICD-10 - R09.81) increase flonase to BID, humidifier in bedroom encouraged 10/10/2024 Depressed mood (ICD-10 - R45.89) we discussed adjusting dose of cymbalta vs changing to a different agent but no changes made today 02/06/2025 Hypothyroidism (ICD-10 - E03.9) 02/10/2025 Hypothyroidism (ICD-10 - E03.9) 10/17/2024 Depressed mood (ICD-10 - R45.89) we discussed adjusting dose of cymbalta, may worsen hyponatremia. she feels that her mood is improved and will improve when her daughter visits. monitor for now 10/17/2024 Other chronic pain (ICD-10 - G89.29) cymbalta, gabapentin, continue with pain management and rheumatology 02/10/2025 Rheumatoid arthritis involving multiple sites with positive rheumatoid factor (ICD-10 - M05.79) No evidence of exacerbation 02/06/2025 Rheumatoid arthritis involving multiple sites with positive rheumatoid factor (ICD-10 - M05.79) No evidence of exacerbation 10/10/2024 Other chronic pain (ICD-10 - G89.29) cymbalta, gabapentin, continue with pain management and rheumatology 05/11/2024 Dyspnea on exertion (ICD-10 - R06.09) albuterol PRN, she does have significant smoking history 01/25/2025 Hypothyroidism (ICD-10 - E03.9) 01/25/2025 Rheumatoid arthritis involving multiple sites with positive rheumatoid factor (ICD-10 - M05.79) 10/10/2024 Hospital discharge follow-up (ICD-10 - Z09) hospital documentation reviewed 02/06/2025 Bullous pemphigoid (ICD-10 - L12.0) No evidence of exacerbation 02/10/2025 Bullous pemphigoid (ICD-10 - L12.0) No evidence of exacerbation 10/17/2024 Weakness of both lower limbs (ICD-10 - R29.898) multifactoral. has appt with cardiology to evaluate vasculature. known lumbar DDD with radicular pain, lymphedema 02/10/2025 Other chronic pain (ICD-10 - G89.29) 02/06/2025 Other chronic pain (ICD-10 - G89.29) 01/25/2025 Bullous pemphigoid (ICD-10 - L12.0) 01/25/2025 Other chronic pain (ICD-10 - G89.29) 02/06/2025 Peripheral edema (ICD-10 - R60.0) 02/10/2025 Peripheral edema (ICD-10 - R60.0) 02/10/2025 Other insomnia (ICD-10 - G47.09) Add low-dose hydroxyzine 12.5 mg at at bedtime, she has tolerated this well in the past 02/06/2025 Other insomnia (ICD-10 - G47.09) Add low-dose hydroxyzine 12.5 mg at at bedtime, she has tolerated this well in the past 02/06/2025 Medicare annual wellness visit, subsequent (ICD-10 - Z00.00) see below 02/06/2025 Depressed mood (ICD-10 - R45.89) would rather not initiate treatment with medication at this time because of her dizziness, hyponatremia, monitor 02/10/2025 Depressed mood (ICD-10 - R45.89) would rather not initiate treatment with medication at this time because of her dizziness, hyponatremia, monitor 02/10/2025 Other I agree with plans and problem list from Ms. Flanagan above. Overall patient seems to be making progress. Her daughter is arriving from [place] in the next week or so and there is a thought that she might be able to go home with her and rehab at home. The patient is not optimistic about this today. Of note, I discussed this with her son and [id number] who are arriving as I was leaving [...] improves with physical therapy Plan Of Treatment Pending Test Test Name Order Date X ray : Chest 02/29/2008 X ray : Chest 06/26/2008 X ray : Knee, Left 05/11/2024 Mammogram : Left breast 07/25/2010 Mammogram : Right Breast 07/25/2010 X ray : Clavicle 02/20/2025 Venous Doppler : Lower Extremity 010 Echocardiogram 04/10/2008 Physical Therapy 02/05/2017 Physical Therapy 02/25/2024 Mammogram : Bilateral 07/13/2012 Occupational Therapy : Eval & Treatment 01/17/2016 H-CBC with AUTO DIFF 11/26/2017 H-CBC with AUTO DIFF 12/24/2015 H-CBC with AUTO DIFF 10/28/2017 H-CBC with AUTO DIFF 03/26/2016 H-VITAMIN B12 12/24/2015 H-VITAMIN B12 09/07/2016 H-CMP 11/26/2017 H-CMP 06/24/2015 H-CMP 09/07/2016 H-CMP 12/24/2015 H-CMP 03/26/2016 H-CMP 10/28/2017 H-LIPID PANEL 06/24/2015 H-TSH 06/24/2015 H-TSH 09/07/2016 H-TSH 11/26/2017 H-TSH 03/26/2016 H-TSH 12/24/2015 H-TSH 10/27/2016 H-FREE T4 03/26/2016 H-VIT D, 25-HYDROXY 12/24/2015 H-VIT D, 25-HYDROXY 09/07/2016 H-VIT D, 25-HYDROXY 06/24/2015 H-SED RATE 11/26/2017 H-HEPATITIS PROFILE (CHRONIC) 09/08/2016 M-Complete Blood Count Auto Diff 021 M-Complete Blood Count Auto Diff 018 M-Complete Blood Count Auto Diff 018 M-Erythrocyte Sedimentation Rate 018 M-Comprehensive Metabolic Panel 04/04/20 M-Comprehensive Metabolic Panel 06/16/20 M-Comprehensive Metabolic Panel 06/12/20 21 M-Thyroid Stimulating Hormone 06/12/2021 M-Thyroid Stimulating Hormone 06/16/2018 M-Thyroid Stimulating Hormone 04/04/2018 M-Vitamin B12 04/04/2018 M-Vitamin B12 06/12/2021 M-Vitamin B12 12/12/2020 M-Vitamin D 25 Hydroxy 12/12/2020 M-Vitamin D 25 Hydroxy 06/12/2021 M-Vitamin D 25 Hydroxy 04/04/2018 Future Test Test Name Order Date DEXA Hip and Spine - Screening 1 H-CBC with AUTO DIFF 04/11/2012 H-VITAMIN B12 04/11/2012 H-CMP 04/11/2012 H-MAGNESIUM 04/11/2012 H-LIPID PANEL 04/11/2012 H-TSH 04/11/2012 H-VIT D, 25-HYDROXY 04/11/2012 M-Complete Blood Count Auto Diff 019 M-Ferritin 06/29/2019 M-Folate 06/29/2019 M-Iron and TIBC 06/29/2019 Insurance Providers Payer Name Payer Address Payer Phone Subscriber Number Group Number Insured Name Patient Relationship to Insured Coverage Start Date Coverage End Date [place] [address] [place] [address] [id number] Hawa Vickers Self - patient is the insured [facility] [employer] [address] [place] [address] [phone] [id number] Hawa Vickers Self - patient is the insured [employer] [address] [place] [address] [address] [place] [address] ACL Hawa Vickers Self - patient is the insured Medications Administered Medication Instructions Date of Administration Dosage Notes Dexamethasone 4mg Injection 05/12/2023 4 mg Dexamethasone 4mg Injection 01/03/2024 4 mg Kenalog 40mg 08/12/2017 40 mg Triamcinolone Acetonide 40mg Injection 12/12/2020 1 mL Kenalog 02/16/2013 1 mL Kenalog 09/18/2014 1 mL Kenalog 08/31/2015 1 mL Kenalog 09/07/2016 1 mL Medical (General) History Medical History History ICD Code allergies Grave's disease osteoporosis s/p oral treatment and then Reclast started 2011 Vitamin B12 deficiency Colonoscopy 2019 Dr Webb GERD/Gastritis Auto immune hepatitis Neuropathy hypothyroidism Inflammatory arthritis Dry eyes RA HTN Bullous Pemphigoid Surgical History Surgery Date(Month/Year) bilateral inguinal hernia repair tubal ligation Pain [facility]- injections in neck and back [facility] - negative 2022 Hospitalization History Reason Date(Month/Year) [facility] - fall with fractures 12/2024 H 09/2024 confusion 09/2017 stomach virus 10/2016
--- OUTSIDE RECORDS SUMMARY | 2025-02-23 12:19 | XMS_ITS | Clinical Summary ---
Author Organization [facility] Address [address] [place] [address] Care Team Providers Care Travel Consultant Name Role Phone Adelso Demarco MD Primary Care Provider [phone] Social History Tobacco Use Types Packs/Day Years Used Date Smoking Tobacco: Never Assessed Comments Unknown Sex and Gender Information Value Date Recorded Sex Assigned at Not on file Legal Sex Female 8:34 PM EDT Gender Identity Not on file Sexual Orientation Not on file Plan of Treatment Health Maintenance Due Date Last Done Comments [facility]-Bone Density Scan 1935 [facility]-Depression Screening 1935 [facility]-Infant/Child/Adol SDOH Screenings 1935 [facility]Y- SDOH Screenings 1955 UKY-Adult SDOH Screenings 1953 UKY-Pneumococcal Vaccine: 50+ Years (2 of 2 - PPSV23) 09/28/2017 09/28/2016 UKY-Zoster Vaccines (2 of 2) 09/27/2018 08/02/2018 [id number] Vaccine ( season) 2024 05/27/2022, 12/18/2021, 05/14/2021, Additional history exists [facility]Y-Influenza Vaccine (Season Ended) 2025 06/01/2022, 05/25/2021, 05/15/2020, Additional history exists UKY-DTaP,Tdap,and Td Vaccines (2 - Td or Tdap) 09/06/2031 09/06/2021 UKY-Hepatitis A Vaccines Aged Out 08/02/2018 No longer eligible based on patient's age to complete this topic UKY-RSV Vaccine: 60+ Years or Completed 06/15/2023 HPV Vaccines Aged Out No longer eligi ble based on patient's age to complete this topic UKY-HIB Vaccines Aged Out No longer e ligible based on patient's age to complete this topic UKY-IPV Vaccines Aged Out No longer e ligible based on patient's age to complete this topic UKY-Rotavirus Vaccines Aged Out No lo nger eligible based on patient's age to complete this topic Care Teams Travel Consultant Relationship Specialty Start Date End Date Adelso Demarco MD [address] [place] [address] PCP - General 01/10/21
--- NOTE | 2025-02-23 12:20 | XR_ITS ---
FINAL REPORT CLINICAL HISTORY: CLOSED NONDISPLACED FRACTURE OF RIGHT CLAVICLE COMPARISON: 01/23/2025 right shoulder FINDINGS: 2 views of the right clavicle were obtained. There is a mildly comminuted fracture of the distal right clavicle. Displacement is stable. There is no evidence of bony union at this time. There is an old healed proximal right humeral fracture. Osteopenia is noted. The joint spaces are intact. There is no soft tissue abnormality. IMPRESSION: Stable comminuted distal clavicle fracture without bony union or obvious callus formation. Reviewed, Interpreted and Dictated by Ángel Dumont MD Transcribed by Haley Rodrigues Authenticated and . [facility]
== END 2025-02-23 23:59 | disposition home or self-care (01) ==
LOC: RAD 12:16
PROVIDERS: PCP Nurse Practitioner Family; Visit Provider Nurse Practitioner Family
DX: S42.031A Displaced fracture of lateral end of right clavicle, initial encounter for closed fracture (principal)
CPT/HCPCS: 73000

== ENCOUNTER 2025-03-12 09:42 | Outpatient (CLI) | payer MEDICARE, OTHER, SELFPAY ==
--- OUTSIDE RECORDS SUMMARY | 2025-02-27 09:00 | XMS_ITS ---
Author Organization [facility] Address [address] [place] [address] Care Team Providers Care Lease Analyst Name Role Phone Adelso Demarco Primary Care Provider Sharron Mckeon Unavailable [phone] Magi Flanagan Unavailable [phone] REASON FOR VISIT [facility] Encounters Encounter Location Date Provider Diagnosis [address] [facility] [place] [address] 02/27/2025 Magi Flanagan Plan Of Treatment No Information Progress Notes * Hawa HUBBARDDOB: [birth year] (89 yo F)Acc No.[id number]:02/27/2025 Home Visit Patient: Hawa ANTUNEZ Provider: BRITTANI Torres :1935 A ge:89 Y S ex:Female Date:02/27/2025 Address[address] [place], [id number] Pcp:Adelso Demarco Subjective: * Chief Complaints: * 1 . [place] FU. * Medical History: Objective: * Vitals: Assessment: Plan: * Treatment: * * Electronic signature of Sandra Flanagan APRN on 03/12/2025 at 09:45 AM EDT Sign off status: Pending * Provider: BRITTANI Torres Date: 0 02/27/2025 Generated for Leroy deleon/Apoorva/Alexa on: 0 03/12/2025 09:45 AM EDT
--- OUTSIDE RECORDS SUMMARY | 2025-03-06 09:00 | XMS_ITS ---
Author Organization [facility] Address [address] [place] [address] Care Team Providers Care Building And Construction Manager Name Role Phone Adelso Demarco Primary Care Provider Sharron Mckeon Unavailable [phone] Magi Flanagan Unavailable [phone] REASON FOR VISIT [facility] Encounters Encounter Location Date Provider Diagnosis [address] [facility] [place] [address] 03/06/2025 Magi Flanagan Plan Of Treatment No Information Progress Notes * Hawa HUBBARDDOB: [birth year] (89 yo F)Acc No.[id number]:03/06/2025 Home Visit Patient: Hawa ANTUNEZ Provider: BRITTANI Torrse :1935 A ge:89 Y S ex:Female Date:03/06/2025 Address:[address], [id number] Pcp:Adelso Demarco Subjective: * Chief Complaints: * 1 . [place] FU. * Medical History: Objective: * Vitals: Assessment: Plan: * Treatment: * * Electronic signature of Sandra Flanagan APRN on 03/12/2025 at 09:46 AM EDT Sign off status: Pending * Provider: BRITTANI Torres Date: 0 03/06/2025 Generated for Leroy deleon/Apoorva/Alexa on: 0 03/12/2025 09:46 AM EDT
[2025-03-12] VITALS (9 sets, daily range): BP systolic 132–147; BP diastolic 61–77; PULSE 71–77; RESP 18; TEMP 36.7; O2SAT 99
--- OUTSIDE RECORDS SUMMARY | 2025-03-12 09:47 | XMS_ITS | Clinical Summary ---
Author Organization [facility] Address [address] [place] [address] Care Team Providers Care Salary And Wage Administrator Name Role Phone Adelso Demacro MD Primary Care Provider [phone] Social History Tobacco Use Types Packs/Day Years [...] UKY-Zoster Vaccines (2 of 2) 09/27/2018 08/02/2018 [id number] Vaccine ( season) 2024 05/27/2022, 12/18/2021, 05/14/2021, Additional history exists [facility]Y-Influenza Vaccine (#1) 04/30/202506/01, 05/25/2021, 05/15/2020, Additional history exists UKY-DTaP,Tdap,and Td [...] age to complete this topic Care Teams Salary And Wage Administrator Relationship Specialty Start Date End Date Adelso Demarco MD [address] [place] [address] PCP - General 01/10/21
--- OUTSIDE RECORDS SUMMARY | 2025-03-12 09:47 | XMS_ITS | Patient Health Record ---
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 Name Role Phone Adelso Demarco Primary Care Provider Sharron Mckeon Unavailable [phone] MashaMagi Unavailable [phone] Migration, Provider Unavailable Unavailable Allergies Allergen (clinical drug ingredient) Drug/Non Drug Allergy documented on EMR Reaction Allergy Type Onset Date Status Fish Oil Unknown Drug Allergy Active quinine quiNINE Unknown Drug Allergy Active Results Component Value Reference Range Notes M-Manual Differential Reviewed date:01/27/2025 07:39:06 PM Interpretation: Performing Lab: Notes/Report: MDIFF MANUAL DIFFERENTIAL MANUAL DIFF TCC 100 NEUT%M 75 42-76 % LYMPH%M 13 10-50 % MONO%M 11 2-9 % EOS%M 1 0-3 % PLTE Normal GPLAT 1+ POLC 1+ POIK 1+ MICROC 1+ MACROC 1+ TGT 1+ M-Complete Blood Count Auto Diff Reviewed date:01/27/2025 07:38:52 PM Interpretation: Performing Lab: Notes/Report: WBC 11.8 4.8-10.8 K/mm3 RBC 2.83 4.20-5.40 M/mm3 HGB 8.8 12.2-16.2 g/dL HCT 26.4 37.0-47.0 % MCV 93.3 81-99 fl MCH 31.1 27.0-31.2 pg MCHC 33.3 31.8-35.4 g/dL RDW 15.2 11.5-17.5 % PLT 194 142-424 K/mm3 Delta: 143 on 01/25/25-0621 MPV 10.7 7.4-10.4 fl NE% 71.9 37.0-80.0 % LY% 11.0 10-50 % MO% 13.5 1.7-9.3 % EO% 2.7 0.1-12.0 % BA% 0.3 0.1-2.0 % NE# 8.5 1.8-7.8 K/mm3 LY# 1.3 0.7-4.5 K/mm3 MO# 1.6 0.1-1.0 K/mm3 EO# 0.3 0.0-0.4 Kmm3 BA# 0.0 0-0.2 K/mm3 RDW-SD 50.2 NRBC% 0.3 IG% 0.6 NRBC# 0.03 IG# 0.07 M-Basic Metabolic Panel Reviewed date:01/27/2025 07:39:49 PM Interpretation: Performing Lab: Notes/Report: NA 128 136-145 mmol/L K 3.5 3.5-5.1 mmoL/L CL 95 98-107 mmol/L CO2 28 22.0-30.0 mmol/L GAP 8.5 5-15 mEq/L BUN 29 7-17 mg/dl CREATT 0.90 0.52-1.04 mg/dl GFRAA 72 >60 ML/MIN EGFR 59 >60 ml/min GLU 92 74-100 mg/dl CA 8.5 8.4-10.2 mg/dl X ray : Clavicle Reviewed date:02/27/2025 07:14:34 PM Interpretation: Performing Lab: Notes/Report: BASIC METABOLIC PANEL (55030 ) Reviewed date:10/13/2024 01:56:33 PM Interpretation: Performing Lab:CB, [facility] [id number], [id number] Brett Jewell Notes/Report: NON-FASTING; NON-FASTING; NON-FASTING GLUCOSE [...] 28 20-32 mmol/L CALCIUM 9.6 8.6-10.4 mg/dL MAGNESIUM (622) Reviewed date:10/13/2024 01:47:10 PM Interpretation: Performing Lab:CHELLE, [employer] [id number], [employer] [id number] Brett Jewell Notes/Report: NON-FASTING; NON-FASTING; NON-FASTING MAGNESIUM 1.8 1.5-2.5 mg/dL CBC (INCLUDES DIFF/PLT) (639 9) Reviewed date:10/13/2024 01:47:10 PM Interpretation: Performing Lab:CHELLE, [employer] [id number], [employer] [id number] Brett Jewell Notes/Report: NON-FASTING; NON-FASTING; NON-FASTING WHITE [...] MPV 10.0 7.5-12.5 fL ABSOLUTE NEUTROPHILS [phone] cells/uL ABSOLUTE LYMPHOCYTES 0058 264-2253 cells/uL ABSOLUTE MONOCYTES 2045 200-950 cells/uL ABSOLUTE EOSINOPHILS 102 15-500 cells/uL ABSOLUTE BASOPHILS 34 0-200 cells/uL NEUTROPHILS 68.5 LYMPHOCYTES 12.2 MONOCYTES 18.1 EOSINOPHILS 0.9 BASOPHILS 0.3 X ray : Spines, Lumbosacral Reviewed date:05/16/2024 09:55:13 AM Interpretation: Performing Lab: Notes/Report: X ray : Knee, Right Reviewed date:05/16/2024 09:55:47 AM Interpretation: Performing Lab: Notes/Report: X ray : Foot, Right Reviewed date:05/14/2024 05:23:01 PM Interpretation: Performing Lab: Notes/Report: Medications Medication SIG (Take, Route, Frequency, Duration) Notes Start Date End Date Status Vitamin E 400 UNIT 1 capsule Orally Once a day Active Konsyl Daily Psyllium Fiber 25 % as directed Orally Active HYDROcodone-Acetamino phen 5-325 MG 1 tablet as needed Orally every 6 hrs as needed; Duration: 10 days 02/01/2025 Active Cyanocobalamin 1000 MCG 1 tablet Orally Once a day Active Omeprazole 20 MG 1 cap(s) orally once a day; Duration: 90 days Active Midodrine HCl 5 MG 1 tablet Orally Twice a day Active Levothyroxine Sodium 88 MCG 1 tab(s) orally once a day; Duration: 90 days Active MiraLax - 17 G ORALLY ONCE DAILY; Duration: 30 DAYS *Please review and pick correct strength-formulat ion from GetBack options. If intended option is not shown, discontinue and re-order from Quick Search* Active Plaquenil 200 MG 1 tab(s) orally once a day; Duration: 30 day(s) Active Calcium 600 + D 600 MG-800 INTL UNITS 1 TAB(S) ORALLY 2 TIMES A DAY; Duration: 30 DAY(S) *Please review and pick correct strength-formulat ion from GetBack options. If intended option is not shown, discontinue and re-order from Quick Search* Active Dupilumab 200 MG/1.14 ML 1.14 ML SUBCUTANEOUSLY EVERY 2 WEEKS *Please review and pick correct strength-formulat ion from GetBack options. If intended option is not shown, discontinue and re-order from Quick Search* Active Fluticasone Propionate 50 MCG/ACT 1 spray(s) in each nostril once a day Active Difluprednate 0.05 % 1 drop into affecte d eye Ophthalmic 4 times a day Active MiraLax 17 GM/SCOOP 1 scoop mixed with 8 ounces of fluid Orally Once a day Active Immunizations Vaccine [...] Risk Notes Problem Disorder of immune function (856853233) Disorder involving the immune mechanism, unspecified (D89.9) Active confirmed Problem Hypomagnesemia (715437412) Hypomagnesemia (E83.42) Active confirmed Problem Insomnia (572757260) Other insomnia (G47.09) Active confirmed Problem Gastro-esophageal reflux disease without esophagitis (921417997) Gastro-esophageal reflux disease without esophagitis (K21.9) Active confirmed Problem Slow transit constipation (23384795) Slow transit constipation (K59.01) Active confirmed Problem Bullous pemphigoid (49364376) Bullous pemphigoid (L12.0) Active confirmed Problem Localized, primary osteoarthritis of the shoulder region (987571251) Primary osteoarthritis, right shoulder (M19.011) Active confirmed Problem Localized, primary osteoarthritis of the shoulder region (293888494) Primary osteoarthritis, left shoulder (M19.012) Active confirmed Problem Sciatica (62701223) Lumbago with sciatica, right side (M54.41) Active confirmed Problem Sciatica (95305514) Lumbago with sciatica, left side (M54.42) Active confirmed Problem Vitamin B12 deficiency (822619217) Vitamin B12 deficiency (E53.8) Active confirmed Problem Hypothyroidism (90287490) Hypothyroidism (E03.9) Active confirmed Problem Venous insufficiency of leg (disorder) (683867949) Venous insufficiency (I87.2) Active confirmed Problem Osteoporosis (67369521) Osteoporosis (M81.0) Active confirmed Problem Essential hypertension (33536727) Essential hypertension (I10) Active confirmed Problem Osteoarthritis (449384095) Arthritis of hand (M19.90) Active confirmed Problem Acute exacerbation of chronic obstructive airways disease (648706306) COPD exacerbation (J44.1) Active confirmed Problem Mammography abnormal (189331431) Abnormal mammogram of right breast (R92.8) Active confirmed Problem Allergic rhinitis (08126389) Chronic allergic rhinitis (J30.9) Active confirmed Problem Chronic pain (62712077) Other chronic pain (G89.29) Active confirmed Problem Senile debility (69630280) Senile debility (R54) Active confirmed Problem Primary osteoarthritis (477264825) Primary osteoarthritis involving multiple joints (M15.0) Active confirmed Problem Recurrent falls (249442994) Recurrent falls (R29.6) Active confirmed Problem Peripheral edema (40168303) Peripheral edema (R60.9) Active confirmed Problem Dry eyes due to decreased tear production (H16.229) Active confirmed Problem Inflammatory arthritis (2361836) Inflammatory arthritis (M19.90) Active confirmed Problem Rheumatoid arthritis (86931620) Rheumatoid arthritis involving multiple sites with positive rheumatoid factor (M05.79) Active confirmed Problem Degeneration of lumbar intervertebral disc (69679529) Lumbar degenerative disc disease (M51.36) Active confirmed Problem Autoimmune liver disease (740238858) 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) Active confirmed Problem Essential hypertension (63543033) Benign essential HTN (I10) Active confirmed Problem Chronic serous otitis media (19582679) Left chronic serous otitis media (H65.22) Active confirmed Problem Chronic anemia (657009746) Chronic anemia (D64.9) Active confirmed Problem Anemia of chronic disease (242285000) Anemia, chronic disease (D63.8) Active confirmed Problem Microcytic anemia (287648680) Microcytic anemia (D50.9) Active confirmed Problem Postmenopausal state (58175538) Post-menopausal (Z78.0) Active confirmed Problem Irritable bowel syndrome characterized by constipation (064160798) Irritable bowel syndrome with constipation (K58.1) Active confirmed Problem Acute exacerbation of chronic obstructive airways disease (715314610) Acute exacerbation of chronic obstructive pulmonary disease (COPD) (J44.1) Active confirmed Problem Raynaud's disease (573170238) Raynaud''s phenomenon without gangrene (I73.00) Active confirmed Problem Normal body mass index (41545185) BMI 23.0-23.9, adult (Z68.23) Active confirmed Problem Chronic obstructive pulmonary disease (20617229) COPD, mild (J44.9) Active confirmed Problem Spinal stenosis of lumbar region (54721908) Lumbar stenosis without neurogenic claudication (M48.061) Active confirmed Problem Postconcussion syndrome (46103151) Postconcussion syndrome (F07.81) Active confirmed Problem Grief (828551124) Grief (F43.21) Active confirm ed Problem Degenerative lumbar spinal stenosis (014936031) Degenerative lumbar spinal stenosis (M48.061) Active confirmed Problem Sciatica (84472326) Low back pain with neuralgia of left sciatic nerve (M54.42) Active confirmed Problem Body mass index 20-24 - normal (891310555) Body mass index [BMI] 24.0-24.9, adult (Z68.24) Active confirmed Vital Signs Heart Rate 80 /min 02/20/2025 Temperature 97.3 degrees Fahrenheit 02/20/2025 Oximetry 92 01/25/2025 Blood pressure diastolic 74 mm Hg 02/20/2025 Height 62 in 02/20/2025 Blood pressure systolic 115 mm Hg 02/20/2025 Weight 138.6 lbs 02/20/2025 BMI 25.35 kg/m2 02/20/2025 Encounters Encounter Location Date Provider Diagnosis [facility] [address] [place] [address] 12/02/2024 Provider Migration Left chronic serous otitis media H65.[address] [place], [place] [address] 02/27/[address] [place] [address] 03/06/2025 Magi Masha [facility] [address] [facility] [address] [place], [place] [address] 03/14/2024 [facility] Bullous pemphigoid L12.0 ; Skin tear of right lower leg without complication, initial encounter S81.811A and Grief F43.21 [facility] [address] [facility] [address] [place], [place] [address] 05/11/2024 Magi Flanagan Lumbago with sciatic a, right side M54.41 ; Lumbago with sciatica, left side M54.42 ; Other chronic pain G89.29 ; Pain in right knee M25.561 ; Pain in left knee M25.562 ; Recurrent falls R29.6 ; Right foot pain M79.671 ; Nasal congestion R09.81 and Dyspnea on exertion R06.09 [facility] [address] [place] [address] 10/10/2024 Magi Flanagan Infection due to hum an metapneumovirus (hMPV) B34.8 ; COPD exacerbation J44.1 ; Hyponatremia E87.1 ; Hypomagnesemia E83.42 ; Anemia, chronic disease D63.8 ; Senile debility R54 ; Yeast dermatitis B37.2 ; Depressed mood R45.89 ; Other chronic pain G89.29 and Hospital discharge follow-up Z09 [facility] [address] [place] [address] 10/17/2024 Magi Flanagan COPD exacerbation J4 4.1 ; Acute non-recurrent frontal sinusitis J01.10 ; Hyponatremia E87.1 ; Hypomagnesemia E83.42 ; Anemia, chronic disease D63.8 ; Senile debility R54 ; Yeast dermatitis B37.2 ; Depressed mood R45.89 ; Other chronic pain G89.29 and Weakness of both lower limbs R29.898 [facility] [address] [place] [address] 11/27/2024 Magi Flanagan Left chronic serous otitis media H65.22 ; Otalgia, left ear H92.02 and Dysfunction of left eustachian tube H69.[address] [place] [address] 01/25/2025 Magi Flanagan Closed nondisplaced fracture of [...] pemphigoid L12.0 and Other chronic pain G89.[address] [address] 02/06/2025 Magi Flanagan Closed nondisplaced fracture of [...] visit, subsequent Z00.00 and Depressed mood R45.[address] [address] 02/10/2025 Adelso Demarco Closed nondisplaced fracture of [...] Other insomnia G47.09 and Depressed mood R45.[address] [address] 02/20/2025 Magi Aceence Closed nondisplaced fracture of right clavicle, unspecified part of clavicle, sequela S42.001S ; Orthostatic hypotension I95.1 ; Hyponatremia E87.1 ; Chronic anemia D64.9 ; COPD, mild J44.9 ; Senile debility R54 ; Rheumatoid arthritis involving multiple sites with positive rheumatoid factor M05.79 ; Peripheral edema R60.0 ; Other insomnia G47.09 and Depressed mood R45.89 [facility] [address] [place] [address] 03/31/2024 Adelso Besson [facility] [address] [place] [address] 05/11/2024 Adelso Besson [facility] [address] [place] [address] 10/03/2024 Adelso Besson [facility] [address] [place] [address] 10/05/2024 Maig Aceence [facility] [address] [place] [address] 10/10/2024 Magi Masha [facility] [address] [place] [address] 01/24/2025 Adelso Besson [facility] [address] [place] [address] 02/01/2025 Adelso Besson [facility] [address] [place] [address] 02/13/2025 Magi Masha Assessments Encounter Date Diagnosis (ICD Code) Assessment Notes Treatment Notes Treatment Clinical Notes Section Notes 03/14/2024 Bullous pemphigoid (ICD-10 - L12.0) continue [...] to human metapneumovirus (hMPV) (ICD-10 - B34.8) 10/17/2024 COPD exacerbation (ICD-10 - J44.1) improved, nebs PRN 10/17/2024 Acute non-recurrent frontal sinusitis (ICD-10 - J01.10) 11/27/2024 Otalgia, left ear (ICD-10 - H92.02) 11/27/2024 Left chronic serous otitis media (ICD-10 - H65.22) Has had Augmentin in the past 6 weeks or so, rec trial of cefdinir but discussed that much of her pain is likely due to ETD and not actually infection...enco uraged continued FU with her car chaser and consider ENT if no relief 12/02/2024 [...] hypoxic respiratory failure (ICD-10 - J96.01) 02/10/2025 Closed nondisplaced fracture of right clavicle, [...] clavicle, sequela (ICD-10 - S42.001S) Continue therapies, again encouraged participation. Will repeat xray right clavicle next week (4 weeks post-fracture) and wean sling as tolerated Not requiring supplemental O2 Monitor blood pressures. Encouraged good hydration. Continue midodrine Agree with plan for DC later this week, likely to Personal Care/Assisted Living depending on her need for assistance 02/20/2025 Orthostatic hypotension (ICD-10 - I95.1) 02/10/2025 Orthostatic hypotension (ICD-10 - I95.1) 02/06/2025 Orthostatic hypotension (ICD-10 - I95.1) 01/25/2025 Orthostatic hypotension (ICD-10 - I95.1) 11/27/2024 Dysfunction of left eustachian tube (ICD-10 - H69.92) 10/10/2024 Hyponatremia (ICD-10 - E87.1) continue good fluid intake, electrolyte replacement. labs today. could also be secondary to cymbalta? 10/17/2024 Hyponatremia (ICD-10 - E87.1) continue good fluid intake, electrolyte replacement. stable on labs last week 05/11/2024 Other chronic pain (ICD-10 - G89.29) 03/14/2024 Grief (ICD-10 - F43.21) discussed importance of rest, nutrition, support, etc 05/11/2024 Pain in right knee (ICD-10 - M25.561) 10/10/2024 Hypomagnesemia (ICD-10 - E83.42) 10/17/2024 Hypomagnesemia (ICD-10 - E83.42) stable, improved 02/06/2025 Hyponatremia (ICD-10 - E87.1) 01/25/2025 Hyponatremia (ICD-10 - E87.1) 02/10/2025 Hyponatremia (ICD-10 - E87.1) 02/20/2025 Hyponatremia (ICD-10 - E87.1) 02/20/2025 Chronic anemia (ICD-10 - D64.9) 02/10/2025 Chronic anemia (ICD-10 - D64.9) 02/06/2025 Chronic anemia (ICD-10 - D64.9) 01/25/2025 Chronic anemia (ICD-10 - D64.9) 10/10/2024 Anemia, chronic disease (ICD-10 - D63.8) 10/17/2024 Anemia, chronic disease (ICD-10 - D63.8) 05/11/2024 Pain in left knee (ICD-10 - M25.562) 05/11/2024 Recurrent falls (ICD-10 - R29.6) encouraged to continue use of assistive devices 10/10/2024 Senile debility (ICD-10 - R54) therapies at home following 10/17/2024 Senile debility (ICD-10 - R54) therapies at home following Patient continues to be homebound due to significant pain, need for assistive device for mobility, high fall risk 01/25/2025 Hospital discharge follow-up (ICD-10 - Z09) 02/06/2025 COPD, mild (ICD-10 - J44.9) 02/10/2025 COPD, mild (ICD-10 - J44.9) 02/20/2025 COPD, mild (ICD-10 - J44.9) 02/20/2025 Senile debility (ICD-10 - R54) 02/06/2025 Senile debility (ICD-10 - R54) 02/10/2025 Senile debility (ICD-10 - R54) 01/25/2025 COPD, mild (ICD-10 - J44.9) 10/10/2024 Yeast dermatitis (ICD-10 - B37.2) 05/11/2024 Right foot pain (ICD-10 - M79.671) 10/17/2024 Yeast dermatitis (ICD-10 - B37.2) improved 10/10/2024 Depressed mood (ICD-10 - R45.89) we discussed adjusting dose of cymbalta vs changing to a different agent but no changes made today 10/17/2024 Depressed mood (ICD-10 - R45.89) we discussed adjusting dose of cymbalta, may worsen hyponatremia. she feels that her mood is improved and will improve when her daughter visits. monitor for now 05/11/2024 Nasal congestion (ICD-10 - R09.81) increase flonase to BID, humidifier in bedroom encouraged 01/25/2025 Senile debility (ICD-10 - R54) 02/06/2025 Hypothyroidism (ICD-10 - E03.9) 02/20/2025 Rheumatoid arthritis involving multiple sites with positive rheumatoid factor (ICD-10 - M05.79) No evidence of exacerbation 02/10/2025 Hypothyroidism (ICD-10 - E03.9) 02/20/2025 Peripheral edema (ICD-10 - R60.0) 01/25/2025 Hypothyroidism (ICD-10 - E03.9) 02/10/2025 Rheumatoid arthritis involving multiple sites with positive rheumatoid factor (ICD-10 - M05.79) No evidence of exacerbation 02/06/2025 Rheumatoid arthritis involving multiple sites with positive rheumatoid factor (ICD-10 - M05.79) No evidence of exacerbation 05/11/2024 Dyspnea on exertion (ICD-10 - R06.09) albuterol PRN, she does have significant smoking history 10/10/2024 Other chronic pain (ICD-10 - G89.29) cymbalta, gabapentin, continue with pain management and rheumatology 10/17/2024 Other chronic pain (ICD-10 - G89.29) cymbalta, gabapentin, continue with pain management and rheumatology 10/17/2024 Weakness of both lower limbs (ICD-10 - R29.898) multifactoral. has appt with cardiology to evaluate vasculature. known lumbar DDD with radicular pain, lymphedema 10/10/2024 Hospital discharge follow-up (ICD-10 - Z09) hospital documentation reviewed 02/10/2025 Bullous pemphigoid (ICD-10 - L12.0) No evidence of exacerbation 01/25/2025 Rheumatoid arthritis involving multiple sites with positive rheumatoid factor (ICD-10 - M05.79) 02/06/2025 Bullous pemphigoid (ICD-10 - L12.0) No evidence of exacerbation 02/20/2025 Other insomnia (ICD-10 - G47.09) Continue low-dose hydroxyzine 12.5 mg at at bedtime, she has tolerated this well in the past 02/20/2025 Depressed mood (ICD-10 - R45.89) would rather not initiate treatment with medication at this time because of her dizziness, hyponatremia, monitor 02/06/2025 Other chronic pain (ICD-10 - G89.29) 02/10/2025 Other chronic pain (ICD-10 - G89.29) 01/25/2025 Bullous pemphigoid (ICD-10 - L12.0) 02/06/2025 Peripheral edema (ICD-10 - R60.0) 01/25/2025 Other chronic pain (ICD-10 - G89.29) 02/10/2025 Peripheral edema (ICD-10 - R60.0) 02/06/2025 Other insomnia (ICD-10 - G47.09) Add low-dose hydroxyzine 12.5 mg at at bedtime, she has tolerated this well in the past 02/10/2025 Other insomnia (ICD-10 - G47.09) Add [...] agree with plans and problem list from Vinny Masha above. Overall patient seems to be making progress. Her daughter is arriving from [place] in the next week or so and there is a thought that she might be able to go home with her and rehab at home. The patient is not optimistic about this today. Of note, I discussed this with her son and [id number] who are arriving as I was leaving [...] breast 07/25/2010 Mammogram : Right Breast 07/25/2010 Venous Doppler : Lower Extremity 010 Echocardiogram 04/10/2008 Physical Therapy 02/05/2017 Physical Therapy 02/25/2024 Mammogram : Bilateral 07/13/2012 Occupational Therapy : Eval & Treatment 01/17/2016 H-CBC with AUTO DIFF 12/24/2015 H-CBC with AUTO DIFF 10/28/2017 H-CBC with AUTO DIFF 11/26/2017 H-CBC with AUTO DIFF 03/26/2016 H-VITAMIN B12 09/07/2016 H-VITAMIN B12 12/24/2015 H-CMP 12/24/2015 H-CMP 11/26/2017 H-CMP 09/07/2016 H-CMP 03/26/2016 H-CMP 06/24/2015 H-CMP 10/28/2017 H-LIPID PANEL 06/24/2015 H-TSH 06/24/2015 H-TSH 03/26/2016 H-TSH 11/26/2017 H-TSH 09/07/2016 H-TSH 10/27/2016 H-TSH 12/24/2015 H-FREE T4 03/26/2016 H-VIT D, 25-HYDROXY 09/07/2016 H-VIT D, 25-HYDROXY 06/24/2015 H-VIT D, 25-HYDROXY 12/24/2015 H-SED RATE 11/26/2017 H-HEPATITIS PROFILE (CHRONIC) 09/08/2016 M-Complete Blood Count Auto Diff 021 M-Complete Blood Count Auto Diff 018 M-Complete Blood Count Auto Diff 018 M-Erythrocyte Sedimentation Rate 018 M-Comprehensive Metabolic Panel 06/16/20 18 M-Comprehensive Metabolic Panel 04/04/20 18 M-Comprehensive Metabolic Panel 06/12/20 21 M-Thyroid Stimulating Hormone 06/12/2021 M-Thyroid Stimulating Hormone 04/04/2018 M-Thyroid Stimulating Hormone 06/16/2018 M-Vitamin B12 04/04/2018 M-Vitamin B12 06/12/2021 M-Vitamin [...] End Date [place] [address] [place] [address] [id number] Federico Vickersred Self - patient is the insured [facility] Private Company INSURANCE [address] [place] [address] [id number] Alee Hawa Self - patient is the insured [employer] [address] [place] [address] [address] [place] [address] ACL Alee Hawa Self - patient is the insured Medications [...] Pain Clinic- injections in neck and back [facility] - negative 2022 Hospitalization History Reason Date(Month/Year) [facility] - fall with fractures 12/2024 [facility] 09/2024 confusion 09/2017 stomach virus 10/2016
[2025-03-12] MEDS: METHYLPREDNISOLONE SOD SUCC 125MG VIAL 125 MG IV (10:11)
[2025-03-12] MEDS: ACETAMINOPHEN 325MG TAB 650 MG PO (10:12)
[2025-03-12] MEDS: LORATADINE 10MG TABLET 10 MG PO (10:12)
== END 2025-03-12 15:14 | disposition home or self-care (01) ==
LOC: INF 09:43
PROVIDERS: PCP Nurse Practitioner Family; Visit Provider Internal Medicine
DX: L12.0 Bullous pemphigoid (principal)
CPT/HCPCS: 96413; 96415; J2919; J7040; J9312

== ENCOUNTER 2025-03-26 10:05 | Outpatient (CLI) | payer MEDICARE, OTHER, SELFPAY ==
--- OUTSIDE RECORDS SUMMARY | 2025-03-06 09:00 | XMS_ITS ---
Author Organization [facility] Address [address] [place] [address] Care Team Providers Care Truck Crane Operator Name Role Phone Adelso Demarco Primary Care Provider Sharron Mckeon Unavailable [phone] Magi Flanagan Unavailable [phone] REASON FOR VISIT [facility] Encounters Encounter Location Date Provider Diagnosis [address] [facility] [place] [address] 03/06/2025 Magi Flanagan Plan Of Treatment Next Appt Details Provider Name:Magi calderon, 03/29/2025 02:00:00 PM, [address], [place], [place], [address], Progress Notes * Hawa HUBBARDDOB: [birth year] (89 yo F)Acc No.[id number]:03/06/2025 Home Visit Patient: Hawa ANTUNEZ Provider: BRITTANI Torres :1935 A ge:89 Y S ex:Female Date:03/06/2025 Address:[address] [place], [id number] Pcp:Adelso Demarco Subjective: * Chief Complaints: * 1 . [place] FU. * Medical History: Objective: * Vitals: Assessment: Plan: * Treatment: * * Electronic signature of Sandra Flanagan APRN on 03/26/2025 at 10:10 AM EDT Sign off status: Pending * Provider: BRITTANI Torres Date: 03/06/2025 Generated for Leroy deleon/Bhargavi on: 03/26/2025 10:10 AM EDT
--- OUTSIDE RECORDS SUMMARY | 2025-03-13 12:30 | XMS_ITS ---
Author Organization [facility] Address [address] [place], [place] [address] Care Team Providers Care Manager Bridge Name Role Phone Adelso Demarco Primary Care Provider Sharron Mckeon Unavailable [phone] Magi Flanagan Unavailable [phone] REASON FOR VISIT [facility] Encounters Encounter Location Date Provider Diagnosis [address] [facility] [place] [address] 03/13/2025 Magi Flanagan Plan Of Treatment Next Appt Details Provider Name:Magi calderon, 03/29/2025 02:00:00 PM, [address], [place], [place], [address], Progress Notes * Hawa HUBBARDDOB: [birth year] (89 yo F)Acc No.[id number]:03/13/2025 Patient: Hawa ANTUNEZ Provider: BRITTANI Torres :1935 A ge:89 Y S ex:Female Date:03/13/2025 Address:[address] [place], [place]-[address] Pcp:Adelso Demarco Subjective: * Chief Complaints: * 1 . [place] FU. * Medical History: Objective: * Vitals: Assessment: Plan: * Treatment: * * Electronic signature of Sandra Flanagan APRN on 03/26/2025 at 10:10 AM EDT Sign off status: Pending * Provider: BRITTANI Torres Date: 03/13/2025 Generated for Leroy deleon/Apoorva/Alexa on: 03/26/2025 10:10 AM EDT
--- OUTSIDE RECORDS SUMMARY | 2025-03-23 06:15 | XMS_ITS ---
Author Organization Jaylyn MARRERO PE D [facility] Address [address] [facility] [address] [facility] [address] [place] [address] Care Team Providers Care Tube Coater Name Role Phone Adelso Demarco Primary Care Provider [phone] Sharron Mckeon Unavailable [phone] Magi Flanagan Unavailable [phone] REASON FOR VISIT allergy injections Problems Problem Type SNOMED Code ICD Code Onset Dates Problem Status W/U Status Risk Notes Problem Acute seasonal allergic rhinitis (J30.2) Active confirmed Encounters Encounter Location Date Provider Diagnosis Jaylyn BROOKS [facility] [address] [facility] [address] [facility] [address] [place] [address] 03/23/2025 Magi Masha Acute seasonal allergic rhinitis J30.2 Assessments Encounter Date Diagnosis (ICD Code) Assessment Notes Treatment Notes Treatment Clinical Notes Section Notes 03/23/2025 Acute seasonal allergic rhinitis (ICD-10 - J30.2) Plan Of Treatment Next Appt Details Follow Up: prn, Reason: Provider Name:Magi Weaver ce, 03/29/2025 02:00:00 PM, [address] [facility], [address], [place], [address], Medications Administered Medication Instructions Date of Administration Dosage Notes Allergy Injection 03/23/2025 0.5 mL Mix 1 0.5mL -Lt Mix 2 0.5mL-Lt Mix 3 0.5mL-Rt Progress Notes * Hawa HUBBARD JDOB: [birth year] (89 yo F)Acc No.[id number]:03/23/2025 Patient: Hawa ANTUNEZ Provider: BRITTANI Torres :1935 A ge:89 Y S ex:Female Date:03/23/2025 Address:[address] [place], [place] [address]ATE T[place]LOR [place], [phone] Pcp:Adelso Demarco Subjective: * Chief Complaints: * 1 . Allergy injections. * Medical History: Objective: * Vitals: Assessment: * Assessment: 1. A cute seasonal allergic rhinitis - J30.2 (Primary) Plan: * Treatment: * Therapeutic Injections: Allergy Injection : 0.5 mL (Route: Subcutaneous) given by KRISTEN Toth * Procedure Codes: [id number] 5117 ALLERGY INJECTION (2 OR MORE) * Follow Up: p rn * * Sign off status: Completed true * Provider: RBITTANI Torres Date: 0 03/23/2025 Generated for Leroy deleon/Apoorva/eTransmitting on: 03/26/2025 10:11 AM EDT
[2025-03-26] VITALS (8 sets, daily range): BP systolic 105–134; BP diastolic 41–70; PULSE 70–76; RESP 18; TEMP 36.8; O2SAT 99
--- OUTSIDE RECORDS SUMMARY | 2025-03-26 10:10 | XMS_ITS | Clinical Summary ---
Author Organization [facility] Address [address] [place] [address] Care Team Providers Care Push Button Switch Assembler Name Role Phone Adelso Demarco MD Primary Care Provider + [phone] Allergies Active Allergy Reactions Criticality Noted Date Comments Fish Oil Swelling Low 01/09/2024 Quinine Derivatives Diarrhea Low 01/09/2024 Medications vitamin E 200 UNIT capsule Take 1 capsule by mouth Daily. Active aspirin 81 MG EC tablet Take 1 tablet by mouth Daily. Active Calcium Carbonate (CALCIUM 600 PO) Take 2 tablets by mouth Daily. 600 mg (1500 mg) Active magnesium cl-calcium carbonate (Slow-Mag) 71.5-119 MG tablet delayed-release tablet Take 2 tablets by mouth Daily. Active hydroCHLOROthia zide 25 MG tablet Take 1 tablet by mouth Daily. Active polyethylene glycol (MiraLax) 17 GM/SCOOP powder Take 17 g by mouth Daily. Mix with 8 oz water juice soda coffee or tea Active KONSYL DAILY PSYLLIUM FIBER PO Take by mouth As Needed. 3.5 gram/5.8 gram Active levothyroxine (SYNTHROID, LEVOTHROID) 88 MCG tablet Take 1 tablet by mouth Daily. 4 Active clobetasol (TEMOVATE) 0.05 % ointment APPLY A THIN LAYER OF OINTMENT TOPICALLY TO AFFECTED AREA AT BEDTIME NIGHTLY 4 Active triamcinolone (KENALOG) 0.1 % ointment Every 12 (Twelve) Hours. 4 Active niacin 500 MG tablet Take 1 tablet by mouth 3 (Three) Times a Day With Meals. Active omeprazole (priLOSEC) 20 MG capsule 4 Active riTUXimab (RITUXAN) 10 MG/ML solution injection Infuse into a venous catheter 1 (One) Time. 1 gram day 1 and day 15 every 6 months Active Dupilumab (Dupixent) 300 MG/2ML solution prefilled syringe Inject under the skin into the appropriate area as directed. Active hydroxychloroqu ine (PLAQUENIL) 200 MG tablet Take 1 tablet by mouth Daily. 90 tablet 1 4 Active gabapentin (NEURONTIN) 100 MG capsuleIndicati ons:Arthralgia of multiple sites Take 2-3 Capsule by Oral Route QHS for back pain/sleep 270 capsule 1 5 Active cefdinir (OMNICEF) 300 MG capsule Take 1 capsule by mouth Every 12 (Twelve) Hours. 5 Active DULoxetine (CYMBALTA) 20 MG capsule TAKE 1 CAPSULE BY MOUTH DAILY. FOR BACK PAIN 90 capsule 1 5 Active Active Problems Problem Noted Date Diagnosed Date Immunosuppression due to drug therapy 01/11/2024 Assessment & Plan (11/29/2024 1:46 PM EDT): Remicade QuantiFERON hepatitis panel were both negative 12/19 No serious infections. Well tolerated and effective I discussed the side effects of hydroxychloroquine including but not limited to GI upset, rash, photosensitivity, Hematologic and liver abnormalities and ocular abnormalities and need for frequent eye exam for toxicity monitoring. High risk medication use 01/11/2024 Assessment & Plan (11/29/2024 1:46 PM EDT): Remicade, Plaquenil. Labs every 4 months for monitoring. No side effects. We discussed biologic agents at length. Risks and alternatives were discussed at length and the option of no treatment was also given. We discussed risks including but not limited to infections which can be unusual, severe, and deadly. When possible, these agents should be stopped immediately if infections occur. Unusual infection such as TB and fungal infections can occur. There may be an increased risk of lymphoma with these agents. Other risks can include a multiple sclerosis-like illness and worsening of heart failure. Infusion or injection reactions which can be deadly have been reported. Studies on have not been done so should be avoided while on these agents. Reactivation of a deadly brain virus and hepatitis viruses have been reported. Worsening of COPD has been seen with orencia. Elevated lipids, elevation in liver functions, and dangerous changes in blood counts have been seen with certain agents. Regular monitoring will be required. SHAINA positive 01/11/2024 Assessment & Plan (11/29/2024 1:47 PM EDT): and +SSA. 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 DEXA scan with PCP. On once yearly Reclast per PCP. This is well tolerated. She reports last DEXA with PCP has been within last two years. History of steroid use related to treatment of autoimmune hepatitis and RA She had Reclast this year. She reports that her DEXA was stable. Encounter for chronic pain management 01/11/2024 Assessment & Plan (11/29/2024 1:47 PM EDT): Gabapentin well tolerated and effective No signs of abuse or diversion Other fatigue 01/11/2024 Autoimmune hepatitis 01/11/2024 Assessment & Plan (11/29/2024 1:47 PM EDT): dr raymundo oliveira GI +SHAINA, +SSA Apparently diagnosed many years ago and went into remission for a while after long-term steroids.. History of. No clinical evidence of liver disease presently. Avoid potentially hepatotoxic medication like methotrexate. Previously treated with steroids. No prior liver biopsy Bullous pemphigoid 01/11/2024 Rheumatoid arthritis involvi ng multiple sites with positive rheumatoid factor 01/09/2024 Overview (01/09/2024): 07/06/2019 Assessment & Plan (11/29/2024 1:45 PM EDT): RA onset February 2018 ++ rheumatoid factor and positive CCP antibody >250 dating back to 2013 Avoid methotrexate with history of autoimmune hepatitis Current: Plaquenil start July 2018 *Remicade start August 2018 at [facility] (does not drive in [place]) Grandson on Remicade for ulcerative colitis In remission from rheumatoid arthritis standpoint. SJC 0. TJC 0 . Good prognosis Remicade and Plaquenil well tolerated and effective. No side effects. Eye exams have been fine on the Plaquenil. Plan is to continue Plaquenil qd and Remicade IV every 6 weeks. She will have this done soon. She is infused at [facility]. Labs for monitoring every 3-4 months. Yearly eye exam for Plaquenil monitoring Follow-up in 4 months Encounters Date Type Department Care Team Description 12/28/[address] [facility] [address] [address] Reynaldo Jules MD from Last 3 Months Immunizations Immunization Administration Dates Next Due COVID-19 (UNSPECIFIED) 11/06/2020,10/09/2020 Influenza, Unspecified 06/03/2020,06/20/2019 Family History Medical History Relation Name Comments Arthritis Father Heart disease Father Arthritis Other family history Diabetes Other family history Ulcerative colitis Son Relation Name Status Comments Father Other family history Son Social History Tobacco Use Types Packs/Day Years Used Date Smoking Tobacco: Former Cigarettes Smokeless Tobacco: Never Tobacco Cessation:Counseling Given: Not Answered Alcohol Use Standard Drinks/Week Comments Yes 0 (1 standard drink = 0.6 oz pur e alcohol) consumes rarely Comments Unknown Sex and Gender Information Value Date Recorded Sex Assigned at Not on file Legal Sex Female 8:35 AM EDT Gender Identity Not on file Sexual Orientation Not on file Last Filed Vital Signs Vital Sign Reading Time Taken Comments Blood Pressure 100/90 12/01/2024 8:37 AM EDT Pulse 63 12/01/2024 8:37 AM EDT Temperature 36.3 C (97.3 F) 12/01/2024 8:37 AM EDT Respiratory Rate - - Oxygen Saturation - - Inhaled Oxygen Concentration - - Weight 61.7 kg (136 lb) 12/01/2024 8:37 AM EDT Height 157.5 cm (5' 2 ) 12/01/2024 8:37 AM EDT Body Mass Index 24.87 12/01/2024 8:37 AM EDT Plan of Treatment Upcoming Encounters Date Type Department Care Team (Late st Contact Info) Description 04/10/2025 9:45 AM EDT Office Visit [facility] [address] [place] [address] Pool Campos APRN [address] [facility] [address] [place] [address] Health Maintenance Due Date Last Done Comments RSV Vaccine - Adults (1 - 1- dose 75+ series) 2012 Pneumococcal Vaccine 50+ (2 of 2 - PPSV23) 11/23/2016 09/28/2016 ZOSTER VACCINE (2 of 2) 09/27/2018 08/02/2018 ANNUAL WELLNESS VISIT 01/09/2024 COVID-19 Vaccine (9 - Mixed Product risk season) 2024 06/23/2024, 05/27/2022, 12/18/2021, Additional history exists INFLUENZA VACCINE 05/30/2025 06/23/2024, , 06/01/2022, Additional history exists DXA SCAN 01/08/2026 01/09/2024 TDAP/TD VACCINES (2 - Td or Tdap) 09/06/2031 022 Procedures Procedure Name Priority Date/Time Associated Diagnosis Comments HM DEXA SCAN Routine 01/09/2024 1:38 PM EDT from Last 3 Months or Most Recently Relevant to Health Maintenance Results * HM DEXA SCAN (01/09/2024 1:38 PM EDT) Anatomical Region Laterality Modality Other Historical Provider HEALTH MAINTENANCE Final Result from Last 3 Months or Most Recently Relevant to Health Maintenance Insurance [facility] [place] [id number] [employer] MEDICARE A & B Care Teams Push Button Switch Assembler Relationship Specialty Start Date End Date Adelso Demarco MD [facility] [address] [place] [address] PCP - General Adolescent Medicine 04/06/24
--- OUTSIDE RECORDS SUMMARY | 2025-03-26 10:11 | XMS_ITS | Patient Health Record ---
Author Organization [facility] Address [address] [place] [address] Care Team Providers Care Water Restoration Technician Name Role Phone Adelso Demarco Primary Care Provider NestorLucíaSharron nguyen Unavailable [phone] Angel Flanaganah Unavailable [phone] Migration, Provider Unavailable Unavailable Allergies Allergen (clinical drug ingredient) Drug/Non Drug Allergy documented on EMR Reaction Allergy Type Onset Date Status Fish Oil Unknown Drug Allergy Active quinine quiNINE Unknown Drug Allergy Active Results Component Value Reference Range Notes M-Basic Metabolic Panel Reviewed date:01/27/2025 07:39:49 PM Interpretation: Performing Lab: Notes/Report: NA 128 136-145 mmol/L K 3.5 3.5-5.1 mmoL/L CL 95 98-107 mmol/L CO2 28 22.0-30.0 mmol/L GAP 8.5 5-15 mEq/L BUN 29 7-17 mg/dl CREATT 0.90 0.52-1.04 mg/dl GFRAA 72 >60 ML/MIN EGFR 59 >60 ml/min GLU 92 74-100 mg/dl CA 8.5 8.4-10.2 mg/dl M-Manual Differential Reviewed date:01/27/2025 07:39:06 PM Interpretation: [...] PLT 194 142-424 K/mm3 Delta: 143 on 01/25/25-620 MPV 10.7 7.4-10.4 fl NE% 71.9 37.0-80.0 % LY% 11.0 10-50 % MO% 13.5 1.7-9.3 % EO% 2.7 0.1-12.0 % BA% 0.3 0.1-2.0 % NE# 8.5 1.8-7.8 K/mm3 LY# 1.3 0.7-4.5 K/mm3 MO# 1.6 0.1-1.0 K/mm3 EO# 0.3 0.0-0.4 Kmm3 BA# 0.0 0-0.2 K/mm3 RDW-SD 50.2 NRBC% 0.3 IG% 0.6 NRBC# 0.03 IG# 0.07 X ray : Clavicle Reviewed date:02/27/2025 07:14:34 PM Interpretation: Performing Lab: Notes/Report: X ray : Spines, Lumbosacral Reviewed date:05/16/2024 09:55:13 AM Interpretation: Performing Lab: Notes/Report: X ray : Knee, Right Reviewed date:05/16/2024 09:55:47 AM Interpretation: Performing Lab: Notes/Report: X ray : Foot, Right Reviewed date:05/14/2024 05:23:01 PM Interpretation: Performing Lab: Notes/Report: CBC (INCLUDES DIFF/PLT) (639 9) Reviewed date:10/13/2024 01:47:10 PM Interpretation: Performing Lab:CB, [facility] [id number], [facility] Brett Jewell Notes/Report: NON-FASTING; NON-FASTING; NON-FASTING WHITE [...] MPV 10.0 7.5-12.5 fL ABSOLUTE NEUTROPHILS 7741 0516-9041 cells/uL ABSOLUTE LYMPHOCYTES 9555 025-4948 cells/uL ABSOLUTE MONOCYTES 2045 200-950 cells/uL ABSOLUTE EOSINOPHILS 102 15-500 cells/uL ABSOLUTE BASOPHILS 34 0-200 cells/uL NEUTROPHILS 68.5 LYMPHOCYTES 12.2 MONOCYTES 18.1 EOSINOPHILS 0.9 BASOPHILS 0.3 MAGNESIUM (622) Reviewed date:10/13/2024 01:47:10 PM Interpretation: Performing Lab:C[facility]LE [employer] [address]vi[address] Mittel Jebbit, [facility] Brett Jewell Notes/Report: NON-FASTING; NON-FASTING; NON-FASTING MAGNESIUM 1.8 1.5-2.5 mg/dL BASIC METABOLIC PANEL (14773 ) Reviewed date:10/13/2024 01:56:33 PM Interpretation: Performing Lab:CHELLE [facility] [address] Mitt[address]ebbit, [facility] Brett Jewell Notes/Report: NON-FASTING; NON-FASTING; NON-FASTING GLUCOSE [...] review and pick correct strength-formulat ion from Personal[employer] options. If intended option is not shown, discontinue and re-order from Quick Search* Active Plaquenil 200 MG 1 tab(s) orally once a day; Duration: 30 day(s) Active Calcium 600 + D 600 MG-800 INTL UNITS 1 TAB(S) ORALLY 2 TIMES A DAY; Duration: 30 DAY(S) *Please review and pick correct strength-formulat ion from Personalis options. If intended option is not shown, discontinue and re-order from Quick Search* Active Dupilumab 200 MG/1.14 ML 1.14 ML SUBCUTANEOUSLY EVERY 2 WEEKS *Please review and pick correct strength-formulat ion from Personalis options. If intended option is not shown, [...] Vaccine Route Administration Date Status Comme nts SHINGRIX IM Intramuscular 08/02/2018 Administered Prevnar PCV-13 (Pneumococcal conjugate 13) IM Intramuscular 09/28/2016 Administered Pneumovax 23 IM Intramuscular 06/24/2015 Administered Influenza (Fluzone)--Medicare only IM Intramuscular 05/13/2018 Administered Hep A Adult 2 Dose IM Intramuscular 08/02/2018 Administere d Fluzone High Dose IM Intramuscular 06/01/2023 Administered Covid Moderna Unknown 09/06/2020 Administered Covid Moderna Unknown 10/08/2020 Administered Covid Moderna Unknown 05/14/2021 Administered Problems Problem Type SNOMED Code ICD Code Onset Dates Problem Status W/U Status Risk Notes Problem Disorder of immune function (352392648) Disorder involving the immune mechanism, unspecified (D89.9) Active confirmed Problem Hypomagnesemia (809879659) Hypomagnesemia (E83.42) Active confirmed Problem Insomnia (204874151) Other insomnia (G47.09) Active confirmed Problem Gastro-esophageal reflux disease without esophagitis (726907423) Gastro-esophageal reflux disease without esophagitis (K21.9) Active confirmed Problem Slow transit constipation (01602392) Slow transit constipation (K59.01) Active confirmed Problem Bullous pemphigoid (90355712) Bullous pemphigoid (L12.0) Active confirmed Problem Localized, primary osteoarthritis of the shoulder region (289823070) Primary osteoarthritis, right shoulder (M19.011) Active confirmed Problem Localized, primary osteoarthritis of the shoulder region (523711141) Primary osteoarthritis, left shoulder (M19.012) Active confirmed Problem Sciatica (53874530) Lumbago with sciatica, right side (M54.41) Active confirmed Problem Sciatica (70095947) Lumbago with sciatica, left side (M54.42) Active confirmed Problem Vitamin B12 deficiency (904815206) Vitamin B12 deficiency (E53.8) Active confirmed Problem Hypothyroidism (35414229) Hypothyroidism (E03.9) Active confirmed Problem Venous insufficiency of leg (disorder) (067018020) Venous insufficiency (I87.2) Active confirmed Problem Osteoporosis (43883636) Osteoporosis (M81.0) Active confirmed Problem Essential hypertension (95915453) Essential hypertension (I10) Active confirmed Problem Osteoarthritis (044225089) Arthritis of hand (M19.90) Active confirmed Problem Acute exacerbation of chronic obstructive airways disease (888083981) COPD exacerbation (J44.1) Active confirmed Problem Mammography abnormal (474626456) Abnormal mammogram of right breast (R92.8) Active confirmed Problem Allergic rhinitis (29607302) Chronic allergic rhinitis (J30.9) Active confirmed Problem Chronic pain (67583891) Other chronic pain (G89.29) Active confirmed Problem Senile debility (33381025) Senile debility (R54) Active confirmed Problem Primary osteoarthritis (954959164) Primary osteoarthritis involving multiple joints (M15.0) Active confirmed Problem Recurrent falls (244068229) Recurrent falls (R29.6) Active confirmed Problem Peripheral edema (23155534) Peripheral edema (R60.9) Active confirmed Problem Dry eyes due to decreased tear production (H16.229) Active confirmed Problem Inflammatory arthritis (4590550) Inflammatory arthritis (M19.90) Active confirmed Problem Rheumatoid arthritis (52138622) Rheumatoid arthritis involving multiple sites with positive rheumatoid factor (M05.79) Active confirmed Problem Degeneration of lumbar intervertebral disc (64641453) Lumbar degenerative disc disease (M51.36) Active confirmed Problem Autoimmune liver disease (147486874) 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) Active confirmed Problem Essential hypertension (41855717) Benign essential HTN (I10) Active confirmed Problem Chronic serous otitis media (12057296) Left chronic serous otitis media (H65.22) Active confirmed Problem Chronic anemia (527565392) Chronic anemia (D64.9) Active confirmed Problem Anemia of chronic disease (045653542) Anemia, chronic disease (D63.8) Active confirmed Problem Microcytic anemia (308331782) Microcytic anemia (D50.9) Active confirmed Problem Postmenopausal state (16579564) Post-menopausal (Z78.0) Active confirmed Problem Irritable bowel syndrome characterized by constipation (339315880) Irritable bowel syndrome with constipation (K58.1) Active confirmed Problem Acute exacerbation of chronic obstructive airways disease (252329309) Acute exacerbation of chronic obstructive pulmonary disease (COPD) (J44.1) Active confirmed Problem Seasonal allergic rhinitis (559610623) Acute seasonal allergic rhinitis (J30.2) Active confirmed Problem Raynaud's disease (860793775) Raynaud''s phenomenon without gangrene (I73.00) Active confirmed Problem Normal body mass index (23979938) BMI 23.0-23.9, adult (Z68.23) Active confirmed Problem Chronic obstructive pulmonary disease (59694529) COPD, mild (J44.9) Active confirmed Problem Spinal stenosis of lumbar region (75812577) Lumbar stenosis without neurogenic claudication (M48.061) Active confirmed Problem Postconcussion syndrome (75531164) Postconcussion syndrome (F07.81) Active confirmed Problem Grief (551493832) Grief (F43.21) Active confirm ed Problem Degenerative lumbar spinal stenosis (686483608) Degenerative lumbar spinal stenosis (M48.061) Active confirmed Problem Sciatica (22373709) Low back pain with neuralgia of left sciatic nerve (M54.42) Active confirmed Problem Body mass index 20-24 - normal (664180663) Body mass index [BMI] 24.0-24.9, adult (Z68.24) Active confirmed Vital Signs Heart Rate 80 /min 02/20/2025 Temperature 97.3 degrees Fahrenheit 02/20/2025 Oximetry 92 01/25/2025 Blood pressure diastolic 74 mm Hg 02/20/2025 Height 62 in 02/20/2025 Blood pressure systolic 115 mm Hg 02/20/2025 Weight 138.6 lbs 02/20/2025 BMI 25.35 kg/m2 02/20/2025 Encounters Encounter Location Date Provider Diagnosis [facility] [address] [facility] [address] [place] [address] 12/02/2024 Provider Migration Left chronic serous otitis media H65.[address] [address] 02/27/[address] [address] 03/06/[address] [address] 03/13/2025 [facility] [address] [facility] [address] [place] [address] 05/11/2024 [facility] Lumbago with sciatic a, right side M54.41 ; Lumbago with sciatica, left side M54.42 ; Other chronic pain G89.29 ; Pain in right knee M25.561 ; Pain in left knee M25.562 ; Recurrent falls R29.6 ; Right foot pain M79.671 ; Nasal congestion R09.81 and Dyspnea on exertion R06.09 [facility] [address] [place] [address] 10/10/2024 Magi Flanagan Infection due to hum an metapneumovirus (hMPV) B34.8 ; COPD exacerbation J44.1 ; Hyponatremia E87.1 ; Hypomagnesemia E83.42 ; Anemia, chronic disease D63.8 ; Senile debility R54 ; Yeast dermatitis B37.2 ; Depressed mood R45.89 ; Other chronic pain G89.29 and Hospital discharge follow-up Z09 [facility] [address] [place] [address] 10/17/2024 Magi Flanagan COPD exacerbation J4 4.1 ; Acute non-recurrent frontal sinusitis J01.10 ; Hyponatremia E87.1 ; Hypomagnesemia E83.42 ; Anemia, chronic disease D63.8 ; Senile debility R54 ; Yeast dermatitis B37.2 ; Depressed mood R45.89 ; Other chronic pain G89.29 and Weakness of both lower limbs R29.898 [facility] [address] [place] [address] 11/27/2024 Magi Flanagan Left chronic serous otitis media H65.22 ; Otalgia, left ear H92.02 and Dysfunction of left eustachian tube H69.[address] [address] 01/25/2025 Magi Flanagan Closed nondisplaced fracture of [...] pemphigoid L12.0 and Other chronic pain G89.[address] [address] 02/06/2025 Magi Flanagan Closed nondisplaced fracture of [...] visit, subsequent Z00.00 and Depressed mood R45.[address] [address] 02/10/2025 Adelso Demarco Closed nondisplaced fracture of [...] Other insomnia G47.09 and Depressed mood R45.[address] [address] 02/20/2025 Magi Flanagan Closed nondisplaced fracture of right clavicle, unspecified part of clavicle, sequela S42.001S ; Orthostatic hypotension I95.1 ; Hyponatremia E87.1 ; Chronic anemia D64.9 ; COPD, mild J44.9 ; Senile debility R54 ; Rheumatoid arthritis involving multiple sites with positive rheumatoid factor M05.79 ; Peripheral edema R60.0 ; Other insomnia G47.09 and Depressed mood R45.89 [facility] [address] [place] [address] 03/23/2025 Magi Aceence Acute seasonal aller gic rhinitis J30.2 [facility] [address] [place] [address] 03/31/2024 Adelso Besson [facility] [address] [place] [address] 05/11/2024 Adelso Besson [facility] [address] [place] [address] 10/03/2024 Adelso Besson [facility] [address] [place] [address] 10/05/2024 Magi Aceence [facility] [address] [place] [address] 10/10/2024 Magi Aceence [facility] [address] [place] [address] 01/24/2025 Adelso Besson [facility] [address] [facility] [address] [place] [address] 02/01/2025 Adelso Besson [facility] [address] [place] [address] 02/13/2025 Magi Aceence [facility] [address] [place] [address] 03/21/2025 Magi Aceence Assessments Encounter Date Diagnosis (ICD Code) Assessment Notes Treatment Notes Treatment Clinical Notes Section Notes 05/11/2024 Lumbago with sciatica, right side (ICD-10 [...] human metapneumovirus (hMPV) (ICD-10 - B34.8) 10/17/2024 Acute non-recurrent frontal sinusitis (ICD-10 - J01.10) 10/17/2024 COPD exacerbation (ICD-10 - J44.1) improved, nebs PRN 11/27/2024 Otalgia, left ear (ICD-10 - H92.02) 11/27/2024 Left chronic serous otitis media (ICD-10 - H65.22) Has had Augmentin in the past 6 weeks or so, rec trial of cefdinir but discussed that much of her pain is likely due to ETD and not actually infection...enco uraged 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 and consider ENT if no relief 12/02/2024 [...] Living depending on her need for assistance 03/23/2025 Acute seasonal allergic rhinitis (ICD-10 - J30.2) 02/20/2025 Orthostatic hypotension (ICD-10 - I95.1) 02/10/2025 [...] 05/11/2024 Other chronic pain (ICD-10 - G89.29) 05/11/2024 Pain in right knee (ICD-10 - M25.561) 10/10/2024 Hypomagnesemia (ICD-10 - E83.42) 10/17/2024 Hypomagnesemia (ICD-10 - E83.42) stable, improved 01/25/2025 Hyponatremia (ICD-10 - E87.1) 02/10/2025 Hyponatremia (ICD-10 - E87.1) 02/06/2025 Hyponatremia (ICD-10 - E87.1) 02/20/2025 Hyponatremia (ICD-10 [...] (ICD-10 - R54) therapies at home following 01/25/2025 Hospital discharge follow-up (ICD-10 - Z09) 10/17/2024 Senile debility (ICD-10 - R54) therapies at home following Patient continues to be homebound due to significant pain, need for assistive device for mobility, high fall risk 02/06/2025 COPD, mild (ICD-10 - J44.9) 02/10/2025 COPD, mild (ICD-10 - J44.9) 02/20/2025 COPD, mild (ICD-10 - J44.9) 02/20/2025 Senile debility (ICD-10 - R54) 02/10/2025 Senile debility (ICD-10 - R54) 02/06/2025 Senile debility (ICD-10 - R54) 01/25/2025 COPD, mild (ICD-10 - J44.9) 10/17/2024 Yeast dermatitis (ICD-10 - B37.2) improved 05/11/2024 Right foot pain (ICD-10 - M79.671) 10/10/2024 Yeast dermatitis (ICD-10 - B37.2) 05/11/2024 Nasal congestion (ICD-10 - R09.81) increase [...] when her daughter visits. monitor for now 02/06/2025 Hypothyroidism (ICD-10 - E03.9) 01/25/2025 Senile debility (ICD-10 - R54) 02/10/2025 Hypothyroidism (ICD-10 - E03.9) 02/20/2025 Rheumatoid arthritis involving multiple sites with positive rheumatoid factor (ICD-10 - M05.79) No evidence of exacerbation 02/10/2025 Rheumatoid arthritis involving multiple sites with positive rheumatoid factor (ICD-10 - M05.79) No evidence of exacerbation 02/20/2025 Peripheral edema (ICD-10 - R60.0) 01/25/2025 Hypothyroidism (ICD-10 - E03.9) 02/06/2025 Rheumatoid arthritis involving multiple sites with positive rheumatoid factor (ICD-10 - M05.79) No evidence of exacerbation 10/17/2024 Other chronic pain (ICD-10 - G89.29) cymbalta, gabapentin, continue with pain management and rheumatology 10/10/2024 Other chronic pain (ICD-10 - G89.29) cymbalta, gabapentin, continue with pain management and rheumatology 05/11/2024 Dyspnea on exertion (ICD-10 - R06.09) albuterol PRN, she does have significant smoking history 10/17/2024 Weakness of both lower limbs (ICD-10 [...] time because of her dizziness, hyponatremia, monitor 01/25/2025 Bullous pemphigoid (ICD-10 - L12.0) 02/10/2025 Other chronic pain (ICD-10 - G89.29) 02/06/2025 Other chronic pain (ICD-10 - G89.29) 02/06/2025 Peripheral edema (ICD-10 - R60.0) 01/25/2025 [...] making progress. Her daughter is arriving from [place] in the next week or so and there is a thought that she might be able to go home with her and rehab at home. The patient is not optimistic about this today. Of note, I discussed this with her son and [id number] who are arriving as I was leaving [...] Name Order Date X ray : Chest 06/26/2008 X ray : Chest 02/29/2008 X ray : Knee, Left 05/11/2024 Mammogram : Left breast 07/25/2010 Mammogram : Right Breast 07/25/2010 Venous Doppler : Lower Extremity 010 Echocardiogram 04/10/2008 Physical Therapy 02/25/2024 Physical Therapy 02/05/2017 Mammogram : Bilateral 07/13/2012 Occupational Therapy : Eval & Treatment 01/17/2016 H-CBC with AUTO DIFF 10/28/2017 H-CBC with AUTO DIFF 12/24/2015 H-CBC with AUTO DIFF 11/26/2017 H-CBC with AUTO DIFF 03/26/2016 H-VITAMIN B12 09/07/2016 H-VITAMIN B12 12/24/2015 H-CMP 10/28/2017 H-CMP 12/24/2015 H-CMP 11/26/2017 H-CMP 09/07/2016 H-CMP 06/24/2015 H-CMP 03/26/2016 H-LIPID PANEL 06/24/2015 H-TSH 06/24/2015 H-TSH 03/26/2016 H-TSH 11/26/2017 H-TSH 09/07/2016 H-TSH 12/24/2015 H-TSH 10/27/2016 H-FREE T4 03/26/2016 H-VIT D, 25-HYDROXY 06/24/2015 H-VIT D, 25-HYDROXY 12/24/2015 H-VIT D, 25-HYDROXY 09/07/2016 H-SED RATE 11/26/2017 H-HEPATITIS PROFILE (CHRONIC) 09/08/2016 M-Complete Blood Count Auto Diff 018 M-Complete Blood Count Auto Diff 018 M-Complete Blood Count Auto Diff 021 M-Erythrocyte Sedimentation Rate 018 M-Comprehensive Metabolic Panel 06/16/20 18 M-Comprehensive Metabolic Panel 06/12/20 21 M-Comprehensive Metabolic Panel 04/04/20 18 M-Thyroid Stimulating Hormone 04/04/2018 M-Thyroid Stimulating Hormone 06/12/2021 M-Thyroid Stimulating Hormone 06/16/2018 M-Vitamin B12 06/12/2021 M-Vitamin B12 04/04/2018 M-Vitamin B12 12/12/2020 M-Vitamin D 25 Hydroxy 12/12/2020 M-Vitamin D 25 Hydroxy 04/04/2018 M-Vitamin D 25 Hydroxy 06/12/2021 Future Test Test Name Order Date DEXA Hip and Spine - Screening 1 H-CBC with AUTO DIFF 04/11/2012 H-VITAMIN B12 04/11/2012 H-CMP 04/11/2012 H-MAGNESIUM 04/11/2012 H-LIPID PANEL 04/11/2012 H-TSH 04/11/2012 H-VIT D, 25-HYDROXY 04/11/2012 M-Complete Blood Count Auto Diff 019 M-Ferritin 06/29/2019 M-Folate 06/29/2019 M-Iron and TIBC 06/29/2019 Next Appt Details Provider Name:Magi Weaver yumiko, 03/29/2025 02:00:00 PM, [address] [facility] [address] [facility], [address], [place], [address], Insurance Providers Payer Name Payer Address Payer Phone Subscriber Number Group Number Insured Name Patient Relationship to Insured Coverage Start Date Coverage End Date [place] [address] [place] [address] [id number] Hawa Vickers Self - patient is the insured [facility] [employer] [address] [place] [id number] Federico Vickersred Self - patient is the insured [employer] [address] [place] [address] [address] [place] [address] ACL Alee Hawa Self - patient is the insured Medications Administered Medication Instructions Date of Administration Dosage Notes Allergy Injection 03/23/2025 0.5 mL Mix 1 0.5mL -Lt Mix 2 0.5mL-Lt Mix 3 0.5mL-Rt Dexamethasone 4mg Injection 05/12/2023 4 mg Dexamethasone [...] Pain Clinic- injections in neck and back [facility] - negative 2022 Hospitalization History Reason Date(Month/Year) [facility] - fall with fractures 12/2024 [facility] 09/2024 confusion 09/2017 stomach virus 10/2016
--- OUTSIDE RECORDS SUMMARY | 2025-03-26 10:11 | XMS_ITS | Clinical Summary ---
Author Organization [facility] Address [address] [place] [address] Care Team Providers Care Trestle Mainternance Laborer Name Role Phone Adelso Demarco MD Primary Care Provider [phone] Social History Tobacco Use Types Packs/Day Years [...] UKY-Zoster Vaccines (2 of 2) 09/27/2018 08/02/2018 [id number] Vaccine ( season) 2024 05/27/2022, 12/18/2021, 05/14/2021, [...] age to complete this topic Care Teams Trestle Mainternance Laborer Relationship Specialty Start Date End Date Adelso Demarco MD [address] [facility] [address] [place] [address] PCP - General 01/10/21
[2025-03-26] MEDS: METHYLPREDNISOLONE SOD SUCC 125MG VIAL 125 MG IV (10:24)
[2025-03-26] MEDS: ACETAMINOPHEN 325MG TAB 650 MG PO (10:25)
[2025-03-26] MEDS: LORATADINE 10MG TABLET 10 MG PO (10:25)
== END 2025-03-26 15:25 | disposition home or self-care (01) ==
LOC: INF 10:06
PROVIDERS: PCP Nurse Practitioner Family; Visit Provider Internal Medicine
DX: L12.0 Bullous pemphigoid (principal)
CPT/HCPCS: 96413; 96415; J2919; J7040; J9312

== ENCOUNTER 2025-08-07 09:34 | Day surgery (SDC) | payer MEDICARE, OTHER, SELFPAY ==
[2025-08-07 09:47] VITALS: BP 150/75; PULSE 66; RESP 16; O2SAT 96; BMI 25.6
[2025-08-07] MEDS: LIDOCAINE 1% 5ML PF VIAL 5 ML (09:56)
[2025-08-07] MEDS: BUPIVACAINE 0.25% 10ML INJ 25 MG IJ (09:56)
[2025-08-07] MEDS: DEXAMETHASONE 10MG/ML 1ML VIAL 10 MG (09:56)
[2025-08-07 09:59] VITALS: BP 157/83; PULSE 75; RESP 18; O2SAT 95
[2025-08-07 10:00] VITALS: BP 157/83; PULSE 75; RESP 18; O2SAT 95
--- NOTE | 2025-08-07 10:12 | P.PCN_ITS ---
Procedure Date: 08/07/25 Time: 10:00 Anesthesiologist:: Quinten Cline CRNA Complications:: None Pre-procedure Diagnosis:: Bilateral sacroiliitis Post-procedure Diagnosis:: Same Indications for Procedure:: Patient is a very pleasant 89-year-old female comes our clinic today for bilater al sacroiliac joint injection of cortisone local anesthetic. Patient describes low lumbar back pain as well as bilateral posterior hip pain. Difficulty transitioning from sitting to standing. Difficulty with ambulation due to low back pain. She rates her pain 7/10. Procedure Details:: Procedure: Bilateral sacroiliac joint injections under fluoroscopy Informed consent was obtained and the risks and benefits of the procedure were explained to the patient.~ The patient was taken to the procedure room and noninvasive monitors were placed including a noninvasive blood pressure cuff and pulse oximeter.~ The patient was placed prone on the procedure table. Both hips were cleansed using Betadine as a cleansing solution. C-arm fluoroscopy was used to view the right sacroiliac joint.~ The skin and subcutaneous tissues were anesthetized using lidocaine 1.5% and a 25-gauge needle.~ After this, a 22-gauge spinal needle was inserted under fluoroscopic guidance into the inferior aspect of the right sacroiliac joint.~ Omnipaque dye was injected and good spread was seen throughout the joint.~ After this, approximately 5 mL of bupivacaine, 0.25% and dexamethasone 5 mg was incrementally injected into the right sacroiliac joint. We then moved to the left sacroiliac joint.~ The skin and subcutaneous tissues were anesthetized using lidocaine 1.5% and a 25-gauge needle.~ After this, a 22- gauge spinal needle was inserted under fluoroscopic guidance into the inferior aspect of the left sacroiliac joint.~ Omnipaque dye was injected and good spread was seen throughout the joint. After this, approximately 5 mL of bupivacaine, 0.25% and dexamethasone 5 mg was incrementally injected into the left sacroiliac joint.~ The patient tolerated the procedure well with no complications. The patient was observed in the Pain Clinic and then was discharged home neurologically intact. Plan and Disposition:: patient was discharged without incident.
[2025-08-07 10:15] VITALS: BP 155/85; PULSE 72; RESP 16; O2SAT 95
== END 2025-08-07 10:15 | disposition home or self-care (01) ==
PROVIDERS: PCP Nurse Practitioner Family; Visit Provider Nurse Anesthetist, Certified Registered
DX: M46.1 Sacroiliitis, not elsewhere classified (principal); J44.9 Chronic obstructive pulmonary disease, unspecified; K21.9 Gastro-esophageal reflux disease without esophagitis; I10 Essential (primary) hypertension; E03.9 Hypothyroidism, unspecified; M06.9 Rheumatoid arthritis, unspecified; Z86.73 Personal history of transient ischemic attack (TIA), and cerebral infarction without residual deficits; Z98.890 Other specified postprocedural states; Z98.51 Tubal ligation status; Z87.891 Personal history of nicotine dependence; Z91.018 Allergy to other foods; Z88.8 Allergy status to other drugs, medicaments and biological substances; Z79.899 Other long term (current) drug therapy; Z79.890 Hormone replacement therapy; I73.00 Raynaud's syndrome without gangrene
CPT/HCPCS: G0260; J0665; J1100; J2003